=== PATIENT | female | born 1940 | race Caucasian/White ===

== ENCOUNTER 2022-06-01 10:30 | Outpatient (RCR) | payer MEDICARE, OTHER, SELFPAY ==
--- NOTE | 2022-03-09 19:37 | PT.OPEX ---
PT [place] Outpatient Eval PT [facility] Outpatient Eval Start: 03/09/22 15:54 Freq: Status: Active Protocol: Document 03/09/22 15:54 NMK (Rec: 03/09/22 17:13 NMK [id number]) E-Signed By Aramis Lindsey DPT Physical Therapy Outpatient Evaluation Insurance Information Recert Due Date 06/01/22 Insurance Name Medicare B Medical Diagnosis Other abnormalities of gait and mobility; Multifactorial gait disorder Treating Diagnosis Generalized weakness; Physical Deconditioning; Impaired balance Referring MD Reed, Unique Starkey MD Subjective Subjective 81 y.o. female pt presents with primary c/o balance and strength issues that have been progressively worsening over the past couple of years. She has extensive cardiac history including A-fib and ablation surgery in 2019. After she went home from surgery, but woke up in the middle of the night with significant swelling in her legs due to a nicked artery in her leg and could not move her leg. Since this time, she has had issues with balance and strength in her LE. She presents today walking with a cane, and states she is always using a cane when she is at home. She is leaving alone at this time and does have difficulty getting around her home because of her weak legs and poor balance. She reports she sleeps in a lift recliner at home. Her main issues and concern at this time is that she has weakness and poor balance, and feels her walking is significantly impacted by this. PMH significant for: A-fib; Pacemaker; Arthritis, Osteoporosis PSH significant for: Ablation and pacemaker in 2019 Current Work Status Retired Precautions Treatment Precautions/Contraindications Osteoporosis; Pacemaker; A-fib Therapy Limitations/Systems Review Not Limited Objective Other/Pertinent Objective 30 STS: 8 6 MWT: 616 feet Balance Romberg WBOS: 30+ seconds Romberg WBOS + EC: 4 seconds MMT: L/R Hip flexion: 4/4 Knee extension: 5/5 Knee flexion: 4/4 Assessment Assessment/Impression Findings are consistent with a diagnosis of physical deconditioning and impaired mobility following a series of cardiac surgeries over the past couple of years. Impairments related to current health condition include decreased balance, generalized /LE weakness, and decreased activity tolerance. These impairments contribute to decreased capacity for performing ADL's, and current balance classifies her as a high fall risk at this time. Examination of body systems including structures, functions, activity limitations and participation restrictions have been addressed. Skilled PT is recommended in order to improve the patient's mobility and restore their baseline level of function. Within session patient tolerating generalized exercises with reports of fatigue throughout. Primary Functional Limitations Walking, transfers Plan of Care Rehabilitation Potential Fair Physical Therapy Goals At or before 06/01/2022... 1. Pt will walk for 20 minutes and report no fatigue and require no rest breaks to show good improvements in her overall activity tolerance 2. Pt will demonstrate at least a 300 foot improvement in her 6MWT to show improvements in gait speed 3. Pt will improve her 30 STS score by at least 2 points to show good improvements in functional strength and endurance 4. Pt will be independent in HEP to show ability to self manage condition after discharge Coordination/Communication With Referral Source Treatment Plan/Direct Interventions Gait Training,Neuromuscular Re -ed,Therapeutic Activities, Therapeutic Exercises Frequency/Duration 1-2 per week for 8-12 weeks Patient Will Be Discharged From Therapy Completion of LTG(s),Skills Plateau,Independent w/HEP, Independently Progressing Evaluation Billing Untimed Code Treatment Minutes 35 Complexity Moderate Certification Information Initial Certification Date 03/09/22 Ending Certification Date 06/01/22
== END 2022-06-01 11:25 | disposition home or self-care (01) ==
PROVIDERS: PCP Internal Medicine; Visit Provider Internal Medicine
DX: R26.9 Unspecified abnormalities of gait and mobility (principal); Z51.89 Encounter for other specified aftercare
CPT/HCPCS: 97110; 97162

== ENCOUNTER 2022-07-06 10:00 | Outpatient (RCR) | payer MEDICARE, OTHER, SELFPAY | END 2022-10-18 14:13 | disposition home or self-care (01) | PROVIDERS: PCP Internal Medicine; Visit Provider Registered Nurse | DX: R26.89 Other abnormalities of gait and mobility (principal); Z51.89 Encounter for other specified aftercare | CPT/HCPCS: 97110; 97162; 97535 ==

== ENCOUNTER 2022-08-26 18:14 | Outpatient (CLI) | payer MEDICARE, OTHER, SELFPAY | END 2022-08-26 18:15 | disposition home or self-care (01) | LOC: AMB 08-27 03:06 | PROVIDERS: PCP Internal Medicine; Visit Provider Emergency Medicine Emergency Medical Services | DX: R07.89 Other chest pain (principal) | CPT/HCPCS: A0425; A0427 ==

== ENCOUNTER 2022-08-26 19:01 | Emergency (ER) | payer MEDICARE, OTHER, SELFPAY ==
[2022-08-26] VITALS (18 sets, daily range): BP systolic 129–151; BP diastolic 62–74; PULSE 69–71; RESP 18; TEMP 37.6; O2SAT 86–95; BMI 27.4
--- NOTE | 2022-08-26 19:44 | CRLHL7_ITS ---
For Patients: As a result of the Cures Act, medical imaging exams and procedure reports are released immediately into your electronic medical record. You may view this report before your referring provider. If you have questions, please contact your health care provider. INDICATION: Neck pain. TECHNIQUE: CT cervical spine without contrast. COMPARISON: None. FINDINGS: Vertebrae: Alignment is normal. There are no fractures or suspicious bony lesions. Discs and facet joints: Disc spaces are unremarkable. There is moderate diffuse facet joint spondylosis. Extraspinal findings: Prevertebral soft tissues, visualized airway, and visualized lungs are unremarkable. IMPRESSION: Diffuse facet joint spondylosis. No other specific finding to explain neck pain. Please note that all CT scans at this facility use dose modulation, iterative reconstruction, and/or weight-based dosing when appropriate to reduce radiation dose to as low as reasonably achievable. Dictated by Pj Hernandez MD @ 08/26/2022 8:45:03 PM (Electronically Signed)
--- NOTE | 2022-08-26 19:45 | ED_ITS ---
HPI - Neck Pain/Injury General Chief Complaint: Neck Injury/Pain Stated Complaint: Shoulder/Neck pain Time Seen by Provider: 08/26/22 19:32 History of Present Illness HPI Narrative: This 82-year-old female comes in reporting pain on the left side of her neck into her shoulder. This pain began about 2 days ago and has persisted and worsened since then. She does not report any specific injury event or strenuous activity. She does not have pain radiating down her left arm and does not have any midline tenderness along her spine. She states that she does have osteoporosis. Related Data Home Medications Medication Instructions Recorded Confirmed calcium carbonate 600 mg calcium 600 mg PO QDAY 07/17/22 (1,500 mg) tablet (Calcium) cholecalciferol (vitamin D3) 25 2,000 unit PO QDAY 07/17/22 07/17/22 mcg (1,000 unit) capsule multivitamin (Multiple Vitamins 1 tab PO QAM 07/17/22 07/17/22 tablet) ursodiol 250 mg tablet (GAL 250) 250 mg PO QHS 07/17/22 Previous Rx's Medication Instructions Recorded rivaroxaban 10 mg tablet (Xarelto) 10 mg PO QDAY #90 tabs 03/06/22 Allergies Allergy/AdvReac Type Severity Reaction Status Date / Time erythromycin base Allergy Unknown Unknown Verified 08/26/22 19:13 penicillin V Allergy Unknown Unknown Verified 08/26/22 19:13 Sulfa (Sulfonamide Allergy Unknown Unknown Verified 08/26/22 19:13 Antibiotics) Review of Systems Status of ROS: Reports: 10 or more systems reviewed and unremarkable except as noted in History and below Narrative: Constitutional: No fevers, no weight gain or loss. Eyes: No discharge. No vision changes. HENT: No congestion, no sore throat, no ear pain. Cardiovascular: No chest pain, no palpitations. Respiratory: No shortness of breath, no wheezes, no cough. Gastrointestinal: No abdominal pain, no vomiting, no diarrhea. Genitourinary: No dysuria, no hematuria. Musculoskeletal: Decreased range of motion of her neck due to pain. Skin: No rashes, no pruritis. Neurological: No dizziness, weakness, sensory change, speech change. Endo/Heme/Allergies: No bruising or bleeding. No polydipsia. Pysch: no suicidality, no anxiety, no insomnia. All other systems reviewed and are negative. PFSH PFSH Surgical History (Updated 05/29/22 @ 12:57 by Yulissa Judge) Cyst of ovary (1996) Hematoma following procedure (02/23/20) History of atrioventricular latoya ablation (02/20/20) History of cardiac pacemaker (02/20/20) History of cholecystectomy History of hysterectomy History of vein stripping Family History (Updated 05/29/22 @ 12:55 by Yulissa Judge) Father Colon cancer Social History Smoking Status: Never smoker Do you use any of these nicotine containing products: None Second hand tobacco smoke exposure: No How often do you have a drink containing alcohol: never How often do you have six or more drinks on one occasion: Never AUDIT-C Alcohol total score: 0 Non-prescribed substance use: denies use service: No Exam Narrative: Exam Narrative: Constitutional: Well-developed, well-nourished, no acute distress. HEENT: Normocephalic, atraumatic. Neck: Some decreased range of motion of the neck due to pain. Nontender along the midline. Heart: Regular. Paced rhythm. No murmurs. Normal rate. Intact distal pulses. Lungs: Clear to auscultation. No chest discomfort. No wheezes, rhonchi, or rales. Abdomen: Normal bowel sounds. Nontender. No rebound tenderness. Genitalia: Deferred. Back: No midline tenderness. Normal range of motion. Extremities: Normal range of motion. No injury. Skin: Intact. No rash. Warm. No erythema or pallor. Neurologic: No altered sensation. No weakness. Alert and oriented. Psychiatric: No suicidality. No anxiety or depression. No insomnia. Nursing notes and vitals signs are reviewed. Const: Vital Signs, click to edit/add: Vital Signs - 24 hr 08/26/22 19:13 08/26/22 19:17 08/26/22 19:30 Temperature 99.6 F Pulse Rate 70 69 Pulse Rate [Apical ] 69 Respiratory Rate 18 Blood Pressure Blood Pressure [Ri ght Upper Arm] 134/72 Pulse Oximetry 94 91 95 Oxygen Delivery Me thod Room Air 08/26/22 19:31 08/26/22 19:32 08/26/22 20:00 Temperature Pulse Rate 70 70 71 Pulse Rate [Apical ] Respiratory Rate Blood Pressure 145/72 H Blood Pressure [Ri ght Upper Arm] Pulse Oximetry 94 95 95 Oxygen Delivery Me thod 08/26/22 20:02 08/26/22 20:31 08/26/22 21:00 Temperature Pulse Rate 71 70 70 Pulse Rate [Apical ] Respiratory Rate Blood Pressure 148/74 H Blood Pressure [Ri ght Upper Arm] Pulse Oximetry 94 95 91 Oxygen Delivery Me thod 08/26/22 21:01 Temperature Pulse Rate 70 Pulse Rate [Apical ] Respiratory Rate Blood Pressure 151/69 H Blood Pressure [Ri ght Upper Arm] Pulse Oximetry 90 Oxygen Delivery Me thod Course Vital Signs Vital signs: Initial Vital Signs Temperature 99.6 F 08/26/22 19:13 Temperature Source Temporal Artery Scan 08/26/22 19:13 Pulse Rate 69 08/26/22 19:13 Pulse Rhythm 08/26/22 19:13 Respiratory Rate 18 08/26/22 19:13 Blood Pressure 134/72 08/26/22 19:13 Blood Pressure Mean 92 08/26/22 19:13 Blood Pressure Position Supine 08/26/22 19:13 Pulse Oximetry 94 08/26/22 19:13 Oxygen Delivery Method 08/26/22 19:13 Vital Signs Temperature 99.6 F 08/26/22 19:13 Pulse Rate 69 08/26/22 19:13 Respiratory Rate 18 08/26/22 19:13 Blood Pressure 134/72 08/26/22 19:13 Pulse Oximetry 94 08/26/22 19:13 Oxygen Delivery Method 08/26/22 19:13 Temperature 99.6 F 08/26/22 19:13 Pulse Rate 70 08/26/22 21:01 Respiratory Rate 18 08/26/22 19:13 Blood Pressure 151/69 H 08/26/22 21:01 Pulse Oximetry 90 08/26/22 21:01 Oxygen Delivery Method 08/26/22 19:13 MDM - Neck Pain/Injury MDM Narrative Medical decision making narrative: This patient comes in reporting severe pain in the left side of her neck. This began a couple days ago. She has taking acetaminophen 250 mg twice since this pain began. She has not taken any other medicines and comes in by ambulance because of this pain. I did do a CT scan of her cervical spine and this returns with no acute findings. She does have some degenerative changes as would be expected. This patient's pain is not radiating down her arm. She does have some decreased range of motion of her head and neck due to muscle spasm. She is okay to return home. She did receive an IV dose of Toradol 15 mg and prescription for Toradol and Flexeril. I advised her to return if pain is worsening or if she is not able to function well enough at home. Imaging Data CT C Spine: Radiologist's impression: Diffuse facet joint spondylosis. No other specific finding to explain neck pain. ECG Data Attestation: I personally reviewed and interpreted this ECG as follows: Interpretation: Ventricular paced rhythm. Rate is 71 beats per minute. There are no specific ST or T-wave abnormalities. Discharge Plan Discharge Clinical Impression: Acute neck pain Patient Disposition: Home, Self-Care Condition: Stable Additional Instructions: Take medication as needed and indicated. Increase activity as tolerated. Follow up with MD or return if worsening. Prescriptions: No Action multivitamin [Multiple Vitamins] Tablet 1 tab PO QAM Xarelto 10 mg tablet 10 mg PO QDAY Qty: 90 3RF ursodiol [GAL 250] 250 mg tablet 250 mg PO QHS calcium carbonate [Calcium 600] 600 mg calcium (1,500 mg) tablet 600 mg PO QDAY cholecalciferol (vitamin D3) 25 mcg (1,000 unit) capsule 2,000 unit PO QDAY Follow Up/Referrals: Unique Reed MD [Primary Care Provider] - Stand Alone Forms: [employer] Info Instructions
[2022-08-26] MEDS: METHYLPREDNISOLONE SOD SUCC 62.5 MG/ML (125) 125 MG IVP (19:54)
[2022-08-26] MEDS: KETOROLAC 30 MG/ML inj 15 MG IVP (22:18)
== END 2022-08-26 23:06 | disposition home or self-care (01) ==
PROVIDERS: Emergency Provider Emergency Medicine Emergency Medical Services; PCP Internal Medicine
DX: M54.2 Cervicalgia (principal)
CPT/HCPCS: 72125; 93005; 96374; 96375; 99284; J1885; J2930

== ENCOUNTER 2023-02-22 09:30 | Outpatient (RCR) | payer MEDICARE, BC, SELFPAY ==
--- NOTE | 2022-09-07 12:27 | PT.OPEX ---
PT [place] Outpatient Eval PT [facility] Outpatient Eval Start: 09/07/22 07:36 Freq: Status: Active Protocol: Document 09/07/22 07:37 ARR (Rec: 09/07/22 08:26 ARR [id number]) E-signed By GINA ZuritaT Physical Therapy Outpatient Evaluation Insurance Information Recert Due Date 12/06/22 Insurance Name Medicare B Medical Diagnosis M52.2 Cervicalgia Treating Diagnosis M52.2 Cervicalgia M48.02 cervical stenosis M54.6 thoracic spine pain Referring MD Unique Reed MD ([facility]) Subjective Subjective ER visit on 08/26/22 due to neck pain, prescribed Toradol. CT scan of CS unremarkable with degeneration per MD note. Pt reports her neck pain was severe, called 911. Couldn't move. Notes she sleeps in a recliner for the last 30 years . -Increases in pain: any movement, goes slowly. Neck movements. Rotations with driving. -Decreases in pain: a lot of heat -Location of pain: L sided neck and shoulder blade. PMHx: osteoporosis, a-fib, pacemaker on 01/2020, esopohagus stenosis, bilary cholangitis, mild cognitive impairment, Precautions Treatment Precautions/Contraindications pacemaker Objective Other/Pertinent Objective NDI 24/50 Functional Test Performed & Score Posture: inc'd TS kyhposis, and rounded shoulders, protracted scapulae. Palpation: hypersensitivity to palpation into L UT, TS and CS pararaspinals. RANGE OF MOTION UE AROM (R/L): -FF 90* bilat with compensatory UT activation Cervical AROM: Tends to rest in 15* of cervical flexion with inc'd lower CS flexion and upper CS extension due to fwd head posturing -Flx: 50* no changes in scap pain -Ext: 9* no changes in scap pain -R Rot: 40* no changes in pain -L Rot: 35* inc'd UT pain -R Sidebend: <5 -L Sidebend: <5 Other Tests: -Spurlings: increased local neck pain -Distraction: no significant changes in pain -PA segmental assessment: assessed seated hypomobility throughout CS and TS -Deep neck flexor: poor Assessment Assessment/Impression Pt is a 82 y/o female who presents with concerns of neck and scapula pain. Signs and symptoms likely indicating / consistent with discogenic referral with underlying cervical spinal stenosis secondary to severe loss of CS AROM Following capsular pattern with extension only 9* . Patient also has notable objective findings including DNF weakness, increased TS kyhposis and forward head posturing also contributing to resting head posture also likely contributing to the problem. Patient is a good candidate for skilled therapy to target deficits described above. Skilled PT intervention is necessary for use of therapeutic exercise manual therapy, neuromuscular re- education, gait training, and therapeutic activity. Functional impairments include difficulty with: driving, ADLs. See appropriate sections of PT eval for complete list of goals and POC. D/C plan and criteria is for pt to achieve the goals as listed below or until max rehab potential is met. Pt was agreeable with plan of care and goals established. 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 3) Pt will demonstrate cervical rotation AROM > 40 degrees bilat with pain not exceeding 2/10 end range for improved head turns when driving 4) Pt will report at least 60% improvement in pain/symptoms since start of PT for return to PLOF 5) Pt will demonstrate NDI score <18/50 Treatment Plan/Direct Interventions Heat,Joint Mobilization,Manual Therapy,Neuromuscular Re-ed, Therapeutic Activities, Therapeutic Exercises,Traction (Mechanical),Ultrasound Frequency/Duration 1x/wk x 10 visits in 90 days Patient Will Be Discharged From Therapy Skills [facility],Independent w/ HEP Evaluation Billing Untimed Code Treatment Minutes 20 Complexity Moderate Certification Information Initial Certification Date 09/07/22 Ending Certification Date 12/06/22 Provider Signature Shows Agreement With POC & Medical Necessity Physician Signature & Date Requested Please Sign/Date Here Physician Comment/Change : Physician NPI Number #
--- NOTE | 2022-12-14 15:30 | PT.OPDNX ---
PT [place] Outpatient Daily Note PT [facility] Outpatient Daily Note Start: 09/07/22 09:33 Freq: Status: Active Protocol: Document 12/14/22 11:50 [facility] (Rec: 12/14/22 12:39 [facility] [email or web address]) E-signed By Roney Lewis, PT PT [facility] Daily Progress Note Visit Information Note Type Daily Note,Recert/Progress Note Visit Number 9 Insurance Authorized Visits up to 15 on new POC Insurance Information Recert Due Date 12/06/22 Insurance Name Medicare B Insurance Information/Comments Eval: 09/07/22 POC 1 x 10 visits (card notes 8 visits) Medical Diagnosis M52.2 Cervicalgia Treating Diagnosis M52.2 Cervicalgia M48.02 cervical stenosis M54.6 thoracic spine pain Referring MD Unique Reed MD ([facility]) Subjective Subjective Pt was really sore for a couple of days after the last PT session, but now she thinks she is better overall. She feels like her pain is less. She still has difficulty turning head to left to view traffic. Pain Comments mild to moderate mostly on left side of neck Precautions Treatment Precautions/Contraindications pacemaker Home Exercise Home Exercise Comments Access Code: [email or web address] URL: [email or web address] Date: 10/11/2022 Prepared by: Luz Marina Fry Exercises Seated Thoracic Lumbar Extension - 2 x daily - 7 x weekly - 10 reps Seated Scapular Retraction - 2 x daily - 7 x weekly - 8-10 reps Seated Cervical Retraction - 2 x daily - 7 x weekly - 8-10 reps Seated Shoulder Row with Anchored Resistance - 1 x daily - 4-5 x weekly - 2 sets - 12-15 reps Gentle Levator Scapulae Stretch - 2-3 x daily - 7 x weekly - 2 sets - 20 seconds hold Seated Upper Trapezius Stretch - 2-3 x daily - 7 x weekly - 2 sets - 20 seconds hold Objective Other/Pertinent Objective Cervical AROM: Flexion; WFL Extension: Limited 25-50%, end range pain Rotation: painful and stiff, L to ~30 deg, R to ~35 deg Cervical strength: patient with difficulty w/ sustained upright posture due to impaired cervical extensor strength endurance. Palpation: + pain left UT, cervical paraspinals and medial scap border, and R SCM Patient Instructed in Risks/Benefits Yes Therapeutic Exercise Therapeutic Exercise Minutes (minutes) 12 Therapeutic Exercise: To Restore Reviewed neck stretches and Functional Status added new ex to facilitate improved posture Access Code: [email or web address] URL: [email or web address] Date: 12/14/2022 Prepared by: Roney Lewis Exercises - Seated Cervical/Thoracic Extension with Hands Behind Neck - 2 x daily - 7 x weekly - 5 reps - 3 seconds hold - Corner Pec Major Stretch - 2 x daily - 7 x weekly - 1 sets - 2 reps - 30 seconds hold Also advised to work on static hold of upright posture, head over shoulders centered posture, for functional strengthening of cervical stabilizers. Manual Therapy Techniques Manual Therapy Minutes (minutes) 33 Manual Therapy Techniques MT: indicated for improving joint mobility, reducing tissue irritability, and improving range of motion. -Manual stretching into B neck ROT with distraction applied -Supine semi-reclined with 2 pillows for STM/TPR to L>R UT, Levators, paraspinals C and T spine - very sore L side today -gentle manual UT stretch B - very sore L side - gentle PA mobs B C-spine and CT junction, grade 1-3 - super sore at CT junction - Performed G1-2 cervical rotation mobs. Rot to left caused pain left shoulder/scap so discontinued - manual cervical traction and SOR for 20-30 sec holds Treatment Minutes Timed Code Treatment Minutes 45 Total Treatment Time 45 Billing Units Manual Therapy Units 2 Therapeutic Exercise Units 1 Assessment/Impression Assessment/Impression Haley attended her 9th session of PT for rehab of neck pain/dysfunction related to degenerative changes in her cervical spine with nerve impingement, left. While she has definitely made progress in PT, she has not met all functional goals and continues to be restricted in cervical rotation ROM which decreases her safety with driving. Pt. needs to be able to drive safely for her independence. Recommend 4-5 more PT sessions to continue to progress toward functional goals. 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 - not met yet 3) Pt will demonstrate cervical rotation AROM > 40 degrees bilat with pain not exceeding 2/10 end range for improved head turns when driving - progressing, ROT stiff not as painful 4) Pt will report at least 60% improvement in pain/symptoms since start of PT for return to PLOF - progressing 5) Pt will demonstrate NDI score <18/50 -MET Daily Plan of Care Change POC; See Comments Daily Plan of Care Comments -MT as indicated to reduce neck pain/soft tissue restrictions -neck flexor training/cervical stabilization ex posture retraining Recertification Information Initial Certification Date 12/06/22 Recertification Start Date 12/14/22 Recertification Due Date 02/13/23 Reasons to Continue Skilled Therapy Continued impairments with cervical rotation & extension, pain & stiffness in neck. L cervical muscle (upper trap, paraspinals) guarding and palpation tenderness. Rehabilitation Potential Good, pt is motivated Continued Plan of Care and Interventions skilled MT to cervical spine for improvement joint mobility and reduced soft tissue restrictions. Cervical strength/ stabilization ex Postural ex. Provider Signature Shows Agreement With POC & Medical Necessity Physician Comment/Change Comment or Changes Physician NPI Number #
--- NOTE | 2023-02-08 13:53 | PT.OPDNX ---
PT [place] [facility] Daily Note PT [facility] Daily Note Start: 09/07/22 09:33 Freq: Status: Active Protocol: Document 02/08/23 10:33 [facility] (Rec: 02/08/23 10:50 [facility] [id number]) E-signed By Roney Lewis, PT PT OP Daily Progress Note Visit Information Note Type Recert/Progress Note Visit Number 13 Insurance Authorized Visits up to 15 on new POC Insurance Information Recert Due Date 02/05/23 Insurance Name Medicare B Insurance Information/Comments Eval: 09/07/22 POC 1 x 10 visits (card notes 8 visits) Medical Diagnosis M52.2 Cervicalgia Treating Diagnosis M52.2 Cervicalgia M48.02 cervical stenosis M54.6 thoracic spine pain Referring MD Unique Reed MD ([facility]) Subjective Subjective Pt reports that she feels like she has felt some improvement in her neck/left posterior shoulder pain. Pain Comments Average 4/10 Pain is intermittent. She does have some painfree periods. Objective Other/Pertinent Objective Cervical rotation: AROM R: 55 deg L: 50 deg Patient Instructed in Risks/Benefits Yes Therapeutic Exercise Therapeutic Exercise Minutes (minutes) 15 Therapeutic Exercise: To Restore sitting at edge of chair: Functional Status overhead reach to jessie w/ deep inhalation shoulder post rolls w/ scap squeeze manually resisted rows and cervical isometrics instructed in self cervical retraction isometrics cervical rotation AROM w/ end range stretch Manual Therapy Techniques Manual Therapy Minutes (minutes) 20 Manual Therapy Techniques MT: indicated for improving joint mobility, reducing tissue irritability, and improving range of motion. -In sitting upright with arms supported on pillows comfortably perform STM/MFR/ trigger pt release to nurys (L>R ) u traps, CT psps, left posterior RTC/shoulder - G1-2, T spine C/UPAs - L shoulder oscillations and gentle stretching. Gentle pec stretching - L scapular mobs and trigger pt release of mm along medial scap border - manual cervical traction 3x10 sec holds - assisted lower cervical joint rotation application of Biofreeze at end of session, per pt request Self Care Management Training Self-Care Activity Minutes (minutes) 10 Self Care Management Training Discussed sleep positioning and pillow options for neck support. Goal for neutral spine positioning. Encouraged regular postural stretch breaks Reinforced the importance of performing HEP for postural strengthening/cervical stabilization for her ongoing pain management Treatment Minutes Timed Code Treatment Minutes 45 Total Treatment Time 45 Billing Units Manual Therapy Units 1 Self-Care Activity Units 1 Therapeutic Exercise Units 1 Assessment/Impression Assessment/Impression Haley has attended 13 of the 15 approved PT visits, however , she has not been able to complete them within the desired time frame due to scheduling conflicts. As she is making progress toward functional goals and demonstrates improved active neck ROM, I recommend an extension of the approved time frame to complete the 15 recommended PT visits. Plan of Care Physical Therapy Goals STG (within 5 visits) 1) Pt will initiate HEP without increased pain/ symptoms - met 2) Pt will tolerate progression to cervical strengthening and trinh-scap strengthening without increased pain/symptoms in order to show reduced tissue sensitivity - met LTG (within 10 visits) 1) Pt will be indep with HEP for [facility] management of pain/symptoms - not met yet 3) Pt will demonstrate cervical rotation AROM > 40 degrees bilat with pain not exceeding 2/10 end range for improved head turns when driving - progressing, ROT stiff not as painful - goal met 02/08/23 4) Pt will report at least 60% improvement in pain/symptoms since start of PT for return to PLOF - progressing toward 5) Pt will demonstrate NDI score <18/50 -MET Daily Plan of Care Change POC; See Comments Daily Plan of Care Comments -MT as indicated to reduce neck pain/soft tissue restrictions -neck flexor training/cervical stabilization ex posture retraining Recertification Information Recertification Start Date 02/05/23 Recertification Due Date 03/09/23 Reasons to Continue Skilled Therapy Continued left neck/posterior shoulder pain with functional activities, up to moderate Need for reinforcement/ progression of postural strength/cervical stabilization HEP Postural dysfunction Rehabilitation Potential Good - Pt motivated to improve , generally active 82 year old female Continued Plan of Care and Interventions Progression and reinforcement of HEP Skilled MT to reduce soft tissue irritability and improve joint mobility in cervical spine/ left shoulder Provider Signature Shows Agreement With POC & Medical Necessity Physician Comment/Change Comment or Changes Physician NPI Number #
== END 2023-06-22 23:59 | disposition home or self-care (01) ==
PROVIDERS: PCP Internal Medicine; Visit Provider Internal Medicine
DX: M54.2 Cervicalgia (principal); Z51.89 Encounter for other specified aftercare
CPT/HCPCS: 97110; 97140; 97162; 97535

== ENCOUNTER 2023-03-09 09:41 | Emergency (ER) | payer MEDICARE, BC, SELFPAY ==
[2023-03-09 09:59] VITALS: BP 146/81; PULSE 71; RESP 18; TEMP 36.1; O2SAT 97; BMI 27.8
--- NOTE | 2023-03-09 10:25 | ED.NURSE ---
Says her CPAP was not working for her Sunday night, symptoms started on Sunday.
--- NOTE | 2023-03-09 10:32 | ED_ITS ---
HPI - General Adult General Chief complaint: Shortness of Breath/Dyspnea Stated complaint: Shortness of breath Time Seen by Provider: 03/09/23 10:32 History of Present Illness HPI narrative: pt here with chest pain since yesterday AM or the night before she is not sure , pain is constant in medial chest, some SOB, pain worse with breathing 82-year-old woman presenting to the emergency department with concern of shortness of breath over the last 3 days or so. Had gone to see her primary who was going to initiate evaluation but in consultation with family decided to present to the emergency department. She is not feeling lightheaded. Does not weigh herself. Does have cardiac history of atrial fibrillation now status post implantable defibrillator and ablation. Postop complication of vascular disruption apparently in the left leg resulting in large hematoma now needing assistance with a cane. She does feel like often she can not lift her feet very well. Apparently not coughing but does note that she can produce some sputum; a little more yellow recently. Feels some chest discomfort/pain at the end of inhalation. Related Data Home Medications Medication Instructions Recorded Confirmed calcium carbonate 600 mg calcium 600 mg PO QDAY 07/17/22 03/09/23 (1,500 mg) tablet (Calcium) cholecalciferol (vitamin D3) 25 2,000 unit PO QDAY 07/17/22 03/09/23 mcg (1,000 unit) capsule multivitamin (Multiple Vitamins 1 tab PO QAM 07/17/22 03/09/23 tablet) ursodiol 250 mg tablet (GAL 250) 250 mg PO QHS 07/17/22 03/09/23 Previous Rx's Medication Instructions Recorded rivaroxaban 10 mg tablet (Xarelto) 10 mg PO QDAY #90 tabs 12/19/22 Allergies Allergy/AdvReac Type Severity Reaction Status Date / Time erythromycin base Allergy Unknown Unknown Verified 03/09/23 08:47 penicillin V Allergy Unknown Unknown Verified 03/09/23 08:47 Sulfa (Sulfonamide Allergy Unknown Unknown Verified 03/09/23 08:47 Antibiotics) Review of Systems Status of ROS: Reports: 6 or more systems reviewed and unremarkable except as noted in History and below [facility] Medical History (Updated 03/10/23 @ 18:22 by Rohith Chowdhury MD) Obstructive sleep apnea ?G47.33 - Obstructive sleep apnea (adult) (pediatric) (ICD-10) Tubular adenoma (2010) ?D36.9 - Benign neoplasm, unspecified site (ICD-10) Stenosis of esophagus ?K22.2 - Esophageal obstruction (ICD-10) 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 (ICD-10) Osteoporosis (07/19/11) ?M81.0 - Age-related osteoporosis without current pathological fracture (ICD- 10) Mild cognitive impairment (2019) ?G31.84 - Mild cognitive impairment of uncertain or unknown etiology (ICD-10) Iron deficiency anemia due to chronic blood loss ?D50.0 - Iron deficiency anemia secondary to blood loss (chronic) (ICD-10) Diverticulosis of sigmoid colon ?K57.30 - Diverticulosis of large intestine without perforation or abscess without bleeding (ICD-10) 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, not elsewhere classified (ICD-10) Atrial fibrillation ?I48.91 - Unspecified atrial fibrillation (ICD-10) Surgical History Hematoma following procedure (02/23/20) History of vein stripping ?Z98.890 - Other specified postprocedural states (ICD-10) History of hysterectomy ?Z90.710 - Acquired absence of both cervix and uterus (ICD-10) History of cholecystectomy ?Z90.49 - Acquired absence of other specified parts of digestive tract (ICD- 10) History of cardiac pacemaker (02/20/20) ?Z95.0 - Presence of cardiac pacemaker (ICD-10) History of atrioventricular latoya ablation (02/20/20) ?Z98.890 - Other specified postprocedural states (ICD-10) Cyst of ovary (1996) ?N83.209 - Unspecified ovarian cyst, unspecified side (ICD-10) Family History (Updated 05/29/22 @ 12:55 by Yulissa Judge) Father Colon cancer Social History Smoking Status: Never smoker Do you use any of these nicotine containing products: None Second hand tobacco smoke exposure: No How often do you have a drink containing alcohol: never How often do you have six or more drinks on one occasion: Never AUDIT-C Alcohol total score: 0 Non-prescribed substance use: denies use service: No Exam Narrative: Exam Narrative: Pleasant talkative with good energy. Breathing easily. Demonstrates slight discomfort with large inhalation. Diffuse trace crepitus without wheeze in her lungs. CN 2 - 12 intact. Moving all extremities without difficulty. No peripheral edema. No JVD. Well-perfused. Heart is in a regular rate and rhythm. Const: Vital Signs, click to edit/add: Vital Signs - 24 hr 03/09/23 09:59 03/09/23 11:54 03/09/23 11:59 Temperature 96.9 F L 96.8 F L Pulse Rate 81 Pulse Rate [Right Pulse Oximeter] 71 Respiratory Rate 18 20 Blood Pressure [Le ft Upper Arm] 146/81 H Pulse Oximetry 97 96 Oxygen Delivery Me thod Room Air 03/09/23 12:00 03/09/23 12:04 Temperature Pulse Rate 71 72 Pulse Rate [Right Pulse Oximeter] Respiratory Rate Blood Pressure [Le ft Upper Arm] Pulse Oximetry 96 95 Oxygen Delivery Me thod Documenting provider has reviewed patient's vital signs: yes Course Vital Signs Vital signs: Initial Vital Signs Temperature 96.9 F L 03/09/23 09:59 Temperature Source Temporal Artery Scan 03/09/23 09:59 Pulse Rate 71 03/09/23 09:59 Respiratory Rate 18 03/09/23 09:59 Blood Pressure 146/81 H 03/09/23 09:59 Blood Pressure Mean 102 03/09/23 09:59 Blood Pressure Position Sitting 03/09/23 09:59 Pulse Oximetry 97 03/09/23 09:59 Oxygen Delivery Method Room Air 03/09/23 09:59 Vital Signs Temperature 96.9 F L 03/09/23 09:59 Pulse Rate 71 03/09/23 09:59 Respiratory Rate 18 03/09/23 09:59 Blood Pressure 146/81 H 03/09/23 09:59 Pulse Oximetry 97 03/09/23 09:59 Oxygen Delivery Method Room Air 03/09/23 09:59 Temperature 96.8 F L 03/09/23 11:59 Pulse Rate 72 03/09/23 12:04 Respiratory Rate 20 03/09/23 11:59 Blood Pressure 146/81 H 03/09/23 09:59 Pulse Oximetry 95 03/09/23 12:04 Oxygen Delivery Method Room Air 07/14/23 09:59 Medical Decision Making MDM Narrative Medical decision making narrative: Differential includes exacerbation of heart failure, pneumonia, other viral process, pleuritis or pneumonitis, pneumothorax, anemia, pulmonary embolus. Did request chest x-ray which does not appear to show infiltrative process. Postoperative changes with defibrillator noted. No pneumothorax. EKG reviewed as below. labs overall reassuring. Vitals, heart rhythm and symptoms also reassuring during time of monitoring in the emergency department. The pro BNP was 860. Perhaps not unexpected. I'm not seeing significant exacerbation of heart failure here. Perhaps pneumonit is? Otherwise does have pleuritic chest symptoms of unclear etiology. At this point I think would benefit from a test round of prednisone; avoiding NSAIDs as already anticoagulated with a NOAC. Kidneys look to be functioning quite well and would handle diuresis but I'm not convinced this is necessary. See patient discharge plan. Lab Data Lab results reviewed: Yes I reviewed the patient's lab results Labs: Lab Results 03/09/23 03/09/23 03/09/23 Range/Units 10:10 11:00 12:01 WBC 7.75 (4.50-11.00) K/uL RBC 4.65 (4.00-5.20) m/uL Hgb 13.7 (12.0-16.0) gm/dL Hct 41.7 (33.0-51.0) % MCV 90 (80-100) fL MCH 30 (26-34) pg MCHC 33 (32-36) gm/dL RDW Coeff of Rach 13.2 (11.5-15.5) % Plt Count 155 (140-440) K/uL Neut % (Auto) 71.1 (42.0-72.0) % Lymph % (Auto) 14.7 L (20-44) % Yates % (Auto) 11.2 H (0.0-11.0) % Eos % (Auto) 1.7 (0.0-7.0) % Baso % (Auto) 0.4 (0.0-3.0) % Neut # (Auto) 5.51 (1.7-7.0) K/uL Lymph # (Auto) 1.10 (0.90-2.90) K/uL Yates # (Auto) 0.90 (0.00-0.90) K/UL Eos # (Auto) 0.13 (0.00-0.50) K/uL Baso # (Auto) 0.03 (0.00-0.30) K/uL Abs Immat Gran (auto) 0.07 (0.00-0.30) K/uL Imm/Tot Granulo (auto) 0.9 % D-Dimer Quant (PE/DVT) 0.55 H (0.00-0.50) ug/ml Sodium 138 (135-149) mmol/L Potassium 3.7 (3.6-5.1) mmol/L Chloride 103 (96-114) mmol/L Carbon Dioxide 29 (20-32) mmol/L BUN 19 (7-30) mg/dL Creatinine 0.5 (0.5-1.5) mg/dL Estimated Creat Clear 33.29 Estimated GFR 94 ml/min Glucose 97 (60-115) mg/dL Calcium 8.9 (8.4-10.6) mg/dL Magnesium 2.0 (1.5-2.6) mg/dL Total Bilirubin 1.5 (0.1-1.5) mg/dL Direct Bilirubin 0.3 (0.0-0.5) mg/dL AST 29 (12-35) U/L ALT 19 (4-35) U/L Alkaline Phosphatase 111 (40-150) U/L Troponin I < 0.01 L (0.01-0.04) ng/mL C-Reactive Protein 3.9 H (0.5-1.0) mg/dL NT-Pro-B Natriuret Pep 860 pg/mL Total Protein 7.1 (6.0-8.3) g/dL Albumin 4.1 (3.3-5.0) g/dL TSH 2.890 (0.270-4.20) uIU/mL SARS-CoV-2 (PCR) Negative SARS-CoV-2 (Negative) Influenza Type A (PCR) Negative PCR FLU A (Negative) Influenza Type B (PCR) Negative PCR FLU B (Negative) RSV (PCR) Negative PCR RSV (Negative) POC Troponin I 0.01 (0.01-0.04) ng/ml ECG Data Attestation: I personally reviewed and interpreted this ECG as follows: (Ventricular paced rhythm at a rate 72) Discharge Plan Discharge Clinical Impression: Dyspnea, Pleuritis Patient Disposition: Home, Self-Care Condition: Stable Additional Instructions: You seem to have some elements of pleuritic chest discomfort. Exam might suggest a little fluid in your lungs as well though not the degree that is evidenced on chest x-ray. Pneumonitis remains in the differential. You might consider checking your weight regularly a few times a week so we have a better idea of what your baseline is in case we need to assess your fluid status. Will be prescribing prednisone from [facility] for 5 days. If not improved at that point follow-up for re-evaluation. Perhaps diuresis (meaning taking a water pill) will be helpful but I am not convinced of that today. Prescriptions: No Action multivitamin [Multiple Vitamins] Tablet 1 tab PO QAM ursodiol [GAL 250] 250 mg tablet 250 mg PO QHS calcium carbonate [Calcium 600] 600 mg calcium (1,500 mg) tablet 600 mg PO QDAY cholecalciferol (vitamin D3) 25 mcg (1,000 unit) capsule 2,000 unit PO QDAY Xarelto 10 mg tablet 10 mg PO QDAY Qty: 90 2RF Follow Up/Referrals: Unique Reed MD [Primary Care Provider] - Stand Alone Forms: [employer] Info Instructions
--- NOTE | 2023-03-09 10:38 | PC.NURSE ---
pt walked to bathroom with assist of cane and nurse stand by, Dr Lynn seeing her now
--- NOTE | 2023-03-09 10:52 | CRLHL7_ITS ---
For Patients: As a result of the Century Cures Act, medical imaging exams and procedure reports are released immediately into your electronic medical record. You may view this report before your referring provider. If you have questions, please contact your health care provider. INDICATION: Dyspnea TECHNIQUE: Chest 1 view COMPARISON: 12/16/2019 FINDINGS: Cardiac silhouette is enlarged. Pacer wires are present. There is no pneumothorax or pleural effusion. No acute CHF. No dense infiltrate. IMPRESSION: No acute findings. Dictated by Rohith Holly MD @ 03/09/2023 11:15:44 AM (Electronically Signed)
[2023-03-09 10:59] LABS: Troponin, Point-of-Care* 0.01 ng/ml (0.01-0.04)
[2023-03-09 11:16] LABS: Basophils Absolute Auto 0.03 K/uL (0.00-0.30); Basophils Percent Auto 0.4 % (0.0-3.0); Eosinophils Absolute Auto 0.13 K/uL (0.00-0.50); Eosinophils Percent Auto 1.7 % (0.0-7.0); Hematocrit 41.7 % (33.0-51.0); Hemoglobin* 13.7 gm/dL (12.0-16.0); Immature Granulocytes Abs Auto 0.07 K/uL (0.00-0.30); Immature Granulocytes Pct Auto 0.9 %; Lymphocytes Percent Auto 14.7 % (20-44); Mean Corpuscular HGB Conc 33 gm/dL (32-36); Mean Corpuscular Hemoglobin 30 pg (26-34); Mean Corpuscular Volume 90 fL (80-100); Monocytes Percent Auto 11.2 % (0.0-11.0); Neutrophils Absolute Auto 5.51 K/uL (1.7-7.0); Neutrophils Percent Auto 71.1 % (42.0-72.0); Platelet Count* 155 K/uL (140-440); RDW Coefficient of Variation % 13.2 % (11.5-15.5); Red Blood Count 4.65 m/uL (4.00-5.20); White Blood Count* 7.75 K/uL (4.50-11.00)
[2023-03-09 11:19] LABS: Slide Review Reflex No
[2023-03-09 11:28] LABS: Albumin* 4.1 g/dL (3.3-5.0)
[2023-03-09 11:29] LABS: Chloride* 103 mmol/L (96-114); Sodium* 138 mmol/L (135-149)
[2023-03-09 11:30] LABS: Potassium* 3.7 mmol/L (3.6-5.1)
[2023-03-09 11:31] LABS: Bilirubin Direct* 0.3 mg/dL (0.0-0.5); Bilirubin Total* 1.5 mg/dL (0.1-1.5); Total Protein* 7.1 g/dL (6.0-8.3)
[2023-03-09 11:32] LABS: Alanine Aminotransferase* 19 U/L (4-35); Alkaline Phosphatase* 111 U/L (40-150); Aspartate Amino Transferase* 29 U/L (12-35); Creatinine* 0.5 mg/dL (0.5-1.5); Est. Creatinine Clearance* 33.29; Estimated Glomerular Filt Rate 94 ml/min
[2023-03-09 11:33] LABS: Blood Urea Nitrogen* 19 mg/dL (7-30); Calcium* 8.9 mg/dL (8.4-10.6); Carbon Dioxide* 29 mmol/L (20-32); Glucose* 97 mg/dL (60-115)
[2023-03-09 11:34] LABS: D Dimer Quantitative* 0.55 ug/ml (0.00-0.50)
[2023-03-09 11:35] LABS: C Reactive Protein* 3.9 mg/dL (0.5-1.0)
[2023-03-09 11:41] LABS: NT Pro B Type NatriureticPept* 860 pg/mL
[2023-03-09 11:54] VITALS: PULSE 81; O2SAT 96
[2023-03-09 11:59] VITALS: RESP 20; TEMP 36
[2023-03-09 12:00] VITALS: PULSE 71; O2SAT 96
--- NOTE | 2023-03-09 12:02 | ED.NURSE ---
pt ambulated and went to the bathroom independently
[2023-03-09 12:04] VITALS: PULSE 72; O2SAT 95
[2023-03-09 12:13] LABS: PCR FLU A Negative PCR FLU A (Negative); PCR FLU B Negative PCR FLU B (Negative); PCR RSV Negative PCR RSV (Negative)
[2023-03-09 12:22] LABS: SARS PCR* Negative SARS-CoV-2 (Negative)
[2023-03-09 12:52] LABS: Troponin I* < 0.01 ng/mL (0.01-0.04)
--- NOTE | 2023-03-09 13:59 | ED.NURSE ---
pt had an [facility] prescription for prednisone, for 5 days.
== END 2023-03-09 13:45 | disposition home or self-care (01) ==
PROVIDERS: Emergency Provider Family Medicine; PCP Internal Medicine
DX: R06.00 Dyspnea, unspecified (principal); R09.1 Pleurisy
CPT/HCPCS: 36415; 71045; 80048; 80076; 83735; 83880; 84443; 84484; 85025; 85379; 86140; 87631; 93005; 99284; 99285

== ENCOUNTER 2023-06-20 02:35 | Outpatient (CLI) | payer MEDICARE, BC, SELFPAY | END 2023-06-20 02:36 | disposition home or self-care (01) | LOC: AMB 07-11 11:52 | PROVIDERS: PCP Internal Medicine; Visit Provider Family Medicine | DX: S09.90XA Unspecified injury of head, initial encounter (principal); W01.0XXA Fall on same level from slipping, tripping and stumbling without subsequent striking against object, initial encounter; Y92.008 Other place in unspecified non-institutional (private) residence as the place of occurrence of the external cause | CPT/HCPCS: A0425; A0427 ==

== ENCOUNTER 2023-06-20 02:58 | Observation (INO) | payer MEDICARE, BC, SELFPAY ==
[2023-06-20] VITALS (11 sets, daily range): BP systolic 130–145; BP diastolic 61–72; PULSE 69–74; RESP 16–21; TEMP 35.6–36.3; O2SAT 94–96; BMI 28.4
--- NOTE | 2023-06-20 03:03 | CRLHL7_ITS ---
For Patients: As a result of the Century Cures Act, medical imaging exams and procedure reports are released immediately into your electronic medical record. You may view this report before your referring provider. If you have questions, please contact your health care provider. INDICATION: Injury COMPARISON: None TECHNIQUE: CT examination of the head was performed as axial sections without intravenous contrast. Images were obtained from the vertex of the skull through the skull base. Please note that all CT scans at this facility use dose modulation, iterative reconstruction, and/or weight-based dosing when appropriate to reduce radiation dose to as low as reasonably achievable. FINDINGS: The brain shows no sign of mass lesion, mass effect, hemorrhage, or edema. There are involutional changes. There is moderate cortical atrophy and there is moderate white matter disease. There is no hydrocephalus. The visualized portions of the orbits are normal in appearance. The osseous structures are normal in appearance with no sign of abnormality in the skull base or calvarium. Subcutaneous hematoma in the right frontal region. Gas within soft tissues probably due to laceration. IMPRESSION: Involutional changes. No acute intracranial posttraumatic finding. Right frontal subcutaneous hematoma/laceration. No foreign body. No calvarial fracture. Please note that all CT scans at this facility use dose modulation, iterative reconstruction, and/or weight-based dosing when appropriate to reduce radiation dose to as low as reasonably achievable. Dictated by Magdaleno Sr MD @ 06/20/2023 5:21:17 AM (Electronically Signed)
--- NOTE | 2023-06-20 03:04 | CRLHL7_ITS ---
For Patients: As a result of the Century Cures Act, medical imaging exams and procedure reports are released immediately into your electronic medical record. You may view this report before your referring provider. If you have questions, please contact your health care provider. Indication: Injury Technique: A total of three views of the right knee were acquired. Comparison: None Findings: Bones: Demineralized osseous structures. Longitudinally oriented fracture through the lateral patellar facet. Maximum displacement is about 2.2 millimeters Joint spaces: No dislocation. Fat fluid level within the joint space due to the fracture. Mild arthritic changes Soft tissues: No gas within soft tissues. No radiopaque foreign body. Impression: Longitudinally oriented fracture through the lateral patellar facet Dictated by Magdaleno Sr MD @ 06/20/2023 5:22:56 AM (Electronically Signed)
--- NOTE | 2023-06-20 03:05 | ED.GENADULT ---
HPI - General Adult General Chief complaint: Fall/Minor Trauma Stated complaint: Trauma-Fall Time Seen by Provider: 06/20/23 03:03 History of Present Illness HPI narrative: 83-year-old woman brought by EMS to this department after a fall in her garage. Trauma team activation upon arrival. [place] It sounds as though this was more of a trip and fall event; possibly over a cane. Does however have a cardiac history particularly with atrial fibrillation and is anticoagulated with rivaroxaban. She is noted to have moderate bleeding from a head wound. Denies any neck or back pain. Only other injury apparently sustained was the right knee. She is not feeling lightheaded or nauseated or dizzy and does not feel she needs anything for pain. No difficulty breathing. Medications and past medical are reviewed Related Data Home Medications Medication Instructions Recorded Confirmed calcium carbonate 600 mg calcium 600 mg PO DAILY 07/17/22 06/20/23 (1,500 mg) tablet (Calcium) cholecalciferol (vitamin D3) 25 2,000 unit PO DAILY 07/17/22 06/20/23 mcg (1,000 unit) capsule multivitamin (Multiple Vitamins 1 tab PO QAM 07/17/22 06/20/23 tablet) ursodiol 250 mg tablet (GAL 250) 250 mg PO QHS 07/17/22 06/20/23 rivaroxaban 10 mg tablet (Xarelto) 10 mg PO DAILY 06/20/23 06/20/23 Allergies Allergy/AdvReac Type Severity Reaction Status Date / Time erythromycin base Allergy Unknown Unknown Verified 04/05/23 15:09 penicillin V Allergy Unknown Unknown Verified 04/05/23 15:09 Sulfa (Sulfonamide Allergy Unknown Unknown Verified 04/05/23 15:09 Antibiotics) Review of Systems Status of ROS: Reports: 6 or more systems reviewed and unremarkable except as noted in History and below [facility] Medical History History of iron deficiency anemia ?Z86.2 - Personal history of diseases of the blood and blood-forming organs and certain disorders involving the immune mechanism (ICD-10) Stenosis of esophagus ?K22.2 - Esophageal obstruction (ICD-10) Surgical History Hematoma following procedure (02/23/20) History of vein stripping ?Z98.890 - Other specified postprocedural states (ICD-10) History of hysterectomy ?Z90.710 - Acquired absence of both cervix and uterus (ICD-10) History of cholecystectomy ?Z90.49 - Acquired absence of other specified parts of digestive tract (ICD-10) History of cardiac pacemaker (02/20/20) ?Z95.0 - Presence of cardiac pacemaker (ICD-10) History of atrioventricular latoya ablation (02/20/20) ?Z98.890 - Other specified postprocedural states (ICD-10) Cyst of ovary (1996) ?N83.209 - Unspecified ovarian cyst, unspecified side (ICD-10) Family History (Updated 05/29/22 @ 12:55 by Yulissa Judge) Father Colon cancer Social History Smoking Status: Never smoker Do you use any of these nicotine containing products: None Second hand tobacco smoke exposure: No How often do you have a drink containing alcohol: never How often do you have six or more drinks on one occasion: Never AUDIT-C Alcohol total score: 0 Non-prescribed substance use: denies use Little interest or pleasure in doing things: not at all Feeling down, depressed, or hopeless: not at all service: No Exam Narrative: Exam Narrative: Vitals are noted Airway open/maintained She is breathing easily conversing easily. There is losing blood at the right forehead. Hands are stained with some dried blood staining down the right side of her nose, her clothing, purse. Only source of bleeding appears to be the right forehead. GCS 15, pupils are equal and appropriately reactive, accommodating. Looks to have had lens implantation. Moving all extremities other than the right knee without difficulty. Knee appears to be a little swollen on initial evaluation through her jeans. Head is noted above with 2 cm slightly irregular horizontal laceration in the right mid forehead under overlying mild swelling. No step-off defect appreciated. Neck is supple nontender. Clavicles are nontender to palpation. She is able to sore arms up overhead without difficulty. No pain to palpation about the abdomen or pelvis. Soft. No instability appreciated. After removal of pants, left knee unremarkable. There are some varicosities on the outer aspect of the right knee. Looks to have a small anterior effusion. She is tender to palpation anteriorly. Resists bending a little bit due to pain but is able to do so. is not examined Back is without deformity or tenderness. Const: Vital Signs, click to edit/add: Vital Signs - 24 hr 06/20/23 03:15 06/20/23 03:16 06/20/23 03:20 Temperature Pulse Rate 69 71 70 Pulse Rate [Pulse Oximeter] Respiratory Rate Blood Pressure 142/72 H Blood Pressure [Le ft Upper Arm] Pulse Oximetry 96 95 95 Oxygen Delivery Me thod 06/20/23 03:22 06/20/23 07:46 Temperature 97.3 F L Pulse Rate Pulse Rate [Pulse Oximeter] 72 Respiratory Rate 18 Blood Pressure 145/65 H Blood Pressure [Le ft Upper Arm] 137/66 Pulse Oximetry 96 Oxygen Delivery Me thod Room Air Documenting provider has reviewed patient's vital signs: yes Course Vital Signs Vital signs: Initial Vital Signs Pulse Rate 69 06/20/23 03:15 Pulse Oximetry 96 06/20/23 03:15 Vital Signs Pulse Rate 69 06/20/23 03:15 Pulse Oximetry 96 06/20/23 03:15 Temperature 97.3 F L 06/20/23 07:46 Pulse Rate 72 06/20/23 07:46 Respiratory Rate 18 06/20/23 07:46 Blood Pressure 137/66 06/20/23 07:46 Pulse Oximetry 96 06/20/23 07:46 Oxygen Delivery Method Room Air 06/20/23 07:46 Medical Decision Making MDM Narrative Medical decision making narrative: Again this sounds to have been a slip and fall event. There was no loss of consciousness, she is quite lucid and able to articulate her pain locations. No loss of memory around this fall. I think we can image her head given anticoagulation and injury as well as the right knee and then reassess. CT head reviewed by me looks to be absent of any acute intracranial abnormality. Ventricles are relatively symmetrical. No apparent bleed. X-ray of the right knee three view reviewed by me shows minimally displaced patellar fracture laterally primarily in the vertical orientation. Does seem to be some small horizontal component. Return to anesthetize the right forehead wound. Placed in total about a mL of 1% lidocaine with epinephrine. Good anesthesia is achieved at least in the skin though tender to any increased pressure. This is 2 cm irregular some v shaping at the ends. Cleansed with Shur-Clens solution and sutured with total of for 5-0 Ethilon sutures, interrupted. Control of bleeding. Place antibiotic ointment and Band-Aid. She does also have some abrasions on the right 5th finger/hypothenar eminence as well. Is able to flex and extend with good strength against resistance. I do not think there is any further injury beyond abrasion here; maybe contusion. I discussed fracture with Ms. Bose. Anticipating knee immobilizer placement and follow-up with orthopedics. Did speak with Orthopedics to arrange follow-up. No further recommendations at this time. Ms. Bose is particularly concerned as she is anticipating travel for [place] and just getting around to use the bathroom. She says she has no one. Will work to mobilize and see what her needs are. <del>See</del> <del>patient</del> <del>discharge</del> <del>plan.</del> Without a ride anticipated spending the rest of the night in the emergency department. Unfortunately when attempting mobilize again has had too much pain to manage on her own. I am anticipating likely admission for PT/OT assistance and further efforts at disposition longer-term. Discharge Plan Discharge Clinical Impression: Closed head injury, Abrasion hand, Forehead laceration, Patellar fracture Patient Disposition: Admitted As Observation Condition: Stable
[2023-06-20] MEDS: ACETAMINOPHEN 500 MG TABLET 1000 MG PO (06:32)
[2023-06-20] MEDS: OXYCODONE 5 MG TABLET PO (09:30)
--- NOTE | 2023-06-20 09:43 | ED.NURSE ---
did need to place a pressure dressing on right forehead laceration. this stopped the bleeding and small bandaid was placed. she did use the commode to urinate. iv was removed per ok of dr cheema. is unable to ambulate Pt was in to see. Has no help at home. has good appetite.
--- NOTE | 2023-06-20 11:35 | ED.NURSE ---
Report was given to oli sky. will go to 278.
--- NOTE | 2023-06-20 12:31 | PC.NURSE ---
Patient belongings reviewed with race and sports book writer and second RN. Patient states she has wallet with credit cards and erickson however refused to allow staff to count with patient. When asked if she could tell staff how much money she brought stated I don't know. Offered to lock up belongings but refused. Patient stated that friend will come to hospital and pickle pumper wallet with erickson and cards.
--- NOTE | 2023-06-20 15:11 | PM.IMHP1 ---
Hospitalist- H&P: HPI History of Present Illness Time Seen by Provider: 14:30 Date Seen: 06/20/23 Chief complaint: Fall, L patella fx, mild TBI Narrative: Haley Bose is a 83 year old woman presented to the [facility] Emergency Department via EMS around 3:00 a.m. this morning. Patient reports falling in her garage while attempting to enter her home. She had just returned [place] from [place]. She believes she may have tripped over her 4 wheel walker, but does not remember specifically. Denies prodromal symptoms. Denies any focal motor neurologic deficits subsequently. Had her cell phone on her person and dialed 911 for help immediately after the incident. Did strike her head. Did have bleeding from the right frontal contusion that she sustained. Noted right knee pain and discomfort. Denies any other areas of pain. Denies the loss of any function. Denies headache, lightheadedness, nausea, vomiting, visual changes. In our emergency department it was apparent that she did not recall entirely the details of the incident. Had no apparent focal motor neurologic deficits. They monitored her for several hours and patient continue not to have any focal motor neurologic deficits. CT scan of the head obtained demonstrated no intracranial bleed, with small subcutaneous hematoma in right frontalis. X-ray of the knee demonstrated a small vertical fracture of the right patella, nondisplaced. Scalp laceration was repaired. Patient placed in a knee immobilizer. Orthopedic surgery was called to discuss the right patellar fracture and management. Orthopedic surgery recommended knee immobilizer, weight-bearing as tolerated with assistive device, and follow up with Orthopedic surgery. In the emergency department they attempted to stand her and to walker but she was unable to do so. It was determined that patient required skilled support for a period of time. She does not have family who live in the area. Patient is thus admitted for observation as an effort is made to establish a safe discharge disposition plan on her behalf. Review of Systems Status of ROS: Reports: 10 or more systems reviewed and unremarkable except as noted in History and below Narrative: No recent illness, travel, or any other trauma. Denies chest heaviness, pressure, tightness, or pain. Denies cough, dyspnea at rest, paroxysmal nocturnal dyspnea, orthopnea. Acknowledges baseline dyspnea with exertion. Denies syncope or near-syncope. Denies orthostasis, lightheadedness, or vertigo. Denies nausea, vomiting, abdominal pain, dyspepsia, dysphagia, odynophagia. Denies diarrhea or constipation. Denies dysuria, urgency, frequency, hematuria. Denies any recent febrile illness. Baseline myalgias and arthralgias including intermittent spasm of her foot when she feels too cold. No focal motor neurologic deficits. Denies visual changes, change in speech or ability to think and articulate her thoughts. Denies sensory loss. Designates her daughter, Katelynn Womack, as her power of divorce attorney for health should that be required, cell phone number [phone]. Patient unequivocally requests DNR DNI resuscitation status in the event of cardiopulmonary demise. This is been a longstanding request of hers. This is not new. 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 (ICD-10) Osteoporosis (07/19/11) ?M81.0 - Age-related osteoporosis without current pathological fracture (ICD-10) Mild cognitive impairment (2019) ?G31.84 - Mild cognitive impairment of uncertain or unknown etiology (ICD-10) Diverticulosis of sigmoid colon ?K57.30 - Diverticulosis of large intestine without perforation or abscess without bleeding (ICD-10) 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, not elsewhere classified (ICD-10) Atrial fibrillation ?I48.91 - Unspecified atrial fibrillation (ICD-10) History of iron deficiency anemia ?Z86.2 - Personal history of diseases of the blood and blood-forming organs and certain disorders involving the immune mechanism (ICD-10) Stenosis of esophagus ?K22.2 - Esophageal obstruction (ICD-10) Surgical History Hematoma following procedure (02/23/20) History of vein stripping ?Z98.890 - Other specified postprocedural states (ICD-10) History of hysterectomy ?Z90.710 - Acquired absence of both cervix and uterus (ICD-10) History of cholecystectomy ?Z90.49 - Acquired absence of other specified parts of digestive tract (ICD-10) History of cardiac pacemaker (02/20/20) ?Z95.0 - Presence of cardiac pacemaker (ICD-10) History of atrioventricular latoya ablation (02/20/20) ?Z98.890 - Other specified postprocedural states (ICD-10) Cyst of ovary (1996) ?N83.209 - Unspecified ovarian cyst, unspecified side (ICD-10) Family History (Updated 06/20/23 @ 15:35 by Ru Ibrahim MD) Father Colon cancer Grandmother No problems noted. Daughter Stroke PFO (patent foramen ovale) Mother Stroke Social History What is your current living situation?: I presently have a place to live Problems where you live: no known problems Problems where you live details: none In the past 12 months, utilities in danger of being shut off: no In past 12 months, lack of transportation kept you from medical appts, meetings, work, or getting things needed for daily living: no In the past 12 mos, have been you worried that your food would run out before you had money to buy more?: never true In the past 12 mos, the food you bought just didn't last and you didn't have money to buy more?: never true Smoking Status: Never smoker Do you use any of these nicotine containing products: None Second hand tobacco smoke exposure: No How often do you have a drink containing alcohol: never How often do you have six or more drinks on one occasion: Never AUDIT-C Alcohol total score: 0 Non-prescribed substance use: denies use Caffeine: No How often does anyone, including family, friends and others, physically hurt you: never How often does anyone, including family, friends and others, insult or talk down to you: never How often does anyone, including family, friends and others, threaten you with harm: never How often does anyone, including family, friends and others, scream or curse at you: never Little interest or pleasure in doing things: not at all Feeling down, depressed, or hopeless: not at all service: No Meds Home Medications and Allergies Home Medications Medication Instructions Recorded Confirmed Type calcium carbonate 600 mg calcium 600 mg PO DAILY 07/17/22 06/20/23 History (1,500 mg) tablet (Calcium) cholecalciferol (vitamin D3) 25 2,000 unit PO DAILY 07/17/22 06/20/23 History mcg (1,000 unit) capsule multivitamin (Multiple Vitamins 1 tab PO QAM 07/17/22 06/20/23 History tablet) ursodiol 250 mg tablet (GAL 250) 250 mg PO QHS 07/17/22 06/20/23 History rivaroxaban 10 mg tablet (Xarelto) 10 mg PO DAILY 06/20/23 06/20/23 History Allergies Allergy/AdvReac Type Severity Reaction Status Date / Time erythromycin base Allergy Unknown Unknown Verified 04/05/23 15:09 penicillin V Allergy Unknown Unknown Verified 04/05/23 15:09 Sulfa (Sulfonamide Allergy Unknown Unknown Verified 04/05/23 15:09 Antibiotics) Exam Narrative: Exam Narrative: Examined patient in her hospital room. Appears comfortable and in no acute distress. Vision and hearing are normal and adequate. Alert and oriented to self, place, time, situation. Does seem to have a lapse of memory of events immediately preceding and following the fall that she sustained earlier this morning. Not exactly sure how she tripped, only knows that she tripped over something, she believes it was her 4 wheeled walker. Friendly, cooperative, articulate. No hesitation in her thoughts and speech. Clearly able to use her cellphone without any difficulties whatsoever. Cranial nerves 3-12 are grossly normal. Pupils equally round and reactive to light and accommodation. Extraocular muscles are intact. Conjugate vision. Normal tympanic membranes bilaterally. Midline nasal septum. Dentition in fair repair. Moist buccal mucosa. Contusion and ecchymosis over right frontalis with dressing over laceration that was sutured in the emergency department. No head and neck lymphadenopathy. Neck is supple. Midline trachea. No JVD or hepatojugular reflux. No carotid bruits. Palpable pulses in upper and lower extremities. Decrease perfusion of lower extremities compared to the upper extremities. Kyphotic posture. Lungs are clear to auscultation without wheezing, rhonchi, or rales. No CVA tenderness. Heart tones with regular rhythm, normal S1-S2. PMI not laterally displaced. Abdomen with active bowel sounds, soft, nontender. No organomegaly or masses. I do not test range of motion of the right knee. Other joints are mobile and nontender in upper and lower extremities including hands and feet. Const: Vital Signs, click to edit/add: Vital Signs - 24 hr 06/20/23 03:15 06/20/23 03:16 06/20/23 03:20 Temperature Pulse Rate 69 71 70 Pulse Rate [Pulse Oximeter] Respiratory Rate Blood Pressure 142/72 H Blood Pressure [Le ft Upper Arm] Blood Pressure [Ri ght Arm] Pulse Oximetry 96 95 95 Oxygen Delivery Me thod 06/20/23 03:22 06/20/23 07:46 06/20/23 13:04 Temperature 97.3 F L 96.1 F L Pulse Rate Pulse Rate [Pulse Oximeter] 72 74 Respiratory Rate 18 20 Blood Pressure 145/65 H Blood Pressure [Le ft Upper Arm] 137/66 Blood Pressure [Ri ght Arm] 130/66 Pulse Oximetry 96 94 Oxygen Delivery Me thod Room Air Room Air Documenting provider has reviewed patient's vital signs: yes Hospitalist - H&P: Result ECG Attestation: I personally reviewed and interpreted this ECG as follows: ECG interpretation date: 06/20/23 Interpretation: I reviewed the last electrocardiogram from February 2023 which demonstrates ventricular paced rhythm. Imaging CT scan - head: Attestation: I have reviewed the pertinent imaging results. Radiologist's impression: 06/20/2023 IMPRESSION: Involutional changes. No acute intracranial posttraumatic finding. Right frontal subcutaneous hematoma/laceration. No foreign body. No calvarial fracture. Right knee x-ray: Attestation: I have reviewed the pertinent imaging results. 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 Status: Acute (2) Unstable gait: Problem comment: - baseline unstable gait for which she utilizes an assistive device - more unstable status post right patellar fracture 06/20/2023 - unable to demonstrate safely inability to transfer and ambulate status post fracture 06/20/2023, thus admit to hospital for observation and effort to establish a safe disposition plan with support from mental health social worker - physical therapy and occupational therapy consultation Status: Acute (3) Forehead laceration: Problem comment: - wound cleansed and laceration closed 06/20/2023, may remove sutures in 1 week. Status: Acute (4) Patellar fracture: Problem comment: - right knee x-ray 06/20/2023: Longitudinally oriented fracture through the lateral patellar facet - orthopedic surgery recommends knee immobilizer, weight-bearing as tolerated with use of assistive device - analgesia as needed. Status: Acute (5) Abrasion hand: Status: Acute (6) Closed head injury: Status: Acute (7) Mild TBI (traumatic brain injury): Problem comment: Loss of memory for events immediately before and after fall on 06/20/2023 Status: Acute Plan 1. Reviewed impression and plan with patient. 2. Patient requested that I speak with her daughter, Katelynn, which I did in the patient room with the patient present. Daughter initially insistent that I obtain an MRI of the brain immediately. I explained to the daughter that aside from seeming amnesia of events surrounding her fall which could be easily explained on the basis of a mild traumatic brain injury status post fall, patient has no ongoing focal motor neurologic deficits or sensory loss to suggest the need to pursue any additional imaging of the head at this time. I assured her that we will continue to monitor her mom closely and should her condition change or evolve over time that we would consider pursuing additional imaging studies beyond that. In time patient daughter was agreeable with the plan that I specified above. Daughter would like to continue to be involved in decision making to support her mother and her desires. 3. Continue with other supportive efforts as presently instituted. 4. Telemetry while in hospital for at least 24 hours. Neuro checks every 4 hours. 5. Patient and daughter agreeable to above stated plans and recommendations.
--- NOTE | 2023-06-20 15:16 | RESP.RT ---
Patient with home cpap. Equipment checked and functional.
[2023-06-20 16:01] LABS: Hemoglobin* 13.7 gm/dL (12.0-16.0)
[2023-06-20 16:07] LABS: Albumin* 4.1 g/dL (3.3-5.0)
[2023-06-20 16:08] LABS: Chloride* 107 mmol/L (96-114); Potassium* 3.5 mmol/L (3.6-5.1); Sodium* 140 mmol/L (135-149)
[2023-06-20 16:10] LABS: Alkaline Phosphatase* 124 U/L (40-150); Anion Gap 6 mEq/L (7-15); Aspartate Amino Transferase* 38 U/L (12-35); Bilirubin Total* 1.4 mg/dL (0.1-1.5); Blood Urea Nitrogen* 16 mg/dL (7-30); Carbon Dioxide* 27 mmol/L (20-32); Creatinine* 0.6 mg/dL (0.5-1.5); Est. Creatinine Clearance* 32.73; Estimated Glomerular Filt Rate 90 ml/min; Total Protein* 7.2 g/dL (6.0-8.3)
[2023-06-20 16:11] LABS: Alanine Aminotransferase* 19 U/L (4-35); Calcium* 8.9 mg/dL (8.4-10.6); Creatine Kinase* 54 U/L (41-117); Glucose* 125 mg/dL (60-115)
[2023-06-20 16:35] LABS: Lactate* 1.3 mmol/L (0.5-1.9)
[2023-06-20] MEDS: ACETAMINOPHEN 325 MG TABLET 650 MG PO (17:05)
[2023-06-20] MEDS: POTASSIUM CHLORIDE 10 MEQ CAPSULE ER 20 MEQ PO (17:06)
[2023-06-20 18:56] LABS: Appearance Urine Clear (Clear); Bilirubin Urine Negative (Negative); Blood Urine 2+ (Negative); Color Urine Yellow (Yellow); Glucose Urine Negative (Negative); Ketones Urine Negative (Negative); Leukocyte Esterase Urine 3+ (Negative); Nitrite Urine Positive (Negative); Protein Urine 1+ (Negative); Specific Gravity Urine 1.025 (1.000-1.030)
[2023-06-20] MEDS: RIVAROXABAN 10 MG TABLET PO (19:05)
[2023-06-20 19:30] LABS: Bacteria Urine Many; RBC Urine 25-50 (0-2); Squamous Epithelial Cell Urine Few (None-Few); WBC Urine 25-50 (0-5)
--- NOTE | 2023-06-20 19:36 | PC.NURSE ---
End of Shift - pt arrived on floor from ED alert, oriented, and cooperative. Neuro assessment delivered results within normal limits. Pt R knee in immobilizer with ice pack present on arrival. Dressing on R forehead clean, dry, and intact. Bruising over R eye and over R knee noted. Mild non-pitting edema present in R knee and R lower leg. Small scrape noted on lateral edge of R hand. Pt received narcotic pain medication in ED but reported not liking the way she felt and feeling out of it after taking the medication. Pt able to stand and pivot from bed to chair and from chair to bedside commode with walker, gait belt, and a standby assist. Pt denied pain at rest during shift, but reported increased discomfort with weight bearing. Pain medication options were discussed with pt and a non-narcotic pain medication was given per interventions available in MAR. Pt functionally incontinent due to limited mobility, voids into bedside commode as able. Regular diet and liquids tolerated. Pt verbalized concerns regarding medications after phone discussion with daughter. Concerns were discussed with MD and addressed per [facility] adjustments by MD and chart explanation by RN. Pt resting comfortably in bed at end of shift.
[2023-06-20] MEDS: SODIUM CHLORIDE 0.9 % (FLUSH) 10 ML SYRINGE 5 ML IVF (21:34)
[2023-06-20] MEDS: SENNOSIDES 1 TAB TABLET PO (21:34)
[2023-06-21] MEDS: ACETAMINOPHEN 325 MG TABLET 650 MG PO (00:02)
[2023-06-21 03:30] VITALS: BP 133/66; PULSE 70; RESP 20; TEMP 36.5; O2SAT 98
[2023-06-21 06:27] LABS: HCO3 VBG 27 mmol/L (21-28); Lactate* 0.8 mmol/L (0.5-1.9); PCO2 VBG 37 mmHG (40-50); PO2 VBG 61.9 mmHG (25-47); pH VBG 7.462 (7.32-7.43)
[2023-06-21 06:29] LABS: Hematocrit 38.3 % (33.0-51.0); Hemoglobin* 12.5 gm/dL (12.0-16.0); Mean Corpuscular HGB Conc 33 gm/dL (32-36); Mean Corpuscular Hemoglobin 29 pg (26-34); Mean Corpuscular Volume 90 fL (80-100); Platelet Count* 153 K/uL (140-440); Red Blood Count 4.28 m/uL (4.00-5.20); White Blood Count* 5.78 K/uL (4.50-11.00)
[2023-06-21 06:33] LABS: Slide Review Reflex No
[2023-06-21 06:47] LABS: Albumin* 3.3 g/dL (3.3-5.0); Chloride* 109 mmol/L (96-114); Sodium* 138 mmol/L (135-149)
[2023-06-21 06:50] LABS: Anion Gap 5 mEq/L (7-15); Carbon Dioxide* 24 mmol/L (20-32); Creatinine* 0.5 mg/dL (0.5-1.5); Est. Creatinine Clearance* 32.73; Estimated Glomerular Filt Rate 94 ml/min
[2023-06-21 06:51] LABS: Alanine Aminotransferase* 16 U/L (4-35); Alkaline Phosphatase* 104 U/L (40-150); Aspartate Amino Transferase* 31 U/L (12-35); Bilirubin Total* 1.2 mg/dL (0.1-1.5); Blood Urea Nitrogen* 18 mg/dL (7-30); Calcium* 8.6 mg/dL (8.4-10.6); Creatine Kinase* 45 U/L (41-117); Glucose* 96 mg/dL (60-115)
[2023-06-21 06:53] LABS: C Reactive Protein* 1.1 mg/dL (0.5-1.0)
[2023-06-21 07:33] VITALS: PULSE 70
[2023-06-21 08:00] VITALS: BP 101/34; PULSE 82; RESP 20; TEMP 36.8; O2SAT 92
--- NOTE | 2023-06-21 12:02 | PC.SOCIAL ---
Discharge planning- Received a phone call from Luz Marina in admissions at [facility] at [phone]. Pt has been accepted for admission for today. Luz Marina informs that pt has a medicare advantage plan and requires prior auth from hospital. Discussed with UR and pt does not require prior auth as she has medicare primary. Secure e-mailed insurance documentation to Luz Marina at [facility]. Verified that pt will private pay $5,000 today. Phone call to Pt's daughter (Katelynn) to provide update. Katelynn informs that pt's son (Darian) will handle the payment and admission paperwork. Darian's phone number is [phone]. Nursing will set up non-emergency transport as pt does not have family to transport. Pt asks questions about going to a SNF in [place], [place]. Pt was provided information from her brother that lives in the [facility] stating that a facility vehicle will pick her up for free and there will be no cost to the SNF. Discussed with pt the medicare guidelines for SNF's to be covered. Explained to pt that she is in observation, so she does not have a 3 night stay inpatient. Offered to gather information from [facility] to see if there are openings and the cost to provide to pt, however, since pt has been accepted to facility for today she will have to transfer to [facility]. Informed pt that she can transfer from [facility] to another facility if she choses to do so. Pt informs that her son Darian will contact the [facility] facility and get further information. Had phone call with pt and pt's son, Darian, to provide update. Provided social work contact information if there are any other questions. Completed Preadmission Screening. Confirmation #[id number]. Provided a copy to [facility] and provided update on transport time. Social work will follow up as needed.
--- NOTE | 2023-06-21 12:21 | P.DS_ITS ---
DS: Providers Provider Time Seen by Provider: 08:00 Date Seen: 06/21/23 Date of admission: 06/20/23 12:00 Primary care physician: Unique Reed MD Admitting Clinician: Ru Ibrahim MD Consults: 06/20/23 08:01 Consult to Physical Therapy [CONS] Urgent Comment: Reason(s) for PT Consult:: Evaluate Ambulation Any Restrictions?:: No Restrictions Consult to Bat Boy/Girl [CONS] Urgent Comment: Reason for Consult:: Social Service Consult 06/20/23 14:59 Consult to Physical Therapy [CONS] Routine Comment: Reason(s) for PT Consult:: Evaluate and Treat Any Restrictions?:: Wt Bearing as Tolerated Consult to Bat Boy/Girl [CONS] Routine Comment: Reason for Consult:: Discharge Planning Needs 06/20/23 15:02 Consult to Occupational Therapy [CONS] Routine Comment: Reason(s) for OT Consult:: Evaluate and Treat Any Restrictions?:: Wt Bearing as Tolerated Attending Physician on discharge: Ru Ibrahim MD Date of Discharge: 06/21/23 DS: Diagnosis Discharge Diagnosis (1) Fall: Status: Acute Problem details: - medical records director hours of 06/20/2023 (2) Unstable gait: Status: Acute Problem details: - baseline unstable gait for which she utilizes an assistive device - more unstable status post right patellar fracture 06/20/2023 - unable to demonstrate safely inability to transfer and ambulate status post fracture 06/20/2023, thus admit to hospital for observation and effort to establish a safe disposition plan with support from social worker masters - physical therapy and occupational therapy consultation (3) Closed head injury: Status: Acute (4) Mild TBI (traumatic brain injury): Status: Acute Problem details: - Loss of memory for events immediately before and after fall on 06/20/2023 - by morning of 06/21/2023 patient recalled part of the incident, she was trying to move a worm out of her pathway of walking with the end of her cane and she believes that was when she tripped and fell. (5) Forehead laceration: Status: Acute Problem details: - wound cleansed and laceration closed 06/20/2023, may remove sutures in 1 week. (6) Patellar fracture: Status: Acute Problem details: - right knee x-ray 06/20/2023: Longitudinally oriented fracture through the lateral patellar facet - orthopedic surgery recommends knee immobilizer, weight-bearing as tolerated with use of assistive device - analgesia as needed. (7) Abrasion hand: Status: Acute (8) Mild cognitive impairment: Status: Chronic Problem details: SLUMS score 23/30 when at retirement 03/15, consistent with mild functional decline (9) Primary biliary cholangitis: Status: Chronic Problem details: Nonsclerotic-stage disease, followed at [facility] yearly, on ursodiol since 1987. 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 S/p esophageal dilatation to good effect, 01/10. 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 this morning. Patient reports falling in her garage while attempting to enter her home. She had just returned home from an excursion to the [place]. She believes she may have tripped over her 4 wheel walker, but does not remember specifically. Denies prodromal symptoms. Denies any focal motor neurologic deficits subsequently. Had her cell phone on her person and dialed 911 for help immediately after the incident. Did strike her head. Did have bleeding from the right frontal contusion that she sustained. Noted right knee pain and discomfort. Denies any other areas of pain. Denies the loss of any function. Denies headache, lightheadedness, nausea, vomiting, visual changes. In our emergency department it was apparent that she did not recall entirely the details of the incident. Had no apparent focal motor neurologic deficits. They monitored her for several hours and patient continue not to have any focal motor neurologic deficits. CT scan of the head obtained demonstrated no intracranial bleed, with small subcutaneous hematoma in right frontalis. X-ray of the knee demonstrated a small vertical fracture of the right patella, nondisplaced. Scalp laceration was repaired. Patient placed in a knee immobilizer. Orthopedic surgery was called to discuss the right patellar fracture and management. Orthopedic surgery recommended knee immobilizer, weight-bearing as tolerated with assistive device, and follow up with Orthopedic surgery. In the emergency department they attempted to stand her and to walker but she was unable to do so. It was determined that patient required skilled support for a period of time. She does not have family who live in the area. Patient is thus admitted for observation as an effort is made to establish a safe discharge disposition plan on her behalf. Patient remained stable throughout the remainder of this hospitalization. No worsening of neurologic status or function. No headaches or any other new aches and pains. Neurologic function remained stable throughout hospital stay. Head laceration remain clean and dry. She started to recalls some events immediately preceding her fall on the morning that she was discharged. No cardiovascular, pulmonary, gastrointestinal, genitourinary concerns. Laboratory studies remain stable including serial hemoglobins, LFTs, renal function panels, electrolytes. Urinalysis suggests possible urinary tract infection. Positive nitrites, positive leukocyte esterase, the red blood cells and white blood cells in her urine. Urine cultures pending. Will place her on an empiric antibiotic regimen pending the urine culture results, cephalexin 250 mg p.o. q.i.d. x7 days. If urine culture results suggested need to adjust this regimen we will do so. Physical therapy and occupational therapy services assess the patient in the hospital in both determine very clearly that she is not in a condition to return to her home alone, living independently. Both Services have recommended that patient currently needs intermediate facility level of care for ongoing rehabilitation given her multiple comorbidities and current right patellar fracture warranting use of knee immobilizer. Patient was accepted at a intermediate facility in [facility], where she will continue with physical therapy and occupational therapy efforts so she can eventually return home. Our social worker masters staff coordinated this with the patient's daughter, Katelynn. Status at Discharge Functional status at discharge: uses cane/walker Overall status at discharge: patient is progressing back to baseline Time Spent with Patient Time attestation: Total time spent providing and/or coordinating discharge services: Time spent: Greater than 30 minutes Exam Narrative: Exam Narrative: Appears comfortable and in no acute distress. Vision and hearing are normal and adequate. Alert and oriented to self, place, time, situation. Her recall of the events immediately preceding her fall are slowly returning now. Friendly, cooperative, articulate. No hesitation in her thoughts and speech. Clearly able to use her cellphone without any difficulties whatsoever. Cranial nerves 3-12 are grossly normal. Pupils equally round and reactive to light and accommodation. Extraocular muscles are intact. Conjugate vision. Normal tympanic membranes bilaterally. Midline nasal septum. Dentition in fair repair. Moist buccal mucosa. Contusion and ecchymosis over right frontalis with dressing over laceration, clean and dry. No head and neck lymphadenopathy. Neck is supple. Midline trachea. No JVD or hepatojugular reflux. No carotid bruits. Palpable pulses in upper and lower extremities. Decrease perfusion of lower extremities compared to the upper extremities. Kyphotic posture. Lungs are clear to auscultation without wheezing, rhonchi, or rales. No CVA tenderness. Heart tones with regular rhythm, normal S1-S2. PMI not laterally displaced. Abdomen with active bowel sounds, soft, nontender. No organomegaly or masses. I do not test range of motion of the right knee. Other joints are mobile and nontender in upper and lower extremities including hands and feet. Const: Vital Signs, click to edit/add: Vital Signs - 24 hr 06/20/23 13:04 06/20/23 13:04 06/20/23 15:00 Temperature 96.1 F L Pulse Rate Pulse Rate [Pulse Oximeter] 74 Respiratory Rate 20 20 20 Blood Pressure [Ri ght Arm] 130/66 Pulse Oximetry 94 94 94 Oxygen Delivery Me thod Room Air Room Air Room Air 06/20/23 15:05 06/20/23 20:08 06/20/23 23:00 Temperature 97 F L Pulse Rate 70 Pulse Rate [Pulse Oximeter] 71 Respiratory Rate 16 21 Blood Pressure [Ri ght Arm] 138/69 Pulse Oximetry 96 Oxygen Delivery Me thod Room Air 06/20/23 23:00 06/20/23 23:50 06/21/23 03:30 Temperature 97.0 F L 97.7 F Pulse Rate Pulse Rate [Pulse Oximeter] 70 70 Respiratory Rate 21 20 Blood Pressure [Ri ght Arm] 135/61 133/66 Pulse Oximetry 95 95 98 Oxygen Delivery Me thod Room Air Room Air Room Air 06/21/23 07:33 06/21/23 08:00 06/21/23 08:00 Temperature Pulse Rate 70 Pulse Rate [Pulse Oximeter] 82 Respiratory Rate 20 20 Blood Pressure [Ri ght Arm] Pulse Oximetry 92 Oxygen Delivery Me thod Room Air 06/21/23 08:00 Temperature 98.3 F Pulse Rate Pulse Rate [Pulse Oximeter] 82 Respiratory Rate 20 Blood Pressure [Ri ght Arm] 101/34 L Pulse Oximetry 92 Oxygen Delivery Me thod Room Air Documenting provider has reviewed patient's vital signs: yes DS: Data Data Completed and Pending Labs on day of discharge: Labs from last 24 hours 06/21/23 06/20/23 06/20/23 06:22 Unknown 18:45 WBC 5.78 RBC 4.28 Hgb 12.5 Hct 38.3 MCV 90 MCH 29 MCHC 33 Plt Count 153 VBG pH 7.462 H VBG pCO2 37 L VBG pO2 61.9 H VBG HCO3 27 Sodium 138 Potassium 4.0 Chloride 109 Carbon Dioxide 24 Anion Gap 5 L BUN 18 Creatinine 0.5 Estimated Creat Clear 32.73 Estimated GFR 94 Glucose 96 Lactate 0.8 Calcium 8.6 Total Bilirubin 1.2 AST 31 ALT 16 Alkaline Phosphatase 104 Total Creatine Kinase 45 C-Reactive Protein 1.1 H Total Protein 6.0 Albumin 3.3 TSH Urine Color Yellow Urine Appearance Clear Urine pH 7.0 Ur Specific Mission 1.025 Urine Protein 1+ A Urine Glucose (UA) Negative Urine Ketones Negative Urine Blood 2+ A Urine Nitrite Positive A Urine Bilirubin Negative Urine Urobilinogen 4.0 A Ur Leukocyte Esterase 3+ A Urine RBC 25-50 A Urine WBC 25-50 A Ur Squamous Epith Cells Few Urine Bacteria Many A Lab Acknowledgement Test Added 06/20/23 15:42 WBC RBC Hgb 13.7 Hct MCV MCH MCHC Plt Count VBG pH VBG pCO2 VBG pO2 VBG HCO3 Sodium 140 Potassium 3.5 L Chloride 107 Carbon Dioxide 27 Anion Gap 6 L BUN 16 Creatinine 0.6 Estimated Creat Clear 32.73 Estimated GFR 90 Glucose 125 H Lactate 1.3 Calcium 8.9 Total Bilirubin 1.4 AST 38 H ALT 19 Alkaline Phosphatase 124 Total Creatine Kinase 54 C-Reactive Protein Total Protein 7.2 Albumin 4.1 TSH 2.760 Urine Color Urine Appearance Urine pH Ur Specific Mission Urine Protein Urine Glucose (UA) Urine Ketones Urine Blood Urine Nitrite Urine Bilirubin Urine Urobilinogen Ur Leukocyte Esterase Urine RBC Urine WBC Ur Squamous Epith Cells Urine Bacteria Lab Acknowledgement Preliminary micro results at discharge 06/20/23 Unknown Urine Culture - Preliminary Urine,Clean Catch Culture in Progress Imaging CT scan - head: Attestation: I have reviewed the pertinent imaging results. Radiologist's impression: IMPRESSION: Involutional changes. No acute intracranial posttraumatic finding. Right frontal subcutaneous hematoma/laceration. No foreign body. No calvarial fracture. Right knee x-ray: Attestation: I have reviewed the pertinent imaging results. Radiologist's impression: Impression: Longitudinally oriented fracture through the lateral patellar facet. Discharge Plan Discharge Disposition: [facility] Discharge Location: [facility] Date of Admission: 06/20/23 12:00 Attending Provider on Discharge: Ru Ibrahim Consulting Providers: Chava Porter Primary Care Provider: Unique Reed Condition: Stable Anticipated Discharge Date/Time: 06/21/23 11:30 Discharge Medications: New acetaminophen 325 mg Tablet 650 mg PO QID PRN30 Days Qty: 100 0RF oxycodone 5 mg Tablet 2.5 mg PO Q4H PRNQty: 10 0RF sennosides [Senna Lax] 8.6 mg Tablet 8.6 mg PO BID 30 Days Qty: 60 0RF Continued multivitamin [Multiple Vitamins] Tablet 1 tab PO QAM Xarelto 10 mg tablet 10 mg PO DAILY ursodiol [GAL 250] 250 mg tablet 250 mg PO QHS calcium carbonate [Calcium 600] 600 mg calcium (1,500 mg) tablet 600 mg PO DAILY cholecalciferol (vitamin D3) 25 mcg (1,000 unit) capsule 2,000 unit PO DAILY Discharge Orders: Discharge Order (Routine); Ordered 06/21/23 Ordered By: Ru Ibrahim Additional Instructions: Follow-up with orthopedic surgery in 5-10 days. Wear right knee immobilizer until follow-up with orthopedic surgery. Ice your right knee 3 times daily over the next 2-5 days. Use your CPAP machine every night as prescribed. Activity Level: Activity as Tolerated, Weight Bearing as Tolerated, Use Cane, Use Walker and Other Activity Detail: 1. Use right knee immobilizer and weight bearing on right leg as tolerated until follow-up with orthopedic surgery. Please make appt for Haley to see Orthopedics in one week. Discharge Diet: Regular Follow Up Appointments: Unique Reed MD [Primary Care Provider] - Forms: [facility] Info Instructions Wound Care: Forehead laceration care instructions: Sutures out on 27 June 2023. Okay to get wet but avoid soaking while sutures are in. Antibiotic ointment topically for 4 days and then to a dry bandage. Report spreading redness after 2 days, marked increase in pain, purulent drainage, fever. For further scar reduction/wound healing if desired: After scab falls or sutures are out, can apply daily vitamin e oil, emu oil or silicone-containing ointments or bandages.? in particular, protect from the sun for the first 9 - 12 months. Admit to: SNF Discharge Potential: Good Length of Stay: <30 days Can use facility standing orders?: Yes Code Status: DNR/DNI Rehab Potential: Good Therapy: Physical Therapy and Occupational Therapy Therapy Orders: Evaluate and Treat Oxygen: No Urinary Catheter: No Orders are good >30 days: Yes Signature: Ru Ibrahim
--- NOTE | 2023-06-21 13:22 | PC.NURSE ---
TOLERATING REGULAR DIET. DECLINED PAIN MEDS. UP WITH A1, WALKER AND GAIT BELT WITH KNEE IMMOBILIZER TO RIGHT LEG. SALINE LOCK DC'D. REPORT GIVEN TO RN AT [facility] AND PATIENT TRANSPORTED TO [facility] VIA NON-EMERGENT EMS.
--- NOTE | 2023-06-21 13:28 | PC.NURSE ---
FERRULER NOTIFIED [facility] STAFF OF NEW DIAGNOSIS OF UTI AND NEW PO ANTIBIOTIC PER DR. COHEN. NEW ORDERS FAXED TO [facility].
--- NOTE | 2023-06-21 16:16 | P.ORCN_ITS ---
History of Present Illness HPI Date Seen: 06/21/23 Chief complaint: Fall, L patella fx, mild TBI Narrative: Haley Bose is a very pleasant 83 year old woman who presented to the [facility] Emergency Department via EMS yesterday. Patient reports falling in her garage while attempting to enter her home. [place] She believes she may have tripped over her 4 wheel walker, but does not remember specifically. Denies prodromal symptoms. Denies any focal motor neurologic deficits subsequently. She noted right knee pain and discomfort. Denies any other areas of pain. Denies the loss of any function. Denies headache, lightheadedness, nausea, vomiting, visual changes. Haley lives alone. She was unable to go home and therefore admitted for placement at intermediate facility. Review of Systems Narrative: Patient denies nausea, vomiting, fever, chills, chest pain, shortness of breath PFSH PFSH Medical History History of iron deficiency anemia ?Z86.2 - Personal history of diseases of the blood and blood-forming organs and certain disorders involving the immune mechanism (ICD-10) Stenosis of esophagus ?K22.2 - Esophageal obstruction (ICD-10) Surgical History Hematoma following procedure (02/23/20) History of vein stripping ?Z98.890 - Other specified postprocedural states (ICD-10) History of hysterectomy ?Z90.710 - Acquired absence of both cervix and uterus (ICD-10) History of cholecystectomy ?Z90.49 - Acquired absence of other specified parts of digestive tract (ICD- 10) History of cardiac pacemaker (02/20/20) ?Z95.0 - Presence of cardiac pacemaker (ICD-10) History of atrioventricular latoya ablation (02/20/20) ?Z98.890 - Other specified postprocedural states (ICD-10) Cyst of ovary (1996) ?N83.209 - Unspecified ovarian cyst, unspecified side (ICD-10) Family History Father Colon cancer Grandmother No problems noted. Daughter Stroke PFO (patent foramen ovale) Mother Stroke Social History What is your current living situation?: I presently have a place to live Problems where you live: no known problems Problems where you live details: none In the past 12 months, utilities in danger of being shut off: no In past 12 months, lack of transportation kept you from medical appts, meetings, work, or getting things needed for daily living: no In the past 12 mos, have been you worried that your food would run out before you had money to buy more?: never true In the past 12 mos, the food you bought just didn't last and you didn't have money to buy more?: never true Smoking Status: Never smoker Do you use any of these nicotine containing products: None Second hand tobacco smoke exposure: No How often do you have a drink containing alcohol: never How often do you have six or more drinks on one occasion: Never AUDIT-C Alcohol total score: 0 Non-prescribed substance use: denies use Caffeine: No How often does anyone, including family, friends and others, physically hurt you : never How often does anyone, including family, friends and others, insult or talk down to you: never How often does anyone, including family, friends and others, threaten you with harm: never How often does anyone, including family, friends and others, scream or curse at you: never Little interest or pleasure in doing things: not at all Feeling down, depressed, or hopeless: not at all service: No Meds Home Medications and Allergies Home Medications Medication Instructions Recorded Confirmed Type calcium carbonate 600 mg calcium 600 mg PO DAILY 07/17/22 06/20/23 History (1,500 mg) tablet (Calcium) cholecalciferol (vitamin D3) 25 2,000 unit PO DAILY 07/17/22 06/20/23 History mcg (1,000 unit) capsule multivitamin (Multiple Vitamins 1 tab PO QAM 07/17/22 06/20/23 History tablet) ursodiol 250 mg tablet (GAL 250) 250 mg PO QHS 07/17/22 06/20/23 History rivaroxaban 10 mg tablet (Xarelto) 10 mg PO DAILY 06/20/23 06/20/23 History Allergies Allergy/AdvReac Type Severity Reaction Status Date / Time erythromycin base Allergy Unknown Unknown Verified 04/05/23 15:09 penicillin V Allergy Unknown Unknown Verified 04/05/23 15:09 Sulfa (Sulfonamide Allergy Unknown Unknown Verified 04/05/23 15:09 Antibiotics) Ortho Exam Narrative Exam Narrative: Alert and oriented x3. Patient is in no acute distress. Converses without labored breathing. Hearing is grossly intact. Ambulates with a assistive device and knee immobilizer on right lower extremity. Examination the right lower extremity shows no erythema or warmth or sign of infection. Effusion is present. Mild soft tissue edema. Tenderness over the patella. Nontender elsewhere, right lower extremity. Right calf is soft and nontender. CMS is intact right lower extremity. Const Vital Signs, click to edit/add: Vital Signs - 24 hr 06/20/23 20:08 06/20/23 23:00 06/20/23 23:00 Temperature 97 F L Pulse Rate Pulse Rate [Pulse Oximeter] 71 Respiratory Rate 16 21 Blood Pressure [Right Arm] 138/69 Pulse Oximetry 96 95 Oxygen Delivery Method Room Air Room Air 06/20/23 23:50 06/21/23 03:30 06/21/23 07:33 Temperature 97.0 F L 97.7 F Pulse Rate 70 Pulse Rate [Pulse Oximeter] 70 70 Respiratory Rate 21 20 Blood Pressure [Right Arm] 135/61 133/66 Pulse Oximetry 95 98 Oxygen Delivery Method Room Air Room Air 06/21/23 08:00 06/21/23 08:00 06/21/23 08:00 Temperature 98.3 F Pulse Rate Pulse Rate [Pulse Oximeter] 82 82 Respiratory Rate 20 20 20 Blood Pressure [Right Arm] 101/34 L Pulse Oximetry 92 92 Oxygen Delivery Method Room Air Room Air Results Labs Labs: Laboratory Results - last 48 hr 06/20/23 06/20/23 06/20/23 15:42 18:45 Unknown WBC RBC Hgb 13.7 Hct MCV MCH MCHC Plt Count VBG pH VBG pCO2 VBG pO2 VBG HCO3 Sodium 140 Potassium 3.5 L Chloride 107 Carbon Dioxide 27 Anion Gap 6 L BUN 16 Creatinine 0.6 Estimated Creat Clear 32.73 Estimated GFR 90 Glucose 125 H Lactate 1.3 Calcium 8.9 Total Bilirubin 1.4 AST 38 H ALT 19 Alkaline Phosphatase 124 Total Creatine Kinase 54 C-Reactive Protein Total Protein 7.2 Albumin 4.1 TSH 2.760 Urine Color Yellow Urine Appearance Clear Urine pH 7.0 Ur Specific D[place]el 1.025 Urine Protein 1+ A Urine Glucose (UA) Negative Urine Ketones Negative Urine Blood 2+ A Urine Nitrite Positive A Urine Bilirubin Negative Urine Urobilinogen 4.0 A Ur Leukocyte Esterase 3+ A Urine RBC 25-50 A Urine WBC 25-50 A Ur Squamous Epith Cells Few Urine Bacteria Many A Lab Acknowledgement Test Added 06/21/23 06:22 WBC 5.78 RBC 4.28 Hgb 12.5 Hct 38.3 MCV 90 MCH 29 MCHC 33 Plt Count 153 VBG pH 7.462 H VBG pCO2 37 L VBG pO2 61.9 H VBG HCO3 27 Sodium 138 Potassium 4.0 Chloride 109 Carbon Dioxide 24 Anion Gap 5 L BUN 18 Creatinine 0.5 Estimated Creat Clear 32.73 Estimated GFR 94 Glucose 96 Lactate 0.8 Calcium 8.6 Total Bilirubin 1.2 AST 31 ALT 16 Alkaline Phosphatase 104 Total Creatine Kinase 45 C-Reactive Protein 1.1 H Total Protein 6.0 Albumin 3.3 TSH Urine Color Urine Appearance Urine pH Ur Specific [place] Urine Protein Urine Glucose (UA) Urine Ketones Urine Blood Urine Nitrite Urine Bilirubin Urine Urobilinogen Ur Leukocyte Esterase Urine RBC Urine WBC Ur Squamous Epith Cells Urine Bacteria Lab Acknowledgement Diagnostic results Additional Comments: X-rays of the right knee AP and lateral date 06/20/2023 shows Longitudinally oriented fracture through the lateral patellar facet Assessment and Plan Assessment and plan (1) Fall: Problem comment: - 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/20/2023 Status: Acute Total time spent: Total time spent is greater than 50% in coordination of care (as documented) at patient's floor/unit and/or counseling patient: (2) Unstable gait: Problem comment: - baseline unstable gait for which she utilizes an assistive device - more unstable status post right patellar fracture 06/20/2023 - unable to demonstrate safely inability to transfer and ambulate status post fracture 06/20/2023, thus admit to hospital for observation and effort to establish a safe disposition plan with support from social media assistant - physical therapy and occupational therapy consultation Status: Acute Total time spent: Total time spent is greater than 50% in coordination of care (as documented) at patient's floor/unit and/or counseling patient: (3) Closed head injury: Status: Deleted Total time spent: Total time spent is greater than 50% in coordination of care (as documented) at patient's floor/unit and/or counseling patient: (4) Abrasion hand: Status: Deleted Total time spent: Total time spent is greater than 50% in coordination of care (as documented) at patient's floor/unit and/or counseling patient: (5) Diverticulosis of sigmoid colon: Status: Deleted Total time spent: Total time spent is greater than 50% in coordination of care (as documented) at patient's floor/unit and/or counseling patient: (6) Fracture of right patella: Status: Acute Plan It is discussed with Haley that she has a fracture of the right patella that can be treated non operatively as long as the patellar fracture does not displace. For now she is in a knee immobilizer. This must be worn while ambu lating. She can weightbear as tolerated. She should use an assistive device. She is not allowed to flex the knee or work on range of motion currently. She may ice the knee unrestricted. She is on Xarelto, however there is not significant bleeding in her knee. We discussed that welling may worsen over the next week. She may also noticed bruising possibly. Tylenol and oxycodone for pain. Discontinue soon as possible. She will follow up with Orthopedics in 1 week with new x-rays. She requests Dr. Yu. She will be discharging to a intermediate facility for she lives alone. Dr. Porter has reviewed Haley's x-rays and chart as well. He agrees with non operative treatment. She is in agreement with all the above. All questions were answered. Note, dictation performed with voice recognition, and as a result, wrong word or sound like substitutions may have occurred. There may be areas in the script that have gone on detected. Please consider this when interpreting information found in the chart.
== END 2023-06-21 12:12 ==
LOC: ED 09:57 → MEDSURG 12:09
PROVIDERS: Admitting Provider Internal Medicine; Emergency Provider Family Medicine; PCP Internal Medicine; Visit Provider Internal Medicine
DX: S82.021A Displaced longitudinal fracture of right patella, initial encounter for closed fracture (principal); S01.81XA Laceration without foreign body of other part of head, initial encounter; S06.9XAA Unspecified intracranial injury with loss of consciousness status unknown, initial encounter; W18.39XA Other fall on same level, initial encounter; K74.3 Primary biliary cirrhosis; R26.81 Unsteadiness on feet; G47.33 Obstructive sleep apnea (adult) (pediatric); I48.91 Unspecified atrial fibrillation; Z95.0 Presence of cardiac pacemaker; Z79.02 Long term (current) use of antithrombotics/antiplatelets; K22.2 Esophageal obstruction; M81.0 Age-related osteoporosis without current pathological fracture; K57.30 Diverticulosis of large intestine without perforation or abscess without bleeding; N31.2 Flaccid neuropathic bladder, not elsewhere classified
CPT/HCPCS: 12001; 36415; 70450; 73562; 80053; 81001; 82550; 82803; 83605; 84443; 85018; 85027; 86140; 87086; 87186; 97110; 97116; 97162; 97166; 97530; 97535; 99284; 99285; 99291; G0378; A9270; G0390

== ENCOUNTER 2023-06-21 12:05 | Outpatient (CLI) | payer MEDICARE, BC, SELFPAY | END 2023-06-21 12:06 | disposition home or self-care (01) | LOC: AMB 06-25 12:41 | PROVIDERS: PCP Internal Medicine; Visit Provider Family Medicine | DX: S82.001S Unspecified fracture of right patella, sequela (principal); S06.9XAS Unspecified intracranial injury with loss of consciousness status unknown, sequela | CPT/HCPCS: A0425; A0428 ==

== ENCOUNTER 2023-08-17 04:55 | Outpatient (CLI) | payer MEDICARE, BC, SELFPAY | END 2023-08-17 04:56 | disposition home or self-care (01) | LOC: AMB 08-18 07:00 | PROVIDERS: PCP Internal Medicine; Visit Provider Family Medicine | DX: R04.0 Epistaxis (principal) | CPT/HCPCS: A0425; A0429 ==

== ENCOUNTER 2023-08-17 05:06 | Emergency (ER) | payer MEDICARE, BC, SELFPAY ==
[2023-08-17 05:11] VITALS: BP 147/83; PULSE 93; RESP 16; TEMP 36.6; O2SAT 96; BMI 28.3
[2023-08-17] MEDS: OXYMETAZOLINE (AFRIN) SOAK 1 EACH TOPICAL (05:35)
[2023-08-17 06:43] VITALS: BP 161/82; PULSE 77; RESP 16; TEMP 36.2; O2SAT 94
--- NOTE | 2023-08-17 06:53 | ED.EPISTAXIS ---
History of Present Illness General Date Seen: 08/17/23 Chief Complaint: Epistaxis/Nosebleed Stated Complaint: nose bleed Time Seen by Provider: 08/17/23 05:11 Source: patient Mode of arrival: EMS Limitations: no limitations History of Present Illness HPI Narrative: Patient is an 83-year-old female comes in with a nose bleed that just began in our prior to arrival. She has a history of severe nosebleeds that required cauterization on multiple occasions back in 2019. These were eventually managed at [facility] successfully. She has not had a nosebleed since. Previously they were always on the right side but two nights is on the left side. No history of trauma. Her Xarelto dose was decreased from 20 mg back to 10 mg back in 2019. She takes this for atrial fibrillation. No recent symptoms of illness. Related Data Home Medications Medication Instructions Recorded Confirmed calcium carbonate 600 mg calcium 600 mg PO DAILY 07/17/22 08/16/23 (1,500 mg) tablet (Calcium) cholecalciferol (vitamin D3) 25 2,000 unit PO DAILY 07/17/22 08/16/23 mcg (1,000 unit) capsule multivitamin (Multiple Vitamins 1 tab PO QAM 07/17/22 08/16/23 tablet) ursodiol 250 mg tablet (GAL 250) 1,000 mg PO QHS 07/26/23 08/16/23 Previous Rx's Medication Instructions Recorded acetaminophen 325 mg tablet 650 mg (2 x 325 mg) PO QID PRN 30 06/21/23 days #100 tabs rivaroxaban 10 mg tablet (Xarelto) 10 mg PO DAILY #90 tabs 07/17/23 cyclobenzaprine 5 mg tablet 5 mg PO Q8H PRN muscle spasm #30 08/10/23 tabs Allergies Allergy/AdvReac Type Severity Reaction Status Date / Time erythromycin base Allergy Unknown Unknown Verified 08/16/23 10:12 Sulfa (Sulfonamide Allergy Unknown Unknown Verified 08/16/23 10:12 Antibiotics) azithromycin AdvReac Verified 08/16/23 10:12 Penicillins AdvReac Verified 08/16/23 10:12 Review of Systems Narrative: Patient lives alone. Her family is in [place]. She does wear CPAP. No recent chest pains or shortness of breath. She has chronic pain in her knees. Review of systems in all other areas is noted to be negative. PFSH PFSH Medical History (Updated 08/17/23 @ 07:01 by Rohith Chowdhury MD) Neck Pain ?M54.2 - Cervicalgia (ICD-10) Tendinopathy of left rotator cuff ?M67.912 - Unspecified disorder of synovium and tendon, left shoulder (ICD-10) History of iron deficiency anemia ?Z86.2 - Personal history of diseases of the blood and blood-forming organs and certain disorders involving the immune mechanism (ICD-10) Stenosis of esophagus ?K22.2 - Esophageal obstruction (ICD-10) Surgical History (Updated 06/29/23 @ 08:30 by Lourdes Ramos) History of cataract surgery ?Z98.49 - Cataract extraction status, unspecified eye (ICD-10) Hematoma following procedure (02/23/20) History of vein stripping ?Z98.890 - Other specified postprocedural states (ICD-10) History of hysterectomy ?Z90.710 - Acquired absence of both cervix and uterus (ICD-10) History of cholecystectomy ?Z90.49 - Acquired absence of other specified parts of digestive tract (ICD-10) History of cardiac pacemaker (02/20/20) ?Z95.0 - Presence of cardiac pacemaker (ICD-10) History of atrioventricular latoya ablation (02/20/20) ?Z98.890 - Other specified postprocedural states (ICD-10) Cyst of ovary (1996) ?N83.209 - Unspecified ovarian cyst, unspecified side (ICD-10) Family History Father Colon cancer Grandmother No problems noted. Daughter Stroke PFO (patent foramen ovale) Mother Stroke Social History (Reviewed 07/03/23 @ 10:10 by Monica Angel ~ [facility]) What is your current living situation?: I presently have a place to live Problems where you live: no known problems Problems where you live details: none In the past 12 months, utilities in danger of being shut off: no In past 12 months, lack of transportation kept you from medical appts, meetings, work, or getting things needed for daily living: no In the past 12 mos, have been you worried that your food would run out before you had money to buy more?: never true In the past 12 mos, the food you bought just didn't last and you didn't have money to buy more?: never true Smoking Status: Never smoker Do you use any of these nicotine containing products: None Second hand tobacco smoke exposure: No How often do you have a drink containing alcohol: never How often do you have six or more drinks on one occasion: Never AUDIT-C Alcohol total score: 0 Non-prescribed substance use: denies use Caffeine: No How often does anyone, including family, friends and others, physically hurt you: never How often does anyone, including family, friends and others, insult or talk down to you: never How often does anyone, including family, friends and others, threaten you with harm: never How often does anyone, including family, friends and others, scream or curse at you: never Little interest or pleasure in doing things: not at all Feeling down, depressed, or hopeless: not at all service: No Exam Narrative: Exam Narrative: Vitals noted. HEENT: Conjunctiva clear. Tympanic membranes are pearly white bilaterally. Posterior pharynx is clear without erythema or exudate. She is actively bleeding out of her left nostril. A nasal clamp does stop the bleeding but is profuse any time the clamp is removed. Neck is supple without adenopathy, thyromegaly, carotid bruit. Lungs: Clear to auscultation in all villatoro. No wheezes, rales, rhonchi. Heart: Irregularly irregular rate and rhythm without murmur. Abdomen: Soft and nontender. No guarding, rigidity, rebound. Bowel sounds are normal. No palpable masses. Extremities: Trace edema. Skin: No abnormalities noted of the exposed skin. Neurologic: Awake, alert, fully oriented. Neurologic exam is nonfocal. Const: Vital Signs, click to edit/add: Vital Signs - 24 hr 08/17/23 05:11 08/17/23 06:43 Temperature 97.9 F 97.2 F L Pulse Rate [Pulse Oximeter] 93 77 Respiratory Rate 16 16 Blood Pressure [Ri ght Upper Arm] 147/83 H 161/82 H Pulse Oximetry 96 94 Oxygen Delivery Me thod Room Air Room Air Course Course ED Course: Patient was seen and examined. Ice and a nasal clamp have been applied. No bleeding out of the right side. Initially I sprayed and applied Afrin to her nasal mucosa and reapplied the clamps. This had minimal affect. 90% of her bleeding is anterior. A rhino rocket is then placed but within 5 minutes she is bleeding through and around this. She was fairly adamant that she wanted to be transferred to the ER at [facility] where she has been multiple times. Dr. Garland has kindly agreed to accept her in transfer. She is transferred by ground ambulance with stable vital signs. ENT is not immediately available and she refuses to wait until he is. Vital Signs Vital signs: Initial Vital Signs Temperature 97.9 F 08/17/23 05:11 Temperature Source Temporal Artery Scan 08/17/23 05:11 Pulse Rate 93 08/17/23 05:11 Respiratory Rate 16 08/17/23 05:11 Blood Pressure 147/83 H 08/17/23 05:11 Blood Pressure Mean 104 08/17/23 05:11 Blood Pressure Position Sitting 08/17/23 05:11 Pulse Oximetry 96 08/17/23 05:11 Oxygen Delivery Method Room Air 08/17/23 05:11 Vital Signs Temperature 97.9 F 08/17/23 05:11 Pulse Rate 93 08/17/23 05:11 Respiratory Rate 16 08/17/23 05:11 Blood Pressure 147/83 H 08/17/23 05:11 Pulse Oximetry 96 08/17/23 05:11 Oxygen Delivery Method Room Air 08/17/23 05:11 Temperature 97.2 F L 08/17/23 06:43 Pulse Rate 77 08/17/23 06:43 Respiratory Rate 16 08/17/23 06:43 Blood Pressure 161/82 H 08/17/23 06:43 Pulse Oximetry 94 08/17/23 06:43 Oxygen Delivery Method Room Air 08/17/23 06:43 Discharge Plan Discharge Clinical Impression: Epistaxis Patient Disposition: [facility] Condition: Stable Additional Instructions: Patient is transferred by ground ambulance to [facility] ER in [place]. Dr. Garland accepting. Prescriptions: No Action multivitamin [Multiple Vitamins] Tablet 1 tab PO QAM acetaminophen 325 mg Tablet 650 mg PO QID PRN30 Days Qty: 100 0RF calcium carbonate [Calcium 600] 600 mg calcium (1,500 mg) tablet 600 mg PO DAILY cholecalciferol (vitamin D3) 25 mcg (1,000 unit) capsule 2,000 unit PO DAILY Xarelto 10 mg tablet 10 mg PO DAILY Qty: 90 3RF ursodiol [GAL 250] 250 mg tablet 1,000 mg PO QHS cyclobenzaprine 5 mg tablet 5 mg PO Q8H PRN (Reason: muscle spasm) Qty: 30 0RF Follow Up/Referrals: Unique Reed MD [Primary Care Provider] - Stand Alone Forms: [employer] Info Instructions
--- NOTE | 2023-08-17 07:01 | PC.NURSE ---
patient assisted to change depends. transported to EMS cot
--- NOTE | 2023-08-17 07:04 | PC.NURSE ---
patient transport via EMS to [facility]
--- NOTE | 2023-08-17 07:28 | PC.NURSE ---
report to [facility] intake nurse, faxed md dictation.
== END 2023-08-17 07:18 | disposition short-term general hospital (02) ==
PROVIDERS: Emergency Provider Family Medicine; PCP Internal Medicine
DX: R04.0 Epistaxis (principal)
CPT/HCPCS: 30901; 99283

== ENCOUNTER 2023-08-17 07:05 | Outpatient (CLI) | payer MEDICARE, BC, SELFPAY | END 2023-08-17 07:06 | disposition home or self-care (01) | LOC: AMB 08-18 07:07 | PROVIDERS: PCP Internal Medicine; Visit Provider Family Medicine | DX: R04.0 Epistaxis (principal) | CPT/HCPCS: A0425; A0428; A0429 ==

== ENCOUNTER 2023-08-29 12:56 | Outpatient (CLI) | payer MEDICARE, BC, SELFPAY ==
--- OUTSIDE RECORDS SUMMARY | 2023-09-05 16:48 | XMS_ITS | Clinical Summary ---
Author Name Unknown Organization [facility] Address [address] [place] [address] Care Team Providers Care Logistic Manager Name Role Phone Elsewhere, Pcp Primary Care Provider Unavailabl e Source Comments Patient records contain information from all sites at [facility]. For routine questions regarding patient records, call [phone] during business hours, M-F 8:00 AM - 5:00 PM Central Time. Record requests for emergency care only can be directed to [phone] at any time.[facility] Allergies Active Allergy Reactions Criticality Noted Date Comments Azithromycin Other (see comments) 06/14/2011 Liver problems Erythromycin Base Other (see comments) 06/14/20 11 Liver problems Penicillin V Other (see comments) 01/04/2021 Sulfa (Sulfonamide Antibiotics) Other (see comments) 2008 Liver problems Medications Medication Sig Dispensed Refills Start Date End Date Status calcium carbonate 260 mg calcium (648 mg) tablet Take 1 tablet by mouth 2 (two) times a day. 0 12/13/2016 Active cholecalciferol (VITAMIN D3) 50 mcg (2,000 Unit) capsule Take 1 capsule by mouth daily. 0 12/25/2014 Active multivitamin tablet Take 1 tablet by mouth daily. 0 06/05/2009 Active rivaroxaban (XARELTO) 10 mg tablet Take 1 tablet (10 mg total) by mouth daily with dinner. 90 tablet 3 04/29/2021 Active acetaminophen (TYLENOL) 500 mg tablet Take 250 mg by mouth as needed for pain. 0 Active GAL 250 250 mg tablet TAKE 4 TABLETS BY MOUTH AT BEDTIME 360 tablet 3 08/07/2022 Active cyclobenzaprine (FLEXERIL) 5 mg tablet Take 5 mg by mouth every 8 (eight) hours as needed for muscle spasms. 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 A formal shared decision making interaction occurred with the patient using an evidenced based decision tool. Given the history, there is a relative contraindication to long-term Coumadin, thus left atrial appendage occlusion is a reasonable option at this time. We discussed at length her risks and benefits, she is concerned about risks of procedure but also does not want to be on a blood thinner due to her nose bleeds. This is a hard decision but with her risk of stroke per year, I would recommend she consider either blood thinner or Watchman. Flutter Atrial 02/06/2020 Thickened Toenail 12/27/2018 Patellofemoral Pain Syndrome Left 02/06/2017 Primary Osteoarthritis Knee Bilateral 02/06/2017 Urgency Urinary 01/09/2017 Atonic Bladder 10/11/2015 Incontinence Urinary Stress And Urge 12/30/2014 Supraventricular Tachycardia, Unspecified 2013 Osteoporosis 08/28/2013 Other Ovarian Cyst Left Side 07/19/2011 Diverticulosis 07/19/2011 Cholecystectomy Status Post 07/19/2011 Hysterectomy Status Post 07/19/2011 Tubular Adenoma Colon Personal History 1 Melanoma Family History 2009 Microhematuria Asymptomatic 2009 Polyp Anal 2008 Eating Disorder 01/09/2008 Dermatitis Seborrheic 07/12/2007 Keratosis Actinic 07/12/2007 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/05/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/2006 Keratosis Seborrheic 06/19/2006 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 Encounter For Checking And Testing Of Cardiac Pacemaker Pulse Generator Battery Discharge Disposition: Home or Self Care 08/21/2023 Clinical Communication Department of Cardiovascular Medicine in [place], [place] [address] [place] [phone] Interpretive NaturalistGamaliel M.D. Watchman Discussion 08/19/2023 10:43 AM MANAGER OF WAREHOUSE - 08/19/2023 4:35 PM MANAGER OF WAREHOUSE Emergency [facility] Emergency Department [address] [place] [phone] Lalitha Ayon M.D., M.S. Roger Sorenson M.D. Epistaxis (Primary Dx) Discharge Disposition: Home or Self Care 08/19/2023 Clinical Communication [facility] Emergency Department [address] [place] [phone] Cathleen Valero R.N. Follow-up 08/17/2023 8:17 AM MANAGER OF WAREHOUSE - 08/17/2023 12:56 PM MANAGER OF WAREHOUSE Emergency [facility] Emergency Department [address] [place] [address] Magdaleno Centeno M.D. Epistaxis (Primary Dx) Discharge Disposition: Home or Self Care 08/17/2023 Intake [facility] 07/31/2023 Orders Only [facility] Neelima Nj APRN, C.N.P., D.N.P., M.S.N. 07/27/2023 Clinical Communication Department of Sleep Medicine in [place], [place] [address] [place] [phone] Neelima Nj APRN, C.N.P., D.N.P., M.S.N. Med Refill 07/26/2023 CPAP Download Remote Patient Monitoring [facility] [address] [place] [address] [facility], Provider from Last 3 Months Immunizations Name Administration Dates Next Due HZV (ZOSTAVAX) 07/12/2007 HepA Adult 01/11/2005,07/11/2004 HepB Adult 01/11/2005,08/08/2004,07/11/2004 Influenza (IM) Preservative Free 2008,06/27 Influenza, Seasonal, Injectable 06/19/20 06,06/14/2005,07/11/2004,2002,07/08/2002,06/18/2001 PCV13 06/30/2015 PPSV23 07/12/2007,07/08/1986 RZV (SHINGRIX) 01/21/2019(Deferred: Other) Td, (Adult) Unspecified 06/14/2011,07/27/2000 Tdap 07/01/2012 influenza high dose (65 year s or older) (PF) 06/30/2015,06/08/2014,06/25/2013,2011,06/14/2011,06/13/2010 Family History Medical History Relation Name Comments Pancreatic cancer Brother Noble Connell at Age 64 Colon cancer Father Axel Connell at Age 69 Arthritis Mother Olga Connell in Knees Hypertension Mother Olga Connell Melanoma Mother Olga Connell at age 80 at 85 Transient ischemic attack Mother Olga Connell Liver disease Paternal Grandmother Chioma Garcias Never knew her Lung cancer Sister Patrica Pierce 2005 age 61 Other cancer Sister Patrica Pierce at a ge 61 Melanoma Son Carroll Bose 2013 at Age 49 Relation Name Status Comments Brother Noble Connell Mother Olga Connell Paternal Grandmother Chioma Garcias Sister Patrica Pierce Son Carroll Bose Social History Tobacco Use Types Packs/Day Years Used Date Smoking Tobacco: Never Smokeless Tobacco: Never Tobacco Cessation:Counseling Given: Not Answered Comments:Never ever used tobacco Alcohol Use Standard Drinks/Week Comments Never 0 (1 standard drink = 0.6 oz pur e alcohol) Humiliation, Afraid, Rape, and Kick questionnair e Answer Date Recorded Within the last year, have y ou been afraid of your partner or ex-partner? No 04/30/2022 Within the last year, have y ou been humiliated or emotionally abused in other ways by your partner or ex-partner? No Within the last year, have y ou been kicked, hit, slapped, or otherwise physically hurt by your partner or ex-partner? No 04/30/2022 Within the last year, have y ou been raped or forced to have any kind of sexual activity by your partner or ex-partner? No 04/30/2022 Social Connection and Isolat ion Panel [NHANES] Answer Date Recorded In a typical week, how many times do you talk on the phone with family, friends, or neighbors? More than three times a week 04/30/2022 How often do you get togethe r with friends or relatives? Twice a week 04/30/2022 How often do you attend chur ch or jainism services? Never 04/30/2022 Do you belong to any clubs o r organizations such as buddhism groups, unions, fraternal or athletic groups, or school groups? No 04/30/2022 How often do you attend meet ings of the clubs or organizations you belong to? 1 to 4 times per year 04/30/2022 Are you , , di vorced, , never , or living with a partner? 04/30/2022 AUDIT-C Answer Date Recorded Q1: How often do you have a drink containing alc ohol? Never 04/30/2022 Average Number of Drinks Not on file 022 Frequency of Binge Drinking Not on file 11/2021 Overall Financial Resource Strain (CARDIA) Answe r Date Recorded How hard is it for you to pa y for the very basics like food, housing, medical care, and heating? Not hard at all 04/30/2022 [facility] of Occupat ional Health - Occupational Stress Questionnaire Answer Date Recorded Do you feel stress - tense, restless, nervous, or anxious, or unable to sleep at night because your mind is troubled all the time - these days? Not at all 04/30/2022 Exercise Vital Sign Answer Date Recorde d On average, how many days pe r week do you engage in moderate to strenuous exercise (like a brisk walk)? 3 days 04/30/2022 On average, how many minutes do you engage in exercise at this level? 10 min 04/30/2022 Hunger Vital Sign Answer Date Recorded Within the past 12 months, y ou worried that your food would run out before you got the money to buy more. Never true 04/30/20 22 Within the past 12 months, t he food you bought just didn't last and you didn't have money to get more. Never true 04/30/2022 PRAPARE - Transportation Answer Date Re corded In the past 12 months, has l ack of transportation kept you from medical appointments or from getting medications? No 11/2021 In the past 12 months, has l ack of transportation kept you from meetings, work, or from getting things needed for daily living? No 04/30/2022 Housing Stability Vital Sign Answer Koby e Recorded In the last 12 months, was t here a time when you were not able to pay the mortgage or rent on time? No 04/30/2022 In the last 12 months, how many places have you lived? 1 04/30/2022 In the last 12 months, was t here a time when you did not have a steady place to sleep or slept in a mcc (including now)? No 04/30/2022 Nutrition Answer Date Recorded Nutrition: EVOO Fat Source No 04/30 On average, how many serving s of fruits and vegetables do you eat per day (serving size is equal to 1 cup or approximately the size of a tennis ball)? 2-3 04/30/2022 Dental Answer Date Recorded Dental: Regular Dentist No 04/30/20 Employment Answer Date Recorded Employment status Retired 04/30/2022 Education Answer Date Recorded What is the highest level of school you have completed or the highest degree you have received? 12th grade 12/18/2019 Sex and Gender Information Value Date Recorded Sex Assigned at Female 04/30/2022 10:29 AM CDT Gender Identity Female 01/06/2018 4:13 PM CDT Sexual Orientation Straight 01/06/2018 4: 13 PM CDT Last Filed Vital Signs Vital Sign Reading Time Taken Comments Blood Pressure 131/87 08/19/2023 4:30 PM MANAGER OF WAREHOUSE Pulse 73 08/19/2023 4:30 PM MANAGER OF WAREHOUSE Temperature 36.6 ??C (97.9 ??F) 08/19/2023 1 0:51 AM MANAGER OF WAREHOUSE Respiratory Rate 16 08/19/2023 10:5 1 AM MANAGER OF WAREHOUSE Oxygen Saturation 98% 08/19/2023 4:30 PM MANAGER OF WAREHOUSE Inhaled Oxygen Concentration - - Weight 70.3 kg (154 lb 15.7 oz) 023 10:45 AM MANAGER OF WAREHOUSE Height 158 cm (5' 2.21) 05/15/2022 11: 39 AM CDT Body Mass Index 28.16 05/15/2022 11:39 AM CDT Plan of Treatment Upcoming Encounters Date Type Department Care Team (Latest Contact Info) Description 09/07/2023 12:00 PM MANAGER OF WAREHOUSE Clinical Communication Virtual Review in [address] [address] 09/10/2023 2:00 PM MANAGER OF WAREHOUSE Telemedicine Department of Cardiovascular Medicine in [address] [phone] Jesus Neal M.D. [address] [place] [phone] Health Maintenance Due Date Last Done Comments Depression Monitoring (PHQ-9) 1941 DTaP,Tdap,and Td Vaccines (2 - Td or Tdap) 07/01/2022 07/01/2012, 06/14/2011, 06/14/2011, Additional history exists Abdominal Ultrasound 10/30/2022 05/02/2022, 05/20/2020, 01/21/2019, Additional history exists Fall Risk Screen (Annual) 08/27/2023 Hepatitis A Vaccines Completed 01/11/2005, 07/11/20 Hepatitis B Vaccines Completed 01/11/2005, 08/08/2004, 07/11/2004 Pneumococcal vaccine (65+ years) Completed 06/30/2015, 07/12/2007, 07/08/1986 Zoster Vaccines Completed 05/08/2019, 02/24, 01/21/2019, Additional history exists Colonoscopy Discontinued 01/06/2021, 12/25, 01/10/2017, Additional history exists Colorectal Cancer Surveillance Discontinued Influenza Vaccine Completed 06/11/2023, , 07/03/2021, Additional history exists COVID-19 Vaccine Completed 07/26/2023, 07/2022, 06/02/2021, Additional history exists CT Colonography Discontinued Cologuard Discontinued Medical Devices Implanted Type Area Military Exchange Wireless Manager Device Identifier Shelf Expiration Date Model / Serial / Lot Lead Ppm Capsure Fix Novus 45 - [id number] - [id number] Implanted:Qty : 1 on 02/19/2020 by Jose Slade M.D. at [facility] Cardiac Lead Medtronic 10/29/2021 [id number] / [id number] / Coil Micro Hilal [id number] - [id number] Implanted:Qty : 1 on 02/23/2020 by Jeb Whitten M.D. at [facility] Embolization Coil [employer] 01/30/2021 [id number] / / [id number] Ppm Hortencia - [id number] - [id number] Implanted:Qty : 1 on 02/19/2020 by Jose Slade M.D. at [facility] Pacemaker Medtronic 05/24/2021 [id number] / [id number] / Procedures Procedure Name Priority Date/Time Associated Diagnosis Comments PACER REMOTE FOLLOW UP Routine 08/24/2023 2:01 PM MANAGER OF WAREHOUSE Encounter For Checking And Testing Of Cardiac Pacemaker Pulse Generator Battery TROPONIN T, 2H/6H, 5TH GEN, P Timed 08/19/2023 1:33 PM MANAGER OF WAREHOUSE ECG STAT 08/19/2023 12:14 PM MANAGER OF WAREHOUSE TROPONIN T, BASELINE, 5TH GEN, P STAT 08/19/2023 11:20 AM MANAGER OF WAREHOUSE PROTHROMBIN TIME (PT), P STAT 08/19/2023 11:20 AM MANAGER OF WAREHOUSE NT-PRO B-TYPE NATRIURETIC PEPTIDE (BNP), S STAT 08/19/2023 11:20 AM MANAGER OF WAREHOUSE LACTATE, B STAT 08/19/2023 11:20 AM MANAGER OF WAREHOUSE HEPATIC FUNCTION PANEL, S STAT 08/19/2023 11:20 AM MANAGER OF WAREHOUSE CBC WITH DIFFERENTIAL, B STAT 08/19/2023 11:20 AM MANAGER OF WAREHOUSE BASIC METABOLIC PANEL, S/P STAT 08/19/2023 11:20 AM MANAGER OF WAREHOUSE PROTHROMBIN TIME (PT), P STAT 08/17/2023 10:55 AM MANAGER OF WAREHOUSE TYPE AND SCREEN STAT 08/17/2023 10:55 AM MANAGER OF WAREHOUSE BASIC METABOLIC PANEL, S/P STAT 08/17/2023 10:55 AM MANAGER OF WAREHOUSE CBC WITH DIFFERENTIAL, B STAT 08/17/2023 10:55 AM MANAGER OF WAREHOUSE from Last 3 Months Results * PACER REMOTE FOLLOW UP (08/24/2023 2:01 PM MANAGER OF WAREHOUSE) Date Time Interrogation Session [id number] [facility] Implantable Pulse Generator Military Exchange Wireless Manager [employer] [facility] Implantable Pulse Generator Model [id number] Hortencia XT DR YING [facility] Implantable Pulse Generator Serial Number [id number] [facility] Type Interrogation Session Remote [facility] Clinic Name [facility] [place] [facility] Implantable Pulse Generator Type Pacemaker [facility] Implantable Pulse Generator Implant Date 20200219 [facility] Implantable Lead Military Exchange Wireless Manager Medtronic [facility] Implantable Lead Model 4076 CapsureFix Novus MRI SureScan [facility] Implantable Lead Serial Number [id number] [facility] Implantable Lead Implant Date 20200219 [facility] Implantable Lead Polarity Type Bipolar Lead [facility] Implantable Lead Location Detail 1 UNKNOWN [facility] Implantable Lead Special Function Lead length: 45 cm [facility] Implantable Lead Location Right Atrium [facility] Implantable Lead Military Exchange Wireless Manager Medtronic [facility] Implantable Lead Model 4076 CapsureFix Novus MRI SureGroupPricean [facility] Implantable Lead Serial Number [id number] [facility] Implantable Lead Implant Date 20200219 [facility] Implantable Lead Polarity Type Bipolar Lead [facility] Implantable Lead Location Detail 1 UNKNOWN [facility] Implantable Lead Special Function Lead length: 52 cm [facility] Implantable Lead Location Right Ventricle [facility] Garry Setting Mode (NBG Code) DDDR [facility] Garry Setting Lower Rate Limit 70 {beats}/ min [facility] Garry Setting Maximum Tracking Rate 130 {beats}/ min [facility] Garry Setting Maximum Sensor Rate 130 {beats}/ min [facility] Garry Setting CASE Delay Low 150 ms [facility] Garry Setting PAV Delay Low 180 ms [facility] Garry Setting AT Mode Switch Rate 140 {beats}/ min [facility] Garry Setting AT Mode Switch Mode DDIR [facility] Lead Channel Setting Sensing Polarity Bipolar [facility] Lead Channel Setting Sensing Anode Location Right Atrium [facility] Lead Channel Setting Sensing Anode Terminal Ring [facility] Lead Channel Setting Sensing Cathode Location Right Atrium [facility] Lead Channel Setting Sensing Cathode Terminal Tip [facility] Lead Channel Setting Sensing Sensitivity 0.3 mV [facility] Lead Channel Setting Sensing Polarity Bipolar [facility] Lead Channel Setting Sensing Anode Location Right Ventricle [facility] Lead Channel Setting Sensing Anode Terminal Ring [facility] Lead Channel Setting Sensing Cathode Location Right Ventricle [facility] Lead Channel Setting Sensing Cathode Terminal Tip [facility] Lead Channel Setting Sensing Sensitivity 0.9 mV [facility] Lead Channel Setting Pacing Polarity Bipolar [facility] Lead Channel Setting Pacing Anode Location Right Atrium [facility] Lead Channel Setting Pacing Anode Terminal Ring [facility] Lead Channel Setting Sensing Cathode Location Right Atrium [facility] Lead Channel Setting Sensing Cathode Terminal Tip [facility] Lead Channel Setting Pacing Pulse Width 0.4 ms [facility] Lead Channel Setting Pacing Amplitude 1.5 V [facility] Lead Channel Setting Pacing Capture Mode Adaptive [facility] Lead Channel Setting Pacing Polarity Bipolar [facility] Lead Channel Setting Pacing Anode Location Right Ventricle [facility] Lead Channel Setting Pacing Anode Terminal Ring [facility] Lead Channel Setting Sensing Cathode Location Right Ventricle [facility] Lead Channel Setting Sensing Cathode Terminal Tip [facility] Lead Channel Setting Pacing Pulse Width 0.4 ms [facility] Lead Channel Setting Pacing Amplitude 2 V [facility] Lead Channel Setting Pacing Capture Mode Adaptive [facility] Zone Setting Type Category VF [facility] Zone Setting Type Category [place] [facility] Zone Setting Type Category [facility] Zone Setting Type Category [place] [facility] Zone Setting Detection Interval 350 ms [facility] Zone Setting Type Category ATRIAL_FIBRILLATI ON [facility] Zone Setting Type Category AT/AF [facility] Zone Setting Detection Interval 430 ms [facility] Lead Channel Impedance Value 418 ohm [facility] Lead Channel Sensing Intrinsic Amplitude 3.875 mV [facility] Lead Channel Pacing Threshold Amplitude 0.375 V [facility] Lead Channel Pacing Threshold Pulse Width 0.4 ms [facility] Lead Channel Impedance Value 532 ohm [facility] Lead Channel Sensing Intrinsic Amplitude 7.5 mV [facility] Lead Channel Pacing Threshold Amplitude 0.5 V [facility] Lead Channel Pacing Threshold Pulse Width 0.4 ms [facility] Battery Date Time of Measurements [facility] Battery RELIEF OPERATOR Trigger 2.625 [facility] Battery Remaining Longevity 111 mo [facility] Battery Voltage 3.00 [facility] Garry Statistic Date Time Start [facility] Garry Statistic Date Time End [facility] Garry Statistic RA Percent Paced 0.01 % [facility] Garry Statistic RV Percent Paced 99.96 % [facility] Atrial Tachy Statistic Date Time Start [facility] Atrial Tachy Statistic Date Time End [facility] Atrial Tachy Statistic AT/AF [place] Percent 100 % [facility] Episode Statistic Recent Count 0 [facility] Episode Statistic Type Category AT/AF [facility] Episode Statistic Recent Count 0 [facility] Episode Statistic Type Category Patient Activated [facility] Episode Statistic Recent Count 0 [facility] Episode Statistic Type Category SVT [facility] Episode Statistic Recent Count 0 [facility] Episode Statistic Type Category VT [facility] Episode Statistic Recent Count 0 [facility] Episode Statistic Type Category [facility] Episode Statistic Recent Date Time Start [facility] [facility] Episode Statistic Recent Date Time End [facility] Episode Statistic Recent Date Time Start [facility] Episode Statistic Recent Date Time End [facility] Episode Statistic Recent Date Time Start [facility] Episode Statistic Recent Date Time End [facility] Episode Statistic Recent Date Time Start [facility] Episode Statistic Recent Date Time End [facility] Episode Statistic Recent Date Time Start [facility] Episode Statistic Recent Date Time End [facility] Episode Statistic Total Count 1,087 [facility] Episode Statistic Type Category AT/AF [facility] Episode Statistic Total Count 0 [facility] Episode Statistic Type Category Patient Activated [facility] Episode Statistic Total Count 0 [facility] Episode Statistic Type Category SVT [facility] Episode Statistic Total Count 1 [facility] Episode Statistic Type Category VT [facility] Episode Statistic Total Count 0 [facility] Episode Statistic Type Category VT [facility] Episode Statistic Total Date Time Start [facility] Episode Statistic Total Date Time End [facility] Episode Statistic Total Date Time Start [facility] Episode Statistic Total Date Time End [facility] Episode Statistic Total Date Time Start [facility] Episode Statistic Total Date Time End [facility] Episode Statistic Total Date Time Start [facility] Episode Statistic Total Date Time End [facility] Episode Statistic Total Date Time Start [facility] Episode Statistic Total Date Time End [facility] Anatomical Region Laterality Modality Other 08/23/2023 8:41 PM MANAGER OF WAREHOUSE Narrative 08/29/2023 4:52 PM MANAGER OF WAREHOUSE PURPOSE OF VISIT: ??Routine quarterly remote transmission PRESENTING EGM: ??AF, ART GALLERY DIRECTOR @ 75 bpm ATRIAL ARRHYTHMIAS: 1 AT/AF episode since 05/24/2023, in progress, 100% AF burden VENTRICULAR ARRHYTHMIAS: ??None since 05/24/2023 ?PVC [place]: None since 05/24/2023 BATTERY LONGEVITY: Expected battery longevity trends reviewed and are stable and consistent with device settings and use. SUMMARY: All device function appears normal, short V-V counter is 0. FOLLOW UP: Next routine follow-up will be in 3 months via remote transmission DEVICE RN: JOAQUINA Newby Provider statement: This patient underwent device interrogation. I agree that the device interrogation was medically indicated to provide appropriate care and continue routine device interrogations as indicated. Tony Covington CV IMPLANTABLE CA RDIAC DEVICE * (ABNORMAL) Troponin T, 2h/6h, 5th Gen (08/19/2023 1:33 PM MANAGER OF WAREHOUSE) Troponin T, 2 hr, 5th gen 19(H) <=10 ng/L 08/19/2023 1:55 PM MANAGER OF WAREHOUSE ST[facility] 2H Delta -4 ng/L 08/19/2023 1:55 PM MANAGER OF WAREHOUSE STMA 2H Delta Interp Indeterminate 08/19/2023 1:55 PM MANAGER OF WAREHOUSE STMA Comment:Indeterminate delta, additional sample suggested Troponin T, 6 hr, 5th gen CANCELED ng/L 08/20/2023 11:17 AM MANAGER OF WAREHOUSE STMA Comment: Patient already discharged. Result canceled by the ancillary. 6H Delta CANCELED ng/L 08/20/2023 11:17 AM MANAGER OF WAREHOUSE STMA Comment:Result canceled by t he ancillary. 6H Delta Interp CANCELED 08/20/2023 11:17 AM MANAGER OF WAREHOUSE STMA Comment:Result canceled by t he ancillary. Blood (Blood, Venous) 08/19/2023 1:33 PM MANAGER OF WAREHOUSE 08/19/2023 1:37 PM MANAGER OF WAREHOUSE Narrative [facility] - 08/20/2023 11:17 AM MANAGER OF WAREHOUSE Specimen Information: Specimen ID: [id number] Specimen Type: Blood Specimen Collection Start Date: 08/19/2023 ??1:33 PM Specimen Received Date: 08/19/2023 ??1:37 PM Specimen ID: [id number] Specimen Type: Blood Donavan Blankenship M.D. LAB BLOOD TROPONIN [facility] [address] [place] [address], [facility] [address] [place] [address] * ECG 12 Lead (08/19/2023 12:14 PM MANAGER OF WAREHOUSE) Pathologist [facility] [place] Ventricular Rate ECG/Min 76 BPM MUSE QRSD Interval 166 ms MUSE QT Interval 486 ms MUSE QTC Interval 547 ms MUSE R [place] -85 degrees MUSE T Wave [place] 142 degrees MUSE 08/19/2023 12:1 4 PM MANAGER OF WAREHOUSE 08/20/2023 10:19 AM MANAGER OF WAREHOUSE Impressions MUSE - 08/19/2023 12:27 PM MANAGER OF WAREHOUSE Dual chamber electronic pacemaker Atrial flutter Prolonged QT When compared with ECG of 02-MAY-2022 11:28, QT has lengthened Reviewed by XIANG Murray Narrative Procedure Note Raymundo Raygoza M.D., M.P.H. - 08/20/2023 IMPRESSION: Dual chamber electronic pacemaker Atrial flutter Prolonged QT When compared with ECG of 02-MAY-2022 11:28, QT has lengthened Reviewed by XIANG Murray Donavan Blankenship M.D. ECG ORDERABLES MUSE NA * Lactate, B (08/19/2023 11:20 AM MANAGER OF WAREHOUSE) Pathologist [facility] [place] Lactate, B 1.2 0.5 - 2.2 mmol/L 08/19/2023 11:30 AM [facility]NAGER OF WAREHOUSE [facility] Blood (Blood, Venous) 08/19/2023 11:20 AM MANAGER OF WAREHOUSE 08/19/2023 11:27 AM MANAGER OF WAREHOUSE Donavan Blankenship M.D. LAB BLOOD NON ADD- ON [facility] [address] [place] [address], [facility] [address] [place] [address] * (ABNORMAL) Troponin T, Baseline, 5th gen (08/19/2023 11:20 AM MANAGER OF WAREHOUSE) Troponin T, Baseline, 5th gen 23(H) <=10 ng/L 08/19/2023 11:47 AM MANAGER OF WAREHOUSE [facility] Blood (Blood, Venous) 08/19/2023 11:20 AM MANAGER OF WAREHOUSE 08/19/2023 11:27 AM MANAGER OF WAREHOUSE Donavan Blankenship M.D. LAB BLOOD TROPONIN Performing Organization Address City/[facility]/ZIP Co de Phone Number [facility] [address] [place] [address], [facility] STMA [facility] [address] [place] [address] * (ABNORMAL) Hepatic Function Panel (08/19/2023 11:20 AM MANAGER OF WAREHOUSE) Pathologist [facility] [place] Bilirubin, Total, S 0.8 0.0 - 1.2 mg/dL 08/19/2023 12:15 PM MANAGER OF WAREHOUSE DTL Bilirubin, Direct, S 0.3 0.0 - 0.3 mg/dL 08/19/2023 12:15 PM MANAGER OF WAREHOUSE DTL Aspartate Aminotransferase (AST), S 31 8 - 43 U/L 08/19/2023 12:15 PM MANAGER OF WAREHOUSE DTL Alanine Aminotransferase (ALT), S 23 7 - 45 U/L 08/19/2023 12:15 PM MANAGER OF WAREHOUSE DTL Alkaline Phosphatase, S 127(H) 35 - 104 U/L 08/19/2023 12:15 PM MANAGER OF WAREHOUSE DTL Albumin, S 4.1 3.5 - 5.0 g/dL 08/19/2023 12:15 PM MANAGER OF WAREHOUSE DTL Protein, Total, S 6.4 6.3 - 7.9 g/dL 08/19/2023 12:15 PM MANAGER OF WAREHOUSE DTL Blood (Blood, Venous) 08/19/2023 11:20 AM MANAGER OF WAREHOUSE 08/19/2023 11:52 AM MANAGER OF WAREHOUSE Donavan Blankenship M.D. LAB BLOOD ADD-ON [facility] [address] [place] [address], [facility] DTL [facility] [address] [place] [address] * (ABNORMAL) NT-Pro B-Type Natriuretic Peptide (BNP) (08/19/2023 11:20 AM MANAGER OF WAREHOUSE) NT-Pro BNP 1244(H) <=540 pg/mL 08/19/2023 11:56 AM MANAGER OF WAREHOUSE [facility] Comment: NT-proBNP values less than 300 pg/mL have a 99% negative predictive value for excluding acute congestive heart failure. A cutoff of 1200 pg/mL for patients with an eGFR<60 yields a diagnostic sensitivity and specificity of 89% and 72% for acute congestive heart failure. A diagnostic NT-proBNP cutoff of 1800 pg/mL has been suggested in adults over 75 years of age in the absence of renal failure. Blood (Blood, Venous) 08/19/2023 11:20 AM MANAGER OF WAREHOUSE 08/19/2023 11:27 AM MANAGER OF WAREHOUSE Donavan Blankenship M.D. LAB BLOOD ADD-ON [facility] [address] [place] [address] * (ABNORMAL) Prothrombin Time (PT) (08/19/2023 11:20 AM MANAGER OF WAREHOUSE) Only the most recent of2 resultswithin the time period is included. Prothrombin Time, P 23.3(H) 9.4 - 12.5 sec 08/19/2023 11:35 AM MANAGER OF WAREHOUSE [facility] INR 2.1 0.9 - 1.1 08/19/2023 11:35 AM MANAGER OF WAREHOUSE [facility] Comment: ----ADDITIONAL INFORMATION---- Standard intensity warfarin therapeutic range: 2.0 to 3.0 ?? High intensity warfarin therapeutic range: 2.5 to 3.5 Blood (Blood, Venous) 08/19/2023 11:20 AM MANAGER OF WAREHOUSE 08/19/2023 11:27 AM MANAGER OF WAREHOUSE Donavan Blankenship M.D. LAB BLOOD ADD-ON [facility] [address] [place] [address], [facility] STMA [facility] [address] [place] [address] * (ABNORMAL) CBC with Differential, Blood (08/19/2023 11:20 AM MANAGER OF WAREHOUSE) Only the most recent of2 resultswithin the time period is included. Hemoglobin 12.2 11.6 - 15.0 g/dL 08/19/2023 11:30 AM MANAGER OF WAREHOUSE STMA Hematocrit 36.6 35.5 - 44.9 % 08/19/2023 11:30 AM MANAGER OF WAREHOUSE STMA Erythrocytes 4.14 3.92 - 5.13 x10(12)/L 08/19/2023 11:30 AM MANAGER OF WAREHOUSE ST[facility] MCV 88.4 78.2 - 97.9 fL 08/19/2023 11:30 AM MANAGER OF WAREHOUSE ST[facility] RBC Distrib Width 13.2 12.2 - 16.1 % 08/19/2023 11:30 AM MANAGER OF WAREHOUSE [facility] Platelet Count 183 157 - 371 x10(9)/L 08/19/2023 11:30 AM MANAGER OF WAREHOUSE STMA Leukocytes 8.4 3.4 - 9.6 x10(9)/L 08/19/2023 11:30 AM MANAGER OF WAREHOUSE STMA Neutrophils 6.50(H) 1.56 - 6.45 x10(9)/L 08/19/2023 11:30 AM MANAGER OF WAREHOUSE DH[facility] Lymphocytes 1.11 0.95 - 3.07 x10(9)/L 08/19/2023 11:30 AM MANAGER OF WAREHOUSE STMA Monocytes 0.67 0.26 - 0.81 x10(9)/L 08/19/2023 11:30 AM MANAGER OF WAREHOUSE STMA Eosinophils 0.07 0.03 - 0.48 x10(9)/L 08/19/2023 11:30 AM MANAGER OF WAREHOUSE STMA Basophils 0.03 0.01 - 0.08 x10(9)/L 08/19/2023 11:30 AM MANAGER OF WAREHOUSE STMA Blood (Blood, Venous) 08/19/2023 11:20 AM MANAGER OF WAREHOUSE 08/19/2023 11:27 AM MANAGER OF WAREHOUSE Donavan Blankenship M.D. LAB BLOOD ADD-ON [facility] [address] [place] [address], [facility] [address] [place] [address] [facility] [address] [place] [address] * (ABNORMAL) Basic Metabolic Panel (08/19/2023 11:20 AM MANAGER OF WAREHOUSE) Only the most recent of2 resultswithin the time period is included. Pathologist [facility] [place] Potassium, P 5.0 3.6 - 5.2 mmol/L 08/19/2023 11:43 AM MANAGER OF WAREHOUSE STMA Sodium, P 141 135 - 145 mmol/L 08/19/2023 11:43 AM MANAGER OF WAREHOUSE STMA Chloride, P 106 98 - 107 mmol/L 08/19/2023 11:43 AM MANAGER OF WAREHOUSE STMA Bicarbonate, P 27 22 - 29 mmol/L 08/19/2023 11:43 AM MANAGER OF WAREHOUSE STMA Anion Gap, P 8 7 - 15 08/19/2023 11:43 AM MANAGER OF WAREHOUSE STMA BUN (Blood Urea Nitrogen), P 28(H) 6 - 21 mg/dL 08/19/2023 11:43 AM MANAGER OF WAREHOUSE STMA Creatinine 0.67 0.59 - 1.04 mg/dL 08/19/2023 11:43 AM MANAGER OF WAREHOUSE STMA Estimated GFR (eGFR) 87 >=60 mL/min/BSA 08/19/2023 11:43 AM MANAGER OF WAREHOUSE STMA Comment: Estimated GFR calculated using the 2020 CKD_EPI creatinine equation. Calcium, Total, P 9.4 8.8 - 10.2 mg/dL 08/19/2023 11:43 AM MANAGER OF WAREHOUSE STMA Glucose, P 112 70 - 140 mg/dL 08/19/2023 11:43 AM MANAGER OF WAREHOUSE STMA Blood (Blood, Venous) 08/19/2023 11:20 AM MANAGER OF WAREHOUSE 08/19/2023 11:27 AM MANAGER OF WAREHOUSE Donavan Blankenship M.D. LAB BLOOD ADD-ON [facility] [address] [place] [address], [facility] STMA [facility] [address] [place] [address] * Type and Screen (with Reflex Antibody ID) (08/17/2023 10:55 AM MANAGER OF WAREHOUSE) ABORh O Pos Not applicable 08/17/2023 11:20 AM MANAGER OF WAREHOUSE STRM Antibody Screen Negative Negative 08/17/2023 11:36 AM MANAGER OF WAREHOUSE STRM Type & Screen Expiration 08/20/2023 23:59 08/17/2023 11:20 AM MANAGER OF WAREHOUSE STRM Testing Location [place] DEFAULT 08/17/2023 11:01 AM MANAGER OF WAREHOUSE STRM Blood (Blood, Venous) 08/17/2023 10:55 AM MANAGER OF WAREHOUSE 08/17/2023 11:01 AM MANAGER OF WAREHOUSE Kristen Ashley M.D. 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 See document viewer. Advance Directives 08/15/2011 12:00 AM Any maurice document. See document viewer. Latest Code Status on File Code Status Date Activated Date Inactivated Comments DNR/DNI 02/11/2021 1:56 PM 02/14/2021 7:12 PM Code Status History Code Status Date Activated Date Inactivated Comments Full Code 02/25/2020 12:32 PM 02/11/2021 9:08 AM Question Answer Comments Full Code: Discussed Full Code 02/23/2020 3:51 PM 02/25/2020 12:32 PM Question Answer Comments Full Code: Discussed DNR/DNI 02/20/2020 10:29 AM 02/20/2020 8:46 PM Full Code 02/20/2020 6:49 AM 02/20/2020 10:29 AM Question Answer Comments Full Code: Discussed Healthcare Agents on File Name Relationship Healthcare Agent Relationship Communication Carroll Bose Son Health Care Agent [email or web address] Katelynncourt Womack Daughter First Alternate Health Care Agent [email or web address] Care Teams Logistic Manager Relationship Specialty Start Date End Date Elsewhere, Pcp PCP - General Internal Medicine 08/19/23
--- OUTSIDE RECORDS SUMMARY | 2023-09-05 16:48 | XMS_ITS ---
Author Name Unknown Organization [facility] Address [address] [place] [address] Care Team Providers Care Firewood Cutter Name Role Phone Unavailable Unavailable Unavailable Surgery Details Not on file Complications Check Surgery Details section. Procedure Estimated Blood Loss Check Surgery Details section. Procedure Findings Check Surgery Details section. Procedure Specimens Taken Check Surgery Details section.
--- OUTSIDE RECORDS SUMMARY | 2023-09-05 16:48 | XMS_ITS | Referral Summary ---
Author Name Unknown Organization [facility] Address [address] [place] [address] Care Team Providers Care Flatware Maker Name Role Phone Elsewhere, Pcp Primary Care Provider Unavailabl e Source Comments Patient records contain information from all sites at [facility]. For routine questions regarding patient records, call [phone] during business hours, M-F 8:00 AM - 5:00 PM Central Time. Record requests for emergency care only can be directed to [phone] at any time.[facility] Encounters Date Type Department Care Team Description 08/24/2023 4:00 AM PATIENT ACCESS REGISTRAR - 08/24/2023 11:59 PM PATIENT ACCESS REGISTRAR Hospital Encounter Department of Cardiovascular Diseases in [place], [place] [address] [place] [address] Tony Nelson M.B.B.S. Encounter For Checking And Testing Of Cardiac Pacemaker Pulse Generator Battery Discharge Disposition: Home or Self Care 08/21/2023 Clinical Communication Department of Cardiovascular Medicine in [place], [place] [address] [place] [address] [employer], Liz Alston Watchman Discussion 08/19/2023 10:43 AM PATIENT ACCESS REGISTRAR - 08/19/2023 4:35 PM PATIENT ACCESS REGISTRAR Emergency [facility] Emergency Department [address] [place] [phone] Lalitha Ayon M.D., M.S. Roger Sorenson M.D. Epistaxis (Primary Dx) Discharge Disposition: Home or Self Care 08/19/2023 Clinical Communication [facility] Emergency Department [address] [place] [phone] Cathleen Valero R.N. Follow-up 08/17/2023 8:17 AM PATIENT ACCESS REGISTRAR - 08/17/2023 12:56 PM PATIENT ACCESS REGISTRAR Emergency [facility] Emergency Department [address] [place] [phone] Magdaleno Centeno M.D. Epistaxis (Primary Dx) Discharge Disposition: Home or Self Care 08/17/2023 Intake [facility] 07/31/2023 Orders Only [facility] Neelima Nj APRN, C.N.P., D.N.P., M.S.N. 07/27/2023 Clinical Communication Department of Sleep Medicine in [place], [place] [address] [place] [address] Neelima Nj APRN, C.N.P., D.N.P., M.S.N. Med Refill 07/26/2023 CPAP Download Remote Patient Monitoring [facility] [address] [place] [address] [facility], Provider from Last 3 Months Allergies Active Allergy Reactions Criticality Noted Date [...] Other Procedure 02/23/2020 02/25/2020 Anticoagulant Therapy 02/17/20202020 Immunizations Name Administration Dates Next Due HZV (ZOSTAVAX) 07/12/2007 HepA Adult 01/11/2005,07/11/2004 HepB Adult 01/11/2005,08/08/2004,07/11/2004 Influenza (IM) Preservative Free 2008,06/27 Influenza, Seasonal, Injectable 06/19/20 06,06/14/2005,07/11/2004,2002,07/08/2002,06/18/2001 PCV13 06/30/2015 PPSV23 07/12/2007,07/08/1986 RZV (SHINGRIX) 01/21/2019(Deferred: Other) Td, (Adult) Unspecified 06/14/2011,07/27/2000 Tdap 07/01/2012 influenza high dose (65 year s or older) (PF) 06/30/2015,06/08/2014,06/25/2013,2011,06/14/2011,06/13/2010 Social History Tobacco Use Types Packs/Day Years [...] 04/30/2022 How often do you attend chur or mandaen services? Never 04/30/2022 Do you belong to any clubs o r organizations such as restorationist groups, unions, fraternal or athletic groups, or [...] and heating? Not hard at all 04/30/2022 [facility] - Occupational Stress [...] money to buy more. Never true 04/30/20 Within the past 12 months, t he [...] place to sleep or slept in a care home (including now)? No 04/30/2022 Nutrition Answer Date [...] Comments Blood Pressure 131/87 08/19/2023 4:30 PM PATIENT ACCESS REGISTRAR Pulse 73 08/19/2023 4:30 PM PATIENT ACCESS REGISTRAR Temperature 36.6 ??C (97.9 ??F) 08/19/2023 1 0:51 AM PATIENT ACCESS REGISTRAR Respiratory Rate 16 08/19/2023 10:5 1 AM PATIENT ACCESS REGISTRAR Oxygen Saturation 98% 08/19/2023 4:30 PM PATIENT ACCESS REGISTRAR Inhaled Oxygen Concentration - - Weight 70.3 kg (154 lb 15.7 oz) 023 10:45 AM PATIENT ACCESS REGISTRAR Height 158 cm (5' 2.21) 05/15/2022 11: 39 AM CDT Body Mass Index 28.16 05/15/2022 11:39 AM CDT Plan of Treatment Upcoming Encounters Date Type Department Care Team (Latest Contact Info) Description 09/07/2023 12:00 PM PATIENT ACCESS REGISTRAR Clinical Communication Virtual Review in [address] [address] 09/10/2023 2:00 PM PATIENT ACCESS REGISTRAR Telemedicine Department of Cardiovascular Medicine in [address] [phone] Jesus Neal M.D. [address] [place] [phone] Medical Devices Implanted Type Area Oleo Hasher And Renderer Device Identifier Shelf Expiration Date Model / Serial / Lot Lead Ppm Capsure Fix Novus 45 - [id number] - [id number] Implanted:Qty : 1 on 02/19/2020 by Jose Slade M.D. at [facility] Cardiac Lead Medtronic 10/29/2021 [id number] / [id number] / Coil Micro Hilal [id number] - [id number] Implanted:Qty : 1 on 02/23/2020 by Jeb Whitten M.D. at [facility] Embolization Coil [employer] 01/30/2021 [id number] / / [id number] Ppm Hortencia Edgar - [id number] - [id number] Implanted:Qty : 1 on 02/19/2020 by Jose Slade M.D. at [facility] Pacemaker Medtronic 05/24/2021 [id number] / [id number] / Procedures Procedure Name Priority Date/Time Associated Diagnosis Comments PACER REMOTE FOLLOW UP Routine 08/24/2023 2:01 PM PATIENT ACCESS REGISTRAR Encounter For Checking And Testing Of Cardiac Pacemaker Pulse Generator Battery TROPONIN T, 2H/6H, 5TH GEN, P Timed 08/19/2023 1:33 PM PATIENT ACCESS REGISTRAR ECG STAT 08/19/2023 12:14 PM PATIENT ACCESS REGISTRAR TROPONIN T, BASELINE, 5TH GEN, P STAT 08/19/2023 11:20 AM PATIENT ACCESS REGISTRAR PROTHROMBIN TIME (PT), P STAT 08/19/2023 11:20 AM PATIENT ACCESS REGISTRAR NT-PRO B-TYPE NATRIURETIC PEPTIDE (BNP), S STAT 08/19/2023 11:20 AM PATIENT ACCESS REGISTRAR LACTATE, B STAT 08/19/2023 11:20 AM PATIENT ACCESS REGISTRAR HEPATIC FUNCTION PANEL, S STAT 08/19/2023 11:20 AM PATIENT ACCESS REGISTRAR CBC WITH DIFFERENTIAL, B STAT 08/19/2023 11:20 AM PATIENT ACCESS REGISTRAR BASIC METABOLIC PANEL, S/P STAT 08/19/2023 11:20 AM PATIENT ACCESS REGISTRAR PROTHROMBIN TIME (PT), P STAT 08/17/2023 10:55 AM PATIENT ACCESS REGISTRAR TYPE AND SCREEN STAT 08/17/2023 10:55 AM PATIENT ACCESS REGISTRAR BASIC METABOLIC PANEL, S/P STAT 08/17/2023 10:55 AM PATIENT ACCESS REGISTRAR CBC WITH DIFFERENTIAL, B STAT 08/17/2023 10:55 AM PATIENT ACCESS REGISTRAR from Last 3 Months Results * PACER REMOTE FOLLOW UP (08/24/2023 2:01 PM PATIENT ACCESS REGISTRAR) [facility] Date Time Interrogation Session [id number] [facility] Implantable Pulse Generator Oleo Hasher And Renderer Medtronic [facility] Implantable Pulse Generator Model [id number] Waikele XT DR MRI [facility] Implantable Pulse Generator Serial Number [id number] [facility] Type Interrogation Session Remote [facility] Clinic Name [facility] Implantable Pulse Generator Type Pacemaker [facility] Implantable Pulse Generator Implant Date 20200219 [facility] Implantable Lead Oleo Hasher And Renderer Medtronic [facility] Implantable Lead Model 4076 CapsureFix Novus MRI SureScan [facility] Implantable Lead Serial Number [id number] [facility] Implantable Lead Implant Date 20200219 [facility] Implantable Lead Polarity Type Bipolar Lead [facility] Implantable Lead Location Detail 1 UNKNOWN [facility] Implantable Lead Special Function Lead length: 45 cm [facility] Implantable Lead Location Right Atrium [facility] Implantable Lead Oleo Hasher And Renderer Medtronic [facility] Implantable Lead Model 4076 CapsureFix Novus MRI SureFlan [facility] Implantable Lead Serial Number [id number] [facility] Implantable Lead Implant Date 20200219 [facility] Implantable Lead Polarity Type Bipolar Lead [facility] Implantable Lead Location Detail 1 UNKNOWN [facility] Implantable Lead Special Function Lead length: 52 cm [facility] Implantable Lead Location Right Ventricle [facility] Garry Setting Mode (NBG Code) DDDR [facility] Garry Setting Lower Rate Limit 70 {beats}/ min [facility] Garry Setting Maximum Tracking Rate 130 {beats}/ min [facility] Garry Setting Maximum Sensor Rate 130 {beats}/ min [facility] Garry Setting CASE Delay Low 150 ms [facility] Garry Setting PAV Delay Low 180 ms [facility] Garry Setting AT Mode Switch Rate 140 {beats}/ min [facility] Garry Setting AT Mode Switch Mode DDIR [facility] Lead Channel Setting Sensing Polarity Bipolar [facility] Lead Channel Setting Sensing Anode Location Right Atrium [facility] Lead Channel Setting Sensing Anode Terminal Ring [facility] Lead Channel Setting Sensing Cathode Location Right Atrium [facility] Lead Channel Setting Sensing Cathode Terminal Tip [facility] Lead Channel Setting Sensing Sensitivity 0.3 mV [facility] Lead Channel Setting Sensing Polarity Bipolar [facility] Lead Channel Setting Sensing Anode Location Right Ventricle [facility] Lead Channel Setting Sensing Anode Terminal Ring [facility] Lead Channel Setting Sensing Cathode Location Right Ventricle [facility] Lead Channel Setting Sensing Cathode Terminal Tip [facility] Lead Channel Setting Sensing Sensitivity 0.9 mV [facility] Lead Channel Setting Pacing Polarity Bipolar [facility] Lead Channel Setting Pacing Anode Location Right Atrium [facility] Lead Channel Setting Pacing Anode Terminal Ring [facility] Lead Channel Setting Sensing Cathode Location Right Atrium [facility] Lead Channel Setting Sensing Cathode Terminal Tip [facility] Lead Channel Setting Pacing Pulse Width 0.4 ms [facility] Lead Channel Setting Pacing Amplitude 1.5 V [facility] Lead Channel Setting Pacing Capture Mode Adaptive [facility] Lead Channel Setting Pacing Polarity Bipolar [facility] Lead Channel Setting Pacing Anode Location Right Ventricle [facility] Lead Channel Setting Pacing Anode Terminal Ring [facility] Lead Channel Setting Sensing Cathode Location Right Ventricle [facility] Lead Channel Setting Sensing Cathode Terminal Tip [facility] Lead Channel Setting Pacing Pulse Width 0.4 ms [facility] Lead Channel Setting Pacing Amplitude 2 V [facility] Lead Channel Setting Pacing Capture Mode Adaptive [facility] Zone Setting Type Category VF [facility] Zone Setting Type Category VT [facility] Zone Setting Type Category VT [facility] Zone Setting Type Category VT [facility] Zone Setting Detection Interval 350 ms [facility] Zone Setting Type Category ATRIAL_FIBRILLATI ON [facility] Zone Setting Type Category AT/AF [facility] Zone Setting Detection Interval 430 ms [facility] Lead Channel Impedance Value 418 ohm [facility] Lead Channel Sensing Intrinsic Amplitude 3.875 mV [facility] Lead Channel Pacing Threshold Amplitude 0.375 V [facility] Lead Channel Pacing Threshold Pulse Width 0.4 ms [facility] Lead Channel Impedance Value 532 ohm [facility] Lead Channel Sensing Intrinsic Amplitude 7.5 mV [facility] Lead Channel Pacing Threshold Amplitude 0.5 V [facility] Lead Channel Pacing Threshold Pulse Width 0.4 ms [facility] Battery Date Time of Measurements [facility] Battery FURNITURE REPRODUCER Trigger 2.625 [facility] Battery Remaining Longevity 111 mo [facility] Battery Voltage 3.00 V [facility] Garry Statistic Date Time Start [facility] Garry Statistic Date Time End [facility] Garry Statistic RA Percent Paced 0.01 % [facility] Garry Statistic RV Percent Paced 99.96 % [facility] Atrial Tachy Statistic Date Time Start [facility] Atrial Tachy Statistic Date Time End [facility] Atrial Tachy Statistic AT/AF [place] Percent 100 % [facility] Episode Statistic Recent Count 0 [facility] Episode Statistic Type Category AT/AF [facility] Episode Statistic Recent Count 0 [facility] Episode Statistic Type Category Patient Activated [facility] Episode Statistic Recent Count 0 [facility] Episode Statistic Type Category SVT [facility] Episode Statistic Recent Count [...] Region Laterality Modality Other 08/23/2023 8:41 PM PATIENT ACCESS REGISTRAR Narrative 08/29/2023 4:52 PM PATIENT ACCESS REGISTRAR PURPOSE OF VISIT: ??Routine quarterly remote transmission PRESENTING EGM: ??AF, 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 ATRIAL ARRHYTHMIAS: 1 AT/AF episode since 05/24/2023, in progress, 100% AF burden VENTRICULAR ARRHYTHMIAS: ??None since 05/24/2023 ?PVC [place]: None since 05/24/2023 BATTERY LONGEVITY: Expected battery [...] T, 2h/6h, 5th Gen (08/19/2023 1:33 PM PATIENT ACCESS REGISTRAR) Troponin T, 2 hr, 5th gen 19(H) <=10 ng/L 08/19/2023 1:55 PM PATIENT ACCESS REGISTRAR [facility] 2H Delta -4 ng/L 08/19/2023 1:55 PM PATIENT ACCESS REGISTRAR [facility] 2H Delta Interp Indeterminate 08/19/2023 1:55 PM PATIENT ACCESS REGISTRAR [facility] Comment:Indeterminate delta, additional sample suggested Troponin T, 6 hr, 5th gen CANCELED ng/L 08/20/2023 11:17 AM PATIENT ACCESS REGISTRAR [facility] Comment: Patient already discharged. Result canceled by the ancillary. 6H Delta CANCELED ng/L 08/20/2023 11:17 AM PATIENT ACCESS REGISTRAR [facility] Comment:Result canceled by t he ancillary. 6H Delta Interp CANCELED 08/20/2023 11:17 AM PATIENT ACCESS REGISTRAR [facility] Comment:Result canceled by t he ancillary. Blood (Blood, Venous) 08/19/2023 1:33 PM PATIENT ACCESS REGISTRAR 08/19/2023 1:37 PM PATIENT ACCESS REGISTRAR Narrative [facility] - 08/20/2023 11:17 AM PATIENT ACCESS REGISTRAR Specimen Information: Specimen ID: [id number] Specimen Type: Blood Specimen Collection Start Date: 08/19/2023 ??1:33 PM Specimen Received Date: 08/19/2023 ??1:37 PM Specimen ID: [id number] Specimen Type: Blood Donavan Blankenship M.D. LAB BLOOD TROPONIN Performing Organization Address [facility] Co de Phone Number [facility] [address] [place] [address], [facility] STMA [facility] [address] [place] [address] * ECG 12 Lead (08/19/2023 12:14 PM PATIENT ACCESS REGISTRAR) Ventricular Rate ECG/Min 76 BPM MUSE QRSD Interval 166 ms MUSE QT Interval 486 ms MUSE QTC Interval 547 ms MUSE R [place] -85 degrees MUSE T Wave [place] 142 degrees MUSE 08/19/2023 12:1 4 PM PATIENT ACCESS REGISTRAR 08/20/2023 10:19 AM PATIENT ACCESS REGISTRAR Impressions MUSE - 08/19/2023 12:27 PM PATIENT ACCESS REGISTRAR Dual chamber electronic pacemaker Atrial flutter Prolonged QT When compared with ECG of 02-MAY-2022 11:28, QT has lengthened Reviewed by XIANG Murray Narrative Procedure Note Raymundo Raygoza M.D., M.P.H. - 08/20/2023 IMPRESSION: Dual chamber electronic pacemaker Atrial flutter Prolonged QT When compared with ECG of 02-MAY-2022 11:28, QT has lengthened Reviewed by XIANG Murray Donavan Blankenship M.D. ECG ORDERABLES Performing Organization Address [facility] Co de Phone Number MUSE NA * Lactate, B (08/19/2023 11:20 AM PATIENT ACCESS REGISTRAR) Lactate, B 1.2 0.5 - 2.2 mmol/L 08/19/2023 11:30 AM PATIENT ACCESS REGISTRAR [facility] Blood (Blood, Venous) 08/19/2023 11:20 AM PATIENT ACCESS REGISTRAR 08/19/2023 11:27 AM PATIENT ACCESS REGISTRAR Donavan Blankenship M.D. LAB BLOOD NON ADD- ON Performing Organization Address [facility] Co de Phone Number [facility] [address] [place] [address], [facility] [address] [place] [address] * (ABNORMAL) Troponin T, Baseline, 5th gen (08/19/2023 11:20 AM PATIENT ACCESS REGISTRAR) Troponin T, Baseline, 5th gen 23(H) <=10 ng/L 08/19/2023 11:47 AM PATIENT ACCESS REGISTRAR [facility] Blood (Blood, Venous) 08/19/2023 11:20 AM PATIENT ACCESS REGISTRAR 08/19/2023 11:27 AM PATIENT ACCESS REGISTRAR Donavan Blankenship M.D. LAB BLOOD TROPONIN [facility] [address] [place] [address], [facility] [address] [place] [address] * (ABNORMAL) Hepatic Function Panel (08/19/2023 11:20 AM PATIENT ACCESS REGISTRAR) Bilirubin, Total, S 0.8 0.0 - 1.2 mg/dL 08/19/2023 12:15 PM PATIENT ACCESS REGISTRAR DTL Bilirubin, Direct, S 0.3 0.0 - 0.3 mg/dL 08/19/2023 12:15 PM PATIENT ACCESS REGISTRAR DTL Aspartate Aminotransferase (AST), S 31 8 - 43 U/L 08/19/2023 12:15 PM PATIENT ACCESS REGISTRAR DTL Alanine Aminotransferase (ALT), S 23 7 - 45 U/L 08/19/2023 12:15 PM PATIENT ACCESS REGISTRAR DTL Alkaline Phosphatase, S 127(H) 35 - 104 U/L 08/19/2023 12:15 PM PATIENT ACCESS REGISTRAR DTL Albumin, S 4.1 3.5 - 5.0 g/dL 08/19/2023 12:15 PM PATIENT ACCESS REGISTRAR DTL Protein, Total, S 6.4 6.3 - 7.9 g/dL 08/19/2023 12:15 PM PATIENT ACCESS REGISTRAR DTL Blood (Blood, Venous) 08/19/2023 11:20 AM PATIENT ACCESS REGISTRAR 08/19/2023 11:52 AM PATIENT ACCESS REGISTRAR Donavan Blankenship M.D. LAB BLOOD ADD-ON [facility] [address] [place] [address], [facility] DTL [facility] [address] [place] [address] * (ABNORMAL) NT-Pro B-Type Natriuretic Peptide (BNP) (08/19/2023 11:20 AM PATIENT ACCESS REGISTRAR) NT-Pro BNP 1244(H) <=540 pg/mL 08/19/2023 11:56 AM PATIENT ACCESS REGISTRAR [facility] Comment: NT-proBNP values less than 300 pg/mL [...] failure. Blood (Blood, Venous) 08/19/2023 11:20 AM PATIENT ACCESS REGISTRAR 08/19/2023 11:27 AM PATIENT ACCESS REGISTRAR Donavan Blankenship M.D. LAB BLOOD ADD-ON Performing Organization Address City/State/[facility] Co de Phone Number [facility] [address] [place] [address], [facility] [address] [place] [address] * (ABNORMAL) Prothrombin Time (PT) (08/19/2023 11:20 AM PATIENT ACCESS REGISTRAR) Only the most recent of2 resultswithin the time period is included. Prothrombin Time, P 23.3(H) 9.4 - 12.5 sec 08/19/2023 11:35 AM PATIENT ACCESS REGISTRAR [facility] INR 2.1 0.9 - 1.1 08/19/2023 11:35 AM PAT[facility]ISTRAR [facility] Comment: ----ADDITIONAL INFORMATION---- Standard intensity warfarin therapeutic range: 2.0 to 3.0 ?? High intensity warfarin therapeutic range: 2.5 to 3.5 Blood (Blood, Venous) 08/19/2023 11:20 AM PATIENT ACCESS REGISTRAR 08/19/2023 11:27 AM PATIENT ACCESS REGISTRAR Donavan Blankenship M.D. LAB BLOOD ADD-ON [facility] [address] [place] [address], [facility] STMA [facility] [address] [place] [address] * (ABNORMAL) CBC with Differential, Blood (08/19/2023 11:20 AM PATIENT ACCESS REGISTRAR) Only the most recent of2 resultswithin the time period is included. Hemoglobin 12.2 11.6 - 15.0 g/dL 08/19/2023 11:30 AM PATIENT ACCESS REGISTRAR [facility] Hematocrit 36.6 35.5 - 44.9 % 08/19/2023 11:30 AM PATIENT ACCESS REGISTRAR [facility] Erythrocytes 4.14 3.92 - 5.13 x10(12)/L 08/19/2023 11:30 AM PATIENT ACCESS REGISTRAR [facility] MCV 88.4 78.2 - 97.9 fL 08/19/2023 11:30 AM PATIENT ACCESS REGISTRAR ST[facility] RBC Distrib Width 13.2 12.2 - 16.1 % 08/19/2023 11:30 AM PATIENT ACCESS REGISTRAR [facility] Platelet Count 183 157 - 371 x10(9)/L 08/19/2023 11:30 AM PATIENT ACCESS REGISTRAR [facility] Leukocytes 8.4 3.4 - 9.6 x10(9)/L 08/19/2023 11:30 AM PATIENT ACCESS REGISTRAR [facility] Neutrophils 6.50(H) 1.56 - 6.45 x10(9)/L 08/19/2023 11:30 AM PATIENT ACCESS REGISTRAR [facility] Lymphocytes 1.11 0.95 - 3.07 x10(9)/L 08/19/2023 11:30 AM PATIENT ACCESS REGISTRAR [facility] Monocytes 0.67 0.26 - 0.81 x10(9)/L 08/19/2023 11:30 AM PATIENT ACCESS REGISTRAR [facility] Eosinophils 0.07 0.03 - 0.48 x10(9)/L 08/19/2023 11:30 AM PATIENT ACCESS REGISTRAR [facility] Basophils 0.03 0.01 - 0.08 x10(9)/L 08/19/2023 11:30 AM PATIENT ACCESS REGISTRAR STMA Blood (Blood, Venous) 08/19/2023 11:20 AM PATIENT ACCESS REGISTRAR 08/19/2023 11:27 AM PATIENT ACCESS REGISTRAR Donavan Blankenship M.D. LAB BLOOD ADD-ON [facility] [address] [place] [address], [facility] STMA [facility] [address] [place] [address] [facility] [address] [place] [address] * (ABNORMAL) Basic Metabolic Panel (08/19/2023 11:20 AM PATIENT ACCESS REGISTRAR) Only the most recent of2 resultswithin the time period is included. Potassium, P 5.0 3.6 - 5.2 mmol/L 08/19/2023 11:43 AM PATIENT ACCESS REGISTRAR [facility] Sodium, P 141 135 - 145 mmol/L 08/19/2023 11:43 AM PATIENT ACCESS REGISTRAR [facility] Chloride, P 106 98 - 107 mmol/L 08/19/2023 11:43 AM PATIENT ACCESS REGISTRAR [facility] Bicarbonate, P 27 22 - 29 mmol/L 08/19/2023 11:43 AM PATIENT ACCESS REGISTRAR [facility] Anion Gap, P 8 7 - 15 08/19/2023 11:43 AM PATIENT ACCESS REGISTRAR [facility] BUN (Blood Urea Nitrogen), P 28(H) 6 - 21 mg/dL 08/19/2023 11:43 AM PATIENT ACCESS REGISTRAR [facility] Creatinine 0.67 0.59 - 1.04 mg/dL 08/19/2023 11:43 AM PATIENT ACCESS REGISTRAR [facility] Estimated GFR (eGFR) 87 >=60 mL/min/BSA 08/19/2023 11:43 AM PATIENT ACCESS REGISTRAR [facility] Comment: Estimated GFR calculated using the 2020 CKD_EPI creatinine equation. Calcium, Total, P 9.4 8.8 - 10.2 mg/dL 08/19/2023 11:43 AM PATIENT ACCESS REGISTRAR [facility]MA Glucose, P 112 70 - 140 mg/dL 08/19/2023 11:43 AM PATIENT ACCESS REGISTRAR [facility] Blood (Blood, Venous) 08/19/2023 11:20 AM PATIENT ACCESS REGISTRAR 08/19/2023 11:27 AM PATIENT ACCESS REGISTRAR Donavan Blankenship M.D. LAB BLOOD ADD-ON Performing Organization Address [facility] Co de Phone Number [facility] [address] [place] [address], [facility] STMA [facility] [address] [place] [address] * Type and Screen (with Reflex Antibody ID) (08/17/2023 10:55 AM PATIENT ACCESS REGISTRAR) ABORh O Pos Not applicable 08/17/2023 11:20 AM PATIENT ACCESS REGISTRAR STRM Antibody Screen Negative Negative 08/17/2023 11:36 AM PATIENT ACCESS REGISTRAR STRM Type & Screen Expiration 08/20/2023 23:59 08/17/2023 11:20 AM PATIENT ACCESS REGISTRAR STRM Testing Location [place] DEFAULT 08/17/2023 11:01 AM PATIENT ACCESS REGISTRAR STRM Blood (Blood, Venous) 08/17/2023 10:55 AM PATIENT ACCESS REGISTRAR 08/17/2023 11:01 AM PATIENT ACCESS REGISTRAR Kristen Ashley M.D. LAB BLOOD BANK TEST ORDERABLES Performing Organization Address [facility] [facility] Co de Phone Number [facility] [address] [place] [address], [facility] STR[facility] [address] [place] [address] from Last 3 Months Advance Directives For more information, please contact: [phone] Documents on File Type Date Recorded Patient Microfiche Duplicator Expl anation Advance Directives 02/06/2020 10:03 AM [facility] Care Directive Advance Directives 06/10/2014 12:00 AM [place] document. See document viewer. Advance Directives 08/15/2011 12:00 AM [place] document. See document viewer. Latest Code Status [...] Communication Carroll Bose Son Health Care Agent [email or web address] Katelynn Carolemarion Daughter First Alternate Health Care Agent [email or web address] Care Teams Flatware Maker Relationship Specialty Start Date End Date Elsewhere, Pcp PCP - General Internal Medicine 08/19/23
--- OUTSIDE RECORDS SUMMARY | 2023-09-05 16:49 | XMS_ITS | Encounter Summary ---
Author Name Unknown Organization [facility] Address [address] [place] [address] Care Team Providers Care Sifting Operator Name Role Phone Neelima Nj APRN C.N.P., D.N.P., M.S.N. [facility] Care Provider Reason for Referral * Outpatient (Routine) - Authorized Specialty Diagnoses / Procedures Referred By Contac t Referred To Contact Cardiovascular Disease Diagnoses Epistaxis Kristen Ashley M.D. [address] [place] [address] [facility] Referral ID Status Reason Start Date Expiration Date V isits Requested Visits Authorized [id number] Authorized 08/17/2023 08/16/2026 1 1 Scheduling Instructions To discuss anticoagulation for afib as requested by patient [employer] Reason for Visit * Reason Comments Epistaxis (Nose Bleed) Encounter Details Date Type Department Care Team (Late st Contact Info) Description 08/17/2023 8:17 AM [employer] - 08/17/2023 12:56 PM [employer] Emergency [facility] Emergency Department [address] [place] [address] Magdaleno Centeno M.D. [address] [place] [address] Epistaxis (Primary Dx) Discharge Disposition: Home or Self Care Social History Tobacco Use Types Packs/Day Years Used Date Smoking Tobacco: Never Smokeless Tobacco: Never Comments:Never ever used tob acco Alcohol Use Standard Drinks/Week Comments Never 0 [...] often do you attend chur ch or congregation services? Never 04/30/2022 Do you belong to any clubs o r organizations such as druze groups, unions, fraternal or athletic groups, or [...] and heating? Not hard at all 04/30/2022 [facility] [place] [facility] Occupat ional Health - Occupational Stress [...] place to sleep or slept in a alf (including now)? No 04/30/2022 Nutrition Answer Date [...] Orientation Straight 01/06/2018 4: 13 PM CDT documented as of this encounter Last Filed Vital Signs Vital Sign Reading Time Taken Comments Blood Pressure 118/79 08/17/2023 11:57 AM [employer] Pulse 71 08/17/2023 10:45 AM [employer] Temperature 36 ??C (96.8 ??F) 08/17/2023 8:25 AM [employer] Respiratory Rate 16 08/17/2023 10:45 AM [employer] Oxygen Saturation 95% 08/17/2023 10:45 AM [employer] Inhaled Oxygen Concentration - - Weight 70.3 kg (155 lb) 08/17/2023 8:25 AM [employer] Height - - Body Mass Index 28.16 05/15/2022 11:39 AM CDT documented in this encounter Discharge Instructions * Discharge Instructions* Kristen Ashley M.D. - 08/17/2023 12:25 PM [employer] Contact a doctor if: You have a fever. You get nosebleeds often. You get nosebleeds more often than usual. You bruise very easily. You have something stuck in your nose. You are bleeding in your mouth. You vomit or cough up brown material. You get a nosebleed after you start a new medicine. Get help right away if: You have a nosebleed after you fall or hurt your head. Your nosebleed does not go away after 20 minutes. You feel dizzy or weak. You have unusual bleeding from other parts of your body. You have unusual bruising on other parts of your body. You get sweaty. You vomit blood. [employer] * Attachments The following attachments cannot be sent through Care Everywhere. * Nosebleed Adult Zyud-ec-Vybl (Somali) documented in this encounter Medications at Time of Discharge Medication Sig Dispensed Refills Start Date End Date cyclobenzaprine (FLEXERIL) 5 mg tablet Take 5 mg by mouth every 8 (eight) hours as needed for muscle spasms. 0 08/10/2023 acetaminophen (TYLENOL) 500 mg tablet Take 250 mg by mouth as needed for pain. 0 calcium carbonate 260 mg calcium (648 mg) tablet Take 1 tablet by mouth 2 (two) times a day. 0 12/13/2016 cholecalciferol (VITAMIN D3) 50 mcg (2,000 Unit) capsule Take 1 capsule by mouth daily. 0 12/25/2014 multivitamin tablet Take 1 tablet by mouth daily. 0 06/05/2009 rivaroxaban (XARELTO) 10 mg tablet Take 1 tablet (10 mg total) by mouth daily with dinner. 90 tablet 3 04/29/2021 GAL 250 250 mg tablet TAKE 4 TABLETS BY MOUTH AT BEDTIME 360 tablet 3 08/07/2022 documented as of this encounter Consult Notes * Sarah, Zach Vinson - 08/17/2023 12:56 PM CST OTOLARYNGOLOGY ED CONSULT HISTORY OF PRESENT ILLNESS: Haley Bose is a very pleasant 83 y.o. female who presents for evaluation of epistaxis. Haley Bose woke up with a left anterior nosebleed this morning at 5AM. She was wearing herCPAP, full face mask, with humidification. Prior to this incident, her most recent nosebleed was [id number]. She follows with Cardiology and is on Xarelto 10 mg daily for persistent atrial fibrillation.Her nosebleed has continued since arriving to the ED. She is not feeling lightheaded. No bleeds from the right side. No other bleeding. No trauma. No previous nasal injuries or surgeries. I was able to talk to her daughter, Katelynn, over the phone. Medications, allergies, past medical history, past surgical history, family history and social history: reviewed PAST MEDICAL HISTORY: Social History: reports that she has never smoked. She has never used smokeless tobacco. She reports that she does not drink alcohol and does not use drugs. PHYSICAL EXAM: General: Awake, alert. In no acute distress. Face: Symmetric. House-Brackmann 1/6 bilaterally. Nose: Packing in place, left nare. Right nasal cavity clear, no bleeding or masses. Upon removal ofthe packing, patient began to bleed briskly from the left anteroinferior septum. Pledgelets soaked in phenylephrine and lidocaine were placed into the left nasal cavity and firm pressure was held ewi36-42 minutes. Upon reassessment, no active bleeding. Pledgelets were removed. Minimal oozing from left anteroinferior septum and a small area of mucosal irritation. A small amount of fibrillar was laid over this area for reinforcement. Patient remained stable with no bleeding through discharge. ASSESSMENT: #1 Epistaxis, left anterior #2 custodial anticoagulant therapy, Xarelto 10 mg daily, for persistent atrial fibrillation PLAN: It was a pleasure to meet with Mrs. Bose today. Bleeding was ultimately managed with topical phenylephrine, firm pressure, and Fibrillar. The Fibrillar will dissolve on its on over the next 5-7 days. Patient is instructed to avoid blowing her nose, sneeze through the mouth when possible. She may experience some recurrent bleeds over the next few weeks. We reviewed management of acute epistaxis with focus on FIRM pressure on the nose for at least 20 minutes. She is encouraged to utilize a vasocontrictive medication such as phenylephrine or oxymetazoline (Afrin) in the case of an active bleed as well. Can utilize the medication soaked onto a piece of cotton intranasally. Considering this is her first incident of epistaxis in the last 2 years, I do not recommend additional interventions unless she has further issues. She would like to connect with her Cardiology team to discuss continued use of Xarelto vs alternative options and will do so on an outpatient basis. [employer] documented in this encounter ED Notes * Magdaleno Centeno M.D. - 08/17/2023 8:37 AM CST SUBJECTIVE CHIEF COMPLAINT/REASON FOR VISIT Epistaxis (Nose Bleed) HISTORY OF PRESENT ILLNESS 83 year old female with a history of atrial fibrillation on Xarelto and recurrent epistaxis presents to the ED to be evaluated for left sided epistaxis. The patient was wearing her CPAP overnight andwoke up at 5:00am this morning with spontaneous epistaxis from her left nare. Her bleeding continued so she presented to her local ED. There, her left nare was packed but continued to have persistentbleeding. Because of this, she was transferred here for further management of care. The patient waspreviously admitted for epistaxis in 2020; she states her epistaxis is usually on the right side. She denies any lightheadedness or episodes of syncope. She has no other complaints at this time. History provided by: Patient and medical records graphite pan drier tender needed/used: no REVIEW OF SYSTEMS Constitutional: Negative for chills and fever. HENT: Positive for nosebleeds. Negative for sore throat. Eyes: Negative for visual disturbance. Respiratory: Negative for cough and shortness of breath. Cardiovascular: Negative for chest pain and leg swelling. Gastrointestinal: Negative for abdominal pain, diarrhea, nausea and vomiting. Genitourinary: Negative for dysuria and frequency. Musculoskeletal: Negative for myalgias. Skin: Negative for rash. Neurological: Negative for dizziness, syncope, weakness, light-headedness, numbness and headaches. OBJECTIVE Initial Vitals [08/17/23 0825] Temp Pulse Rate 77 Heart Rate Resp Rate 20 Blood Pressure 147/76 SpO2 96 % Pain Score PHYSICAL EXAMINATION Constitutional: Nursing note and vitals reviewed. Awake and alert. HENT: Head: Atraumatic. Nose: Epistaxis is observed. There is packing in the left nare with continuous oozing of bright red blood. She is spitting up bright red blood. Eyes: EOM are normal. Pupils are equal, round, and reactive to light. Cardiovascular: Normal rate, regular rhythm, S1 normal, S2 normal and normal heart sounds. No murmur heard. Pulmonary/Chest: Effort normal and breath sounds normal. No stridor. No tachypnea. No respiratory distress. She has no wheezes. She has no rhonchi. She has no rales. Speaking in full sentences. Abdominal: Soft. Bowel sounds are normal. exhibits no distension. There is no abdominal tenderness.There is no rebound and no guarding. Musculoskeletal: General: Normal range of motion. Cervical back: Normal range of motion. Neurological: Alert and oriented to person, place, and time. Normal speech. Skin: Skin is warm, dry and intact. Her extremities are warm and well perfused. Psychiatric: She has a normal mood and affect. Behavior is normal. ASSESSMENT/PLAN Assessment and Plan #1 Left-sided epistaxis, on Xarelto anticoagulation Patient's presents to the ED from outside facility due to left-sided epistaxis that developed earlier this morning the setting of CPAP use. The patient is anticoagulated on Xarelto, making her high risk of ongoing bleeding. No evidence of significant hemodynamic instability, therefore my suspicion for severe bleeding is low. On assessment, the patient is hemodynamically stable, protecting airway, however continues to have active bleeding from the left naris despite packing from outside hospital. The packing was removed. Brisk bleeding was noted from the anterior septum. Unfortunately, despite attempts with packing withTXA and direct cauterization with silver nitrate, hemostasis was unsuccessful. We will therefore consult ENT for recommendations.. I reviewed the following external records: office records and primary care records. ED Course as of 08/22/231347Aug 17, 2023 115[address] was able to place packing and maintain hemostasis. Labs show stable hgb of 13.2. She was observed in the ED and no recurrent epistaxis was noted. Final Diagnoses: as of 08/22/231347 Epistaxis Escalation of care, including admission/observation, considered: Yes. I discussed the management of the patient with: Telephone Sales Representative. I have personally seen and examined this patient. I have fully participated in the care of this patient. I have reviewed all clinical information including history, physical exam, orders, and plan. Iagree with the note of the resident. I was not present for the procedure(s) performed by the resident, but was available in a supervisory role. I personally performed the services described in this documentation, as scribed in my presence, andit is both accurate and complete. Magdaleno Centeno M.D. 08/17/23 1155 Magdaleno Centeno M.D. 08/22/23 1348 [employer] * Kristen Ashley M.D. - 08/17/2023 8:23 AM CST SUBJECTIVE CHIEF COMPLAINT/REASON FOR VISIT Epistaxis (Nose Bleed) HISTORY OF PRESENT ILLNESS Haley Bose is an 83 y.o. 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 No history of trauma. No fevers or chills. No associated melena or hematochezia or hemoptysis. She presents as a transfer from an outside ED with merocel in place with continued active bleeding into the posterior oropharynx. REVIEW OF SYSTEMS Review of systems negative except as detailed in HPI. OBJECTIVE Initial Vitals [08/17/23 0825] Temperature 36 ??C Pulse Rate 77 Heart Rate Resp Rate 20 Blood Pressure 147/76 SpO2 96 % Pain Score 0 - No pain PHYSICAL EXAMINATION Constitutional: Nursing note and vitals reviewed. No distress. Hemodynamically stable. Well appearing. Airway intact. HENT: Head: Normocephalic and atraumatic. Mouth/Throat: Mucous membranes are moist. Brisk pulsatile bleeding from the left anteroinferior septum. No bleeding from the right nare. Arrives with merocel in place which was removed. Eyes: EOM are normal. Cardiovascular: Normal rate and regular rhythm. Murmur heard. Pulmonary/Chest: Effort normal and breath sounds normal. There is normal air entry. No stridor. No tachypnea. No respiratory distress. Expiration is no prolonged expiration. Air movement is not decreased. She has no wheezes. She has no rhonchi. She has no rales. She exhibits no retraction. Abdominal: Soft. Bowel sounds are normal. Musculoskeletal: General: Normal range of motion. Cervical back: Normal range of motion. Neurological: Alert and oriented to person, place, and time. She has normal reflexes. Skin: Skin is warm and intact. No rash noted. She is not diaphoretic. Psychiatric: She has a normal mood and affect. ASSESSMENT/PLAN Haley Bose is an 83 y.o. 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 No history of trauma. No fevers or chills. No associated melena or hematochezia or hemoptysis. She presents as a transfer from an outside ED with merocel in place with continued active bleeding into the posterior oropharynx. On arrival to the ED, she was hemodynamically stable, saturating well on room air, and had no othercomplaints. Brisk pulsatile bleeding from the left anteroinferior septum. No bleeding from the right nare. Arrives with merocel in place which was removed to reveal active pulsatile bleeding from theleft anteroinferior septum. This is likely from her CPAP in combination with her anticoagulation. No nasal septal hematoma. Low concern for posterior bleed given the unilateral nature and visible pulsatile bleed in the left anteroinferior septum. I placed surgicel and fibrillar with lidocaine with phenylephrine nasal spray and topical TXA whichtemporized the bleed but did not stop it. I attempted cauterization which slowed but did not stop the bleeding I then repacked with surgicel and fibrillar with lidocaine with phenylephrine nasal spray and topical TXA and consulted ENT. Hb was stable at 13.2. Bleeding was ultimately managed with topical phenylephrine, firm pressure, and Fibrillar by ENT. Pledgelets soaked in phenylephrine and lidocaine were placed into the left nasal cavity and placed over area of active bleeding and a small amount of fibrillar was laid over this area for reinforcement.No active bleeding after these interventions. I ambulated the patient and there was no evidence of active bleeding. Recommended PCP followup withher doctor where she lives this week and she expressed strongly that she wanted to see cardiology here to discuss xarelto which was requested. ENT agrees with discharge to home. The patient???s workup and evaluation during their Emergency Department stay was reviewed with the patient. She is comfortable going home based on our discussion with her. The signs/symptoms to prompt return to the Emergency Department were discussed with the patient and she expressed understanding. All questions were answered. Discussed use of Afrin for epistaxis and nasal pressure with nasal clamp for at least 20 minutes. ED Course as of 08/17/23 1737 SunAug 17, 2023 1736 ABORh: O Pos 1737 INR: 1.8 1737 Hemoglobin: 13.2 1737 Potassium, P: 5.1 1737 Sodium, P: 139 1737 Creatinine: 0.64 1737 Glucose, P: 125 Final Diagnoses: as of 08/17/23 1737 Epistaxis Kristen Ashley M.D. Resident 08/17/23 1742 [employer] documented in this encounter Plan of Treatment Upcoming Encounters Date Type Department Care Team (Latest Contact Info) Description 09/07/2023 12:00 PM [employer] Clinical Communication Virtual Review in [place], [place] [address] [place] [address] 09/10/2023 2:00 PM [employer] Telemedicine Department of Cardiovascular Medicine in [address] [address] Jesus Neal M.D. [address] [place] [phone] Scheduled Referrals Name Type Priority Associated Diagnoses Order Schedule POST ED VISIT Cardiovascular Disease Outpatient Referral Routine Epistaxis Expected: 08/17/2023 (Approximate), Expires: 11/15/2024 documented as of this encounter Procedures Procedure Name Priority Date/Time Associated Diagnosis Comments PROTHROMBIN TIME (PT), P STAT 08/17/2023 10:55 AM [employer] CBC WITH DIFFERENTIAL, B STAT 08/17/2023 10:55 AM [employer] TYPE AND SCREEN STAT 08/17/2023 10:55 AM [employer] BASIC METABOLIC PANEL, S/P STAT 08/17/2023 10:55 AM [employer] documented in this encounter Results * (ABNORMAL) Prothrombin Time (PT) (08/17/2023 10:55 AM [employer]) Prothrombin Time, P 19.9(H) 9.4 - 12.5 sec 08/17/2023 11:08 AM [employer] STMA INR 1.8 0.9 - 1.1 08/17/2023 11:08 AM [employer] ST[facility] Comment: ----ADDITIONAL INFORMATION---- Standard intensity warfarin therapeutic range: 2.0 to 3.0 ?? High intensity warfarin therapeutic range: 2.5 to 3.5 Blood (Blood, Venous) 08/17/2023 10:55 AM [employer] 08/17/2023 11:00 AM [employer] Kristen Ashley M.D. LAB BLOOD ADD-ON Performing Organization Address City/[facility] Co de Phone Number [facility] [address] [place] [address], [facility] STMA [facility] [address] [place] [address] * Type and Screen (with Reflex Antibody ID) (08/17/2023 10:55 AM [employer]) Pathologist [facility] ABORh O Pos Not applicable 08/17/2023 11:20 AM [employer] STRM Antibody Screen Negative Negative 08/17/2023 11:36 AM [employer] STRM Type & Screen Expiration 08/20/2023 23:59 08/17/2023 11:20 AM [employer] STRM Testing Location [place] DEFAULT 08/17/2023 11:01 AM [employer] STRM Blood (Blood, Venous) 08/17/2023 10:55 AM [employer] 08/17/2023 11:01 AM [employer] Kristen Ashley M.D. LAB BLOOD BANK TEST ORDERABLES Performing Organization Address [facility]/ZIP Co de Phone Number [facility] [address] [place] [address], [facility] STRM [facility] [address] [place] [address] * (ABNORMAL) Basic Metabolic Panel (08/17/2023 10:55 AM [employer]) Pathologist [facility] Potassium, P 5.1 3.6 - 5.2 mmol/L 08/17/2023 11:19 AM [employer] STMA Sodium, P 139 135 - 145 mmol/L 08/17/2023 11:19 AM [employer] [facility] Chloride, P 105 98 - 107 mmol/L 08/17/2023 11:19 AM [employer] ST[facility] Bicarbonate, P 27 22 - 29 mmol/L 08/17/2023 11:19 AM [employer] ST[facility] Anion Gap, P 7 7 - 15 08/17/2023 11:19 AM [employer] [facility] BUN (Blood Urea Nitrogen), P 35(H) 6 - 21 mg/dL 08/17/2023 11:19 AM [employer] [facility] Creatinine 0.64 0.59 - 1.04 mg/dL 08/17/2023 11:19 AM [employer] STMA Estimated GFR (eGFR) 88 >=60 mL/min/BSA 08/17/2023 11:19 AM [employer] STMA Comment: Estimated GFR calculated using the 2020 CKD_EPI creatinine equation. Calcium, Total, P 9.3 8.8 - 10.2 mg/dL 08/17/2023 11:19 AM [employer] STMA Glucose, P 125 70 - 140 mg/dL 08/17/2023 11:19 AM [employer] STMA Blood (Blood, Venous) 08/17/2023 10:55 AM [employer] 08/17/2023 11:00 AM [employer] Kristen Ashley M.D. LAB BLOOD ADD-ON [facility] [address] [place] [address], [facility] [address] [place] [address] * (ABNORMAL) CBC with Differential, Blood (08/17/2023 10:55 AM [employer]) Hemoglobin 13.2 11.6 - 15.0 g/dL 08/17/2023 11:04 AM [employer] STMA Hematocrit 40.9 35.5 - 44.9 % 08/17/2023 11:04 AM [employer] STMA Erythrocytes 4.62 3.92 - 5.13 x10(12)/L 08/17/2023 11:04 AM [employer] STMA MCV 88.5 78.2 - 97.9 fL 08/17/2023 11:04 AM [employer] STMA RBC Distrib Width 12.9 12.2 - 16.1 % 08/17/2023 11:04 AM [employer] STMA Platelet Count 222 157 - 371 x10(9)/L 08/17/2023 11:04 AM [employer] ST[facility] Leukocytes 11.8(H) 3.4 - 9.6 x10(9)/L 08/17/2023 11:04 AM [employer] STMA Neutrophils 10.22(H) 1.56 - 6.45 x10(9)/L 08/17/2023 11:04 AM [employer] [facility] Lymphocytes 0.96 0.95 - 3.07 x10(9)/L 08/17/2023 11:04 AM [employer] STMA Monocytes 0.60 0.26 - 0.81 x10(9)/L 08/17/2023 11:04 AM [employer] STMA Eosinophils <0.03 0.03 - 0.48 x10(9)/L 08/17/2023 11:04 AM [employer] STMA Basophils 0.03 0.01 - 0.08 x10(9)/L 08/17/2023 11:04 AM [employer] STMA Blood (Blood, Venous) 08/17/2023 10:55 AM [employer] 08/17/2023 11:00 AM [employer] Kristen Ashley M.D. LAB BLOOD ADD-ON [facility] [address] [place] [address], [facility] STMA [facility] [address] [place] [address] DHPM [facility] [address] [place] [address] documented in this encounter Visit Diagnoses Diagnosis Epistaxis- Primary documented in this encounter Administered Medications Inactive Administered Medications - up to 3 most recent administrations Medication Order MAR Action Action Date Dose Rate Site lidocaine 5 % 1 patch (LIDODERM) 1 patch, transdermal, Administer over 12 Hours, Once, On Sun08/17/23 at 1124, For 1 dose, Remove after 12 hours. Medication Applied 08/17/2023 11:46 AM [employer] 1 patch Upper Back lidocaine-phenylephrine 2-0.25% nasal spray 3 spray 3 spray, each nostril, Once, On Sun08/17/23 at 0826, For 1 dose Given 08/17/2023 8:41 AM [employer] 3 sprays tranexamic acid (CYKLOKAPRON) 1,000 mg/10 mL (100 mg/mL) injection - ADS Override Pull Starting on Sun08/17/23 at 0827, For 1 dose, Created by cabinet override tranexamic acid injection 500 mg (CYKLOKAPRON) 500 mg, topical, Once, On Sun08/17/23 at 0826, For 1 dose, Soak 3-4 pledgets in 5 mL (500 mg) and apply to affected nare. Given 08/17/2023 8:35 AM [employer] 500 mg documented in this encounter Active and Recently Administered Medications Times are shown in [facility]. Scheduled Medication Order 08/15/2023 08/16/2023 08/17/2023 lidocaine 5 % 1 patch (LIDODERM) 1 patch, transdermal, Administer over 12 Hours, Once, On Sun08/17/23 at 1124, For 1 dose, Remove after 12 hours. 1146 (Medication Violeta lied - Provider: Juan Mcleod R.N.)1256 (Due: Medication Removed - Provider: Discharge Provider, Automatic - Comment: Time automatically adjusted from order being discontinued) lidocaine-phenylephrine 2-0.25% nasal spray 3 spray (COMPLETED) 3 spray, each nostril, Once, On Sun08/17/23 at 0826, For 1 dose 0841 (Given - Provid er: Katt Elizalde R.N.) tranexamic acid injection 500 mg (CYKLOKAPRON) (COMPLETED) 500 mg, topical, Once, On Sun08/17/23 at 0826, For 1 dose, Soak 3-4 pledgets in 5 mL (500 mg) and apply to affected nare. 0835 (Given - Provid er: Katt Elizalde R.N.) documented in this encounter Additional Health Concerns Assessment Noted Time PHQ-9 Depression Total Score: 13 01/08/ 008 12:22 PM CDT documented as of this encounter Care Teams Sifting Operator Relationship Specialty Start Date End Date Neelima Nj APRN, C.N.P., D.N.P., M.S.N. [address] [place] [phone] PCP - General Internal Medicine 06/05/22 08/18/23 documented as of this encounter
--- OUTSIDE RECORDS SUMMARY | 2023-09-05 16:49 | XMS_ITS | Encounter Summary ---
Author Name Unknown Organization [facility] Address [address] [place] [id number] Care Team Providers Care Licensed Appraiser Name Role Phone Elsewhere, Pcp Primary Care Provider Unavailabl e Reason for Visit * Reason Onset Date Comments Follow-up 08/19/2023 Encounter Details Date Type Department Care Team (Late st Contact Info) Description 08/19/2023 Clinical Communication [facility] Emergency Department [address] [place] [phone] Cathleen Valero, R.N. Follow-up Social History Tobacco Use Types Packs/Day Years [...] often do you attend chur ch or christianity services? Never 04/30/2022 Do you belong to any clubs o r organizations such as spiritism groups, unions, fraternal or athletic groups, or [...] and heating? Not hard at all 04/30/2022 [facility] of Occupat ional Health - Occupational Stress [...] place to sleep or slept in a longterm (including now)? No 04/30/2022 Nutrition Answer Date [...] PM CDT documented as of this encounter Miscellaneous Notes * Telephone Encounter - Cathleen Valero R.N. - 08/19/2023 8:21 AM FURNACE FITTER BACKGROUND Chief Complaint at time of ED encounter: Pt presented to the ED on 08/17 for Epistaxis. Packing wasplaced during ED visit that should dissolve in 5-7 days. REASON FOR CALL TODAY New or worsening symptom ED follow-up nurse received a call from the patient reporting two episodesof coughing up blood. ACTIONS TAKEN DURING CALL Assessment of chief complaint at time of presentation to ED. Pt denies additional nose bleeding except for an occasional need to dap with a kleenex. Denies feeling lightheaded or dizziness. PLAN OF CARE DISCUSSED Per provider notes ENT provider states the following: Patient is instructed to avoid blowing her nose, sneeze through the mouth when possible. She may experience some recurrent bleeds over the next few weeks. Encouraged the patient to report back to the ED if she coughs up any more blood, nose bleed, dizziness, or feeling lightheaded. If you feel your symptoms are worsening or you are developing new symptoms that are concerning, please seek evaluation with your local care provider or Emergency Department. ANY ADDITIONAL QUESTIONS OR CONCERNS? Caller has no additional questions or concerns at this time PATIENT'S RESPONSE Verbalizes agreement with plan of care Cathleen Valero R.N. 08/19/23 0827 ACE FITTER documented in this encounter Plan of Treatment Upcoming Encounters Date Type Department Care Team (Latest Contact Info) Description 09/07/2023 12:00 PM FURNACE FITTER Clinical Communication Virtual Review in [address] [address] 09/10/2023 2:00 PM FURNACE FITTER Telemedicine Department of Cardiovascular Medicine in [place], [place] [address] [place] [phone] Jesus Neal M.D. [address] [place] [phone] documented as of this encounter Visit Diagnoses Not on filedocumented in this encounter Additional Health Concerns Assessment Noted Time PHQ-9 Depression Total Score: 13 008 12:22 PM CDT documented as of this encounter Care Teams Licensed Appraiser Relationship Specialty Start Date End Date Elsewhere, Pcp PCP - General Internal Medicine 08/19/23 documented as of this encounter
--- OUTSIDE RECORDS SUMMARY | 2023-09-05 16:49 | XMS_ITS | Encounter Summary ---
Author Name Unknown Organization [facility] Address [address] [place] [address] Care Team Providers Care Brick Layer Name Role Phone Elsewhere, Pcp Primary Care Provider Unavailabl e Reason for Visit * Reason Onset Date Comments Med Refill 07/27/2023 Encounter Details Date Type Department Care Team (Late st Contact Info) Description 07/27/2023 Clinical Communication Department of Sleep Medicine in [place], [place] [address] [place] [phone] Neelima Nj APRN, C.N.P., D.N.P., M.S.N. [address] [place] [phone] Med Refill Social History Tobacco Use Types Packs/Day Years [...] often do you attend chur ch or lutheran services? Never 04/30/2022 Do you belong to any clubs o r organizations such as anabaptist groups, unions, fraternal or athletic groups, or [...] and heating? Not hard at all 04/30/2022 [facility] [place] of Occupat ional Health - Occupational Stress [...] place to sleep or slept in a jail (including now)? No 04/30/2022 Nutrition Answer Date [...] PM CDT documented as of this encounter Plan of Treatment Upcoming Encounters Date Type Department Care Team (Latest Contact Info) Description 09/07/2023 12:00 PM COMPOSING MACHINE OPERATOR Clinical Communication Virtual Review in [place], [place] [address] [place] [address] 09/10/2023 2:00 PM COMPOSING MACHINE OPERATOR Telemedicine Department of Cardiovascular Medicine in [place], [place] [address] [place] [phone] Jesus Neal M.D. [address] [place] [phone] documented as of this encounter Visit Diagnoses Diagnosis Apnea Sleep Obstructive- Primary documented in this encounter Additional Health Concerns Assessment Noted Time PHQ-9 Depression Total Score: 13 008 12:22 PM CDT documented as of this encounter Care Teams Brick Layer Relationship Specialty Start Date End Date Elsewhere, Pcp PCP - General Internal Medicine 08/19/23 documented as of this encounter
--- OUTSIDE RECORDS SUMMARY | 2023-09-05 16:49 | XMS_ITS | Encounter Summary ---
Author Name Unknown Organization [facility] Address [address] [place] [address] Care Team Providers Care Flower Planter Name Role Phone Elsewhere, Pcp Primary Care Provider Unavailabl e Reason for Visit * Reason Comments Coughing Up Blood Encounter Details Date Type Department Care Team (Late st Contact Info) Description 08/19/2023 10:43 AM PARKING GARAGE MANAGER - 08/19/2023 4:35 PM PARKING GARAGE MANAGER Emergency [facility] Emergency Department [address] [place] [phone] Lalitha Ayon M.D., M.S. [address] [place] [address] Roger Sorenson M.D. [address] [place] [address] [phone] Epistaxis (Primary Dx) Discharge Disposition: Home or [...] often do you attend chur ch or rastafarian services? Never 04/30/2022 Do you belong to any clubs o r organizations such as latter-day groups, unions, fraternal or athletic groups, or [...] and heating? Not hard at all 04/30/2022 [facility] [place] of Occupat ional Health - Occupational Stress [...] place to sleep or slept in a senior living (including now)? No 04/30/2022 Nutrition Answer Date [...] Comments Blood Pressure 131/87 08/19/2023 4:30 PM PARKING GARAGE MANAGER Pulse 73 08/19/2023 4:30 PM PARKING GARAGE MANAGER Temperature 36.6 ??C (97.9 ??F) 08/19/2023 1 0:51 AM PARKING GARAGE MANAGER Respiratory Rate 16 08/19/2023 10:5 1 AM PARKING GARAGE MANAGER Oxygen Saturation 98% 08/19/2023 4:30 PM PARKING GARAGE MANAGER Inhaled Oxygen Concentration - - Weight 70.3 kg (154 lb 15.7 oz) 023 10:45 AM PARKING GARAGE MANAGER Height - - Body Mass Index 28.16 05/15/2022 11:39 AM CDT documented in this encounter Discharge Instructions * Discharge Instructions* King Chau M.D. - 08/19/2023 3:25 PM PARKING GARAGE MANAGER Hold your Xarelto until Sunday when you have a family medicine appointment. For absorbable nasal packin. The patient has absorbable packing in place. This will be absorbed by the body in 1-2 weeks time. Do not attempt to remove the packing. 2. Please try not to sneeze. Instruct the patient to sneeze with the mouth open. Do NOT blow the nose. Any action that increases pressure inside the nose may cause the packing to dislodge 3. Please use the nasal saline sprays as directed below (four times a day) to help keep the packingmoist 4. No antibiotics are necessary for the type of packing that is in place 5. If the packing falls out naturally but there is no additional nosebleed, no additional intervention is necessary. The following strategies will help decrease the risk for continued or recurrent epistaxis: 1. Avoid trauma to the nose. This includes irritation from exploring digits (nose picking) and excessive nose blowing. Educate patient to sneeze and cough with an open mouth, if possible. 2. Use a room humidifier and/or humidified air in your CPAP. 3. Apply Vaseline to inside of nares bilaterally daily- Apply Vaseline at the opening of each nare and pinch ointment upward. Do not apply with qtip or finger inside the nose. 4. Apply saline nasal spray three times daily. For acute epistaxis: 1. Apply several sprays of oxymetazoline (Afrin) nasal spray to bilateral nasal cavities (regardless of side of epistaxis) 2. Tilt patient head forward to allow blood to run out rather than backward, which places the patient at risk for aspiration. 3. Apply continuous pressure to the soft part of the nose, not the bony dorsum, for 20 minutes without release of pressure 4. Repeat the above x 2, stop when nosebleed abates ING GARAGE MANAGER * Attachments The following attachments cannot be sent through Care Everywhere. * Nosebleed Adult [id number] (Tanzanian) documented in this encounter Medications at Time of Discharge Medication Sig Dispensed Refills Start Date End Date calcium carbonate 260 mg calcium (648 mg) tablet Take 1 tablet by mouth 2 (two) times a day. 0 12/13/2016 cholecalciferol (VITAMIN D3) 50 mcg (2,000 Unit) capsule Take 1 capsule by mouth daily. 0 12/25/2014 rivaroxaban (XARELTO) 10 mg tablet Take 1 tablet (10 mg total) by mouth daily with dinner. 90 tablet 3 04/29/2021 GAL 250 250 mg tablet TAKE 4 TABLETS BY MOUTH AT BEDTIME 360 tablet 3 08/07/2022 acetaminophen (TYLENOL) 500 mg tablet Take 250 mg by mouth as needed for pain. 0 cyclobenzaprine (FLEXERIL) 5 mg tablet Take 5 mg by mouth every 8 (eight) hours as needed for muscle spasms. 0 08/10/2023 multivitamin tablet Take 1 tablet by mouth daily. 0 06/05/2009 documented as of this encounter Progress Notes * Magdaleno Bella M.D. - 08/19/2023 2:36 PM CST Otorhinolaryngology Communication Note Ms. Bose is an 83 y/o female with history of VIRI on CPAP and atrial fibrillation on Xarelto whodimitrioss presented to the [facility] ED twice this week with acute epistaxis. The patient was evaluated and treated by our team on 08/17/23. At that time, a site along the anterior nasal septum was identified asthe likely source of her bleed and a small amount of Fibrillar nasal packing was placed. On today'spresentation, her nosebleed stopped following treatment with oxymetazoline nasal spray. She does not experience epistaxis regularly; her most recent nosebleed prior to this bout was in 2020. Ms. Bose has several risk factors for the development of acute epistaxis, including chronic anticoagulation, seasonal air changes, home CPAP use, and age. I would recommend discussions with the patient surrounding preventive measures to limit the likelihood of a recurrent nosebleed. I would recommend humidification of her CPAP oxygen and daily nasal saline use to promote humidification of thenasal passageways. Moreover, the patient should avoid any digital manipulation (nose-picking). Please see further recommendations below. At this time, I do not recommend scheduled ENT follow-up given that her acute epistaxis is arising in the setting of known risk-factors and, while she has experienced two nosebleeds this week, she has went several years without them. She is encouraged to reach out to our office if this continues kenna an issue, at which point, we would be happy to see her. For absorbable nasal packin. The patient has absorbable packing in place. This will be absorbed by the body in 1-2 weeks time. Do not attempt to remove the packing. 2. Please try not to sneeze. Instruct the patient to sneeze with the mouth open. Do NOT blow the nose. Any action that increases pressure inside the nose may cause the packing to dislodge 3. Please use the nasal saline sprays as directed below (four times a day) to help keep the packingmoist 4. No antibiotics are necessary for the type of packing that is in place 5. If the packing falls out naturally but there is no additional nosebleed, no additional intervention is necessary. The following strategies will help decrease the risk for continued or recurrent epistaxis: 1. Avoid trauma to the nose. This includes irritation from exploring digits (nose picking) and excessive nose blowing. Educate patient to sneeze and cough with an open mouth, if possible. 2. Use a room humidifier and/or humidified air in your CPAP. 3. Apply Vaseline to inside of nares bilaterally daily- Apply Vaseline at the opening of each nare and pinch ointment upward. Do not apply with qtip or finger inside the nose. 4. Apply saline nasal spray three times daily. For acute epistaxis: 1. Apply several sprays of oxymetazoline (Afrin) nasal spray to bilateral nasal cavities (regardless of side of epistaxis) 2. Tilt patient head forward to allow blood to run out rather than backward, which places the patient at risk for aspiration. 3. Apply continuous pressure to the soft part of the nose, not the bony dorsum, for 20 minutes without release of pressure 4. Repeat the above x 2, stop when nosebleed abates Hector Bella MD Resident Physician Department of Otorhinolaryngology Head and Neck Surgery ING GARAGE MANAGER documented in this encounter ED Notes * King Chau M.D. - 08/19/2023 3:28 PM CST VITAL SIGNS BP 129/60 Pulse 70 Temp 36.6 ??C (Oral) Resp 16 Wt 70.3 kg SpO2 97% BMI 28.16 kg/m?? ED Course as of 08/19/23 152 Sun Aug 19, 2023 1522 No CP and SOB confirmed with patient. Patient is here for epistaxis. No orthopnea or difficulty breathing. Patient denies leg swelling. At this time, I do not feel that we need to further pursueher cardiac workup with indeterminate, downtrending troponins. [address] ST-elevation DC or equivalent. 1523 Patient's epistaxis has stopped with Afrin spray. 1523 At this time, patient will be discharged with nasal clamp and instructions to hold her Xareltofor until Sunday when she has a family medicine follow-up appointment. I have provided detailed instructions for care for epistaxis provided by ENT colleagues. Final Diagnoses: as of 08/19/23 1529 Epistaxis King Chau M.D. Resident 08/19/23 1529 ING GARAGE MANAGER * Roger Sorenson M.D. - 08/19/2023 2:24 PM CST Care of patient transferred to sd by Dr. Ayon. Disposition pending Reassessment. Briefly, this is an 83 year old female who presented with epistaxis (chief complaint was reported as hemoptysis, but this was not accurate). The patient had been previously seen for epistaxis and seen by ENT with packing. The patient's symptoms resolved with afrin. Hemoglobin has decreased by 1 g but the patient has no active bleeding. She is on anticoagulation. Labs otherwise notable for elevated troponin with indeterminate delta as well as elevated BNP with no comparison. The patient has no signs of heart failure and no cardiorespiratory symptoms at all. These labs were ordered from triage and Dr. Ayon did not think this represents ischemia. I agree. EKG shows ventricularly paced rhythm with secondary ST changes and underlying atrial flutter. There is no STEMI equivalent. We discussed with ENT by phone and they recommend no intervention at this time given that bleeding is stopped and typical measures for both prevention and treatment of acute bleeding. We have advised holding DOAC for two days when she has a follow up appointment. She is on it for stroke and we talked about balancing the risk of stroke vs ongoing bleeding. Return precautions have been discussed. All questions were answered. VITAL SIGNS BP (!) 155/98 Pulse 70 Temp 36.6 ??C (Oral) Resp 16 Wt 70.3 kg SpO2 97% BMI 28.16 kg/m?? Final Diagnoses: as of 08/20/23 1354 Epistaxis Roger Sorenson M.D. 08/20/23 1402 ING GARAGE MANAGER * Lalitha Ayon M.D., M.S. - 08/19/2023 1:45 PM CST SUBJECTIVE CHIEF COMPLAINT/REASON FOR VISIT Coughing Up Blood HISTORY OF PRESENT ILLNESS Cc: Epistaxis Patient is an 83 y.o. 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 Patient was seen in the emergency department on 08/17/2023 and at that time was evaluated per ENT for epistaxis. ENT placed fibrillar on her left nare and the bleeding improved. She was dismissed in stable condition. Last night she took her night dose of Xarelto, and this morning she woke up with clots on her oropharynx. She was able to clear her throat. She has mild oozing on her left nare, and has presented to the ED for further evaluation. REVIEW OF SYSTEMS Constitutional: Negative for fatigue and fever. HENT: Positive for nosebleeds. Negative for mouth sores and sore throat. Respiratory: Negative for hemoptysis and shortness of breath. Cardiovascular: Negative for chest pain. Gastrointestinal: Negative for abdominal pain, blood in stool and vomiting. Genitourinary: Negative for dysuria. Skin: Negative for rash. Neurological: Negative for light-headedness. OBJECTIVE Initial Vitals Temperature 08/19/23 1051 36.6 ??C Pulse Rate 08/19/23 1051 92 Heart Rate -- Resp Rate 08/19/23 1051 16 Blood Pressure 08/19/23 1051 126/61 SpO2 08/19/23 1051 98 % Pain Score 08/19/23 1258 0 - No pain PHYSICAL EXAMINATION Constitutional: Nursing note and vitals reviewed. No distress. HENT: Head: Normocephalic and atraumatic. Nose: Epistaxis is observed. Mouth/Throat: Uvula is midline. Mucous membranes are moist. Dental: Good dentition. She has small clots on the posterior aspect of her oropharynx. She has mild oozing of blood from her left nare. Eyes: Pupils are equal, round, and reactive to light. Pulmonary/Chest: Effort normal. No tachypnea. No respiratory distress. Musculoskeletal: General: Normal range of motion. Cervical back: Normal range of motion. Neurological: Alert and oriented to person, place, and time. Skin: Skin is warm and dry. She is not diaphoretic. Psychiatric: She has a normal mood and affect. ASSESSMENT/PLAN Patient is an 83-year-old female currently on anticoagulation for atrial fibrillation coming to theemergency department with epistaxis. Epistaxis started 2 days ago, she was seen in the emergency department with initially placement of Merocel, subsequently placed of fibular by ENT. She was dismissed home in stable condition. She restarted her anticoagulation last night and this morning woke up with clots on her oropharynx. She was able to clear her throat. In the ED she appears to be in no distress, normal work of breathing, she has clots of a quarter size on her tissues from this morning. She had smaller clots in the ED. At 1:22 p.m. Afrin was placed in the nose. This was effective reducing the frequency of bleeding. Because of prior ENT evaluation the plan will be to ask ENT to re-evaluate her today for her epistaxis. Patient has been signed to the upcoming residential solar consultant. Blood work was ordered from the triage area and shows normal hemoglobin 12.2, normal white blood count, INR 2.1, normal lactate, initial troponin 23, 2 hour troponin 19. This does not represent ischemia, she has had no chest pain, no shortness of breath, no lightheadedness. She would normal creatinine, normal electrolytes. Final Diagnoses: as of 08/19/23 152 Epistaxis I have personally seen and examined this patient. I have fully participated in the care of this patient. I have reviewed all clinical information including history, physical exam, orders, and plan. Eliud with the note of the resident. Lalitha Ayon M.D., M.S. 08/19/23 1523 Lalitha Ayon M.D., M.S. 08/21/23 0854 ING GARAGE MANAGER * Patrica Castillo R.N. - 08/19/2023 10:47 AM CST Pt here for coughing up some blood several times this am. Pt states she was seen here in the ED on Sunday for a left nare bloody nose that she states she has a packing that they said would dissolve. Pt also complains of her left nare dripping due to packing- slight brown drainage. Pt states she was able to eat and drink normally yesterday and that she restarted her blood thinner last n ight pt denies any new pain today. Patrica Castillo R.N. 08/19/23 1051 ING GARAGE MANAGER documented in this encounter Plan of Treatment Upcoming Encounters Date Type Department Care Team (Latest Contact Info) Description 09/07/2023 12:00 PM PARKING GARAGE MANAGER Clinical Communication Virtual Review in [place], [place] [address] [place] [address] 09/10/2023 2:00 PM PARKING GARAGE MANAGER Telemedicine Department of Cardiovascular Medicine in [place], [place] [address] [place] [address] [phone] Jesus Neal M.D. [address] [place] [phone] documented as of this encounter Procedures Procedure Name Priority Date/Time Associated Diagnosis Comments TROPONIN T, 2H/6H, 5TH GEN, P Timed 08/19/2023 1:33 PM PARKING GARAGE MANAGER ECG STAT 08/19/2023 12:14 PM PARKING GARAGE MANAGER LACTATE, B STAT 08/19/2023 11:20 AM PARKING GARAGE MANAGER TROPONIN T, BASELINE, 5TH GEN, P STAT 08/19/2023 11:20 AM PARKING GARAGE MANAGER HEPATIC FUNCTION PANEL, S STAT 08/19/2023 11:20 AM PARKING GARAGE MANAGER NT-PRO B-TYPE NATRIURETIC PEPTIDE (BNP), S STAT 08/19/2023 11:20 AM PARKING GARAGE MANAGER PROTHROMBIN TIME (PT), P STAT 08/19/2023 11:20 AM PARKING GARAGE MANAGER CBC WITH DIFFERENTIAL, B STAT 08/19/2023 11:20 AM PARKING GARAGE MANAGER BASIC METABOLIC PANEL, S/P STAT 08/19/2023 11:20 AM PARKING GARAGE MANAGER documented in this encounter Results * (ABNORMAL) Troponin T, 2h/6h, 5th Gen (08/19/2023 1:33 PM PARKING GARAGE MANAGER) Troponin T, 2 hr, 5th gen 19(H) <=10 ng/L 08/19/2023 1:55 PM PARKING GARAGE MANAGER STMA 2H Delta -4 ng/L 08/19/2023 1:55 PM PARKING GARAGE MANAGER STMA 2H Delta Interp Indeterminate 08/19/2023 1:55 PM PARKING GARAGE MANAGER STMA Comment:Indeterminate delta, additional sample suggested Troponin T, 6 hr, 5th gen CANCELED ng/L 08/20/2023 11:17 AM PARKING GARAGE MANAGER STMA Comment: Patient already discharged. Result canceled by the ancillary. 6H Delta CANCELED ng/L 08/20/2023 11:17 AM PARKING GARAGE MANAGER STMA Comment:Result canceled by t he ancillary. 6H Delta Interp CANCELED 08/20/2023 11:17 AM PARKING GARAGE MANAGER STMA Comment:Result canceled by t ancillary. Blood (Blood, Venous) 08/19/2023 1:33 PM PARKING GARAGE MANAGER 08/19/2023 1:37 PM PARKING GARAGE MANAGER Narrative [facility] - 08/20/2023 11:17 AM PARKING GARAGE MANAGER Specimen Information: Specimen ID: [id number] Specimen Type: Blood Specimen Collection Start Date: 08/19/2023 ??1:33 PM Specimen Received Date: 08/19/2023 ??1:37 PM Specimen ID: [id number] Specimen Type: Blood Donavan Blankenship M.D. LAB BLOOD TROPONIN [facility] [address] [place] [address], [facility] [address] [place] [address] * ECG 12 Lead (08/19/2023 12:14 PM PARKING GARAGE MANAGER) Ventricular Rate ECG/Min 76 BPM MUSE QRSD Interval 166 ms MUSE QT Interval 486 ms MUSE QTC Interval 547 ms MUSE R [place] -85 degrees MUSE T Wave [place] 142 degrees MUSE 08/19/2023 12:1 4 PM PARKING GARAGE MANAGER 08/20/2023 10:19 AM PARKING GARAGE MANAGER Impressions MUSE - 08/19/2023 12:27 PM PARKING GARAGE MANAGER Dual chamber electronic pacemaker Atrial flutter Prolonged QT When compared with ECG of 02-MAY-2022 11:28, QT has lengthened Reviewed by XIANG Murray Narrative Procedure Note Raymundo Raygoza M.D., M.P.H. - 08/20/2023 IMPRESSION: Dual chamber electronic pacemaker Atrial flutter Prolonged QT When compared with ECG of 02-MAY-2022 11:28, QT has lengthened Reviewed by XIANG Murray Donavan Blankenship M.D. ECG ORDERABLES Performing Organization Address City/[facility]/ZIP Co de Phone Number MUSE NA * (ABNORMAL) Troponin T, Baseline, 5th gen (08/19/2023 11:20 AM PARKING GARAGE MANAGER) Troponin T, Baseline, 5th gen 23(H) <=10 ng/L 08/19/2023 11:47 AM PARKING GARAGE MANAGER STMA Blood (Blood, Venous) 08/19/2023 11:20 AM PARKING GARAGE MANAGER 08/19/2023 11:27 AM PARKING GARAGE MANAGER Donavan Blankenship M.D. LAB BLOOD TROPONIN Performing Organization Address [facility] Co de Phone Number [facility] [address] [place] [address], [facility] [address] [place] [address] * (ABNORMAL) Prothrombin Time (PT) (08/19/2023 11:20 AM PARKING GARAGE MANAGER) Prothrombin Time, P 23.3(H) 9.4 - 12.5 sec 08/19/2023 11:35 AM PARKING GARAGE MANAGER STMA INR 2.1 0.9 - 1.1 08/19/2023 11:35 AM PARKING GARAGE MANAGER ST[facility] Comment: ----ADDITIONAL INFORMATION---- Standard intensity warfarin therapeutic range: 2.0 to 3.0 ?? High intensity warfarin therapeutic range: 2.5 to 3.5 Blood (Blood, Venous) 08/19/2023 11:20 AM PARKING GARAGE MANAGER 08/19/2023 11:27 AM PARKING GARAGE MANAGER Donavan Blankenship M.D. LAB BLOOD ADD-ON [facility] [address] [place], [place] [address] [place] [address] [address] [place] [address] * (ABNORMAL) NT-Pro B-Type Natriuretic Peptide (BNP) (08/19/2023 11:20 AM PARKING GARAGE MANAGER) NT-Pro BNP 1244(H) <=540 pg/mL 08/19/2023 11:56 AM PARKING GARAGE MANAGER [facility] Comment: NT-proBNP values less than 300 pg/mL [...] failure. Blood (Blood, Venous) 08/19/2023 11:20 AM PARKING GARAGE MANAGER 08/19/2023 11:27 AM PARKING GARAGE MANAGER Donavan Blankenship M.D. LAB BLOOD ADD-ON Performing Organization Address City/[facility]/ZIP Co de Phone Number [facility] [address] [place] [address], [facility] [address] [place] [address] * Lactate, B (08/19/2023 11:20 AM PARKING GARAGE MANAGER) Pathologist [facility] Lactate, B 1.2 0.5 - 2.2 mmol/L 08/19/2023 11:30 AM PARKING GARAGE MANAGER [facility] Blood (Blood, Venous) 08/19/2023 11:20 AM PARKING GARAGE MANAGER 08/19/2023 11:27 AM PARKING GARAGE MANAGER Donavan Blankenship M.D. LAB BLOOD NON ADD- ON [facility] [address] [place] [address], [facility] STMA [facility] [address] [place] [address] * (ABNORMAL) Hepatic Function Panel (08/19/2023 11:20 AM PARKING GARAGE MANAGER) Bilirubin, Total, S 0.8 0.0 - 1.2 mg/dL 08/19/2023 12:15 PM PARKING GARAGE MANAGER DTL Bilirubin, Direct, S 0.3 0.0 - 0.3 mg/dL 08/19/2023 12:15 PM PARKING GARAGE MANAGER DTL Aspartate Aminotransferase (AST), S 31 8 - 43 U/L 08/19/2023 12:15 PM PARKING GARAGE MANAGER DTL Alanine Aminotransferase (ALT), S 23 7 - 45 U/L 08/19/2023 12:15 PM PARKING GARAGE MANAGER DTL Alkaline Phosphatase, S 127(H) 35 - 104 U/L 08/19/2023 12:15 PM PARKING GARAGE MANAGER DTL Albumin, S 4.1 3.5 - 5.0 g/dL 08/19/2023 12:15 PM PARKING GARAGE MANAGER DTL Protein, Total, S 6.4 6.3 - 7.9 g/dL 08/19/2023 12:15 PM PARKING GARAGE MANAGER DTL Blood (Blood, Venous) 08/19/2023 11:20 AM PARKING GARAGE MANAGER 08/19/2023 11:52 AM PARKING GARAGE MANAGER Donavan Blankenship M.D. LAB BLOOD ADD-ON [facility] [address] [place] [address], [facility] DTL [facility] [address] [place] [address] * (ABNORMAL) CBC with Differential, Blood (08/19/2023 11:20 AM PARKING GARAGE MANAGER) Hemoglobin 12.2 11.6 - 15.0 g/dL 08/19/2023 11:30 AM PARKING GARAGE MANAGER STMA Hematocrit 36.6 35.5 - 44.9 % 08/19/2023 11:30 AM PARKING GARAGE MANAGER STMA Erythrocytes 4.14 3.92 - 5.13 x10(12)/L 08/19/2023 11:30 AM PARKING GARAGE MANAGER STMA MCV 88.4 78.2 - 97.9 fL 08/19/2023 11:30 AM PARKING GARAGE MANAGER STMA RBC Distrib Width 13.2 12.2 - 16.1 % 08/19/2023 11:30 AM PARKING GARAGE MANAGER STMA Platelet Count 183 157 - 371 x10(9)/L 08/19/2023 11:30 AM PARKING GARAGE MANAGER STMA Leukocytes 8.4 3.4 - 9.6 x10(9)/L 08/19/2023 11:30 AM PARKING GARAGE MANAGER STMA Neutrophils 6.50(H) 1.56 - 6.45 x10(9)/L 08/19/2023 11:30 AM PARKING GARAGE MANAGER DHPM Lymphocytes 1.11 0.95 - 3.07 x10(9)/L 08/19/2023 11:30 AM PARKING GARAGE MANAGER STMA Monocytes 0.67 0.26 - 0.81 x10(9)/L 08/19/2023 11:30 AM PARKING GARAGE MANAGER STMA Eosinophils 0.07 0.03 - 0.48 x10(9)/L 08/19/2023 11:30 AM PARKING GARAGE MANAGER STMA Basophils 0.03 0.01 - 0.08 x10(9)/L 08/19/2023 11:30 AM PARKING GARAGE MANAGER STMA Blood (Blood, Venous) 08/19/2023 11:20 AM PARKING GARAGE MANAGER 08/19/2023 11:27 AM PARKING GARAGE MANAGER Donavan Blankenship M.D. LAB BLOOD ADD-ON [facility] [address] [place] [address], [facility] STMA [facility] [address] [place] [address] [facility] [address] [place] [address] * (ABNORMAL) Basic Metabolic Panel (08/19/2023 11:20 AM PARKING GARAGE MANAGER) Potassium, P 5.0 3.6 - 5.2 mmol/L 08/19/2023 11:43 AM PARKING GARAGE MANAGER STMA Sodium, P 141 135 - 145 mmol/L 08/19/2023 11:43 AM PARKING GARAGE MANAGER STMA Chloride, P 106 98 - 107 mmol/L 08/19/2023 11:43 AM PARKING GARAGE MANAGER STMA Bicarbonate, P 27 22 - 29 mmol/L 08/19/2023 11:43 AM PARKING GARAGE MANAGER STMA Anion Gap, P 8 7 - 15 08/19/2023 11:43 AM PARKING GARAGE MANAGER STMA BUN (Blood Urea Nitrogen), P 28(H) 6 - 21 mg/dL 08/19/2023 11:43 AM PARKING GARAGE MANAGER STMA Creatinine 0.67 0.59 - 1.04 mg/dL 08/19/2023 11:43 AM PARKING GARAGE MANAGER STMA Estimated GFR (eGFR) 87 >=60 mL/min/BSA 08/19/2023 11:43 AM PARKING GARAGE MANAGER STMA Comment: Estimated GFR calculated using the 2020 CKD_EPI creatinine equation. Calcium, Total, P 9.4 8.8 - 10.2 mg/dL 08/19/2023 11:43 AM PARKING GARAGE MANAGER STMA Glucose, P 112 70 - 140 mg/dL 08/19/2023 11:43 AM PARKING GARAGE MANAGER STMA Blood (Blood, Venous) 08/19/2023 11:20 AM PARKING GARAGE MANAGER 08/19/2023 11:27 AM PARKING GARAGE MANAGER Donavan Blankenship M.D. [place] [address], [facility] [address] [place] [address] documented in this encounter Visit Diagnoses Diagnosis Epistaxis- Primary documented in this encounter Administered Medications Inactive Administered Medications - up to 3 most recent administrations Medication Order MAR Action Action Date Dose Rate Site oxymetazoline 0.05 % nasal spray 2 spray (AFRIN) 2 spray, each nostril, Once, On 08/19/23 at 1307, For 1 dose, Do not use for more than 3 days. Given 08/19/2023 1:17 PM PARKING GARAGE MANAGER 2 sprays documented in this encounter Active and Recently Administered Medications Times are shown in PARKING GARAGE MANAGER. Scheduled Medication Order 08/17/2023 08/18/2023 08/19/2023 oxymetazoline 0.05 % nasal spray 2 spray (AFRIN) (COMPLETED) 2 spray, each nostril, Once, On 08/19/23 at 1307, For 1 dose, Do not use for more than 3 days. 1317 (Given - Provid er: Neha Fernando R.N.) documented in this encounter Additional Health Concerns Assessment Noted Time PHQ-9 Depression Total Score: 13 01/08/ 008 12:22 PM CDT documented as of this encounter Care Teams Flower Planter Relationship Specialty Start Date End Date Elsewhere, Pcp PCP - General Internal Medicine 08/19/23 documented as of this encounter
--- OUTSIDE RECORDS SUMMARY | 2023-09-05 16:49 | XMS_ITS | Encounter Summary ---
Author Name Unknown Organization [facility] Address [address] [place] [address] Care Team Providers Care Tribal Delegate Name Role Phone Elsewhere, Pcp Primary Care Provider Unavailabl e Encounter Details Date Type Department Care Team (Latest Contact Info) Description 08/24/2023 4:00 AM QUALITY CONTROL ENGINEER - 08/24/2023 11:59 PM QUALITY CONTROL ENGINEER Hospital Encounter Department of Cardiovascular Diseases in [place], [place] [address] [place] [address] Tony Nelson M.B.B.S. [address] [place] [address] Encounter For Checking And Testing Of Cardiac Pacemaker Pulse Generator Battery Discharge Disposition: Home or Self Care Social [...] often do you attend chur ch or amish services? Never 04/30/2022 Do you belong to any clubs o r organizations such as jew groups, unions, fraternal or athletic groups, or [...] and heating? Not hard at all 04/30/2022 [facility] [place] of Occupat ional Health - Occupational Stress [...] PM CDT documented as of this encounter Medications at Time of Discharge Medication Sig Dispensed Refills Start Date End Date acetaminophen (TYLENOL) 500 mg tablet Take 250 mg by mouth as needed for pain. 0 calcium carbonate 260 mg calcium (648 mg) tablet Take 1 tablet by mouth 2 (two) times a day. 0 12/13/2016 cholecalciferol (VITAMIN D3) 50 mcg (2,000 Unit) capsule Take 1 capsule by mouth daily. 0 12/25/2014 cyclobenzaprine (FLEXERIL) 5 mg tablet Take 5 mg by mouth every 8 (eight) hours as needed for muscle spasms. 0 08/10/2023 multivitamin tablet Take 1 tablet by mouth daily. 0 06/05/2009 GAL 250 250 mg tablet TAKE 4 TABLETS BY MOUTH AT BEDTIME 360 tablet 3 08/07/2022 documented as of this encounter Plan of Treatment Upcoming Encounters Date Type Department Care Team (Latest Contact Info) Description 09/07/2023 12:00 PM QUALITY CONTROL ENGINEER Clinical Communication Virtual Review in [place], [place] [address] [place] [address] 09/10/2023 2:00 PM QUALITY CONTROL ENGINEER Telemedicine Department of Cardiovascular Medicine in [address] [phone] Jesus Neal M.D. [address] [place] [phone] documented as of this encounter Procedures Procedure Name Priority Date/Time Associated Diagnosis Comments PACER REMOTE FOLLOW UP Routine 08/24/2023 2:01 PM QUALITY CONTROL ENGINEER Encounter For Checking And Testing Of Cardiac Pacemaker Pulse Generator Battery documented in this encounter Results * PACER REMOTE FOLLOW UP (08/24/2023 2:01 PM QUALITY CONTROL ENGINEER) Date Time Interrogation Session [id number] [facility] Implantable Pulse Generator Cloud Subject Matter Expert [employer] Implantable Pulse Generator Model [id number] Hortencia XT DR YING [facility] Implantable Pulse Generator Serial Number [id number] [facility] Type Interrogation Session Remote [facility] Clinic Name [facility] Implantable Pulse Generator Type Pacemaker [facility] Implantable Pulse Generator Implant Date 20200219 [facility] Implantable Lead Cloud Subject Matter Expert Medtronic [facility] Implantable Lead Model 4076 CapsureFix Novus MRI SureScan [facility] Implantable Lead Serial Number [id number] [facility] Implantable Lead Implant Date 20200219 [facility] Implantable Lead Polarity Type Bipolar Lead [facility] Implantable Lead Location Detail 1 UNKNOWN [facility] Implantable Lead Special Function Lead length: 45 cm [facility] Implantable Lead Location Right Atrium [facility] Implantable Lead Cloud Subject Matter Expert Medtronic [facility] Implantable Lead Model 4076 CapsureFix Novus MRI SureScan [facility] Implantable Lead Serial Number [id number] [facility] Implantable Lead Implant Date 20200219 [facility] Implantable Lead Polarity Type Bipolar Lead [facility] Implantable Lead Location Detail 1 UNKNOWN [facility] Implantable Lead Special Function Lead length: 52 cm [facility] Implantable Lead Location Right Ventricle [facility] Garry Setting Mode (NBG Code) DDDR [facility] Garry Setting Lower Rate Limit 70 {beats}/ min [facility] Garry Setting Maximum Tracking Rate 130 {beats}/ min [facility] Garry Setting Maximum Sensor Rate 130 {beats}/ min [facility] Garry Setting CASE Delay Low 150 ms [facility] Garry Setting PAV Delay Low 180 ms [facility] Garry Setting AT Mode Switch Rate 140 {beats}/ min [facility] Garry Setting AT Mode Switch Mode DDIR [facility] Lead Channel Setting Sensing Polarity Bipolar [facility] Lead Channel Setting Sensing Anode Location Right Atrium [facility] Lead Channel Setting Sensing Anode Terminal Ring [facility] Lead Channel Setting Sensing Cathode Location Right Atrium [facility] Lead Channel Setting Sensing Cathode Terminal Tip [facility] Lead Channel Setting Sensing Sensitivity 0.3 mV [facility] Lead Channel Setting Sensing Polarity Bipolar [facility] Lead Channel Setting Sensing Anode Location Right Ventricle [facility] Lead Channel Setting Sensing Anode Terminal Ring [facility] Lead Channel Setting Sensing Cathode Location Right Ventricle [facility] Lead Channel Setting Sensing Cathode Terminal Tip [facility] Lead Channel Setting Sensing Sensitivity 0.9 mV [facility] Lead Channel Setting Pacing Polarity Bipolar [facility] Lead Channel Setting Pacing Anode Location Right Atrium [facility] Lead Channel Setting Pacing Anode Terminal Ring [facility] Lead Channel Setting Sensing Cathode Location Right Atrium [facility] Lead Channel Setting Sensing Cathode Terminal Tip [facility] Lead Channel Setting Pacing Pulse Width 0.4 ms [facility] Lead Channel Setting Pacing Amplitude 1.5 V [facility] Lead Channel Setting Pacing Capture Mode Adaptive [facility] Lead Channel Setting Pacing Polarity Bipolar [facility] Lead Channel Setting Pacing Anode Location Right Ventricle [facility] Lead Channel Setting Pacing Anode Terminal Ring [facility] Lead Channel Setting Sensing Cathode Location Right Ventricle [facility] Lead Channel Setting Sensing Cathode Terminal Tip [facility] Lead Channel Setting Pacing Pulse Width 0.4 ms [facility] Lead Channel Setting Pacing Amplitude 2 V [facility] Lead Channel Setting Pacing Capture Mode Adaptive [facility] Zone Setting Type Category VF [facility] Zone Setting Type Category VT [facility] Zone Setting Type Category VT [facility] Zone Setting Type Category VT [facility] Zone Setting Detection Interval 350 ms [facility] Zone Setting Type Category ATRIAL_FIBRILLATI ON [facility] Zone Setting Type Category AT/AF [facility] Zone Setting Detection Interval 430 ms [facility] Lead Channel Impedance Value 418 ohm [facility] Lead Channel Sensing Intrinsic Amplitude 3.875 mV [facility] Lead Channel Pacing Threshold Amplitude 0.375 V [facility] Lead Channel Pacing Threshold Pulse Width 0.4 ms [facility] Lead Channel Impedance Value 532 ohm [facility] Lead Channel Sensing Intrinsic Amplitude 7.5 mV [facility] Lead Channel Pacing Threshold Amplitude 0.5 V [facility] Lead Channel Pacing Threshold Pulse Width 0.4 ms [facility] Battery Date Time of Measurements [facility] Battery DOLL WIG MAKER ROOTED HAIR Trigger 2.625 [facility] Battery Remaining Longevity 111 mo [facility] Battery Voltage 3.00 V [facility] Garry Statistic Date Time Start [facility] Garry Statistic Date Time End [facility] Garry Statistic RA Percent Paced 0.01 % [facility] Garry Statistic RV Percent Paced 99.96 % [facility] Atrial Tachy Statistic Date Time Start [facility] Atrial Tachy Statistic Date Time End [facility] Atrial Tachy Statistic AT/AF Leeper Percent 100 % [facility] Episode [...] SYSTEM Episode Statistic Recent Date Time Start [facility] Episode Statistic Recent Date Time End [facility] Episode Statistic Recent Date Time [...] Region Laterality Modality Other 08/23/2023 8:41 PM QUALITY CONTROL ENGINEER Narrative 08/29/2023 4:52 PM QUALITY CONTROL ENGINEER PURPOSE OF VISIT: ??Routine quarterly remote transmission PRESENTING EGM: ??AF, ORACLE WMS CONSULTANT @ 75 bpm ATRIAL ARRHYTHMIAS: 1 AT/AF episode since 05/24/2023, in progress, 100% AF burden VENTRICULAR ARRHYTHMIAS: ??None since 05/24/2023 ?PVC Leeper: None since 05/24/2023 BATTERY LONGEVITY: Expected battery [...] Tony Covington CV IMPLANTABLE CA RDIAC DEVICE documented in this encounter Visit Diagnoses Diagnosis Encounter For Checking And Testing Of Cardiac Pacemaker Pulse Generator Battery documented in this encounter Additional Health Concerns Assessment Noted Time PHQ-9 Depression Total Score: 13 008 12:22 PM CDT documented as of this encounter Care Teams Tribal Delegate Relationship Specialty Start Date End Date Elsewhere, Pcp PCP - General Internal Medicine 08/19/23 documented as of this encounter
--- OUTSIDE RECORDS SUMMARY | 2023-09-05 16:49 | XMS_ITS | Encounter Summary ---
Author Name Unknown Organization [facility] Address [address] [place] [address] Care Team Providers Care De Icer Installer Name Role Phone Neelima Nj APRN, C.N.P., D.N.P., M.S.N. [facility] Care Provider Encounter Details Date Type Department Care Team (Late st Contact Info) Description 07/31/2023 Orders Only [facility] PCP HL MNT Neelima Nj APRN, C.N.P., D.N.P., M.S.N. [address] [place] [phone] Social History Tobacco Use Types Packs/Day Years [...] often do you attend chur ch or zoroastrian services? Never 04/30/2022 Do you belong to any clubs o r organizations such as confucianist groups, unions, fraternal or athletic groups, or [...] and heating? Not hard at all 04/30/2022 [facility] [place] of Occupat ional Health - Occupational Stress [...] place to sleep or slept in a halfway (including now)? No 04/30/2022 Nutrition Answer Date [...] Info) Description 09/07/2023 12:00 PM MANAGER OF COMPLIANCE Clinical Communication Virtual Review in [place], [place] [address] [place] [address] 09/10/2023 2:00 PM MANAGER OF COMPLIANCE Telemedicine Department of Cardiovascular Medicine in [place], [place] [address] [place] [phone] Jesus Neal M.D. [address] [place] [phone] documented as of this encounter Visit Diagnoses Not on filedocumented in this encounter Additional Health Concerns Assessment Noted Time PHQ-9 Depression Total Score: 13 008 12:22 PM CDT documented as of this encounter Care Teams De Icer Installer Relationship Specialty Start Date End Date Neelima Nj APRN, C.N.P., D.N.P., M.S.N. [address] [phone] PCP - General Internal Medicine 06/05/22 08/18/23 documented as of this encounter
--- OUTSIDE RECORDS SUMMARY | 2023-09-05 16:49 | XMS_ITS | Encounter Summary ---
Author Name Unknown Organization [facility] Address [address] [place] [address] Care Team Providers Care Tibco Developer Name Role Phone Elsewhere, Pcp Primary Care Provider Unavailabl e Reason for Visit * Reason Onset Date Comments Emily Discussion 08/21/2023 Encounter Details Date Type Department Care Team (Latest Contact Info) Description 08/21/2023 Clinical Communication Department of Cardiovascular Medicine in [place], [place] [address] [place] [address] Briquetter Operator, Liz Alston Discussion Social History Tobacco Use Types Packs/Day Years [...] often do you attend chur ch or orthodox services? Never 04/30/2022 Do you belong to any clubs o r organizations such as mandaeism groups, unions, fraternal or athletic groups, or [...] and heating? Not hard at all 04/30/2022 [facility] [place] of Occupat ional Health - Occupational Stress [...] place to sleep or slept in a long-term (including now)? No 04/30/2022 Nutrition Answer Date [...] encounter Miscellaneous Notes * Telephone Encounter - Laurence Amor - 08/30/2023 10:58 AM CST Images from the original note were not included. You Jesus Neal M.D.; Tony Nelson M.B.B.S.; [facility] C[facility] Hrs [id number] minutes ago (10:44 AM) Amelie Neal, This is scheduled for a video visit 09/10. She will have her son and daughter with her on the call. Thank you! Jesus Woodson M.D. Tellier, Michelle L, R.N.; [facility] [id number] hours ago (11:46 AM) Thanks including our schedulers to see where we are on setting up a follow up with me Rita Crum R.N. Kapa, Suraj, M.D.Yesterday (9:08 AM) Hey I'm going to take her off my radar unless I hear back from you to schedule. Thanks! You [facility] Scheduling; Tony Nelson M.B.B.S.; Jesus Neal M.D.; Rita Crum R.N.6days ago Haley Novoa Rst C[facility] Scheduling3 hours ago (1:00 PM) SP Thank you for replying. Son will be here visiting September 07 & so if we could do a televisit one of those days so both he & daughter could join in that would work great.. I am continuing to take my 10 mg Xarelto & no bleeds since Sunday. Will see PCP on Aug 28.but was advised to continue my Xarelto as Prescribed until I speak to cardiology. We want to visit about the Watchman Pro ceedure. I saw Dr. Nelson regarding that previously so possibly telehealth visit with him (or Dr. Neal) Lucio May routed conversation to [facility] H[facility] Scheduling6 days ago Jesus Neal M.D. Tony Nelson M.B.BKym; Kayla Vuong R.N.; Lucio May; Lila Lynch M.D.; Rita Crum R.N.6 days ago Agree if want to start with phone visit we can to make sure how she'd want to proceed Lucio May routed conversation to [facility] C[facility] Hrs Scheduling6 days ago Tony Nelson M.B.B.S. Kayla Vuong R.N.; Lucio May; Lila Gan M.D.; Rita Crum R.N.; Jesus Neal M.D.6 days ago Last I recall she was not interested in a procedure but certainly reasonable if she wishes to proceed. I have cc'd Jesus who had a relationship with her initially. Lucio Campos routed conversation to [facility] Hrs Scheduling7 days ago Kayla Vuong R.N. Lucio May; Lila Lynch M.D.; Tony Nelson M.B.B.S.; Rita Crum R.N.8 days ago Patient was considered for watchman and was seen by Dr. Lynch in 2020 to discuss watchman-since he has had fall with head trauma, serious nosebleed as below is it time to consider watchman Lucio May [facility] Rn9 days ago Patient is on waitlist for HRS appointment. Please see concerns below. Thank you! Silvia Thomas routed conversation to [facility] C[facility] Hrs Scheduling9 days ago Haley Novoa [facility]st Cvd [id number] days ago SP Appointment Request From: Haley Bose With Provider: Jesus Neal M.D. [Department of Cardiovascular Medicine in [place], [place]] Preferred Date Range: Any date 09/10/2023 or earlier Preferred Times: Sunday Morning Reason for visit: Request an Appointment Comments: ER 08/16 Serious Nosebleed & told I to see Briquetter Operator. Requesting cyndee't for this time as son will be here to take me. I am Worried about Xarelto. Canceled Nov. due to a fall & head trauma +Knee cap E SEATER OPERATOR * Telephone Encounter - Laurence Amor - 08/23/2023 2:33 PM CST Amelie pena Pt has sent 4 or 5 appointment requests in the last few days through the portal for differing reasons in addition to future watchman procedure. The requests all say Dr Neal before 09/[address] Nelson is out of town until next Sunday. She saw Dr Neal in 2020. Please advise on how to proceed. She had recent ER visit. Thank you! Lauernce Most recent request: Comments: was told followup w/ my supervisor electronic coils when in [place] [facility] on 08/16 & . Serious nose bleeds??Continue my blood thinner or Change Dose or Eliquis 2.5 mg ??? . call me [phone] # is correct E SEATER OPERATOR * Telephone Encounter - Laurence Amor - 08/23/2023 2:32 PM CST Images from the original note were not included. Kayla Vuong, Bernice. Lucio May; Lila Lynch M.D.; Tony Nelson, M.B.B.S.; Rita Crum, R.N.Yesterday (9:07 AM) Patient was considered for watchman and was seen by Dr. Lynch in 2020 to discuss watchman-since he has had fall with head trauma, serious nosebleed as below is it time to consider watchman Lucio May [facility] Rn2 days ago Patient is on waitlist for HRS appointment. Please see concerns below. Thank you! Silvia Thomas routed conversation to Rst Cvd Hrs Scheduling2 days ago Haley Novoa Rst Cvd Scheduling4 days ago SP Appointment Request From: Haley Bose With Provider: Jesus Neal M.D. [Department of Cardiovascular Medicine in [place], [place]] Preferred Date Range: Any date 09/10/2023 or earlier Preferred Times: Sunday Morning Reason for visit: Request an Appointment Comments: ER 08/16 Serious Nosebleed & told I to see Briquetter Operator. Requesting cyndee't for this time as son will be here to take me. I am Worried about Xarelto. Canceled Jun.27 due to a fall & head trauma +Knee cap E SEATER OPERATOR * Telephone Encounter - Lashay Gilbert - 08/21/2023 8:30 AM VALVE SEATER OPERATOR Haley is calling today to re visit the watchman discussion from 05/18 visit. She was in the ED with nose bleeds and wants to discuss blood thinners and the watchman. Please advise if we can set up afollow up with you and what testing would you like? Patient Appointment Services Specialist Division of [place] [address] [email or web address] P RST CVD DEVICE SCHEDULING P RST CVD HRS SCHEDULING E SEATER OPERATOR documented in this encounter Plan of Treatment Upcoming Encounters Date Type Department Care Team (Latest Contact Info) Description 09/07/2023 12:00 PM VALVE SEATER OPERATOR Clinical Communication Virtual Review in [address] [address] 09/10/2023 2:00 PM VALVE SEATER OPERATOR Telemedicine Department of Cardiovascular Medicine in [address] [phone] Jesus Neal M.D. [address] [place] [phone] documented as of this encounter Visit Diagnoses Not on filedocumented in this encounter Additional Health Concerns Assessment Noted Time PHQ-9 Depression Total Score: 13 008 12:22 PM CDT documented as of this encounter Care Teams Tibco Developer Relationship Specialty Start Date End Date Elsewhere, Pcp PCP - General Internal Medicine 08/19/23 documented as of this encounter
--- OUTSIDE RECORDS SUMMARY | 2023-09-05 16:49 | XMS_ITS | Encounter Summary ---
Author Name Unknown Organization [facility] Address [address] [place] [address] Care Team Providers Care Tearer Name Role Phone Elsewhere, Pcp Primary Care Provider Unavailabl e Encounter Details Date Type Department Care Team (Late st Contact Info) Description 07/26/2023 CPAP Download Remote Patient Monitoring [facility] [address] [place] [address] [facility], Provider Social History Tobacco Use Types Packs/Day Years [...] often do you attend chur ch or restorationism services? Never 04/30/2022 Do you belong to any clubs o r organizations such as scientology groups, unions, fraternal or athletic groups, or [...] and heating? Not hard at all 04/30/2022 [facility] [place] of Occupat ional Health - Occupational Stress [...] place to sleep or slept in a residential (including now)? No 04/30/2022 Nutrition Answer Date [...] (Latest Contact Info) Description 09/07/2023 12:00 PM GRAIN SHIPPER Clinical Communication Virtual Review in [place], [place] [address] [place] [address] 09/10/2023 2:00 PM GRAIN SHIPPER Telemedicine Department of Cardiovascular Medicine in [place], [place] [address] [place] [address] Jesus Neal M.D. [address] [place] [address] documented as of this encounter Visit Diagnoses Not on filedocumented in this encounter Additional Health Concerns Assessment Noted Time PHQ-9 Depression Total Score: 13 008 12:22 PM CDT documented as of this encounter Care Teams Tearer Relationship Specialty Start Date End Date Elsewhere, Pcp PCP - General Internal Medicine 08/19/23 documented as of this encounter
--- OUTSIDE RECORDS SUMMARY | 2023-09-05 16:49 | XMS_ITS | Encounter Summary ---
Author Name Unknown Organization [facility] Address [address] [place] [address] Care Team Providers Care Payment Analyst Name Role Phone Elsewhere, Pcp Primary Care Provider Unavailabl e Encounter Details Date Type Department Care Team (Latest Contact Info) Description 08/17/2023 Intake [facility] Social History Tobacco Use Types Packs/Day Years [...] often do you attend chur ch or quaker services? Never 04/30/2022 Do you belong to any clubs o r organizations such as worship groups, unions, fraternal or athletic groups, or [...] and heating? Not hard at all 04/30/2022 [facility] of Occupat ionmi Health - Occupational Stress Questionnaire Answer Date [...] place to sleep or slept in a retirement (including now)? No 04/30/2022 Nutrition Answer Date [...] (Latest Contact Info) Description 09/07/2023 12:00 PM NURSING TEACHER Clinical Communication Virtual Review in [place], [place] [address] [place] [address] 09/10/2023 2:00 PM NURSING TEACHER Telemedicine Department of Cardiovascular Medicine in [place], [place] [address] [place] [address] Jesus Neal M.D. [address] [place] [address] documented as of this encounter Visit Diagnoses Not on filedocumented in this encounter Additional Health Concerns Assessment Noted Time PHQ-9 Depression Total Score: 13 008 12:22 PM CDT documented as of this encounter Care Teams Payment Analyst Relationship Specialty Start Date End Date Elsewhere, Pcp PCP - General Internal Medicine 08/19/23 documented as of this encounter
--- OUTSIDE RECORDS SUMMARY | 2023-09-05 16:50 | XMS_ITS | Encounter Summary ---
Author Name Unknown Organization [facility] Address [address] [place] [address] Care Team Providers Care Route Driver Name Role Phone Neelima Nj APRN, C.NVeritoP., D.N.P., M.S.N. [facility] Care Provider Encounter Details Date Type Department Care Team (Latest Contact Info) Description 11/23/2022 4:00 AM CDT - 11/23/2022 11:59 PM CDT Hospital Encounter Department of Cardiovascular Diseases in [place], [place] [address] [place] [phone] Zay Morley M.D., M.B.A. [address] [place] [phone] Encounter For Checking And Testing Of Cardiac Pacemaker Pulse Generator Battery Discharge Disposition: Home or Self Care Social History Tobacco Use Types Packs/Day Years Used Date Smoking Tobacco: Never Smokeless Tobacco: Never Comments:Never ever used tob acco Alcohol Use Standard Drinks/Week Comments No 0 (1 standard drink = 0.6 oz [...] often do you attend chur ch or yazidi services? Never 04/30/2022 Do you belong to any clubs o r organizations such as jewish groups, unions, fraternal or athletic groups, or [...] and heating? Not hard at all 04/30/2022 [facility] [place] of Occupat ional Health - Occupational Stress [...] (Latest Contact Info) Description 09/07/2023 12:00 PM ICU MANAGER Clinical Communication Virtual Review in [place], [place] [address] [place] [address] 09/10/2023 2:00 PM ICU MANAGER Telemedicine Department of Cardiovascular Medicine in [address] [phone] Jesus Neal M.D. [address] [place] [phone] documented as of this encounter Procedures Procedure Name Priority Date/Time Associated Diagnosis Comments PACER REMOTE FOLLOW UP Routine 11/27/2022 9:54 AM CDT Encounter For Checking And Testing Of Cardiac Pacemaker Pulse Generator Battery documented in this encounter Results * PACER REMOTE FOLLOW UP (11/27/2022 9:54 AM CDT) Date Time Interrogation Session [id number] [facility] Implantable Pulse Generator [facility] Implantable Pulse Generator Model [id number] [place] XT DR YING [facility] Implantable Pulse Generator Serial Number [id number] [facility] Type Interrogation Session Remote [facility] Clinic Name [facility] [place] [facility] Implantable Pulse Generator Type Pacemaker [facility] Implantable Pulse Generator Implant Date 20200219 [facility] Implantable Lead Fisher [employer]yster Medtronic [facility] Implantable Lead Model 4076 CapsureFix Novus MRI SureScan [facility] Implantable Lead Serial Number [id number] [facility] Implantable Lead Implant Date 20200219 [facility] Implantable Lead Polarity Type Bipolar Lead [facility] Implantable Lead Location Detail 1 UNKNOWN [facility] Implantable Lead Special Function Lead length: 45 cm [facility] Implantable Lead Location Right Atrium [facility] Implantable Lead Fisher [employer]yster Medtr[employer] [facility] Implantable Lead Model 4076 CapsureFix Novus MRI SureScan [facility] Implantable Lead Serial Number [id number] [facility] Implantable Lead Implant Date 20200219 [facility] Implantable Lead Polarity Type Bipolar Lead [facility] Implantable Lead Location Detail 1 UNKNOWN [facility] Implantable Lead Special Function Lead length: 52 cm [facility] Implantable Lead Location Right Ventricle [facility] Garry Setting Mode (NBG Code) DDDR [facility] Garry Setting Lower Rate Limit 70 {beats}/ min [facility] Garry Setting Maximum Tracking Rate 130 {beats}/ min [facility] Garry Setting Maximum Sensor Rate 130 {beats}/ min [facility] Garry Setting CASE Delay Low 150 ms [facility] Garry Setting PAV Delay Low 180 ms [facility] Garry Setting AT Mode Switch Rate 140 {beats}/ min [facility] Lead Channel Setting Sensing Polarity Bipolar [facility] Lead Channel Setting Sensing Anode Location Right Atrium [facility] Lead Channel Setting Sensing Anode Terminal Ring [facility] Lead Channel Setting Sensing Cathode Location Right Atrium [facility] Lead Channel Setting Sensing Cathode Terminal Tip [facility] Lead Channel Setting Sensing Sensitivity 0.3 mV [facility] Lead Channel Setting Sensing Polarity Bipolar [facility] Lead Channel Setting Sensing Anode Location Right Ventricle [facility] Lead Channel Setting Sensing Anode Terminal Ring [facility] Lead Channel Setting Sensing Cathode Location Right Ventricle [facility] Lead Channel Setting Sensing Cathode Terminal Tip [facility] Lead Channel Setting Sensing Sensitivity 0.9 mV [facility] Lead Channel Setting Pacing Polarity Bipolar [facility] Lead Channel Setting Pacing Anode Location Right Atrium [facility] Lead Channel Setting Pacing Anode Terminal Ring [facility] Lead Channel Setting Sensing Cathode Location Right Atrium [facility] Lead Channel Setting Sensing Cathode Terminal Tip [facility] Lead Channel Setting Pacing Pulse Width 0.4 ms [facility] Lead Channel Setting Pacing Amplitude 1.5 V [facility] Lead Channel Setting Pacing Capture Mode Adaptive [facility] Lead Channel Setting Pacing Polarity Bipolar [facility] Lead Channel Setting Pacing Anode Location Right Ventricle [facility] Lead Channel Setting Pacing Anode Terminal Ring [facility] Lead Channel Setting Sensing Cathode Location Right Ventricle [facility] Lead Channel Setting Sensing Cathode Terminal Tip [facility] Lead Channel Setting Pacing Pulse Width 0.4 ms [facility] Lead Channel Setting Pacing Amplitude 2 V [facility] Lead Channel Setting Pacing Capture Mode Adaptive [facility] Zone Setting Type Category VF [facility] Zone Setting Type Category VT [facility] Zone Setting Type Category VT [facility] Zone Setting Type Category VT [facility] Zone Setting Detection Interval 350 ms [facility] Zone Setting Type Category ATRIAL_FIBRILLATI ON [facility] Zone Setting Type Category AT/AF [facility] Zone Setting Detection Interval 430 ms [facility] Lead Channel Impedance Value 437 ohm [facility] Lead Channel Impedance Value 285 ohm [facility] Lead Channel Sensing Intrinsic Amplitude 4.5 mV [facility] Lead Channel Sensing Intrinsic Amplitude 4.5 mV [facility] Lead Channel Impedance Value 570 ohm [facility] Lead Channel Impedance Value 475 ohm [facility] Lead Channel Pacing Threshold Amplitude 0.625 V [facility] Lead Channel Pacing Threshold Pulse Width 0.4 ms [facility] Battery Date Time of Measurements [facility] Battery TERMINAL BLOCK ASSEMBLER Trigger 2.625 [facility] Battery Remaining Longevity 121 mo [facility] Battery Voltage 3.01 V [facility] Garry Statistic Date Time Start [facility] Garry Statistic Date Time End [facility] Garry Statistic RA Percent Paced 0.02 % [facility] Garry Statistic RV Percent Paced 99.98 % [facility] Atrial Tachy Statistic Date Time Start [facility] Atrial Tachy Statistic Date Time End [facility] Atrial Tachy Statistic AT/AF [place] Percent 100 % [facility] Episode Statistic Recent Count 0 [facility] Episode Statistic Type Category AT/AF [facility] Episode Statistic Recent Count 0 [facility] Episode Statistic Type Category Patient Activated [facility] Episode Statistic Recent Count 0 [facility] Episode Statistic Type Category SVT [facility] Episode Statistic Recent Count 0 [facility] Episode Statistic Type Category VT [facility] Episode Statistic Recent Count 0 [facility] Episode Statistic Type Category VT [facility] Episode Statistic Recent Date Time Start [facility] Episode Statistic Recent Date Time End [id number] [facility] Episode Statistic Recent Date Time Start [facility] Episode Statistic Recent Date Time End [id number] [facility] Episode Statistic Recent Date Time Start [facility] Episode Statistic Recent Date Time End [id number] [facility] Episode Statistic Recent Date Time Start [facility] Episode Statistic Recent Date Time End [id number] [facility] Episode Statistic Recent Date Time Start [facility] Episode Statistic Recent Date Time End [id number] [facility] Episode Statistic Total Count [...] SYSTEM Episode Statistic Total Date Time End [id number] [facility] Episode Statistic Total Date Time Start [facility] Episode Statistic Total Date Time End [id number] [facility] Episode Statistic Total Date Time Start [facility] Episode Statistic Total Date Time End [id number] [facility] Episode Statistic Total Date Time Start [facility] Episode Statistic Total Date Time End [id number] [facility] Episode Statistic Total Date Time Start [facility] Episode Statistic Total Date Time End [id number] [facility] Anatomical Region Laterality Modality Other 11/23/2022 4:38 AM CDT Narrative 12/01/2022 10:18 AM CDT PURPOSE OF VISIT: ??Routine remote transmission. PRESENTING EGM: ??Atrial flutter with SQUEEGEE TENDER at 70 bpm. ATRIAL ARRHYTHMIAS: ?Atrial fibrillation burden: ??100%. Patient is on anticoagulation therapy. VENTRICULAR ARRHYTHMIAS: ?No new events. BATTERY LONGEVITY: Expected battery longevity trends reviewed and are stable and consistent with device settings and use. SUMMARY: All device function appears normal. FOLLOW UP: Next routine follow-up will be in 3 months via [facility] transmission. DEVICE RN: Skyler Montano RN Provider statement: This patient underwent device interrogation. I agree that the device interrogation was medically indicated to provide appropriate care and continue routine device interrogations as indicated. Zay Morley M.D., M.B.A. CV IMPLA NTABLE CARDIAC DEVICE documented in this encounter Visit Diagnoses Diagnosis Encounter For Checking And Testing Of Cardiac Pacemaker Pulse Generator Battery documented in this encounter Additional Health Concerns Assessment Noted Time PHQ-9 Depression Total Score: 13 008 12:22 PM CDT documented as of this encounter Care Teams Route Driver Relationship Specialty Start Date End Date Neelima Nj APRN, C.N.P., D.N.P., M.S.N. [address] [phone] PCP - General Internal Medicine 06/05/22 08/18/23 documented as of this encounter
--- OUTSIDE RECORDS SUMMARY | 2023-09-05 16:50 | XMS_ITS | Encounter Summary ---
Author Name Unknown Organization [facility] Address [address] [place] [address] Care Team Providers Care Packing Shed Supervisor Name Role Phone Neelima Nj APRN, C.N.P., D.N.P., M.S.N. [facility] Care Provider Encounter Details Date Type Department Care Team (Late st Contact Info) Description 04/02/2023 Clinical Communication Department of Sleep Medicine in [place], [place] [address] [place] [address] Neelima Nj APRN, Madeline.N.P., D.N.P., M.S.N. [address] [place] [address] Social History Tobacco Use Types Packs/Day Years [...] any clubs o r organizations such as bahai groups, unions, fraternal or athletic groups, or [...] and heating? Not hard at all 04/30/2022 [facility] [place] of Occupat ional Health - Occupational Stress [...] place to sleep or slept in a nursing home (including now)? No 04/30/2022 Nutrition Answer [...] (Latest Contact Info) Description 09/07/2023 12:00 PM ROTARY DRIER Clinical Communication Virtual Review in [place], [place] [address] [place] [address] 09/10/2023 2:00 PM ROTARY DRIER Telemedicine Department of Cardiovascular Medicine in [place], [place] [address] [place] [address] Jesus Neal M.D. [address] [place] [address] documented as of this encounter Visit Diagnoses Not on filedocumented in this encounter Additional Health Concerns Assessment Noted Time PHQ-9 Depression Total Score: 13 008 12:22 PM CDT documented as of this encounter Care Teams Packing Shed Supervisor Relationship Specialty Start Date End Date Neelima Nj APRN, C.N.P., D.N.P., M.S.N. [address] [place] [address] PCP - General Internal Medicine 06/05/22 08/18/23 documented as of this encounter
--- OUTSIDE RECORDS SUMMARY | 2023-09-05 16:50 | XMS_ITS | Encounter Summary ---
Author Name Unknown Organization [facility] Address [address] [place] [address] Care Team Providers Care Agronomy Location Manager Name Role Phone Neelima Nj APRN C.N.P., D.N.P., M.S.N. [facility] Care Provider Encounter Details Date Type Department Care Team (Late st Contact Info) Description 03/09/2023 Orders Only Department of Cardiovascular Medicine in [place], [place] [address] [place] [address] Kristen Callahan Atrial Fibrillation Unspecified (HCC) (Primary Dx) Social History Tobacco Use Types Packs/Day Years [...] week 04/30/2022 [facility] or [facility] services? Never 04/30/2022 Do you belong to any clubs o r organizations such as taoism groups, unions, fraternal or athletic groups, or [...] and heating? Not hard at all 04/30/2022 [facility] [place] of Occupat ional Health - Occupational Stress [...] place to sleep or slept in a prison (including now)? No 04/30/2022 Nutrition Answer Date [...] (Latest Contact Info) Description 09/07/2023 12:00 PM SNOW REMOVAL/PLOWING Clinical Communication Virtual Review in [place], [place] [address] [place] [address] 09/10/2023 2:00 PM SNOW REMOVAL/PLOWING Telemedicine Department of Cardiovascular Medicine in [place], [place] [address] [place] [address] Jesus Neal M.D. [address] [place] [address] Scheduled Orders Name Type Priority Associated Diagnoses Orde r Schedule CBC with Differential, Blood Lab Routine Atrial Fibrillation Unspecified (HCC) Expected: 03/09/2023 (Approximate), Expires: 06/09/2024 Creatinine with Estimated GFR Lab Routine Atrial Fibrillation Unspecified (HCC) Expected: 03/09/2023 (Approximate), Expires: 06/09/2024 Lipid Panel Lab Routine Atrial Fibrillation Unspecified (HCC) Expected: 03/09/2023 (Approximate), Expires: 06/09/2024 Potassium Lab Routine Atrial Fibrillation Unspecified (HCC) Expected: 03/09/2023 (Approximate), Expires: 06/09/2024 Sodium Lab Routine Atrial Fibrillation Unspecified (HCC) Expected: 03/09/2023 (Approximate), Expires: 06/09/2024 Thyroid Function [place] Lab Routine Atrial Fibrillation Unspecified (HCC) Expected: 03/09/2023 (Approximate), Expires: 06/09/2024 documented as of this encounter Visit Diagnoses Diagnosis Atrial Fibrillation Unspecified (HCC)- Primary documented in this encounter Additional Health Concerns Assessment Noted Time PHQ-9 Depression Total Score: 13 008 12:22 PM CDT documented as of this encounter Care Teams Agronomy Location Manager Relationship Specialty Start Date End Date Neelima Nj APRN, C.N.P., D.N.P., M.S.N. [address] [place] [phone] PCP - General Internal Medicine 06/05/22 08/18/23 documented as of this encounter
--- OUTSIDE RECORDS SUMMARY | 2023-09-05 16:50 | XMS_ITS | Encounter Summary ---
Author Name Unknown Organization [facility] Address [address] [place] [address] Care Team Providers Care Bitumastic Applier Name Role Phone Neelima Nj APRN, C.N.P., D.N.P., M.S.N. [facility] Care Provider Encounter Details Date Type Department Care Team (Latest Contact Info) Description 04/06/2023 Clinical Communication Department of Cardiovascular Medicine in [place], [place] [address] [place] [address] Core WinderGamaliel M.D. Social History Tobacco Use Types Packs/Day Years [...] often do you attend chur ch or shinto services? Never 04/30/2022 Do you belong to any clubs o r organizations such as orthodoxy groups, unions, fraternal or athletic groups, or [...] and heating? Not hard at all 04/30/2022 [facility] [place] of Occupat ional Health - Occupational Stress [...] place to sleep or slept in a long term (including now)? No 04/30/2022 Nutrition Answer Date [...] (Latest Contact Info) Description 09/07/2023 12:00 PM MIXING TECHNICIAN Clinical Communication Virtual Review in [place], [place] [address] [place] [address] 09/10/2023 2:00 PM MIXING TECHNICIAN Telemedicine Department of Cardiovascular Medicine in [place], [place] [address] [place] [phone] Jesus Nela M.D. [address] [place] [phone] documented as of this encounter Visit Diagnoses Not on filedocumented in this encounter Additional Health Concerns Assessment Noted Time PHQ-9 Depression Total Score: 13 008 12:22 PM CDT documented as of this encounter Care Teams Bitumastic Applier Relationship Specialty Start Date End Date Neelima Nj APRN, C.N.P., D.N.P., M.S.N. [address] [phone] PCP - General Internal Medicine 06/05/22 08/18/23 documented as of this encounter
--- OUTSIDE RECORDS SUMMARY | 2023-09-05 16:50 | XMS_ITS | Encounter Summary ---
Author Name Unknown Organization [facility] Address [address] [place] [address] Care Team Providers Care Block Greaser Name Role Phone Neelima Nj APRN, C.N.P., D.N.P., M.S.N. [facility] Care Provider Encounter Details Date Type Department Care Team (Late st Contact Info) Description 05/01/2023 Orders Only [facility] PCP [facility] Neelima Nj APRN, C.N.P., D.N.P., M.S.N. [address] [place] [phone] Social History Tobacco Use Types Packs/Day Years [...] often do you attend chur ch or gnosticism services? Never 04/30/2022 Do you belong to any clubs o r organizations such as roman catholic groups, unions, fraternal or athletic groups, or [...] and heating? Not hard at all 04/30/2022 [facility] [place] of Occupat ional Health - Occupational Stress [...] place to sleep or slept in a usp (including now)? No 04/30/2022 Nutrition Answer Date [...] (Latest Contact Info) Description 09/07/2023 12:00 PM TOOLROOM CHECKER Clinical Communication Virtual Review in [place], [place] [address] [place] [address] 09/10/2023 2:00 PM TOOLROOM CHECKER Telemedicine Department of Cardiovascular Medicine in [place], [place] [address] [place] [phone] Jesus Neal M.D. [address] [place] [phone] documented as of this encounter Visit Diagnoses Not on filedocumented in this encounter Additional Health Concerns Assessment Noted Time PHQ-9 Depression Total Score: 13 008 12:22 PM CDT documented as of this encounter Care Teams Block Greaser Relationship Specialty Start Date End Date Neelima Nj APRN, C.N.P., D.N.P., M.S.N. [address] [phone] PCP - General Internal Medicine 06/05/22 08/18/23 documented as of this encounter
--- OUTSIDE RECORDS SUMMARY | 2023-09-05 16:50 | XMS_ITS | Encounter Summary ---
Author Name Unknown Organization [facility] Address [address] [place] [address] Care Team Providers Care Molecular Geneticist Name Role Phone Neelima Nj APRN C.N.P., D.N.P., M.S.N. [facility] Care Provider Reason for Visit * Reason Onset Date Comments Pre-visit Intake 03/15/2023 Encounter Details Date Type Department Care Team (Latest Contact Info) Description 03/15/2023 2:15 PM CDT Clinical Communication Virtual Review in [place], [place] 200 [place] [address] Pre-visit Intake Social History Tobacco Use Types Packs/Day Years [...] week 04/30/2022 How often do you attend [facility] or baptism services? Never 04/30/2022 Do you belong to any clubs o r organizations such as sabianist groups, unions, fraternal or athletic groups, or [...] and heating? Not hard at all 04/30/2022 [facility] [place] of Occupat ional Health - Occupational Stress [...] (Latest Contact Info) Description 09/07/2023 12:00 PM HYGIENE TEACHER Clinical Communication Virtual Review in [place], [place] [address] [place] [address] 09/10/2023 2:00 PM HYGIENE TEACHER Telemedicine Department of Cardiovascular Medicine in [place], [place] [address] [place] [address] Jesus Neal M.D. [address] [place] [address] documented as of this encounter Visit Diagnoses Not on filedocumented in this encounter Additional Health Concerns Assessment Noted Time PHQ-9 Depression Total Score: 13 008 12:22 PM CDT documented as of this encounter Care Teams Molecular Geneticist Relationship Specialty Start Date End Date Neelima Nj APRN, C.N.P., D.N.P., M.S.N. [address] [phone] PCP - General Internal Medicine 06/05/22 08/18/23 documented as of this encounter
--- OUTSIDE RECORDS SUMMARY | 2023-09-05 16:50 | XMS_ITS | Encounter Summary ---
Author Name Unknown Organization [facility] Address [address] [place] [address] Care Team Providers Care Mitten Stitcher Name Role Phone Neelima Nj APRN, C.N.P., D.N.P., M.S.N. [facility] Care Provider Reason for Referral * Outpatient (Routine) - Authorized Specialty Diagnoses / Procedures Referred By Contact Referred To Contact Gastroenterology and Hepatology Roney Vega APRN, C.N.P. 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 [address] [place] [address] [facility] Referral ID Status Reason Start Date Expiration Date V isits Requested Visits Authorized [id number] Authorized 03/13/2023 03/12/2024 1 1 Encounter Details Date Type Department Care Team (Latest Contact Info) Description 03/13/2023 Orders Only Division of Gastroenterology in [place], [place] [address] [place] [address] Roney Vega APRN, C.N.P. [address] [place] [address] Cirrhosis Biliary Primary (HCC) (Primary Dx) Social History Tobacco Use [...] often do you attend chur ch or taoism services? Never 04/30/2022 Do you belong to any clubs o r organizations such as lutheran groups, unions, fraternal or athletic groups, or [...] and heating? Not hard at all 04/30/2022 [facility] [place] of Occupat ional Health - Occupational Stress [...] to sleep or slept in a senior care (including now)? No 04/30/2022 Nutrition Answer Date [...] (Latest Contact Info) Description 09/07/2023 12:00 PM SCALLOP BINDER Clinical Communication Virtual Review in [address] [address] 09/10/2023 2:00 PM SCALLOP BINDER Telemedicine Department of Cardiovascular Medicine in [address] [phone] Jesus Neal M.D. [address] [place] [phone] Scheduled Orders Name Type Priority Associated Diagnoses Order Schedule 25-Hydroxyvitamin D2 and D3 Lab Routine Cirrhosis Biliary Primary (HCC) Expected: 03/13/2023 (Approximate), Expires: 03/13/2024 AFP (Alpha-Fetoprotein), Tumor Marker Lab Routine Cirrhosis Biliary Primary (HCC) Expected: 03/13/2023 (Approximate), Expires: 06/13/2024 Alkaline Phosphatase Lab Routine Cirrhosis Biliary Primary (HCC) Expected: 03/13/2023 (Approximate), Expires: 03/13/2024 ALT (Alanine Aminotransferase) Lab Routine Cirrhosis Biliary Primary (HCC) Expected: 03/13/2023 (Approximate), Expires: 03/13/2024 AST (Aspartate Aminotransferase) Lab Routine Cirrhosis Biliary Primary (HCC) Expected: 03/13/2023 (Approximate), Expires: 03/13/2024 Bilirubin, Direct Lab Routine Cirrhosis Biliary Primary (HCC) Expected: 03/13/2023 (Approximate), Expires: 03/13/2024 Bilirubin, Total Lab Routine Cirrhosis Biliary Primary (HCC) Expected: 03/13/2023 (Approximate), Expires: 03/13/2024 CBC without Differential Lab Routine Cirrhosis Biliary Primary (HCC) Expected: 03/13/2023 (Approximate), Expires: 03/13/2024 Creatinine with Estimated GFR Lab Routine Cirrhosis Biliary Primary (HCC) Expected: 03/13/2023 (Approximate), Expires: 03/13/2024 US Abdomen Complete Imaging RAD - Routin e (most inpatients and all outpatients) Cirrhosis Biliary Primary (HCC) Expected: 03/13/2023 (Approximate), Expires: 03/13/2024 Sodium Lab Routine Cirrhosis Biliary Primary (HCC) Expected: 03/13/2023 (Approximate), Expires: 03/13/2024 Prothrombin Time (PT) Lab Routine Cirrhosis Biliary Primary (HCC) Expected: 03/13/2023 (Approximate), Expires: 03/13/2024 Potassium Lab Routine Cirrhosis Biliary Primary (HCC) Expected: 03/13/2023 (Approximate), Expires: 03/13/2024 Glucose, Fasting Lab Routine Cirrhosis Biliary Primary (HCC) Expected: 03/13/2023 (Approximate), Expires: 03/13/2024 Scheduled Referrals Name Type Priority Associated Diagnoses Order Schedule Gastroenterology and Hepatology office visit (clinic) Outpatient Referral Routine Expected: 03/13/2023 (Approximate), Expires: 03/13/2024 documented as of this encounter Visit Diagnoses Diagnosis Cirrhosis Biliary Primary (HCC)- Primary documented in this encounter Additional Health Concerns Assessment Noted Time PHQ-9 Depression Total Score: 13 05/15/2 008 12:22 PM CDT documented as of this encounter Care Teams Mitten Stitcher Relationship Specialty Start Date End Date Neelima Nj APRN, C.N.P., D.N.P., M.S.N. [address] [place] [phone] PCP - General Internal Medicine 06/05/22 08/18/23 documented as of this encounter
--- OUTSIDE RECORDS SUMMARY | 2023-09-05 16:50 | XMS_ITS | Encounter Summary ---
Author Name Unknown Organization [facility] Address [address] [place] [address] Care Team Providers Care Bail Bonding Agent Name Role Phone Neelima Nj APRN C.N.P., D.N.P., M.S.N. [facility] Care Provider Reason for Visit * Reason Onset Date Comments Pre-visit Testing Orders 04/04/2023 Encounter Details Date Type Department Care Team (Latest Contact Info) Description 04/04/2023 Clinical Communication Department of Cardiovascular Medicine in [place], [place] [address] [place] [address] Plum PackerGamaliel M.D. Pre-visit Testing Orders Social History Tobacco Use Types Packs/Day Years [...] How often do you attend chur or shinto services? Never 04/30/2022 Do you belong to any clubs o r organizations such as rastafarian groups, unions, fraternal or athletic groups, or [...] and heating? Not hard at all 04/30/2022 [facility] [place] of Occupat ional Health - Occupational Stress [...] encounter Miscellaneous Notes * Telephone Encounter - AmorEvelina Whittingtonsa Gongora - 04/04/2023 1:54 PM CDT Amelie Nelson, Pt is scheduled to see you in June for 1 year follow-up. She mentioned you would want a device interrogation and possible other testing. Please advise. Thank you! Laurence Patient Appointment Services Specialist Division of Cardiovascular Diseases [address] [address] [email or web address] P RST CVD DEVICE SCHEDULING P RST CVD HRS SCHEDULING documented in this encounter Plan of Treatment Upcoming Encounters Date Type Department Care Team (Latest Contact Info) Description 09/07/2023 12:00 PM SERVICE CONSULTANT Clinical Communication Virtual Review in [place], [place] 200 [place] [address] 09/10/2023 2:00 PM SERVICE CONSULTANT Telemedicine Department of Cardiovascular Medicine in [place], [place] [address] [place] [phone] Jesus Neal M.D. [address] [place] [phone] documented as of this encounter Visit Diagnoses Not on filedocumented in this encounter Additional Health Concerns Assessment Noted Time PHQ-9 Depression Total Score: 13 008 12:22 PM CDT documented as of this encounter Care Teams Bail Bonding Agent Relationship Specialty Start Date End Date Neelima Nj APRN, C.N.P., D.N.P., M.S.N. [address] [phone] PCP - General Internal Medicine 06/05/22 08/18/23 documented as of this encounter
--- OUTSIDE RECORDS SUMMARY | 2023-09-05 16:50 | XMS_ITS | Encounter Summary ---
Author Name Unknown Organization [facility] Address [address] [place] [address] Care Team Providers Care Qi Specialist Name Role Phone Neelima Nj APRN, C.N.P., D.N.P., M.S.N. [facility] Care Provider Encounter Details Date Type Department Care Team (Late st Contact Info) Description 01/31/2023 Orders Only [facility] PCP HL MNT Neelima Nj APRN, C.N.P., D.N.P., M.S.N. [address] [place] [phone] Social History Tobacco Use Types Packs/Day Years [...] often do you attend chur ch or yarsanism services? Never 04/30/2022 Do you belong to any clubs o r organizations such as latter day groups, unions, fraternal or athletic groups, or [...] and heating? Not hard at all 04/30/2022 [facility] [place] of Occupat ional Health - Occupational Stress [...] place to sleep or slept in a snf (including now)? No 04/30/2022 Nutrition Answer Date [...] (Latest Contact Info) Description 09/07/2023 12:00 PM OFFICE NURSE Clinical Communication Virtual Review in [place], [place] [address] [place] [address] 09/10/2023 2:00 PM OFFICE NURSE Telemedicine Department of Cardiovascular Medicine in [place], [place] [address] [place] [phone] Jesus Neal M.D. [address] [place] [phone] documented as of this encounter Visit Diagnoses Not on filedocumented in this encounter Additional Health Concerns Assessment Noted Time PHQ-9 Depression Total Score: 13 008 12:22 PM CDT documented as of this encounter Care Teams Qi Specialist Relationship Specialty Start Date End Date Neelima Nj APRN, C.N.P., D.N.P., M.S.N. [address] [phone] PCP - General Internal Medicine 06/05/22 08/18/23 documented as of this encounter
--- OUTSIDE RECORDS SUMMARY | 2023-09-05 16:50 | XMS_ITS | Encounter Summary ---
Author Name Unknown Organization [facility] Address [address] [place] [address] Care Team Providers Care Submarine Advisory Team Watch Officer Name Role Phone Neelima Nj APRN, C.N.P., D.N.P., M.S.N. [facility] Care Provider Encounter Details Date Type Department Care Team (Latest Contact Info) Description 03/09/2023 Clinical Communication Division of Gastroenterology in [place], [place] [address] [place] [phone] Roney Vega APRN, C.N.P. [address] [place] [phone] Social History Tobacco Use Types Packs/Day Years [...] often do you attend chur ch or jewish services? Never 04/30/2022 Do you belong to [...] and heating? Not hard at all 04/30/2022 [facility] [place] of Occupat ional Health - Occupational Stress [...] place to sleep or slept in a detention (including now)? No 04/30/2022 Nutrition Answer Date [...] (Latest Contact Info) Description 09/07/2023 12:00 PM HOOP COILER Clinical Communication Virtual Review in [place], [place] [address] [place] [address] 09/10/2023 2:00 PM HOOP COILER Telemedicine Department of Cardiovascular Medicine in [place], [place] [address] [place] [phone] Jesus Neal M.D. [address] [place] [phone] documented as of this encounter Visit Diagnoses Not on filedocumented in this encounter Additional Health Concerns Assessment Noted Time PHQ-9 Depression Total Score: 13 008 12:22 PM CDT documented as of this encounter Care Teams Submarine Advisory Team Watch Officer Relationship Specialty Start Date End Date Neelima Nj APRN, C.N.P., D.N.P., M.S.N. [address] [place] [phone] PCP - General Internal Medicine 06/05/22 08/18/23 documented as of this encounter
--- OUTSIDE RECORDS SUMMARY | 2023-09-05 16:50 | XMS_ITS | Encounter Summary ---
Author Name Unknown Organization [facility] Address [address] [place] [address] Care Team Providers Care Insurance Specialist Name Role Phone Neelima Nj APRN, C.N.P., D.N.P., M.S.N. [facility] Care Provider Encounter Details Date Type Department Care Team (Latest Contact Info) Description 02/22/2023 4:00 AM CDT - 02/22/2023 11:59 PM CDT Hospital Encounter Department of Cardiovascular Diseases in [place], [place] [address] [place] [address] Pro Buchanan M.D. [address] [place] [address] Encounter For Checking And Testing Of Cardiac [...] often do you attend chur ch or bahai services? Never 04/30/2022 Do you belong to any clubs o r organizations such as adventism groups, unions, fraternal or athletic groups, or [...] and heating? Not hard at all 04/30/2022 [facility] [place] [facility] Occupat ional Health - Occupational Stress [...] place to sleep or slept in a custodial (including now)? No 04/30/2022 Nutrition Answer Date [...] (Latest Contact Info) Description 09/07/2023 12:00 PM ENTRY LEVEL ACCOUNTING CLERK Clinical Communication Virtual Review in [address] [address] 09/10/2023 2:00 PM ENTRY LEVEL ACCOUNTING CLERK Telemedicine Department of Cardiovascular Medicine in [address] [address] Jesus Neal M.D. [address] [place] [phone] documented as of this encounter Procedures Procedure Name Priority Date/Time Associated Diagnosis Comments PACER REMOTE FOLLOW UP Routine 02/23/2023 3:05 PM CDT Encounter For Checking And Testing Of Cardiac Pacemaker Pulse Generator Battery documented in this encounter Results * PACER REMOTE FOLLOW UP (02/23/2023 3:05 PM CDT) Date Time Interrogation Session [id number] [facility] Implantable Pulse Generator Straight Ruling Machine Operator [employer] [place] [facility] Implantable Pulse Generator Model [id number] [place] [address] YING [facility] Implantable Pulse Generator Serial Number [id number] [facility] Type Interrogation Session Remote [facility] Clinic Name [facility] Implantable Pulse Generator Type Pacemaker [facility] Implantable Pulse Generator Implant Date 20200219 [facility] Implantable Lead Straight Ruling Machine Operator Medtronic [facility] Implantable Lead Model 4076 CapsureFix Novus MRI SureScan [facility] Implantable Lead Serial Number [id number] [facility] Implantable Lead Implant Date 20200219 [facility] Implantable Lead Polarity Type Bipolar Lead [facility] Implantable Lead Location Detail 1 UNKNOWN [facility] Implantable Lead Special Function Lead length: 45 cm [facility] Implantable Lead Location Right Atrium [facility] Implantable Lead Straight Ruling Machine Operator Medtronic [facility] Implantable Lead Model 4076 CapsureFix Novus MRI SureScan [facility] Implantable Lead Serial Number [id number] [facility] Implantable Lead Implant Date 20200219 [facility] Implantable Lead Polarity Type Bipolar Lead [facility] Implantable Lead Location Detail 1 UNKNOWN [facility] Implantable Lead Special Function Lead length: 52 cm [facility] Implantable Lead Location Right Ventricle [facility] Garry Setting Mode (NBG Code) DDDR [facility] Garry Setting Lower Rate Limit 70 {beats}/ min [facility] Garry Setting Maximum Tracking Rate 130 {beats}/ min [facility] Garry Setting Maximum Sensor Rate 130 {beats}/ min [facility] Garry Setting CASE Delay Low 150 ms [facility] Garry Setting PAV Delay Low 180 ms [facility] Garry Setting AT Mode Switch Rate 140 {beats}/ min [facility] Garry Setting AT Mode Switch Mode DDIR [facility] Lead Channel Setting Sensing Polarity Bipolar [facility] Lead Channel Setting Sensing Anode Location Right Atrium [facility] Lead Channel Setting Sensing Anode Terminal Ring [facility] Lead Channel Setting Sensing Cathode Location Right Atrium [facility] Lead Channel Setting Sensing Cathode Terminal Tip [facility] Lead Channel Setting Sensing Sensitivity 0.3 mV [facility] Lead Channel Setting Sensing Polarity Bipolar [facility] Lead Channel Setting Sensing Anode Location Right Ventricle [facility] Lead Channel Setting Sensing Anode Terminal Ring [facility] Lead Channel Setting Sensing Cathode Location Right Ventricle [facility] Lead Channel Setting Sensing Cathode Terminal Tip [facility] Lead Channel Setting Sensing Sensitivity 0.9 mV [facility] Lead Channel Setting Pacing Polarity Bipolar [facility] Lead Channel Setting Pacing Anode Location Right Atrium [facility] Lead Channel Setting Pacing Anode Terminal Ring [facility] Lead Channel Setting Sensing Cathode Location Right Atrium [facility] Lead Channel Setting Sensing Cathode Terminal Tip [facility] Lead Channel Setting Pacing Pulse Width 0.4 ms [facility] Lead Channel Setting Pacing Amplitude 1.5 V [facility] Lead Channel Setting Pacing Capture Mode Adaptive [facility] Lead Channel Setting [...] Channel Setting Pacing Pulse Width 0.4 ms [facility] Lead Channel Setting Pacing Amplitude 2 V [facility] Lead Channel Setting Pacing Capture Mode Adaptive [facility] Zone Setting Type Category VF [facility] Zone Setting Type Category VT [facility] Zone Setting Type Category VT [facility] Zone Setting Type Category VT [facility] Zone Setting Detection Interval 350 ms [facility] Zone Setting Type Category ATRIAL_FIBRILLATI ON [facility] Zone Setting Type Category AT/AF [facility] Zone Setting Detection Interval 430 ms [facility] Lead Channel Impedance Value 361 ohm [facility] Lead Channel Impedance Value 285 ohm [facility] Lead Channel Sensing Intrinsic Amplitude 4.625 mV [facility] Lead Channel Impedance Value 570 ohm [facility] Lead Channel Impedance Value 494 ohm [facility] Battery Date Time of Measurements [id number] [facility] Battery Status Middle of Service [facility] Battery SENIOR NET PROGRAMMER Trigger 2.625 [facility] Battery Remaining Longevity 118 mo [facility] Battery Voltage 3.00 V [facility] Garry Statistic Date Time Start [id number] [facility] Garry Statistic Date Time End [id number] [facility] Garry Statistic RA Percent Paced 0.01 % [facility] Garry Statistic RV Percent Paced 99.99 % [facility] Atrial Tachy Statistic Date Time Start [id number] [facility] Atrial Tachy Statistic Date Time End [id number] [facility] Atrial Tachy Statistic AT/AF Pilot Percent 100 % [facility] Episode Statistic Recent Count 0 [facility] Episode Statistic Type Category AT/AF [facility] Episode Statistic Recent Count 0 [facility] Episode Statistic Type Category Patient Activated [facility] Episode Statistic Recent Count 0 [facility] Episode Statistic Type Category SVT [facility] Episode Statistic Recent Count 0 [facility] Episode Statistic Type Category VT [facility] Episode Statistic Recent Count 0 [facility] Episode Statistic Type Category VF F[facility] Episode Statistic Recent Count 0 [facility] Episode Statistic Type Category VT [facility] Episode Statistic Recent Date Time Start [id number] [facility] Episode Statistic Recent Date Time End [id number] [facility] Episode Statistic Recent Date Time Start [id number] [facility] Episode Statistic Recent Date Time End [id number] [facility] Episode Statistic Recent Date Time Start [id number] [facility] Episode Statistic Recent Date Time End [id number] [facility] Episode Statistic Recent Date Time Start [id number] [facility] Episode Statistic Recent Date Time End [id number] [facility] Episode Statistic Recent Date Time Start [id number] [facility] Episode Statistic Recent Date Time End [id number] [facility] Episode Statistic Recent Date Time Start 37233528112125 [facility] Episode Statistic Recent Date Time End [id number] [facility] Episode Statistic Total Count [...] SYSTEM Episode Statistic Total Date Time End [id number] [facility] Episode Statistic Total Date Time Start [id number] [facility] Episode Statistic Total Date Time End [id number] [facility] Episode Statistic Total Date Time Start [id number] [facility] Episode Statistic Total Date Time End [id number] [facility] Episode Statistic Total Date Time Start [id number] [facility] Episode Statistic Total Date Time End [id number] [facility] Episode Statistic Total Date Time Start [id number] [facility] Episode Statistic Total Date Time End [id number] [facility] Anatomical Region Laterality Modality Other 02/22/2023 5:59 AM CDT Narrative 02/27/2023 9:03 PM CDT PURPOSE OF VISIT: ??Routine quarterly remote. PRESENTING EGM: ??Atrial sensed Ventricular paced @ 70 bpm. ATRIAL ARRHYTHMIAS: ??Chronic AF for 1+yrs; s/p AVNA. Program VVIR @ next in-clinic check. ?Atrial fibrillation burden: ??100% VENTRICULAR ARRHYTHMIAS: ??None since last remote on 11/23/2022. ?Sustained episodes: 0 ?Non-Sustained episodes: 0 ?PVC Pilot: None BATTERY LONGEVITY: Expected battery longevity trends reviewed and are stable and consistent with device settings and use. SUMMARY: All device function and lead trends appear normal. FOLLOW UP: Next routine follow-up will be in 3 months via remote on 05/25/2023. DEVICE RN: Radha Crum RN Provider statement: This patient underwent device interrogation. I agree that the device interrogation was medically indicated to provide appropriate care and continue routine device interrogations as indicated. Pro Buchanan M.D. CV IMPLANTABLE CARDIAC DEVICE documented in this encounter Visit Diagnoses Diagnosis Encounter For Checking And Testing Of Cardiac Pacemaker Pulse Generator Battery documented in this encounter Additional Health Concerns Assessment Noted Time PHQ-9 Depression Total Score: 13 008 12:22 PM CDT documented as of this encounter Care Teams Insurance Specialist Relationship Specialty Start Date End Date Neelima Nj APRN, C.N.P., D.N.P., M.S.N. [address], [place] [address] PCP - General Internal Medicine 06/05/22 08/18/23 documented as of this encounter
--- OUTSIDE RECORDS SUMMARY | 2023-09-05 16:50 | XMS_ITS | Encounter Summary ---
Author Name Unknown Organization [facility] Address [address] [place] [address] Care Team Providers Care Cloth Shrinking Machine Operator Helper Name Role Phone Neelima Nj APRN, C.N.P., D.N.P., M.S.N. [facility] Care Provider Encounter Details Date Type Department Care Team (Latest Contact Info) Description 05/25/2023 4:00 AM CDT - 05/25/2023 11:59 PM CDT Hospital Encounter Department of Cardiovascular Diseases in [place], [place] [address] [place] [address] Travis Guillaume M.D. Encounter For Checking And Testing Of Cardiac [...] and heating? Not hard at all 04/30/2022 [facility] [place] of Occupat ional Health - Occupational Stress [...] (Latest Contact Info) Description 09/07/2023 12:00 PM RAILCAR MECHANIC Clinical Communication Virtual Review in [place], [place] [address] [place] [address] 09/10/2023 2:00 PM RAILCAR MECHANIC Telemedicine Department of Cardiovascular Medicine in [address] [phone] Jesus Neal M.D. [address] [place] [phone] documented as of this encounter Procedures Procedure Name Priority Date/Time Associated Diagnosis Comments PACER REMOTE FOLLOW UP Routine 05/25/2023 1:32 PM CDT Encounter For Checking And Testing Of Cardiac Pacemaker Pulse Generator Battery documented in this encounter Results * PACER REMOTE FOLLOW UP (05/25/2023 1:32 PM CDT) Date Time Interrogation Session [id number] [facility] Implantable Pulse Generator Polymerization Helper Medtronic [facility] Implantable Pulse Generator Model [id number] Hortencia XT DR YING [facility] Implantable Pulse Generator Serial Number [id number] [facility] Type Interrogation Session Remote [facility] Clinic Name [facility] Implantable Pulse Generator Type Pacemaker [facility] Implantable Pulse Generator Implant Date 20200219 [facility] Implantable Lead Polymerization Helper Medtronic [facility] Implantable Lead Model 4076 CapsureFix Novus MRI SureScan [facility] Implantable Lead Serial Number [id number] [facility] Implantable Lead Implant Date 20200219 [facility] Implantable Lead Polarity Type Bipolar Lead [facility] Implantable Lead Location Detail 1 UNKNOWN [facility] Implantable Lead Special Function Lead length: 45 cm [facility] Implantable Lead Location Right Atrium [facility] Implantable Lead Polymerization Helper Medtronic [facility] Implantable Lead Model 4076 CapsureFix Novus MRI SureScan [facility] Implantable Lead Serial Number [id number] [facility] Implantable Lead Implant Date 20200219 [facility] Implantable Lead Polarity Type Bipolar Lead [facility] Implantable Lead Location Detail 1 UNKNOWN [facility] Implantable Lead Special Function Lead length: 52 cm [facility] Implantable Lead Location Right Ventricle [facility] Garry Setting Mode (NBG Code) DDDR [facility] Garry Setting Lower Rate Limit 70 {beats}/ min [facility] Garry Setting Maximum Tracking Rate 130 {beats}/ min [facility] Garry Setting Maximum Sensor Rate 130 {beats}/ min [facility] Garry Setting CASE Delay Low 150 ms [facility] Garry Setting PAV Delay Low 180 ms [facility] Garry Setting AT Mode Switch Rate 140 {beats}/ min [facility] Lead Channel Setting Sensing Polarity Bipolar [facility] Lead Channel Setting Sensing Anode Location Right Atrium [facility] Lead Channel Setting Sensing Anode Terminal Ring [facility] Lead Channel Setting Sensing Cathode Location Right Atrium [facility] Lead Channel Setting Sensing Cathode Terminal Tip [facility] Lead Channel Setting Sensing Sensitivity 0.3 mV [facility] Lead Channel Setting Sensing Polarity Bipolar [facility] Lead Channel Setting Sensing Anode Location Right Ventricle [facility] Lead Channel Setting Sensing Anode Terminal Ring [facility] Lead Channel Setting Sensing Cathode Location Right Ventricle [facility] Lead Channel Setting Sensing Cathode Terminal Tip [facility] Lead Channel Setting Sensing Sensitivity 0.9 mV [facility] Lead Channel Setting Pacing Polarity Bipolar [facility] Lead Channel Setting Pacing Anode Location Right Atrium [facility] Lead Channel Setting Pacing Anode Terminal Ring [facility] Lead Channel Setting Sensing Cathode Location Right Atrium [facility] Lead Channel Setting Sensing Cathode Terminal Tip [facility] Lead Channel Setting Pacing Pulse Width 0.4 ms [facility] Lead Channel Setting Pacing Amplitude 1.5 V [facility] Lead Channel Setting Pacing Capture Mode Adaptive [facility] Lead Channel Setting Pacing Polarity Bipolar [facility] Lead Channel Setting Pacing Anode Location Right Ventricle [facility] Lead Channel Setting Pacing Anode Terminal Ring [facility] Lead Channel Setting Sensing Cathode Location Right Ventricle [facility] Lead Channel Setting Sensing Cathode Terminal Tip [facility] Lead Channel Setting Pacing Pulse Width 0.4 ms [facility] Lead Channel Setting Pacing Amplitude 2 V [facility] Lead Channel Setting Pacing Capture Mode Adaptive [facility] Zone Setting Type Category VF [facility] Zone Setting Type Category [place] [facility] Zone Setting Type Category [place] [facility] Zone Setting Type Category [facility] Zone Setting Detection Interval 350 ms [facility] Zone Setting Type Category ATRIAL_FIBRILLATI ON [facility] Zone Setting Type Category AT/AF [facility] Zone Setting Detection Interval 430 ms [facility] Lead Channel Impedance Value 456 ohm [facility] Lead Channel Impedance Value 323 ohm [facility] Lead Channel Sensing Intrinsic Amplitude 7.75 mV [facility] Lead Channel Sensing Intrinsic Amplitude 7.75 mV [facility] Lead Channel Pacing Threshold Amplitude 0.375 V [facility] Lead Channel Pacing Threshold Pulse Width 0.4 ms [facility] Lead Channel Impedance Value 627 ohm [facility] Lead Channel Impedance Value 532 ohm [facility] Lead Channel Sensing Intrinsic Amplitude 7.5 mV [facility] Lead Channel Sensing Intrinsic Amplitude 7.5 mV [facility] Lead Channel Pacing Threshold Amplitude 0.5 V [facility] Lead Channel Pacing Threshold Pulse Width 0.4 ms [facility] Battery Date Time of Measurements [facility] Battery GREEN HOUSE MANAGER Trigger 2.625 [facility] Battery Remaining Longevity 117 mo [facility] Battery Voltage 3.00 V [facility] Garry Statistic Date Time Start [id number] [facility] Garry Statistic Date Time End [facility] Garry Statistic RA Percent Paced 0.01 % [facility] Garry Statistic RV Percent Paced 99.99 % [facility] Atrial Tachy Statistic Date Time Start [id number] [facility] Atrial Tachy Statistic Date Time End [facility] Atrial Tachy Statistic AT/AF [place] Percent 100 % [facility] Episode Statistic Recent Count 0 [facility] Episode Statistic Type Category AT/AF [facility] Episode Statistic Recent Count 0 [facility] Episode Statistic Type Category Patient Activated [facility] Episode Statistic Recent Count 0 [facility] Episode Statistic Type Category SVT [facility] Episode Statistic Recent Count 0 [facility] Episode Statistic Type Category [place] [facility] Episode Statistic Recent Count 0 [facility] Episode Statistic Type Category [place] [facility] Episode Statistic Recent Date Time Start [id number] [facility] Episode Statistic Recent Date Time End [id number] [facility] Episode Statistic Recent Date Time Start [id number] [facility] Episode Statistic Recent Date Time End [id number] [facility] Episode Statistic Recent Date Time Start [id number] [facility] Episode Statistic Recent Date Time End [id number] [facility] Episode Statistic Recent Date Time Start [id number] [facility] Episode Statistic Recent Date Time End [id number] [facility] Episode Statistic Recent Date Time Start [id number] [facility] Episode Statistic Recent Date Time End [id number] [facility] Episode Statistic Total Count [...] SYSTEM Episode Statistic Total Date Time End [id number] [facility] Episode Statistic Total Date Time Start [facility] Episode Statistic Total Date Time End [id number] [facility] Episode Statistic Total Date Time Start [facility] Episode Statistic Total Date Time End [id number] [facility] Episode Statistic Total Date Time Start [id number] [facility] Episode Statistic Total Date Time End [id number] [facility] Episode Statistic Total Date Time Start [facility] Episode Statistic Total Date Time End [id number] [facility] Anatomical Region Laterality Modality Other 05/24/2023 9:50 PM CDT Narrative 05/28/2023 9:23 AM CDT PURPOSE OF VISIT: Routine remote transmission. ?? PRESENTING EGM: ??Atrial flutter with LICENSING OFFICER at 72 bpm. ATRIAL ARRHYTHMIAS: ?Atrial fibrillation burden: ??100%. Patient is on anticoagulation therapy. VENTRICULAR ARRHYTHMIAS: ?Sustained episodes: None. ?Non-Sustained episodes: None. ? BATTERY LONGEVITY: Expected battery longevity trends reviewed [...] and continue routine device interrogations as indicated. Travis Guillaume M.D. CV IMPLANTABLE CARDIAC DEVICE documented in this encounter Visit Diagnoses Diagnosis Encounter For Checking And Testing Of Cardiac Pacemaker Pulse Generator Battery documented in this encounter Additional Health Concerns Assessment Noted Time PHQ-9 Depression Total Score: 13 008 12:22 PM CDT documented as of this encounter Care Teams Cloth Shrinking Machine Operator Helper Relationship Specialty Start Date End Date Neelima Nj APRN, C.N.P., D.N.P., M.S.N. [address] [phone] PCP - General Internal Medicine 06/05/22 08/18/23 documented as of this encounter
--- OUTSIDE RECORDS SUMMARY | 2023-09-05 16:50 | XMS_ITS | Encounter Summary ---
Author Name Unknown Organization [facility] Address [address] [place] [address] Care Team Providers Care Paper Deliverer Name Role Phone Neelima Nj APRN, C.N.P., D.N.P., M.S.N. [facility] Care Provider Encounter Details Date Type Department Care Team (Late st Contact Info) Description 04/06/2023 Orders Only Department of Cardiovascular Medicine in [place], [place] [address] [place] [address] It Operations SpecialistGamaliel M.D. Atrial Fibrillation Longstanding Persistent (HCC) (Primary Dx) Social History Tobacco Use [...] week 04/30/2022 How often do you attend [facility] or faith services? Never 04/30/2022 Do you belong to any clubs o r organizations such as yazidism groups, unions, fraternal or athletic groups, or [...] and heating? Not hard at all 04/30/2022 [facility] [place] of Occupat ional Health - Occupational Stress [...] place to sleep or slept in a skilled nursing (including now)? No 04/30/2022 Nutrition Answer Date [...] (Latest Contact Info) Description 09/07/2023 12:00 PM DATABASE TECHNICIAN Clinical Communication Virtual Review in [place], [place] [address] [place] [address] 09/10/2023 2:00 PM DATABASE TECHNICIAN Telemedicine Department of Cardiovascular Medicine in [place], [place] [address] [place] [address] Jesus Neal M.D. [address] [place] [address] documented as of this encounter Visit Diagnoses Diagnosis Atrial Fibrillation Longstanding Persistent (HCC)- Primary documented in this encounter Additional Health Concerns Assessment Noted Time PHQ-9 Depression Total Score: 13 008 12:22 PM CDT documented as of this encounter Care Teams Paper Deliverer Relationship Specialty Start Date End Date Neelima Nj APRN, C.N.P., D.N.P., M.S.N. [address] [phone] PCP - General Internal Medicine 06/05/22 08/18/23 documented as of this encounter
--- OUTSIDE RECORDS SUMMARY | 2023-09-05 16:51 | XMS_ITS | Clinical Summary ---
Author Name Unknown Organization [facility] Address [place], [place] [address] Care Team Providers Care Dolphin Trainer Name Role Phone [facility] Phys Of Primary Care Provider Un available Allergies Active Allergy Reactions Criticality Noted Date Comments Sulfa (Sulfonamide Antibiotics) *Unknown 09/13/2020 Told by MD not to take due to liver failure Azithromycin *Unknown 09/13/2020 Told my MD not to take due to liver failure Active Problems Problem Noted Date Diagnosed Date Counseling for marital and partner problems, uns pecified 01/29/2007 Major depressive disorder, recurrent episode, mo derate 12/05/2006 Pathological gambling 12/05/2006 Counseling for parent-child problem, unspecified 12/05/2006 Immunizations Name Administration Dates Next Due AMB INFLUENZA IIV3 (AGE 65+ YRS) PF (Flu Clinic Only) 06/12/2019 Influenza A (H1N1), Inactivated (Age >=3 Years) 08/13/2009 Social History Tobacco Use Types Packs/Day Years Used Date Smoking Tobacco: Never Smokeless Tobacco: Never Tobacco Cessation:Counseling Given: Yes Alcohol Use Standard Drinks/Week Comments Not Currently 0 (1 standard drink = 0.6 oz pur e alcohol) Sex and Gender Information Value Date Recorded Sex Assigned at Not on file Gender Identity Not on file Sexual Orientation Not on file Obstetrics History Last Filed Vital Signs Vital Sign Reading Time Taken Comments Blood Pressure 131/61 09/13/2020 7:00 AM GRAINING OPERATOR Pulse 92 09/13/2020 7:00 AM GRAINING OPERATOR Temperature 36.7 ??C (98.1 ??F) 09/13/2020 6:45 AM CS T Respiratory Rate 18 09/13/2020 6:45 AM GRAINING OPERATOR Oxygen Saturation 96% 09/13/2020 7:00 AM GRAINING OPERATOR Inhaled Oxygen Concentration - - Weight 64.4 kg (142 lb) 09/13/2020 6:45 AM GRAINING OPERATOR Height 157.5 cm (5' 2) 09/13/2020 6:45 AM GRAINING OPERATOR Body Mass Index 25.97 09/13/2020 6:45 AM GRAINING OPERATOR Plan of Treatment Health Maintenance Due Date Last Done Comments COVID-19 vaccine series (#1) 1941 Tdap 1952 Depression screening for age 12+ 1953 BMI (ht and wt on same day) for age 18+ 1959 Tetanus booster 1961 Zoster (shingles) series for age 50+ (1 of 2) 1991 DEXA/DXA scan for age 65+ 2006 Medicare Wellness for age 65+ 2006 Pneumococcal series for age 65+ (1 of 1 - PCV) 2006 Influenza for age 65+ 04/27/2023 06/12/2019, 009 Care Teams Dolphin Trainer Relationship Specialty Start Date End Date Jimmie Martinez Phys Of PCP - General 09/13/20
--- OUTSIDE RECORDS SUMMARY | 2023-09-05 16:51 | XMS_ITS | Encounter Summary ---
Author Name Unknown Organization [facility] Address [address] [place] [address] Care Team Providers Care Straight Cutter Machine Name Role Phone Neelima Nj APRN C.N.P., D.N.P., M.S.N. [facility] Care Provider Reason for Visit * Reason Comments Appointment Encounter Details Date Type Department Care Team (Latest Contact Info) Description 02/09/2022 Clinical Communication Department of Cardiovascular Medicine in [place], [place] [address] [place] [address] Rn Mental HealthGamaliel M.D. Appointment Social History Tobacco Use Types Packs/Day Years [...] How often do you attend chur or restoration services? Never 04/30/2022 Do you belong to any clubs o r organizations such as tenriism groups, unions, fraternal or athletic groups, or [...] at all 04/30/2022 [facility] [place] of Occupat ional Health - Occupational Stress [...] encounter Miscellaneous Notes * Telephone Encounter - Roney Le - 03/15/2023 2:49 PM CDT The patient is calling in and stating that she was in the ED locally and she did blood work. Do we need to repeat the blood work? Thank you Roney * Telephone Encounter - Lashay Gilbert - 02/09/2022 9:40 AM CDT Haley is coming 05/02 for her liver appts, you do not have any openings. Would you like to do testing while she id here 05/02? And then follow up with your next avail as a NFTF? documented in this encounter Plan of Treatment Upcoming Encounters Date Type Department Care Team (Latest Contact Info) Description 09/07/2023 12:00 PM CARETAKER Clinical Communication Virtual Review in [place], [place] [address] [place] [address] 09/10/2023 2:00 PM CARETAKER Telemedicine Department of Cardiovascular Medicine in [place], [place] [address] [place] [phone] Jesus Neal M.D. [address] [place] [phone] documented as of this encounter Visit Diagnoses Not on filedocumented in this encounter Additional Health Concerns Assessment Noted Time PHQ-9 Depression Total Score: 13 008 12:22 PM CDT documented as of this encounter Care Teams Straight Cutter Machine Relationship Specialty Start Date End Date Neelima Nj APRN, C.N.P., D.N.P., M.S.N. [address] [phone] PCP - General Internal Medicine 06/05/22 08/18/23 documented as of this encounter
== END 2023-08-29 12:57 | disposition home or self-care (01) ==
LOC: NFLDREF 09-05 16:46
PROVIDERS: PCP Internal Medicine; Referring Provider Internal Medicine; Visit Provider Internal Medicine
DX: R30.0 Dysuria (principal)
CPT/HCPCS: 87086; 87186

== ENCOUNTER 2023-08-31 08:58 | Emergency (ER) | payer MEDICARE, BC, SELFPAY ==
[2023-08-31 09:10] VITALS: BP 149/66; PULSE 80; RESP 18; TEMP 36.8; O2SAT 96; BMI 28.5
--- NOTE | 2023-08-31 09:18 | ED_ITS ---
HPI - General Adult General Chief complaint: Epistaxis/Nosebleed Stated complaint: nose bleed Time Seen by Provider: 08/31/23 09:18 History of Present Illness HPI narrative: Nosebleed that started around 6:40a,. has history of nosebleeds. Has Afarin in both nostrils, no obvious external bleeding at this time. Is on Xarelto. 83-year-old woman presenting to the emergency department with recent nose bleed. Is anticoagulated with Xarelto now at half dosing due to recurrent bleeding. Was seen recently in [place] and had the left nostril packed with what sounds like Merocel. She says they said bleeding site was high up. She is not reporting lightheadedness or shortness of breath. 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 She called for advice and subsequently placed Afrin-soaked cotton balls into left and right nostril. She is still feeling some blood oozing into her throat and is quite concerned. Anticoagulation for history of atrial fibrillation. With recurrent bleeds have been discussing placement of Watchman. She also notes that has been having some concerns of potential urinary tract infection. No fever or abdominal pain. Has been experiencing some frequency; urgency is not new. Having left a urinalysis 2 days ago she has been trying to get results and treatment for this. I am able to review record and can see culture results showing Klebsiella including sensitivities. Related Data Home Medications Medication Instructions Recorded Confirmed calcium carbonate 600 mg calcium 600 mg PO DAILY 07/17/22 08/31/23 (1,500 mg) tablet (Calcium) cholecalciferol (vitamin D3) 25 2,000 unit PO DAILY 07/17/22 08/31/23 mcg (1,000 unit) capsule multivitamin (Multiple Vitamins 1 tab PO QAM 07/17/22 08/31/23 tablet) ursodiol 250 mg tablet (GAL 250) 1,000 mg PO QHS 07/26/23 08/31/23 Previous Rx's Medication Instructions Recorded rivaroxaban 10 mg tablet (Xarelto) 10 mg PO DAILY #90 tabs 07/17/23 cephalexin 500 mg capsule 500 mg PO TID #30 caps 08/31/23 Allergies Allergy/AdvReac Type Severity Reaction Status Date / Time erythromycin base Allergy Unknown Unknown Verified 08/31/23 09:13 Sulfa (Sulfonamide Allergy Unknown Unknown Verified 08/31/23 09:13 Antibiotics) azithromycin AdvReac Verified 08/31/23 09:13 Penicillins AdvReac Verified 08/31/23 09:13 Review of Systems Status of ROS: Reports: 6 or more systems reviewed and unremarkable except as noted in History and below [facility] Medical History Stenosis of esophagus ?K22.2 - Esophageal obstruction (ICD-10) History of iron deficiency anemia ?Z86.2 - Personal history of diseases of the blood and blood-forming organs and certain disorders involving the immune mechanism (ICD-10) Surgical History History of cataract surgery ?Z98.49 - Cataract extraction status, unspecified eye (ICD-10) Hematoma following procedure (02/23/20) History of vein stripping ?Z98.890 - Other specified postprocedural states (ICD-10) History of hysterectomy ?Z90.710 - Acquired absence of both cervix and uterus (ICD-10) History of cholecystectomy ?Z90.49 - Acquired absence of other specified parts of digestive tract (ICD- 10) History of cardiac pacemaker (02/20/20) ?Z95.0 - Presence of cardiac pacemaker (ICD-10) History of atrioventricular latoya ablation (02/20/20) ?Z98.890 - Other specified postprocedural states (ICD-10) Cyst of ovary (1996) ?N83.209 - Unspecified ovarian cyst, unspecified side (ICD-10) Family History Father Colon cancer Grandmother No problems noted. Daughter Stroke PFO (patent foramen ovale) Mother Stroke Social History What is your current living situation?: I presently have a place to live Problems where you live: no known problems Problems where you live details: none In the past 12 months, utilities in danger of being shut off: no In past 12 months, lack of transportation kept you from medical appts, meetings, work, or getting things needed for daily living: no In the past 12 mos, have been you worried that your food would run out before you had money to buy more?: never true In the past 12 mos, the food you bought just didn't last and you didn't have money to buy more?: never true Smoking Status: Never smoker Do you use any of these nicotine containing products: None Second hand tobacco smoke exposure: No How often do you have a drink containing alcohol: never How often do you have six or more drinks on one occasion: Never AUDIT-C Alcohol total score: 0 Non-prescribed substance use: denies use Caffeine: No How often does anyone, including family, friends and others, physically hurt you : never How often does anyone, including family, friends and others, insult or talk down to you: never How often does anyone, including family, friends and others, threaten you with harm: never How often does anyone, including family, friends and others, scream or curse at you: never Little interest or pleasure in doing things: not at all Feeling down, depressed, or hopeless: not at all service: No Exam Narrative: Exam Narrative: Pleasant. Effusive. Appears anxious, stressed. Breathing easily intermittently gagging on some blood in her throat though minimal produced. Has cotton ball in the right nostril which has trace amount of blood on it. Blood soaked but not actively bleeding cotton ball more deeply placed in the left nostril. Oropharynx is with some trace posterior staining. I do not see a clot at this time or marked active bleeding. Heart in regular rate. Well-perfused peripherally moving all extremities without difficulty. Const: Vital Signs, click to edit/add: Vital Signs - 24 hr 08/31/23 09:10 Temperature 98.3 F Pulse Rate [Right Pulse Oximeter] 80 Respiratory Rate 18 Blood Pressure [Ri ght Upper Arm] 149/66 H Pulse Oximetry 96 Oxygen Delivery Me thod Room Air Documenting provider has reviewed patient's vital signs: yes Course Vital Signs Vital signs: Initial Vital Signs Temperature 98.3 F 08/31/23 09:10 Temperature Source Temporal Artery Scan 08/31/23 09:10 Pulse Rate 80 08/31/23 09:10 Pulse Rhythm Regular 08/31/23 09:10 Respiratory Rate 18 08/31/23 09:10 Blood Pressure 149/66 H 08/31/23 09:10 Blood Pressure Mean 93 08/31/23 09:10 Blood Pressure Position Sitting 08/31/23 09:10 Pulse Oximetry 96 01/05/24 09:10 Oxygen Delivery Method Room Air 08/31/23 09:10 Vital Signs Temperature 98.3 F 08/31/23 09:10 Pulse Rate 80 08/31/23 09:10 Respiratory Rate 18 08/31/23 09:10 Blood Pressure 149/66 H 08/31/23 09:10 Pulse Oximetry 96 08/31/23 09:10 Oxygen Delivery Method Room Air 08/31/23 09:10 Temperature 98.3 F 08/31/23 09:10 Pulse Rate 80 08/31/23 09:10 Respiratory Rate 18 08/31/23 09:10 Blood Pressure 149/66 H 08/31/23 09:10 Pulse Oximetry 96 08/31/23 09:10 Oxygen Delivery Method Room Air 08/31/23 09:10 Medical Decision Making MDM Narrative Medical decision making narrative: I emphasized that it looks like she has done the right thing and properly treated her nose bleed. I would propose a period of observation here. I do not think that we need to do further labs. She is vitally well otherwise. After period of observation there is some light oozing or staining of blood posteriorly. She does cough up another clot. I removed her cotton ball packing. There is light oozing from a point medial upper septum on the left but very trace. More broadly superior slightly oozing I think as well. Given her history I think unlikely to be solved by cautery and I wouldn't have confidence for this. I think her emotional state would also benefit from more secure stabilization with packing. Understandably she is d isinclined toward rhino rocket or rapid rhino. I think Merocel would be my 1st choice regardless. I did therefore cut down Merocel packing and placed shortened version in the nostril. After period of observation bleeding was controlled. Appears to be tolerating well. Did also spend some time in conversation with her daughter over the phone planning follow-up and expectation for cares. Did set up an appointment with ENT for follow-up. Will cover with antibiotic prophylaxis with cephalexin which should also treat what appears to be current cystitis. See patient discharge plan Discharge Plan Discharge Clinical Impression: Epistaxis, Cystitis Patient Disposition: Home, Self-Care Condition: Improved Additional Instructions: For your cystitis symptoms, it looks like from the culture results, should be covered by cephalexin. We have this in the [facility]. A little oozing is okay --this means pinking of the Merocel packing and maybe a little bit of drainage in you throat. If it starts to bleed more briskly, place nose clamp. And if it is continuing over the period of an hour, please be seen/return. Generally a humidified space is a good idea. Need to have humidified CPAP in the future and/or sleep under the mist of a cool mist humidifier. Can use white petroleum jelly in your nose applying at least 3 times daily with last application before bed if not already doing this. I think the timing of this appointment is quite good. I am sorry it is in [place]. Apparently Dr. Sanon does not see people in [place] anymore. It is hard to get an appointment with ENT generally; they are scheduling out multiple months. I believe you had been referred. I would do what you can to get to this appointment. If [place] is impossible, you can be seen anywhere to have this packing pulled and then addressed further if necessary. Follow up appointment is scheduled with ENT on 09/04 with a 1:30pm appointment time. Please arrive at 1:20pm to complete paperwork. If you have any questions or need to reschedule, please call [phone]. [facility] [address] [place] [address] Prescriptions: No Action multivitamin [Multiple Vitamins] Tablet 1 tab PO QAM calcium carbonate [Calcium 600] 600 mg calcium (1,500 mg) tablet 600 mg PO DAILY cholecalciferol (vitamin D3) 25 mcg (1,000 unit) capsule 2,000 unit PO DAILY Xarelto 10 mg tablet 10 mg PO DAILY Qty: 90 3RF ursodiol [GAL 250] 250 mg tablet 1,000 mg PO QHS cephalexin 500 mg capsule 500 mg PO TID Qty: 30 0RF Rx Instructions: Take for 10 days Follow Up/Referrals: Unique Reed MD [Primary Care Provider] - [facility]one [facility]: [facility] Info Inst[facility]
== END 2023-08-31 12:25 | disposition home or self-care (01) ==
PROVIDERS: Emergency Provider Family Medicine; PCP Internal Medicine
DX: R04.0 Epistaxis (principal); N30.90 Cystitis, unspecified without hematuria
CPT/HCPCS: 99284

== ENCOUNTER 2023-09-25 13:32 | Outpatient (CLI) | payer MEDICARE, BC, SELFPAY ==
--- OUTSIDE RECORDS SUMMARY | 2023-09-27 11:50 | XMS_ITS | Encounter Summary ---
Author Name Unknown Organization [facility] Address [address] [place] [address] Care Team Providers Care Shaker Plate Operator Name Role Phone Elsewhere, Pcp Primary Care Provider Unavailabl e Reason for Visit * Reason Onset Date Comments Pre-visit Intake 09/07/2023 Encounter Details Date Type Department Care Team (Latest Contact Info) Description 09/07/2023 12:00 PM NURSING HOME DIRECTOR Clinical Communication Virtual Review in [place], [place] [address] [place], [place] [id number] Pre-visit Intake Social History Tobacco Use Types Packs/Day Years Used Date Smoking Tobacco: Never Smokeless Tobacco: Never Tobacco Cessation:Counseling Given: Not Answered Comments:Never ever used tobacco Alcohol Use Standard Drinks/Week Comments Never 0 (1 standard drink = 0.6 oz pur e alcohol) [facility] Utilities Answer Date Recorded In the past 12 months has e electric, gas, oil, or water company threatened to shut off services in your home? No 09/05/2023 Humiliation, Afraid, Rape, and Kick questionnair e [...] How often do you attend chur or alevism services? Never 04/30/2022 Do you belong to any clubs o r organizations such as anglican groups, unions, fraternal or athletic groups, or [...] and heating? Not hard at all 04/30/2022 [facility] [place] of Occupat ional Health - Occupational Stress [...] to strenuous exercise (like a brisk walk)? 0 days 09/05/2023 On average, how many minutes do you engage in exercise at this level? 0 min 09/05/2023 Hunger Vital Sign Answer Date Recorded Within the past 12 months, y ou worried that your food would run out before you got the money to buy more. Never true 09/05/19 24 Within the past 12 months, t he food you bought just didn't last and you didn't have money to get more. Never true 09/05/2023 PRAPARE - Transportation Answer Date Re corded In the past 12 months, has l ack of transportation kept you from medical appointments or from getting medications? Yes 08/27 In the past 12 months, has l ack of transportation kept you from meetings, work, or from getting things needed for daily living? Yes 09/05/2023 Nutrition Answer Date Recorded Nutrition: EVOO Fat Source No 09/05 On average, how many serving s of fruits and vegetables do you eat per day (serving size is equal to 1 cup or approximately the size of a tennis ball)? 0-2 09/05/2023 Dental Answer Date Recorded Dental: Regular Dentist No 04/30/20 Employment Answer Date Recorded Employment status Retired 09/05/2023 Housing Stability Answer Date Recorded What is your living situation today? I have a [facility] place to live 09/05/2023 Education Answer Date Recorded What is the highest level of school you have completed or the highest degree you have received? 12th grade 12/18/2019 Sex and Gender Information Value Date Recorded Sex Assigned at Female 04/30/2022 10:29 AM CDT Gender Identity Female 01/06/2018 4:13 PM CDT Sexual Orientation Straight 01/06/2018 4: 13 PM CDT documented as of this encounter Plan of Treatment Not on file documented as of this encounter Visit Diagnoses Not on filedocumented in this encounter Additional Health Concerns Assessment Noted Time PHQ-9 Depression Total Score: 13 008 12:22 PM CDT documented as of this encounter Care Teams Shaker Plate Operator Relationship Specialty Start Date End Date Elsewhere, Pcp PCP - General Internal Medicine 08/19/23 documented as of this encounter
--- OUTSIDE RECORDS SUMMARY | 2023-09-27 11:50 | XMS_ITS | Referral Summary ---
Author Name Unknown Organization [facility] Address [address] [place] [address] Care Team Providers Care Supervisor Prepress Name Role Phone Elsewhere, Pcp Primary Care Provider Unavailabl e Source Comments Patient records contain information from all sites at [facility]. For routine questions regarding patient records, call [phone] during business hours, M-F 8:00 AM - 5:00 PM Central Time. Record requests for emergency care only can be directed to [phone] at any time.[facility] Encounters Date Type Department Care Team Description 09/10/2023 2:00 PM BRICK MAKER Telemedicine Department of Cardiovascular Medicine in [place], [place] [address] [place] [phone] Jesus Neal M.D. Atrial Fibrillation Longstanding Persistent (HCC) (Primary Dx) 09/07/2023 12:00 PM BRICK MAKER Clinical Communication Virtual Review in [place], [place] 200 [place] [address] Pre-visit Intake 08/26/2023 CPAP Download Remote Patient Monitoring [facility] [address] [place] [address] [facility], Provider 08/24/2023 4:00 AM BRICK MAKER - 08/24/2023 11:59 PM BRICK MAKER Hospital Encounter Department of Cardiovascular Diseases in [place], [place] [address] [place] [phone] Tony Nelson M.B.B.S. Encounter For Checking And Testing Of Cardiac Pacemaker Pulse Generator Battery Discharge Disposition: Home or Self Care 08/21/2023 Clinical Communication Department of Cardiovascular Medicine in [place], [place] [address] [place] [address] Lens CleanerGamaliel M.D. Watchman Discussion 08/19/2023 10:43 AM BRICK MAKER - 08/19/2023 4:35 PM BRICK MAKER Emergency [facility] Emergency Department [address] [place] [phone] Lalitha Ayon M.D., M.S. Roger Sorenson M.D. Epistaxis (Primary Dx) Discharge Disposition: Home or Self Care 08/19/2023 Clinical Communication [facility] [address] [place] [phone] Cathleen Valero, R.N. Follow-up 08/17/2023 8:17 AM BRICK MAKER - 08/17/2023 12:56 PM BRICK MAKER Emergency [facility] Emergency Department [address] [place] [phone] Magdaleno Centeno M.D. Epistaxis (Primary Dx) Discharge Disposition: Home or Self Care 08/17/2023 Intake [facility] 07/31/2023 Orders Only [facility] Neelima Nj APRN, C.N.P., D.N.P., M.S.N. 07/27/2023 Clinical Communication Department of Sleep Medicine in [place], [place] [address] [place] [address] Neelima Nj APRN, C.N.P., Jazmin.P., M.S.N. Med Refill 07/26/2023 CPAP Download Remote Patient Monitoring [facility] [address] [place] [address] [facility], Provider from Last 3 Months Allergies Active Allergy Reactions Criticality Noted Date Comments Azithromycin Other (see comments) 06/14/2011 Liver problems Erythromycin Base Other (see comments) 06/14/20 Liver problems Isoniazid Other (see comments) 09/07/2023 Can not take Penicillin V Other (see comments) 01/04/2021 Sulfa [...] needed for muscle spasms. 0 08/10/2023 Active cephalexin (KEFLEX) 500 mg capsule Take 500 mg by mouth every 6 (six) hours. 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 Contusion (Hematoma) Thigh Initial Left 02/23/20 Ablation Atrioventricular Node Status Post 02/19 Atrial [...] Influenza, Seasonal, Injectable 06/19/20 06,06/14/2005,07/11/2004,2002,07/08/2002,06/18/2001 PCV13 06/30/2015 PPSV23(Discontinued) 07/12/2007,07/08/1986 RZV (SHINGRIX) 01/21/2019(Deferred: Other) Td, (Adult) Unspecified 06/14/2011,07/27/2000 Tdap 07/01/2012 influenza high dose (65 year s or older) (PF) 06/30/2015,06/08/2014,06/25/2013,2011,06/14/2011,06/13/2010 Social History Tobacco Use Types Packs/Day Years Used Date Smoking Tobacco: Never Smokeless Tobacco: Never Tobacco Cessation:Counseling Given: Not Answered Comments:Never ever used tobacco Alcohol Use Standard Drinks/Week Comments Never 0 (1 standard drink = 0.6 oz pur e alcohol) [facility] [employer] Answer Date Recorded In the past 12 months has e [employer], gas, oil, or water [employer] threatened to shut off services in your [...] often do you attend chur ch or faith services? Never 04/30/2022 Do you [...] and heating? Not hard at all 04/30/2022 [facility] [place] [facility] Occupat ional Health - Occupational Stress [...] your living situation today? I [facility] a [facility] place to live 09/05/2023 Education Answer [...] Comments Blood Pressure 131/87 08/19/2023 4:30 PM BRICK MAKER Pulse 73 08/19/2023 4:30 PM BRICK MAKER Temperature 36.6 ??C (97.9 ??F) 08/19/2023 1 0:51 AM BRICK MAKER Respiratory Rate 16 08/19/2023 10:5 1 AM BRICK MAKER Oxygen Saturation 98% 08/19/2023 4:30 PM BRICK MAKER Inhaled Oxygen Concentration - - Weight 70.3 kg (154 lb 15.7 oz) 023 10:45 AM BRICK MAKER Height 158 cm (5' 2.21) 05/15/2022 11: 39 AM CDT Body Mass Index 28.16 05/15/2022 11:39 AM CDT Plan of Treatment Not on file Medical Devices Implanted Type Area Staffing Specialist Device Identifier Shelf Expiration Date Model / Serial / Lot Lead Ppm Capsure Fix Novus 45 - [id number] - [id number] Implanted:Qty : 1 on 02/19/2020 by Jose Slade M.D. at [facility] Cardiac Lead Medtronic 10/29/2021 [id number] / [id number] / Coil Micro Hilal [id number] - [id number] Implanted:Qty : 1 on 02/23/2020 by Jeb Whitten M.D. at [facility] Embolization Coil [employer] 01/30/2021 [id number] / / [id number] Ppm Hortencia Dr - [id number] - [id number] Implanted:Qty : 1 on 02/19/2020 by Jose Slade M.D. at [facility] Pacemaker Medtronic 05/24/2021 [id number] / [id number] / Procedures Procedure Name Priority Date/Time Associated Diagnosis Comments PACER REMOTE FOLLOW UP Routine 08/24/2023 2:01 PM BRICK MAKER Encounter For Checking And Testing Of Cardiac Pacemaker Pulse Generator Battery TROPONIN T, 2H/6H, 5TH GEN, P Timed 08/19/2023 1:33 PM BRICK MAKER ECG STAT 08/19/2023 12:14 PM BRICK MAKER TROPONIN T, BASELINE, 5TH GEN, P STAT 08/19/2023 11:20 AM BRICK MAKER PROTHROMBIN TIME (PT), P STAT 08/19/2023 11:20 AM BRICK MAKER NT-PRO B-TYPE NATRIURETIC PEPTIDE (BNP), S STAT 08/19/2023 11:20 AM BRICK MAKER LACTATE, B STAT 08/19/2023 11:20 AM BRICK MAKER HEPATIC FUNCTION PANEL, S STAT 08/19/2023 11:20 AM BRICK MAKER CBC WITH DIFFERENTIAL, B STAT 08/19/2023 11:20 AM BRICK MAKER BASIC METABOLIC PANEL, S/P STAT 08/19/2023 11:20 AM BRICK MAKER PROTHROMBIN TIME (PT), P STAT 08/17/2023 10:55 AM BRICK MAKER TYPE AND SCREEN STAT 08/17/2023 10:55 AM BRICK MAKER BASIC METABOLIC PANEL, S/P STAT 08/17/2023 10:55 AM BRICK MAKER CBC WITH DIFFERENTIAL, B STAT 08/17/2023 10:55 AM BRICK MAKER from Last 3 Months Results * PACER REMOTE FOLLOW UP (08/24/2023 2:01 PM BRICK MAKER) Date Time Interrogation Session [id number] [facility] Implantable Pulse Generator Staffing Specialist Medtronic [facility] Implantable Pulse Generator Model [id number] Hortencia XT DR MRI [facility] Implantable Pulse Generator Serial Number [id number] [facility] Type Interrogation Session Remote [facility] Clinic Name [facility] Baljeet [facility] Implantable Pulse Generator Type Pacemaker [facility] Implantable Pulse Generator Implant Date 20200219 [facility] Implantable Lead Staffing Specialist Medtronic [facility] Implantable Lead Model 4076 CapsureFix Novus MRI SureScan [facility] Implantable Lead Serial Number [id number] [facility] Implantable Lead Implant Date 20200219 [facility] Implantable Lead Polarity Type Bipolar Lead [facility] Implantable Lead Location Detail 1 UNKNOWN [facility] Implantable Lead Special Function Lead length: 45 cm [facility] Implantable Lead Location Right Atrium [facility] Implantable Lead Staffing Specialist Medtronic [facility] Implantable Lead Model 4076 CapsureFix Novus MRI SureScan [facility] Implantable Lead Serial Number [id number] [facility] Implantable Lead Implant Date 20200219 [facility] Implantable Lead Polarity Type Bipolar Lead [facility] Implantable Lead Location Detail 1 UNKNOWN [facility] Implantable Lead Special Function Lead length: 52 cm [facility] Implantable Lead Location Right Ventricle [facility] Garry Setting Mode (NBG Code) DDDR [facility] Garry Setting Lower Rate Limit 70 {beats}/ min [facility] Garry Setting Maximum Tracking Rate 130 {beats}/ min [facility] Garry Setting Maximum Sensor Rate 130 {beats}/ min [facility] Garry Setting CASE Delay Low 150 ms [facility] Garry Setting PAV Delay Low 180 ms [facility] Garry Setting AT Mode Switch Rate 140 {beats}/ min [facility] Garry Setting AT Mode Switch Mode DDIR [facility] Lead Channel Setting Sensing Polarity Bipolar [facility] Lead Channel Setting Sensing Anode Location Right Atrium [facility] Lead Channel Setting Sensing Anode Terminal Ring [facility] Lead Channel Setting Sensing Cathode Location Right Atrium [facility] Lead Channel Setting Sensing Cathode Terminal Tip [facility] Lead Channel Setting Sensing Sensitivity 0.3 mV [facility] Lead Channel Setting Sensing Polarity Bipolar [facility] Lead Channel Setting Sensing Anode Location Right Ventricle [facility] Lead Channel Setting Sensing Anode Terminal Ring [facility] Lead Channel Setting Sensing Cathode Location Right Ventricle [facility] Lead Channel Setting Sensing Cathode Terminal Tip [facility] Lead Channel Setting Sensing Sensitivity 0.9 mV [facility] Lead Channel Setting Pacing Polarity Bipolar [facility] Lead Channel Setting Pacing Anode Location Right Atrium [facility] Lead Channel Setting Pacing Anode Terminal Ring [facility] Lead Channel Setting Sensing Cathode Location Right Atrium [facility] Lead Channel Setting Sensing Cathode Terminal Tip [facility] Lead Channel Setting Pacing Pulse Width 0.4 ms [facility] Lead Channel Setting Pacing Amplitude 1.5 V [facility] Lead Channel Setting Pacing Capture Mode Adaptive [facility] Lead Channel Setting Pacing Polarity Bipolar [facility] Lead Channel Setting Pacing Anode Location Right Ventricle [facility] Lead Channel Setting Pacing Anode Terminal Ring [facility] Lead Channel Setting Sensing Cathode Location Right Ventricle [facility] Lead Channel Setting Sensing Cathode Terminal Tip [facility] Lead Channel Setting Pacing Pulse Width 0.4 ms [facility] Lead Channel Setting Pacing Amplitude 2 V [facility] Lead Channel Setting Pacing Capture Mode Adaptive [facility] Zone Setting Type Category VF [facility] Zone Setting Type Category VT [facility] Zone Setting Type Category VT [facility] Zone Setting Type Category VT [facility] Zone Setting Detection Interval 350 ms [facility] Zone Setting Type Category ATRIAL_FIBRILLATI ON [facility] Zone Setting Type Category AT/AF [facility] Zone Setting Detection Interval 430 ms [facility] Lead Channel Impedance Value 418 ohm [facility] Lead Channel Sensing Intrinsic Amplitude 3.875 mV [facility] Lead Channel Pacing Threshold Amplitude 0.375 V [facility] Lead Channel Pacing Threshold Pulse Width 0.4 ms [facility] Lead Channel Impedance Value 532 ohm [facility] Lead Channel Sensing Intrinsic Amplitude 7.5 mV [facility] Lead Channel Pacing Threshold Amplitude 0.5 V [facility] Lead Channel Pacing Threshold Pulse Width 0.4 ms [facility] Battery Date Time of Measurements [facility] Battery HYDROTECHNICAL SPECIALIST Trigger 2.625 [facility] Battery Remaining Longevity 111 mo [facility] Battery Voltage 3.00 V [facility] Garry Statistic Date Time Start [facility] Garry Statistic Date Time End [facility] Garry Statistic RA Percent Paced 0.01 % [facility] Garry Statistic RV Percent Paced 99.96 % [facility] Atrial Tachy Statistic Date Time Start [facility] Atrial Tachy Statistic Date Time End [facility] Atrial Tachy Statistic AT/AF [place] Percent 100 % [facility] Episode Statistic Recent Count 0 [facility] Episode Statistic Type Category AT/AF [facility] Episode Statistic Recent Count 0 [facility] Episode Statistic Type Category [...] Region Laterality Modality Other 08/23/2023 8:41 PM BRICK MAKER Narrative 08/29/2023 4:52 PM BRICK MAKER PURPOSE OF VISIT: ??Routine quarterly remote transmission PRESENTING EGM: ??AF, 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 @ 75 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 ATRIAL ARRHYTHMIAS: 1 AT/AF episode since 05/24/2023, in progress, 100% AF burden VENTRICULAR ARRHYTHMIAS: ??None since 05/24/2023 ?PVC [place]: None since 05/24/2023 BATTERY LONGEVITY: Expected battery [...] T, 2h/6h, 5th Gen (08/19/2023 1:33 PM BRICK MAKER) Troponin T, 2 hr, 5th gen 19(H) <=10 ng/L 08/19/2023 1:55 PM BRICK MAKER [facility] 2H Delta -4 ng/L 08/19/2023 1:55 PM BRICK MAKER [facility] 2H Delta Interp Indeterminate 08/19/2023 1:55 PM BRICK MAKER [facility] Comment:Indeterminate delta, additional sample suggested Troponin T, 6 hr, 5th gen CANCELED ng/L 09/18/2023 1:52 AM BRICK MAKER [facility] Comment: Patient already discharged. Result canceled by the ancillary. 6H Delta CANCELED ng/L 08/20/2023 11:17 AM BRICK MAKER [facility] Comment:Result canceled by t he ancillary. 6H Delta Interp CANCELED 08/20/2023 11:17 AM BRICK MAKER [facility] Comment:Result canceled by t he ancillary. Blood (Blood, Venous) 08/19/2023 1:33 PM BRICK MAKER 08/19/2023 1:37 PM BRICK MAKER Narrative [facility] - 09/18/2023 1:52 AM BRICK MAKER Specimen Information: Specimen ID: [id number] Specimen Type: Blood Specimen Collection Start Date: 08/19/2023 ??1:33 PM Specimen Received Date: 08/19/2023 ??1:37 PM Specimen ID: [id number] Specimen Type: Blood Donavan Blankenship M.D. LAB BLOOD TROPONIN Performing Organization Address [facility] Co de Phone Number [facility] [address] [place] [address], [facility] STMA [facility] [address] [place] [address] * ECG 12 Lead (08/19/2023 12:14 PM BRICK MAKER) Ventricular Rate ECG/Min 76 BPM MUSE QRSD Interval 166 ms MUSE QT Interval 486 ms MUSE QTC Interval 547 ms MUSE R [place] -85 degrees MUSE T Wave [place] 142 degrees MUSE 08/19/2023 12:1 4 PM BRICK MAKER 08/20/2023 10:19 AM BRICK MAKER Impressions MUSE - 08/19/2023 12:27 PM BRICK MAKER Dual chamber electronic pacemaker Atrial flutter Prolonged QT When compared with ECG of 02-MAY-2022 11:28, QT has lengthened Reviewed by XIANG Murray Narrative Procedure Note Raymundo Raygoza M.D., M.P.H. - 08/20/2023 IMPRESSION: Dual chamber electronic pacemaker Atrial flutter Prolonged QT When compared with ECG of 02-MAY-2022 11:28, QT has lengthened Reviewed by XIANG Murray Donavan Blankenship M.D. ECG ORDERABLES Performing Organization Address City/[facility]/ZIP Co de Phone Number MUSE NA * Lactate, B (08/19/2023 11:20 AM BRICK MAKER) Lactate, B 1.2 0.5 - 2.2 mmol/L 08/19/2023 11:30 AM BRICK MAKER [facility] Blood (Blood, Venous) 08/19/2023 11:20 AM BRICK MAKER 08/19/2023 11:27 AM BRICK MAKER Donavan Blankenship M.D. LAB BLOOD NON ADD- ON [facility] [address] [place], [place] [id number] [place] [address] [address] [place] [address] * (ABNORMAL) Troponin T, Baseline, 5th gen (08/19/2023 11:20 AM BRICK MAKER) Troponin T, Baseline, 5th gen 23(H) <=10 ng/L 08/19/2023 11:47 AM BRICK MAKER [facility] Blood (Blood, Venous) 08/19/2023 11:20 AM BRICK MAKER 08/19/2023 11:27 AM BRICK MAKER Donavan Blankenship M.D. LAB BLOOD TROPONIN Performing Organization Address City/[facility] Co de Phone Number [facility] [address] [place], [place] [address] [place] [phone] * (ABNORMAL) Hepatic Function Panel (08/19/2023 11:20 AM BRICK MAKER) Bilirubin, Total, S 0.8 0.0 - 1.2 mg/dL 08/19/2023 12:15 PM BRICK MAKER DTL Bilirubin, Direct, S 0.3 0.0 - 0.3 mg/dL 08/19/2023 12:15 PM BRICK MAKER DTL Aspartate Aminotransferase (AST), S 31 8 - 43 U/L 08/19/2023 12:15 PM BRICK MAKER DTL Alanine Aminotransferase (ALT), S 23 7 - 45 U/L 08/19/2023 12:15 PM BRICK MAKER DTL Alkaline Phosphatase, S 127(H) 35 - 104 U/L 08/19/2023 12:15 PM BRICK MAKER DTL Albumin, S 4.1 3.5 - 5.0 g/dL 08/19/2023 12:15 PM BRICK MAKER DTL Protein, Total, S 6.4 6.3 - 7.9 g/dL 08/19/2023 12:15 PM BRICK MAKER DTL Blood (Blood, Venous) 08/19/2023 11:20 AM BRICK MAKER 08/19/2023 11:52 AM BRICK MAKER Donavan Blankenship M.D. LAB BLOOD ADD-ON [facility] [address] [place] [address], [facility] DTL [facility] [address] [place] [address] * (ABNORMAL) NT-Pro B-Type Natriuretic Peptide (BNP) (08/19/2023 11:20 AM BRICK MAKER) NT-Pro BNP 1244(H) <=540 pg/mL 08/19/2023 11:56 AM BRICK MAKER [facility] Comment: NT-proBNP values less than 300 [...] failure. Blood (Blood, Venous) 08/19/2023 11:20 AM BRICK MAKER 08/19/2023 11:27 AM BRICK MAKER Donavan Blankenship M.D. LAB BLOOD ADD-ON Performing Organization Address City/State/[facility] Co de Phone Number [facility] [address] [place] [address], [facility] STMA [facility] [address] [place] [address] * (ABNORMAL) Prothrombin Time (PT) (08/19/2023 11:20 AM BRICK MAKER) Only the most recent of2 resultswithin the time period is included. Prothrombin Time, P 23.3(H) 9.4 - 12.5 sec 08/19/2023 11:35 AM BRICK MAKER [facility] INR 2.1 0.9 - 1.1 08/19/2023 11:35 AM BRICK MAKER [facility] Comment: ----ADDITIONAL INFORMATION---- Standard intensity warfarin therapeutic range: 2.0 to 3.0 ?? High intensity warfarin therapeutic range: 2.5 to 3.5 Blood (Blood, Venous) 08/19/2023 11:20 AM BRICK MAKER 08/19/2023 11:27 AM BRICK MAKER Donavan Blankenship M.D. LAB BLOOD ADD-ON [facility] [address] [place] [address], [facility] STMA [facility] [address] [place] [address] * (ABNORMAL) CBC with Differential, Blood (08/19/2023 11:20 AM BRICK MAKER) Only the most recent of2 resultswithin the time period is included. Hemoglobin 12.2 11.6 - 15.0 g/dL 08/19/2023 11:30 AM BRICK MAKER [facility] Hematocrit 36.6 35.5 - 44.9 % 08/19/2023 11:30 AM BRICK MAKER [facility] Erythrocytes 4.14 3.92 - 5.13 x10(12)/L 08/19/2023 11:30 AM BRICK MAKER [facility] MCV 88.4 78.2 - 97.9 fL 08/19/2023 11:30 AM BRICK MAKER [facility] RBC Distrib Width 13.2 12.2 - 16.1 % 08/19/2023 11:30 AM BRICK MAKER [facility] Platelet Count 183 157 - 371 x10(9)/L 08/19/2023 11:30 AM BRICK MAKER [facility] Leukocytes 8.4 3.4 - 9.6 x10(9)/L 08/19/2023 11:30 AM BRICK MAKER [facility] Neutrophils 6.50(H) 1.56 - 6.45 x10(9)/L 08/19/2023 11:30 AM BRICK MAKER DH[facility] Lymphocytes 1.11 0.95 - 3.07 x10(9)/L 08/19/2023 11:30 AM BRICK MAKER [facility] Monocytes 0.67 0.26 - 0.81 x10(9)/L 08/19/2023 11:30 AM BRICK MAKER [facility] Eosinophils 0.07 0.03 - 0.48 x10(9)/L 08/19/2023 11:30 AM BRICK MAKER [facility] Basophils 0.03 0.01 - 0.08 x10(9)/L 08/19/2023 11:30 AM BRICK MAKER [facility]MA Blood (Blood, Venous) 08/19/2023 11:20 AM BRICK MAKER 08/19/2023 11:27 AM BRICK MAKER Donavan Blankenship M.D. LAB BLOOD ADD-ON [facility] [address] [place] [address], [facility] STMA [facility] [address] [place] [address] [facility] [address] [place] [address] * (ABNORMAL) Basic Metabolic Panel (08/19/2023 11:20 AM BRICK MAKER) Only the most recent of2 resultswithin the time period is included. Potassium, P 5.0 3.6 - 5.2 mmol/L 08/19/2023 11:43 AM BRICK MAKER [facility] Sodium, P 141 135 - 145 mmol/L 08/19/2023 11:43 AM BRICK MAKER [facility] Chloride, P 106 98 - 107 mmol/L 08/19/2023 11:43 AM BRICK MAKER [facility] Bicarbonate, P 27 22 - 29 mmol/L 08/19/2023 11:43 AM BRICK MAKER [facility] Anion Gap, P 8 7 - 15 08/19/2023 11:43 AM BRICK MAKER [facility] BUN (Blood Urea Nitrogen), P 28(H) 6 - 21 mg/dL 08/19/2023 11:43 AM BRICK MAKER [facility] Creatinine 0.67 0.59 - 1.04 mg/dL 08/19/2023 11:43 AM BRICK MAKER [facility] Estimated GFR (eGFR) 87 >=60 mL/min/BSA 08/19/2023 11:43 AM BRICK MAKER [facility] Comment: Estimated GFR calculated using the 2020 CKD_EPI creatinine equation. Calcium, Total, P 9.4 8.8 - 10.2 mg/dL 08/19/2023 11:43 AM BRICK MAKER [facility] Glucose, P 112 70 - 140 mg/dL 08/19/2023 11:43 AM BRICK MAKER [facility] Blood (Blood, Venous) 08/19/2023 11:20 AM BRICK MAKER 08/19/2023 11:27 AM BRICK MAKER Donavan Blankenship M.D. LAB BLOOD ADD-ON Performing Organization Address [facility] Co de Phone Number [facility] [address] [place] [address], [facility] STMA [facility] [address] [place] [address] * Type and Screen (with Reflex Antibody ID) (08/17/2023 10:55 AM BRICK MAKER) ABORh O Pos Not applicable 08/17/2023 11:20 AM BRICK MAKER STRM Antibody Screen Negative Negative 08/17/2023 11:36 AM BRICK MAKER STRM Type & Screen Expiration 08/20/2023 23:59 08/17/2023 11:20 AM BRICK MAKER STRM Testing Location [place] DEFAULT 08/17/2023 11:01 AM BRICK MAKER STRM Blood (Blood, Venous) 08/17/2023 10:55 AM BRICK MAKER 08/17/2023 11:01 AM BRICK MAKER Kristen Ashley M.D. LAB BLOOD BANK TEST ORDERABLES Performing Organization Address [facility] Co de Phone Number [facility] [address] [place] [address], [facility] STRM [facility] [address] [place] [address] from Last 3 Months Advance Directives For more information, please contact: [phone] Documents on File Type Date Recorded Patient Director Of Hotel Operations Expl anation Advance Directives 02/06/2020 10:03 AM [facility] Care Directive Advance Directives 06/10/2014 12:00 AM Any gacy document. See document viewer. Advance Directives [...] Communication Carroll Bose Son Health Care Agent [email or web address] Katelynn Vu Daughter First Alternate Health Care Agent [email or web address] Care Teams Supervisor Prepress Relationship Specialty Start Date End Date Elsewhere, Pcp PCP - General Internal Medicine 08/19/23
--- OUTSIDE RECORDS SUMMARY | 2023-09-27 11:50 | XMS_ITS | Encounter Summary ---
Author Name Unknown Organization [facility] Address [address] [place] [id number] Care Team Providers Care Support Assistant Name Role Phone Elsewhere, Pcp Primary Care Provider Unavailabl e Encounter Details Date Type Department Care Team (Late st Contact Info) Description 08/26/2023 CPAP Download Remote Patient Monitoring [facility] [address] [place] [address] [facility], Provider Social History Tobacco Use Types Packs/Day Years Used Date Smoking Tobacco: Never Smokeless Tobacco: Never Comments:Never ever used tob acco Alcohol Use Standard Drinks/Week Comments Never 0 (1 standard drink = 0.6 oz pur e alcohol) [facility] Utilities Answer Date Recorded In the past 12 months has th e electric, gas, oil, or water company [...] often do you attend chur ch or judaism services? Never 04/30/2022 Do you belong to any clubs o r organizations such as quaker groups, unions, fraternal or athletic groups, or [...] Not hard at all 04/30/2022 [facility] of Occupat ional Health - Occupational Stress [...] your living situation today? I have a [facility] place to live 09/05/2023 Education Answer [...] documented as of this encounter Care Teams Support Assistant Relationship Specialty Start Date End Date Elsewhere, Pcp PCP - General Internal Medicine 08/19/23 documented as of this encounter
--- OUTSIDE RECORDS SUMMARY | 2023-09-27 11:50 | XMS_ITS | Encounter Summary ---
Author Name Unknown Organization [facility] Address [address] [place] [id number] Care Team Providers Care Education Program Specialist Name Role Phone Elsewhere, Pcp Primary Care Provider Unavailabl e Reason for Referral * Outpatient (Routine) - Authorized Specialty Diagnoses / Procedures Referred By Carolyn dominguez Referred To Contact Cardiovascular Disease Jesus Neal M.D. [address] [place] [address] Tony Nelson M.B.B.S. [address] [place] [address] Referral ID Status Reason Start Date Expiration Date V isits Requested Visits Authorized [id number] Authorized 09/11/2023 09/10/2026 1 1 RAL CLAIMS AGENT Encounter Details Date Type Department Care Team (Latest Contact Info) Description 09/10/2023 2:00 PM GENERAL CLAIMS AGENT Telemedicine Department of Cardiovascular Medicine in [place], [place] [address] [place] [address] Jesus Neal M.D. [address] [place] [address] Atrial Fibrillation Longstanding Persistent (HCC) (Primary Dx) Social History Tobacco Use Types Packs/Day Years Used Date Smoking Tobacco: Never Smokeless Tobacco: Never Comments:Never ever used tob acco Alcohol Use Standard Drinks/Week Comments Never 0 (1 standard drink = 0.6 oz pur e alcohol) [facility] Utilities Answer Date Recorded In the past 12 months has th e electric, gas, oil, or water [employer] threatened to shut off services in your [...] often do you attend chur ch or restorationist services? Never 04/30/2022 Do you belong to [...] and heating? Not hard at all 04/30/2022 [facility] of Occupat ional Health - Occupational Stress [...] Date Recorded Dental: Regular Dentist No 04/30/20 22 Employment Answer Date Recorded Employment status Retired 09/05/2023 Housing Stability Answer Date Recorded What is your living situation today? I have a [facility] place to live 09/05/2023 Education Answer Date Recorded What is the highest level of school you have completed or the highest degree you have received? 12th grade 12/18/2019 Sex and Gender Information Value Date Recorded Sex Assigned at Female 04/30/2022 10:29 AM CDT Gender Identity Female 01/06/2018 4:13 PM CDT Sexual Orientation Straight 01/06/2018 4: 13 PM CDT documented as of this encounter Progress Notes * Jesus Neal M.D. - 09/10/2023 2:00 PM CST Consult conducted via real-time audio/video technology [facility] Chief complaint: Epistaxis History of present illness: Mrs. Bose returns. Unfortunately she has had recurrent severe epistaxis requiring ENT intervention despite the lower dose of Xarelto (10 mg daily). In this setting sheis joined by her family on the video visit. She finds that these recurrent episodes of epistaxis are severely impacting quality of life and she is now searching for alternative options. Her CHADS-VASc continues to be 3 due to age and gender. Otherwise she carries no other risk factors for stroke. Systems review: As per HPI, otherwise all systems reviewed and negative Physical exam: General: No apparent distress Assessment and plan: Atrial fibrillation Recurrent severe epistaxis CHADS-VASc = 3 (Age, gender) This is a complicated situation. We discussed at length the reasoning behind stroke prevention in atrial fibrillation and alternatives to anticoagulation. She has about a 3% per year risk of stroke and up to 5% per year risk of stroke/TIA/systemic embolism in the absence of therapy. The issue is she has had continued bleeding episodes spontaneously even on lower dose Xarelto. It is unclear to me that even trying a lower dose of an alternative drug (eg, Eliquis) would offer much more benefit than this especially because she also doesn't meet criteria for dose reduction of Eliquis meaning the stroke reduction benefit in her would be unclear. 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 For now she and her family decided to stop anticoagulation and regroup in [address] Nelson to see if they can regroup on salient questions related to DIEUDONNE occlusion and revisit this option. I explained this is reasonable and I did discuss as well with Dr. Nelson who is happy torevisit the procedure with them. Otherwise all questions were answered. A total of 45 minutes was spent in review and consultation. RAL CLAIMS AGENT documented in this encounter Plan of Treatment Scheduled Referrals Name Type Priority Associated Diagnoses Order Schedule Cardiovascular Disease office visit (clinic) HRS Outpatient Referral Routine Expected: 12/11/2023 (Approximate), Expires: 12/10/2024 documented as of this encounter Visit Diagnoses Diagnosis Atrial Fibrillation Longstanding Persistent (HCC)- Primary documented in this encounter Additional Health Concerns Assessment Noted Time PHQ-9 Depression Total Score: 13 01/08/ 008 12:22 PM CDT documented as of this encounter Care Teams Education Program Specialist Relationship Specialty Start Date End Date Elsewhere, Pcp PCP - General Internal Medicine 08/19/23 documented as of this encounter
--- OUTSIDE RECORDS SUMMARY | 2023-09-27 11:50 | XMS_ITS | Clinical Summary ---
Author Name Unknown Organization [facility] Address [address] [place] [address] Care Team Providers Care Zone Manager Name Role Phone Elsewhere, Pcp Primary Care Provider Unavailabl e Source Comments Patient records contain information from all sites at [facility]. For routine questions regarding patient records, call [phone] during business hours, M-F 8:00 AM - 5:00 PM Central Time. Record requests for emergency care only can be directed to [phone] at any time.[facility] Allergies Active Allergy Reactions Criticality Noted Date Comments Azithromycin Other (see comments) 06/14/2011 Liver problems Erythromycin Base Other (see comments) 06/14/20 11 Liver problems Isoniazid Other (see comments) 09/07/2023 [...] Department Care Team Description 09/10/2023 2:00 PM NUCLEAR MONITORING TECHNICIAN Telemedicine Department of Cardiovascular Medicine in [place], [place] [address] [place] [phone] Jesus Neal M.D. Atrial Fibrillation Longstanding Persistent (HCC) (Primary Dx) 09/07/2023 12:00 PM NUCLEAR MONITORING TECHNICIAN Clinical Communication Virtual Review in [place], [place] [address] [place] [address] Pre-visit Intake 08/26/2023 CPAP Download Remote Patient Monitoring [facility] [address] [place] [address] [facility], Provider 08/24/2023 4:00 AM NUCLEAR MONITORING TECHNICIAN - 08/24/2023 11:59 PM NUCLEAR MONITORING TECHNICIAN Hospital Encounter Department of Cardiovascular Diseases in [place], [place] [address] [place] [phone] Tony Nelson M.B.B.S. Encounter For Checking And Testing Of Cardiac Pacemaker Pulse Generator Battery Discharge Disposition: Home or Self Care 08/21/2023 Clinical Communication Department of Cardiovascular Medicine in [place], [place] [address] [place] [phone] Rn AppealsGamaliel M.D. Watchman Discussion 08/19/2023 10:43 AM NUCLEAR MONITORING TECHNICIAN - 08/19/2023 4:35 PM NUCLEAR MONITORING TECHNICIAN Emergency [facility] [address] [place] [phone] Lalitha Ayon M.D., M.S. Roger Sorenson M.D. Epistaxis (Primary Dx) Discharge Disposition: Home or Self Care 08/19/2023 Clinical Communication [facility] [address] [place] [phone] Cathleen Valero R.N. Follow-up 08/17/2023 8:17 AM NUCLEAR MONITORING TECHNICIAN - 08/17/2023 12:56 PM NUCLEAR MONITORING TECHNICIAN Emergency [facility] [address] [place] [phone] Magdaleno Centeno M.D. Epistaxis (Primary Dx) Discharge Disposition: Home or Self Care 08/17/2023 Intake [facility] 07/31/2023 Orders Only [facility] PCP [facility] Neelima Nj APRN C.N.P., D.N.P., M.S.N. 07/27/2023 Clinical Communication Department of Sleep Medicine in [place], [place] [address] [place] [phone] Neelima Nj APRN, C.N.P., D.N.P., M.S.N. Med Refill 07/26/2023 CPAP Download Remote Patient Monitoring [facility] [address] [place] [address] [facility], Provider from Last 3 Months Immunizations [...] Relation Name Status Comments Brother Noble Connell Father Axel Connell Mother Olga Connell Paternal Grandmother Chioma Garcias Sister Patrica Pierce Son Carroll Bose Social History Tobacco Use Types Packs/Day Years Used Date Smoking Tobacco: Never Smokeless Tobacco: Never Tobacco Cessation:Counseling Given: Not Answered Comments:Never ever used tobacco Alcohol Use Standard Drinks/Week Comments Never 0 (1 standard drink = 0.6 oz pur e alcohol) [facility] [employer] Answer Date Recorded In the past 12 months has [facility] [employer], oil, or water [employer] threatened to shut off services in your [...] often do you attend chur ch or restoration services? Never 04/30/2022 Do you belong to any clubs o r organizations such as sabianism groups, unions, fraternal or athletic groups, or [...] and heating? Not hard at all 04/30/2022 [facility] - Occupational Stress Questionnaire Answer [...] your living situation today? I have a [facility] place to live 09/05/2023 Education Answer [...] Comments Blood Pressure 131/87 08/19/2023 4:30 PM NUCLEAR MONITORING TECHNICIAN Pulse 73 08/19/2023 4:30 PM NUCLEAR MONITORING TECHNICIAN Temperature 36.6 ??C (97.9 ??F) 08/19/2023 1 0:51 AM NUCLEAR MONITORING TECHNICIAN Respiratory Rate 16 08/19/2023 10:5 1 AM NUCLEAR MONITORING TECHNICIAN Oxygen Saturation 98% 08/19/2023 4:30 PM NUCLEAR MONITORING TECHNICIAN Inhaled Oxygen Concentration - - Weight 70.3 kg (154 lb 15.7 oz) 023 10:45 AM NUCLEAR MONITORING TECHNICIAN Height 158 cm (5' 2.21) 05/15/2022 11: 39 AM CDT Body Mass Index 28.16 05/15/2022 11:39 AM CDT Plan of Treatment Health Maintenance Due Date [...] Cologuard Discontinued Medical Devices Implanted Type Area Crm Technical Lead Device Identifier Shelf Expiration Date Model / Serial / Lot Lead Ppm Capsure Fix Novus 45 - [id number] - [id number] Implanted:Qty : 1 on 02/19/2020 by Jose Slade M.D. at [facility] Cardiac Lead Medtronic 10/29/2021 [id number] / [id number] / Coil Micro Hilal [id number] - [id number] Implanted:Qty : 1 on 02/23/2020 by Jeb Whitten M.D. at [facility] Embolization Coil [employer] 01/30/2021 [id number] / / [id number] Radnor - [id number] - [id number] Implanted:Qty : 1 on 02/19/2020 by Jose Slade M.D. at [facility] Pacemaker Medtronic 05/24/2021 [id number] / [id number] / Procedures Procedure Name Priority Date/Time Associated Diagnosis Comments PACER REMOTE FOLLOW UP Routine 08/24/2023 2:01 PM NUCLEAR MONITORING TECHNICIAN Encounter For Checking And Testing Of Cardiac Pacemaker Pulse Generator Battery TROPONIN T, 2H/6H, 5TH GEN, P Timed 08/19/2023 1:33 PM NUCLEAR MONITORING TECHNICIAN ECG STAT 08/19/2023 12:14 PM NUCLEAR MONITORING TECHNICIAN TROPONIN T, BASELINE, 5TH GEN, P STAT 08/19/2023 11:20 AM NUCLEAR MONITORING TECHNICIAN PROTHROMBIN TIME (PT), P STAT 08/19/2023 11:20 AM NUCLEAR MONITORING TECHNICIAN NT-PRO B-TYPE NATRIURETIC PEPTIDE (BNP), S STAT 08/19/2023 11:20 AM NUCLEAR MONITORING TECHNICIAN LACTATE, B STAT 08/19/2023 11:20 AM NUCLEAR MONITORING TECHNICIAN HEPATIC FUNCTION PANEL, S STAT 08/19/2023 11:20 AM NUCLEAR MONITORING TECHNICIAN CBC WITH DIFFERENTIAL, B STAT 08/19/2023 11:20 AM NUCLEAR MONITORING TECHNICIAN BASIC METABOLIC PANEL, S/P STAT 08/19/2023 11:20 AM NUCLEAR MONITORING TECHNICIAN PROTHROMBIN TIME (PT), P STAT 08/17/2023 10:55 AM NUCLEAR MONITORING TECHNICIAN TYPE AND SCREEN STAT 08/17/2023 10:55 AM NUCLEAR MONITORING TECHNICIAN BASIC METABOLIC PANEL, S/P STAT 08/17/2023 10:55 AM NUCLEAR MONITORING TECHNICIAN CBC WITH DIFFERENTIAL, B STAT 08/17/2023 10:55 AM NUCLEAR MONITORING TECHNICIAN from Last 3 Months Results * PACER REMOTE FOLLOW UP (08/24/2023 2:01 PM NUCLEAR MONITORING TECHNICIAN) Date Time Interrogation Session [id number] [facility] Implantable Pulse Generator Crm Technical Lead Medtronic [employer] [facility] Implantable Pulse Generator Model [id number] Hortencia XT DR YING [facility] Implantable Pulse Generator Serial Number [id number] [employer] [facility] Type Interrogation Session Remote [facility] Clinic Name [facility] Implantable Pulse Generator Type Pacemaker [facility] Implantable Pulse Generator Implant Date 20200219 [facility] Implantable Lead Crm Technical Lead Medtronic [facility] Implantable Lead Model 4076 CapsureFix Novus MRI SureScan [facility] Implantable Lead Serial Number [id number] [facility] Implantable Lead Implant Date 20200219 [facility] Implantable Lead Polarity Type Bipolar Lead [facility] Implantable Lead Location Detail 1 UNKNOWN [facility] Implantable Lead Special Function Lead length: 45 cm [facility] Implantable Lead Location Right Atrium [facility] Implantable Lead Crm Technical Lead Medtronic [facility] Implantable Lead Model 4076 CapsureFix Novus MRI SureScan [facility] Implantable Lead Serial Number [id number] [facility] Implantable Lead Implant Date 20200219 [facility] Implantable Lead Polarity Type Bipolar Lead [facility] Implantable Lead Location Detail 1 UNKNOWN [facility] Implantable Lead Special Function Lead length: 52 cm [facility] Implantable Lead Location Right Ventricle [facility] Garry Setting Mode (NBG Code) DDDR [facility] Garry Setting Lower Rate Limit 70 {beats}/ min [facility] Garry Setting Maximum Tracking Rate 130 {beats}/ min [facility] Garry Setting Maximum Sensor Rate 130 {beats}/ min [facility] Garry Setting CASE Delay Low 150 ms [facility] Garry Setting PAV Delay Low 180 ms [facility] Garry Setting AT Mode Switch Rate 140 {beats}/ min [facility] Garry Setting AT Mode Switch Mode DDIR [facility] Lead Channel Setting Sensing Polarity Bipolar [facility] Lead Channel Setting Sensing Anode Location Right Atrium [facility] Lead Channel Setting Sensing Anode Terminal Ring [facility] Lead Channel Setting Sensing Cathode Location Right Atrium [facility] Lead Channel Setting Sensing Cathode Terminal Tip [facility] Lead Channel Setting Sensing Sensitivity 0.3 mV [facility] Lead Channel Setting Sensing Polarity Bipolar [facility] Lead Channel Setting Sensing Anode Location Right Ventricle [facility] Lead Channel Setting Sensing Anode Terminal Ring [facility] Lead Channel Setting Sensing Cathode Location Right Ventricle [facility] Lead Channel Setting Sensing Cathode Terminal Tip [facility] Lead Channel Setting Sensing Sensitivity 0.9 mV [facility] Lead Channel Setting Pacing Polarity Bipolar [facility] Lead Channel Setting Pacing Anode Location Right Atrium [facility] Lead Channel Setting Pacing Anode Terminal Ring [facility] Lead Channel Setting Sensing Cathode Location Right Atrium [facility] Lead Channel Setting Sensing Cathode Terminal Tip [facility] Lead Channel Setting Pacing Pulse Width 0.4 ms [facility] Lead Channel Setting Pacing Amplitude 1.5 V [facility] Lead Channel Setting Pacing Capture Mode Adaptive [facility] Lead Channel Setting Pacing Polarity Bipolar [facility] Lead Channel Setting Pacing Anode Location Right Ventricle [facility] Lead Channel Setting Pacing Anode Terminal Ring [facility] Lead Channel Setting Sensing Cathode Location Right Ventricle [facility] Lead Channel Setting Sensing Cathode Terminal Tip [facility] Lead Channel Setting Pacing Pulse Width 0.4 ms [facility] Lead Channel Setting Pacing Amplitude 2 V [facility] Lead Channel Setting Pacing Capture Mode Adaptive [facility] Zone Setting Type Category VF [facility] Zone Setting Type Category VT [facility] Zone Setting Type Category VT [facility] Zone Setting Type Category VT [facility] Zone Setting Detection Interval 350 ms [facility] Zone Setting Type Category ATRIAL_FIBRILLATI ON [facility] Zone Setting Type Category AT/AF [facility] Zone Setting Detection Interval 430 ms [facility] Lead Channel Impedance Value 418 ohm [facility] Lead Channel Sensing Intrinsic Amplitude 3.875 mV [facility] Lead Channel Pacing Threshold Amplitude 0.375 V [facility] Lead Channel Pacing Threshold Pulse Width 0.4 ms [facility] Lead Channel Impedance Value 532 ohm [facility] Lead Channel Sensing Intrinsic Amplitude 7.5 mV [facility] Lead Channel Pacing Threshold Amplitude 0.5 V [facility] Lead Channel Pacing Threshold Pulse Width 0.4 ms [facility] Battery Date Time of Measurements [facility] Battery COLLEGE PHYSICS INSTRUCTOR Trigger 2.625 [facility] Battery Remaining Longevity 111 mo [facility] Battery Voltage 3.00 V [facility] Garry Statistic Date Time Start [facility] Garry Statistic Date Time End [facility] Garry Statistic RA Percent Paced 0.01 % [facility] Garry Statistic RV Percent Paced 99.96 % [facility] Atrial Tachy Statistic Date Time Start [facility] Atrial Tachy Statistic Date Time End [facility] Atrial Tachy Statistic AT/AF [place] Percent 100 % [facility] Episode Statistic Recent Count 0 [facility] Episode Statistic Type Category AT/AF [facility] Episode Statistic Recent Count 0 [facility] Episode Statistic Type Category Patient Activated [facility] Episode Statistic Recent Count 0 [facility] Episode Statistic Type Category SVT [facility] Episode Statistic Recent Count 0 [facility] Episode Statistic Type Category VT [facility] Episode Statistic Recent Count 0 [facility] Episode Statistic Type [...] Region Laterality Modality Other 08/23/2023 8:41 PM NUCLEAR MONITORING TECHNICIAN Narrative 08/29/2023 4:52 PM NUCLEAR MONITORING TECHNICIAN PURPOSE OF VISIT: ??Routine quarterly remote transmission PRESENTING EGM: ??AF, 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 @ 75 bpm ATRIAL ARRHYTHMIAS: 1 AT/AF episode since 05/24/2023, in progress, 100% AF burden VENTRICULAR ARRHYTHMIAS: ??None since 05/24/2023 ?PVC [place]: None since 05/24/2023 BATTERY LONGEVITY: Expected battery [...] T, 2h/6h, 5th Gen (08/19/2023 1:33 PM NUCLEAR MONITORING TECHNICIAN) Troponin T, 2 hr, 5th gen 19(H) <=10 ng/L 08/19/2023 1:55 PM NUCLEAR MONITORING TECHNICIAN [facility] 2H Delta -4 ng/L 08/19/2023 1:55 PM NUCLEAR MONITORING TECHNICIAN [facility] 2H Delta Interp Indeterminate 08/19/2023 1:55 PM NUCLEAR MONITORING TECHNICIAN [facility] Comment:Indeterminate delta, additional sample suggested Troponin T, 6 hr, 5th gen CANCELED ng/L 09/18/2023 1:52 AM NUCLEAR MONITORING TECHNICIAN [facility] Comment: Patient already discharged. Result canceled by the ancillary. 6H Delta CANCELED ng/L 08/20/2023 11:17 AM NUCLEAR MONITORING TECHNICIAN [facility] Comment:Result canceled by t he ancillary. 6H Delta Interp CANCELED 08/20/2023 11:17 AM NUCLEAR MONITORING TECHNICIAN [facility] Comment:Result canceled by t he ancillary. Blood (Blood, Venous) 08/19/2023 1:33 PM NUCLEAR MONITORING TECHNICIAN 08/19/2023 1:37 PM NUCLEAR MONITORING TECHNICIAN Narrative [facility] - 09/18/2023 1:52 AM NUCLEAR MONITORING TECHNICIAN Specimen Information: Specimen ID: [id number] Specimen Type: Blood Specimen Collection Start Date: 08/19/2023 ??1:33 PM Specimen Received Date: 08/19/2023 ??1:37 PM Specimen ID: [id number] Specimen Type: Blood Donavan Blankenship M.D. LAB BLOOD TROPONIN [facility] [address] [place], [place] [address] [address] [place] [address] * ECG 12 Lead (08/19/2023 12:14 PM NUCLEAR MONITORING TECHNICIAN) Pathologist [facility] Ventricular Rate ECG/Min 76 BPM MUSE QRSD Interval 166 ms MUSE QT Interval 486 ms MUSE QTC Interval 547 ms MUSE R [place] -85 degrees MUSE T Wave [place] 142 degrees MUSE 08/19/2023 12:1 4 PM NUCLEAR MONITORING TECHNICIAN 08/20/2023 10:19 AM NUCLEAR MONITORING TECHNICIAN Impressions MUSE - 08/19/2023 12:27 PM NUCLEAR MONITORING TECHNICIAN Dual chamber electronic pacemaker Atrial flutter Prolonged [...] NA * Lactate, B (08/19/2023 11:20 AM NUCLEAR MONITORING TECHNICIAN) Pathologist [facility] Lactate, B 1.2 0.5 - 2.2 mmol/L 08/19/2023 11:30 AM NUCLEAR MONITORING TECHNICIAN [facility] Blood (Blood, Venous) 08/19/2023 11:20 AM NUCLEAR MONITORING TECHNICIAN 08/19/2023 11:27 AM NUCLEAR MONITORING TECHNICIAN Donavan Blankenship M.D. LAB BLOOD NON ADD- ON [facility] [address] [place] [address], [facility] [address] [place] [address] * (ABNORMAL) Troponin T, Baseline, 5th gen (08/19/2023 11:20 AM NUCLEAR MONITORING TECHNICIAN) Troponin T, Baseline, 5th gen 23(H) <=10 ng/L 08/19/2023 11:47 AM NUCLEAR MONITORING TECHNICIAN [facility] Blood (Blood, Venous) 08/19/2023 11:20 AM NUCLEAR MONITORING TECHNICIAN 08/19/2023 11:27 AM NUCLEAR MONITORING TECHNICIAN Donavan Blankenship M.D. LAB BLOOD TROPONIN [facility] [address] [place] [address], [facility] STMA [facility] [address] [place] [address] * (ABNORMAL) Hepatic Function Panel (08/19/2023 11:20 AM NUCLEAR MONITORING TECHNICIAN) Bilirubin, Total, S 0.8 0.0 - 1.2 mg/dL 08/19/2023 12:15 PM NUCLEAR MONITORING TECHNICIAN DTL Bilirubin, Direct, S 0.3 0.0 - 0.3 mg/dL 08/19/2023 12:15 PM NUCLEAR MONITORING TECHNICIAN DTL Aspartate Aminotransferase (AST), S 31 8 - 43 U/L 08/19/2023 12:15 PM NUCLEAR MONITORING TECHNICIAN DTL Alanine Aminotransferase (ALT), S 23 7 - 45 U/L 08/19/2023 12:15 PM NUCLEAR MONITORING TECHNICIAN DTL Alkaline Phosphatase, S 127(H) 35 - 104 U/L 08/19/2023 12:15 PM NUCLEAR MONITORING TECHNICIAN DTL Albumin, S 4.1 3.5 - 5.0 g/dL 08/19/2023 12:15 PM NUCLEAR MONITORING TECHNICIAN DTL Protein, Total, S 6.4 6.3 - 7.9 g/dL 08/19/2023 12:15 PM NUCLEAR MONITORING TECHNICIAN DTL Blood (Blood, Venous) 08/19/2023 11:20 AM NUCLEAR MONITORING TECHNICIAN 08/19/2023 11:52 AM NUCLEAR MONITORING TECHNICIAN Donavan Blankenship M.D. LAB BLOOD ADD-ON [facility] [address] [place] [address], [facility] DTL [facility] [address] [place] [address] * (ABNORMAL) NT-Pro B-Type Natriuretic Peptide (BNP) (08/19/2023 11:20 AM NUCLEAR MONITORING TECHNICIAN) Pathologist [facility] NT-Pro BNP 1244(H) <=540 pg/mL 08/19/2023 11:56 AM NUCLEAR MONITORING TECHNICIAN [facility] Comment: NT-proBNP values less than 300 [...] failure. Blood (Blood, Venous) 08/19/2023 11:20 AM NUCLEAR MONITORING TECHNICIAN 08/19/2023 11:27 AM NUCLEAR MONITORING TECHNICIAN Donavan Blankenship M.D. LAB BLOOD ADD-ON [facility] [address] [place] [address], [facility] [address] [place] [address] * (ABNORMAL) Prothrombin Time (PT) (08/19/2023 11:20 AM NUCLEAR MONITORING TECHNICIAN) Only the most recent of2 resultswithin the time period is included. Pathologist [facility] Prothrombin Time, P 23.3(H) 9.4 - 12.5 sec 08/19/2023 11:35 AM NUCLEAR MONITORING TECHNICIAN [facility] INR 2.1 0.9 - 1.1 08/19/2023 11:35 AM NUCLEAR MONITORING TECHNICIAN [facility] Comment: ----ADDITIONAL INFORMATION---- Standard intensity warfarin therapeutic range: 2.0 to 3.0 ?? High intensity warfarin therapeutic range: 2.5 to 3.5 Blood (Blood, Venous) 08/19/2023 11:20 AM NUCLEAR MONITORING TECHNICIAN 08/19/2023 11:27 AM NUCLEAR MONITORING TECHNICIAN Donavan Blankenship M.D. LAB BLOOD ADD-ON [facility] [address] [place] [address], [facility] STMA [facility] [address] [place] [address] * (ABNORMAL) CBC with Differential, Blood (08/19/2023 11:20 AM NUCLEAR MONITORING TECHNICIAN) Only the most recent of2 resultswithin the time period is included. Hemoglobin 12.2 11.6 - 15.0 g/dL 08/19/2023 11:30 AM NUCLEAR MONITORING TECHNICIAN [facility] Hematocrit 36.6 35.5 - 44.9 % 08/19/2023 11:30 AM NUCLEAR MONITORING TECHNICIAN [facility] Erythrocytes 4.14 3.92 - 5.13 x10(12)/L 08/19/2023 11:30 AM NUCLEAR MONITORING TECHNICIAN [facility] MCV 88.4 78.2 - 97.9 fL 08/19/2023 11:30 AM NUCLEAR MONITORING TECHNICIAN [facility] RBC Distrib Width 13.2 12.2 - 16.1 % 08/19/2023 11:30 AM NUCLEAR MONITORING TECHNICIAN [facility] Platelet Count 183 157 - 371 x10(9)/L 08/19/2023 11:30 AM NUCLEAR MONITORING TECHNICIAN [facility] Leukocytes 8.4 3.4 - 9.6 x10(9)/L 08/19/2023 11:30 AM NUCLEAR MONITORING TECHNICIAN [facility] Neutrophils 6.50(H) 1.56 - 6.45 x10(9)/L 08/19/2023 11:30 AM NUCLEAR MONITORING TECHNICIAN [facility] Lymphocytes 1.11 0.95 - 3.07 x10(9)/L 08/19/2023 11:30 AM NUCLEAR MONITORING TECHNICIAN [facility] Monocytes 0.67 0.26 - 0.81 x10(9)/L 08/19/2023 11:30 AM NUCLEAR MONITORING TECHNICIAN [facility] Eosinophils 0.07 0.03 - 0.48 x10(9)/L 08/19/2023 11:30 AM NUCLEAR MONITORING TECHNICIAN [facility] Basophils 0.03 0.01 - 0.08 x10(9)/L 08/19/2023 11:30 AM NUCLEAR MONITORING TECHNICIAN [facility] Blood (Blood, Venous) 08/19/2023 11:20 AM NUCLEAR MONITORING TECHNICIAN 08/19/2023 11:27 AM NUCLEAR MONITORING TECHNICIAN Donavan Blankenship M.D. LAB BLOOD ADD-ON [facility] [address] [place] [address], [facility] [address] [place] [address] [facility] [address] [place] [address] * (ABNORMAL) Basic Metabolic Panel (08/19/2023 11:20 AM NUCLEAR MONITORING TECHNICIAN) Only the most recent of2 resultswithin the time period is included. Pathologist [facility] Potassium, P 5.0 3.6 - 5.2 mmol/L 08/19/2023 11:43 AM NUCLEAR MONITORING TECHNICIAN [facility] Sodium, P 141 135 - 145 mmol/L 08/19/2023 11:43 AM NUCLEAR MONITORING TECHNICIAN [facility] Chloride, P 106 98 - 107 mmol/L 08/19/2023 11:43 AM NUCLEAR MONITORING TECHNICIAN [facility] Bicarbonate, P 27 22 - 29 mmol/L 08/19/2023 11:43 AM NUCLEAR MONITORING TECHNICIAN [facility] Anion Gap, P 8 7 - 15 08/19/2023 11:43 AM NUCLEAR MONITORING TECHNICIAN [facility] BUN (Blood Urea Nitrogen), P 28(H) 6 - 21 mg/dL 08/19/2023 11:43 AM NUCLEAR MONITORING TECHNICIAN [facility] Creatinine 0.67 0.59 - 1.04 mg/dL 08/19/2023 11:43 AM NUCLEAR MONITORING TECHNICIAN [facility] Estimated GFR (eGFR) 87 >=60 mL/min/BSA 08/19/2023 11:43 AM NUCLEAR MONITORING TECHNICIAN [facility] Comment: Estimated GFR calculated using the 2020 CKD_EPI creatinine equation. Calcium, Total, P 9.4 8.8 - 10.2 mg/dL 08/19/2023 11:43 AM NUCLEAR MONITORING TECHNICIAN [facility] Glucose, P 112 70 - 140 mg/dL 08/19/2023 11:43 AM NUCLEAR MONITORING TECHNICIAN [facility] Blood (Blood, Venous) 08/19/2023 11:20 AM NUCLEAR MONITORING TECHNICIAN 08/19/2023 11:27 AM NUCLEAR MONITORING TECHNICIAN Donavan Blankenship M.D. LAB BLOOD ADD-ON [facility] [address] [place] [address], [place] STMA [facility] [address] [place] [address] * Type and Screen (with Reflex Antibody ID) (08/17/2023 10:55 AM NUCLEAR MONITORING TECHNICIAN) ABORh O Pos Not applicable 08/17/2023 11:20 AM NUCLEAR MONITORING TECHNICIAN STRM Antibody Screen Negative Negative 08/17/2023 11:36 AM NUCLEAR MONITORING TECHNICIAN STRM Type & Screen Expiration 08/20/2023 23:59 08/17/2023 11:20 AM NUCLEAR MONITORING TECHNICIAN STRM Testing Location [place] DEFAULT 08/17/2023 11:01 AM NUCLEAR MONITORING TECHNICIAN STRM Blood (Blood, Venous) 08/17/2023 10:55 AM NUCLEAR MONITORING TECHNICIAN 08/17/2023 11:01 AM NUCLEAR MONITORING TECHNICIAN Kristen Ashley M.D. LAB BLOOD BANK TEST ORDERABLES [facility] [address] [place] [address], [place] STRM [facility] [address] [place] [address] from Last 3 Months Advance Directives For more information, please contact: [phone] Documents on File Type Date Recorded Patient Audiology Doctor Expl anation Advance Directives 02/06/2020 10:03 AM [facility] Directive Advance Directives 06/10/2014 12:00 AM [...] Communication Carroll Bose Son Health Care Agent [email or web address] Daughter First Alternate Health Care Agent [email or web address] Zone Manager Relationship Specialty Start Date End Date Elsewhere, Pcp PCP - General Internal Medicine 08/19/23
--- OUTSIDE RECORDS SUMMARY | 2023-09-27 11:50 | XMS_ITS ---
Author Name Unknown Organization [facility] Address [address] [place] [address] Care Team Providers Care Group Leader Semiconductor Processing Name Role Phone Unavailable Unavailable Unavailable Surgery Details Not on file Complications Check Surgery Details section. Procedure Estimated Blood Loss Check Surgery Details section. Procedure Findings Check Surgery Details section. Procedure Specimens Taken Check Surgery Details section.
--- OUTSIDE RECORDS SUMMARY | 2023-09-27 11:51 | XMS_ITS | Encounter Summary ---
Author Name Unknown Organization [facility] Address [address] [place] [address] Care Team Providers Care Rocket Motor Tester Name Role Phone Elsewhere, Pcp Primary Care Provider Unavailabl e Reason for Visit * Reason Onset Date Comments Follow-up 08/19/2023 Encounter Details Date Type Department Care Team (Late st Contact Info) Description 08/19/2023 Clinical Communication [facility] Emergency Department [address] [place] [phone] Cathleen Valero, R.N. Follow-up Social History Tobacco [...] often do you attend chur ch or spiritism services? Never 04/30/2022 Do you belong to any clubs o r organizations such as religious groups, unions, fraternal or athletic groups, or [...] and heating? Not hard at all 04/30/2022 [facility] [place] of Occupat ional Health - Occupational Stress [...] Cathleen Valero R.N. - 08/19/2023 8:21 AM RETAIL AIDE BACKGROUND Chief Complaint at time of ED [...] of care Cathleen Valero R.N. 08/19/23 0827 [place] AIDE documented in this encounter Plan of Treatment Not on file documented as of this encounter Visit Diagnoses Not on filedocumented in this encounter Additional Health Concerns Assessment Noted Time PHQ-9 Depression Total Score: 13 01/08/ 008 12:22 PM CDT documented as of this encounter Care Teams Rocket Motor Tester Relationship Specialty Start Date End Date Elsewhere, Pcp PCP - General Internal Medicine 08/19/23 documented as of this encounter
--- OUTSIDE RECORDS SUMMARY | 2023-09-27 11:51 | XMS_ITS | Encounter Summary ---
Author Name Unknown Organization [facility] Address [address] [place] [address] Care Team Providers Care Longwall Foreman Name Role Phone Neelima Nj APRN C.N.P., D.N.P., M.S.N. [facility] [place] Care Provider Reason for Referral * Outpatient (Routine) - Authorized Specialty Diagnoses / Procedures Referred By Contac t Referred To Contact Cardiovascular Disease Diagnoses Epistaxis Kristen Ashley M.D. [address] [place] [address] [facility] Referral ID Status Reason Start Date Expiration Date V isits Requested Visits Authorized [id number] Authorized 08/17/2023 08/16/2026 1 1 Scheduling Instructions To discuss anticoagulation for afib as requested by patient PULLER Reason for Visit * Reason Comments Epistaxis (Nose Bleed) Encounter Details Date Type Department Care Team (Late st Contact Info) Description 08/17/2023 8:17 AM WIRE PULLER - 08/17/2023 12:56 PM WIRE PULLER Emergency [facility] Emergency Department [address] [place] [address] Magdaleno Centeno M.D. [address] [place] [address] Epistaxis (Primary Dx) Discharge Disposition: Home or [...] often do you attend chur ch or confucianist services? Never 04/30/2022 Do you belong to any clubs o r organizations such as yazidi groups, unions, fraternal or athletic groups, or [...] hard at all 04/30/2022 [facility] [place] of Occupat ional Health - Occupational Stress [...] Comments Blood Pressure 118/79 08/17/2023 11:57 AM WIRE PULLER Pulse 71 08/17/2023 10:45 AM WIRE PULLER Temperature 36 ??C (96.8 ??F) 08/17/2023 8:25 AM WIRE PULLER Respiratory Rate 16 08/17/2023 10:45 AM WIRE PULLER Oxygen Saturation 95% 08/17/2023 10:45 AM WIRE PULLER Inhaled Oxygen Concentration - - Weight 70.3 kg (155 lb) 08/17/2023 8:25 AM WIRE PULLER Height - - Body Mass Index 28.16 05/15/2022 11:39 AM CDT documented in this encounter Discharge Instructions * Discharge Instructions* Kristen Ashley M.D. - 08/17/2023 12:25 PM WIRE PULLER Contact a doctor if: You have a [...] body. You get sweaty. You vomit blood. PULLER * Attachments The following attachments cannot be sent through Care Everywhere. * Nosebleed Adult Ripu-sn-Okys (Tristanian) documented in this encounter Medications at Time [...] this incident, her most recent nosebleed was [id number]. She follows with Cardiology and is on [...] nasal cavity and firm pressure was held [id number] minutes. Upon reassessment, no active bleeding. Pledgelets were removed. Minimal oozing from left anteroinferior septum and a small area of mucosal irritation. A small amount of fibrillar was laid over this area for reinforcement. Patient remained stable with no bleeding through discharge. ASSESSMENT: #1 Epistaxis, left anterior #2 long-term anticoagulant therapy, Xarelto 10 mg daily, for [...] will do so on an outpatient basis. PULLER documented in this encounter ED Notes * [...] History provided by: Patient and medical records data processing operator needed/used: no REVIEW OF SYSTEMS Constitutional: Negative [...] discussed the management of the patient with: Tetryl Boiling Tub Operator. I have personally seen and examined this [...] 08/17/23 1155 Magdaleno Centeno M.D. 08/22/23 1348 PULLER * Kristen Ashely M.D. - 08/17/2023 8:23 AM CST SUBJECTIVE [...] SunAug 17, 2023 1736 ABORh: O Pos 1736 INR: 1.8 173 Hemoglobin: 13.2 1737 Potassium, P: 5.1 1737 Sodium, P: 139 1737 Creatinine: 0.64 1737 Glucose, P: 125 Final Diagnoses: as of 08/17/23 173 Epistaxis Kristen Ashley M.D. Resident 08/17/23 1742 PULLER documented in this encounter Plan of Treatment Scheduled Referrals Name Type Priority Associated Diagnoses Order Schedule POST ED VISIT Cardiovascular Disease Outpatient Referral Routine Epistaxis Expected: 08/17/2023 (Approximate), Expires: 11/15/2024 documented as of this encounter Procedures Procedure Name Priority Date/Time Associated Diagnosis Comments PROTHROMBIN TIME (PT), P STAT 08/17/2023 10:55 AM WIRE PULLER CBC WITH DIFFERENTIAL, B STAT 08/17/2023 10:55 AM WIRE PULLER TYPE AND SCREEN STAT 08/17/2023 10:55 AM WIRE PULLER BASIC METABOLIC PANEL, S/P STAT 08/17/2023 10:55 AM WIRE PULLER documented in this encounter Results * (ABNORMAL) Prothrombin Time (PT) (08/17/2023 10:55 AM WIRE PULLER) Prothrombin Time, P 19.9(H) 9.4 - 12.5 sec 08/17/2023 11:08 AM WIRE PULLER STMA INR 1.8 0.9 - 1.1 08/17/2023 11:08 AM WIRE PULLER STMA Comment: ----ADDITIONAL INFORMATION---- Standard intensity warfarin therapeutic range: 2.0 to 3.0 ?? High intensity warfarin therapeutic range: 2.5 to 3.5 Blood (Blood, Venous) 08/17/2023 10:55 AM WIRE PULLER 08/17/2023 11:00 AM WIRE PULLER Kristen Ashley M.D. LAB BLOOD ADD-ON Performing Organization Address [facility] Co de Phone Number [facility] [address] [place] [address], [facility] STMA [facility] [address] [place] [address] * Type and Screen (with Reflex Antibody ID) (08/17/2023 10:55 AM WIRE PULLER) Pathologist [facility] ABORh O Pos Not applicable 08/17/2023 11:20 AM WIRE PULLER STRM Antibody Screen Negative Negative 08/17/2023 11:36 AM WIRE PULLER STRM Type & Screen Expiration 08/20/2023 23:59 08/17/2023 11:20 AM WIRE PULLER STRM Testing Location [place] DEFAULT 08/17/2023 11:01 AM WIRE PULLER STRM Blood (Blood, Venous) 08/17/2023 10:55 AM WIRE PULLER 08/17/2023 11:01 AM WIRE PULLER Kristen Ashley M.D. LAB BLOOD BANK TEST ORDERABLES Performing Organization Address [facility] Co de Phone Number [facility] [address] [place] [address], [facility] STRM [facility] [address] [place] [address] * (ABNORMAL) Basic Metabolic Panel (08/17/2023 10:55 AM WIRE PULLER) [facility] Potassium, P 5.1 3.6 - 5.2 mmol/L 08/17/2023 11:19 AM WIRE PULLER STMA Sodium, P 139 135 - 145 mmol/L 08/17/2023 11:19 AM WIRE PULLER STMA Chloride, P 105 98 - 107 mmol/L 08/17/2023 11:19 AM WIRE PULLER STMA Bicarbonate, P 27 22 - 29 mmol/L 08/17/2023 11:19 AM WIRE PULLER STMA Anion Gap, P 7 7 - 15 08/17/2023 11:19 AM WIRE PULLER STMA BUN (Blood Urea Nitrogen), P 35(H) 6 - 21 mg/dL 08/17/2023 11:19 AM WIRE PULLER STMA Creatinine 0.64 0.59 - 1.04 mg/dL 08/17/2023 11:19 AM WIRE PULLER STMA Estimated GFR (eGFR) 88 >=60 mL/min/BSA 08/17/2023 11:19 AM WIRE PULLER STMA Comment: Estimated GFR calculated using the 2020 CKD_EPI creatinine equation. Calcium, Total, P 9.3 8.8 - 10.2 mg/dL 08/17/2023 11:19 AM WIRE PULLER STMA Glucose, P 125 70 - 140 mg/dL 08/17/2023 11:19 AM WIRE PULLER STMA Blood (Blood, Venous) 08/17/2023 10:55 AM WIRE PULLER 08/17/2023 11:00 AM WIRE PULLER Kristen Ashley M.D. LAB BLOOD ADD-ON [facility] [address] [place] [address], [facility] STMA [facility] [address] [place] [address] * (ABNORMAL) CBC with Differential, Blood (08/17/2023 10:55 AM WIRE PULLER) Hemoglobin 13.2 11.6 - 15.0 g/dL 08/17/2023 11:04 AM WIRE PULLER STMA Hematocrit 40.9 35.5 - 44.9 % 08/17/2023 11:04 AM WIRE PULLER STMA Erythrocytes 4.62 3.92 - 5.13 x10(12)/L 08/17/2023 11:04 AM WIRE PULLER STMA MCV 88.5 78.2 - 97.9 fL 08/17/2023 11:04 AM WIRE PULLER STMA RBC Distrib Width 12.9 12.2 - 16.1 % 08/17/2023 11:04 AM WIRE PULLER STMA Platelet Count 222 157 - 371 x10(9)/L 08/17/2023 11:04 AM WIRE PULLER STMA Leukocytes 11.8(H) 3.4 - 9.6 x10(9)/L 08/17/2023 11:04 AM WIRE PULLER STMA Neutrophils 10.22(H) 1.56 - 6.45 x10(9)/L 08/17/2023 11:04 AM WIRE PULLER DHPM Lymphocytes 0.96 0.95 - 3.07 x10(9)/L 08/17/2023 11:04 AM WIRE PULLER STMA Monocytes 0.60 0.26 - 0.81 x10(9)/L 08/17/2023 11:04 AM WIRE PULLER STMA Eosinophils <0.03 0.03 - 0.48 x10(9)/L 08/17/2023 11:04 AM WIRE PULLER STMA Basophils 0.03 0.01 - 0.08 x10(9)/L 08/17/2023 11:04 AM WIRE PULLER STMA Blood (Blood, Venous) 08/17/2023 10:55 AM WIRE PULLER 08/17/2023 11:00 AM WIRE PULLER Kristen Ashley M.D. LAB BLOOD ADD-ON [facility] [address] [place] [address], [facility] STMA [facility] [address] [place] [address] DHPM [facility] [address] [place] [address] documented in this encounter Visit Diagnoses Diagnosis [...] 12 hours. Medication Applied 08/17/2023 11:46 AM WIRE PULLER 1 patch Upper Back lidocaine-phenylephrine 2-0.25% nasal spray 3 spray 3 spray, each nostril, Once, On Sun08/17/23 at 0826, For 1 dose Given 08/17/2023 8:41 AM WIRE PULLER 3 sprays tranexamic acid (CYKLOKAPRON) 1,000 mg/10 mL (100 mg/mL) injection - ADS Override Pull Starting on Sun08/17/23 at 0827, For 1 dose, Created by cabinet override tranexamic acid injection 500 mg (CYKLOKAPRON) 500 mg, topical, Once, On Sun08/17/23 at 0826, For 1 dose, Soak 3-4 pledgets in 5 mL (500 mg) and apply to affected nare. Given 08/17/2023 8:35 AM WIRE PULLER 500 mg documented in this encounter Active and Recently Administered Medications Times are shown in WIRE PULLER. Scheduled Medication Order 08/15/2023 08/16/2023 08/17/2023 lidocaine [...] documented as of this encounter Care Teams Longwall Foreman Relationship Specialty Start Date End Date Neelima Nj APRN, C.N.P., D.N.P., M.S.N. [address] [place] [phone] PCP - General Internal Medicine 06/05/22 08/18/23 documented as of this encounter
--- OUTSIDE RECORDS SUMMARY | 2023-09-27 11:51 | XMS_ITS | Encounter Summary ---
Author Name Unknown Organization [facility] Address [address] [place] [address] Care Team Providers Care Solar Mechanical Engineer Name Role Phone Elsewhere, Pcp Primary Care Provider Unavailabl e Encounter Details Date Type Department Care Team (Late st Contact Info) Description 07/26/2023 CPAP Download Remote Patient Monitoring [facility] [address] [place] [address] [facility], Provider Social History Tobacco Use Types Packs/Day [...] often do you attend chur ch or moravian services? Never 04/30/2022 Do you belong to [...] hard at all 04/30/2022 [facility] [place] of Occupat ional Health - Occupational Stress [...] documented as of this encounter Care Teams Solar Mechanical Engineer Relationship Specialty Start Date End Date Elsewhere, Pcp PCP - General Internal Medicine 08/19/23 documented as of this encounter
--- OUTSIDE RECORDS SUMMARY | 2023-09-27 11:51 | XMS_ITS | Encounter Summary ---
Author Name Unknown Organization [facility] Address [address] [place] [address] Care Team Providers Care It Auditor Name Role Phone Elsewhere, Pcp Primary Care [...] often do you attend chur ch or uatsdin services? Never 04/30/2022 Do you belong to any clubs o r organizations such as methodist groups, unions, fraternal or athletic groups, or [...] and heating? Not hard at all 04/30/2022 [facility] of Occupat ionvt Health - Occupational Stress Questionnaire Answer Date [...] documented as of this encounter Care Teams It Auditor Relationship Specialty Start Date End Date Elsewhere, Pcp PCP - General Internal Medicine 08/19/23 documented as of this encounter
--- OUTSIDE RECORDS SUMMARY | 2023-09-27 11:51 | XMS_ITS | Encounter Summary ---
Author Name Unknown Organization [facility] Address [address] [place] [address] Care Team Providers Care Cream Tester Name Role Phone Neelima Nj APRN C.N.P., D.N.P., M.S.N. [facility] Care Provider Encounter Details Date Type Department Care Team (Latest Contact Info) Description 04/06/2023 Clinical Communication Department of Cardiovascular Medicine in [place], [place] [address] [place] [address] Golf Cart AttendantGamaliel M.D. Social History Tobacco Use Types Packs/Day [...] any clubs o r organizations such as holiness groups, unions, fraternal or athletic groups, or [...] Not hard at all 04/30/2022 [facility] [place] of Occupat ional Health - Occupational Stress [...] place to sleep or slept in a half-way (including now)? No 04/30/2022 Nutrition Answer Date [...] documented as of this encounter Care Teams Cream Tester Relationship Specialty Start Date End Date Neelima Nj APRN, C.N.P., D.N.P., M.S.N. [address] [place] [phone] PCP - General Internal Medicine 06/05/22 08/18/23 documented as of this encounter
--- OUTSIDE RECORDS SUMMARY | 2023-09-27 11:51 | XMS_ITS | Encounter Summary ---
Author Name Unknown Organization [facility] Address [address] [place] [address] Care Team Providers Care Banking Attorney Name Role Phone Elsewhere, Pcp Primary Care Provider Unavailabl e Reason for Visit * Reason Onset Date Comments Emily Discussion 08/21/2023 Encounter Details Date Type Department Care Team (Latest Contact Info) Description 08/21/2023 Clinical Communication Department of Cardiovascular Medicine in [place], [place] [address] [place] [address] Contract Graphic Designer, Liz Alston Discussion Social History Tobacco Use Types Packs/Day Years Used Date Smoking Tobacco: Never Smokeless Tobacco: Never Comments:Never ever used tob acco Alcohol Use Standard Drinks/Week Comments Never 0 (1 standard drink = 0.6 oz pur e alcohol) [facility] Utilities Answer Date Recorded In [...] How often do you attend chur or pentecostal services? Never 04/30/2022 Do you belong to any clubs o r organizations such as scientologist groups, unions, fraternal or athletic groups, or [...] and heating? Not hard at all 04/30/2022 [facility] [place] of Occupat ional Health - Occupational Stress [...] your living situation today? I have a [facility] place to live 09/05/2023 Education Answer [...] M.D.; Tony Nelson M.B.B.S.; Rst Cvd Hrs [id number] minutes ago (10:44 AM) Amelie Neal, This is scheduled for a video visit 09/10. She will have her son and daughter with her on the call. Thank you! Jesus Woodson M.D. Tellier, Michelle L, R.N.; Rst Cvd Hrs [id number] hours ago (11:46 AM) Thanks including our [...] Hrs Scheduling6 days ago Jesus Neal M.D. Killu, Ammar M, M.B.B.SVerito; Kayla Vuong R.N.; Lucio May; Lila Lynch M.D.; Rita Crum R.N.6 days ago Agree if want to start with phone visit we can to make sure how she'd want to proceed Lucio May routed conversation to Rst Cvd Hrs Scheduling6 days ago Tony Nelson M.B.B.S. Johnson, Teresa A, R.N.; Lucio May; Lila Gan M.D.; Rita Crum R.N.; Jesus Neal M.D.6 days ago Last I recall she was not interested in a procedure but certainly reasonable if she wishes to proceed. I have cc'd Jesus who had a relationship with her initially. Lucio Campos routed conversation to [facility] Cvd Hrs Scheduling7 days ago Kayla Vuong R.N. Lucio May; Lila Lynch M.D.; Tony Nelson M.B.B.SVerito; Rita Crum R.N.8 days ago Patient was considered for watchman and was seen by Dr. Lynch in 2020 to discuss watchman-since he has had fall with head trauma, serious nosebleed as below is it time to consider watchman Lucio May [facility] Rn9 days ago Patient is on waitlist for HRS appointment. Please see concerns below. Thank you! Silvia Thomas routed conversation to t Cvd Hrs Scheduling9 days ago Haley Novoa Rst Cvd [id number] days ago SP Appointment Request From: Haley Bose With Provider: Jesus Neal M.D. [Department of Cardiovascular Medicine in [place], [place]] Preferred Date Range: Any date 09/10/2023 or earlier Preferred Times: Sunday Morning Reason for visit: Request an Appointment Comments: ER 08/16 Serious Nosebleed & told I to see Contract Graphic Designer. Requesting cyndee't for this time as son will be here to take me. I am Worried about Xarelto. Canceled Jun. due to a fall & head trauma +Knee cap NG CLOTH CUTTER * Telephone Encounter - Laurence Amor - [...] She had recent ER visit. Thank you! Laurence Most recent request: Comments: was told followup w/ my user support analyst supervisor when in [place] ER on 08/16 & . Serious nose bleeds??Continue my blood thinner or Change Dose or Eliquis 2.5 mg ??? . call me [phone] # is correct NG CLOTH CUTTER * Telephone Encounter - Laurence Amor - 08/23/2023 2:32 PM CST Images from the original note were not included. Kayla Vuong R.N. Lucio May; Lila Lynch M.D.; Tony Nelson, M.B.B.S.; Rita Crum, R.N.Yesterday (9:07 AM) Patient was considered for watchman and was seen by Dr. Lynch in 2020 to discuss watchman-since he has had fall with head trauma, serious nosebleed as below is it time to consider watchman Lucio May t Cvd Hr Clinic Rn2 days ago Patient is on waitlist for HRS appointment. Please see concerns below. Thank you! Silvia Thomas routed conversation to Rst Cvd Hrs Scheduling2 days ago Haley Novoa Rst Cvd Scheduling4 days ago SP Appointment Request From: Haley Bose With Provider: Jesus Neal M.D. [Department of Cardiovascular Medicine in [place], [place]] Preferred Date Range: Any date 09/10/2023 or earlier Preferred Times: Sunday Morning Reason for visit: Request an Appointment Comments: ER 08/16 Serious Nosebleed & told I to see Contract Graphic Designer. Requesting cyndee't for this time as son will be here to take me. I am Worried about Xarelto. Canceled Jun.27 due to a fall & head trauma +Knee cap NG CLOTH CUTTER * Telephone Encounter - Lashay Gilbert - 08/21/2023 8:30 AM WIPING CLOTH CUTTER Haley is calling today to re visit the watchman discussion from 05/18 visit. She was in the ED with nose bleeds and wants to discuss blood thinners and the watchman. Please advise if we can set up afollow up with you and what testing would you like? Patient Appointment Services Specialist Division of Cardiovascular Diseases [address] [address] [email or web address] P RST CVD DEVICE SCHEDULING P RST CVD HRS SCHEDULING NG CLOTH CUTTER documented in this encounter Plan of Treatment Not on file documented as of this encounter Visit Diagnoses Not on filedocumented in this encounter Additional Health Concerns Assessment Noted Time PHQ-9 Depression Total Score: 13 008 12:22 PM CDT documented as of this encounter Care Teams Banking Attorney Relationship Specialty Start Date End Date Elsewhere, Pcp PCP - General Internal Medicine 08/19/23 documented as of this encounter
--- OUTSIDE RECORDS SUMMARY | 2023-09-27 11:51 | XMS_ITS | Encounter Summary ---
Author Name Unknown Organization [facility] Address [address] [place] [address] Care Team Providers Care Gas Operations Analyst Name Role Phone Neelima Nj APRN, C.N.P., D.N.P., M.S.N. [facility] Care Provider Encounter Details Date Type Department Care Team (Latest Contact Info) Description 05/25/2023 4:00 AM CDT - 05/25/2023 11:59 PM CDT Hospital Encounter Department of Cardiovascular Diseases in [place], [place] [address] [place] [address] Travis Guillaume M.D. Encounter For Checking And [...] often do you attend chur ch or mu-ism services? Never 04/30/2022 Do you belong to [...] and heating? Not hard at all 04/30/2022 [facility] [place] of Occupat ional Health - Occupational Stress [...] on file documented as of this encounter Procedures Procedure Name Priority Date/Time Associated Diagnosis Comments PACER REMOTE FOLLOW UP Routine 05/25/2023 1:32 PM CDT Encounter For Checking And Testing Of Cardiac Pacemaker Pulse Generator Battery documented in this encounter Results * PACER REMOTE FOLLOW UP (05/25/2023 1:32 PM CDT) Date Time Interrogation Session [id number] [facility] Implantable Pulse Generator Wash Mill Operator Medtronic [facility] Implantable Pulse Generator Model [id number] Hortencia XT [facility] Implantable Pulse Generator Serial Number [id number] [facility] Type Interrogation Session Remote [facility] Clinic Name [facility] Implantable Pulse Generator Type Pacemaker [facility] Implantable Pulse Generator Implant Date 20200219 [facility] Implantable Lead Wash Mill Operator Elite Pharmaceuticalstronic [facility] Implantable Lead Model 4076 CapsureFix Novus MRI SureScan [facility] Implantable Lead Serial Number [id number] [facility] Implantable Lead Implant Date 20200219 [facility] Implantable Lead Polarity Type Bipolar Lead [facility] Implantable Lead Location Detail 1 UNKNOWN [facility] Implantable Lead Special Function Lead length: 45 cm [facility] Implantable Lead Location Right Atrium [facility] Implantable Lead Wash Mill Operator Medtronic [facility] Implantable Lead Model 4076 CapsureFix Novus MRI SureScan [facility] Implantable Lead Serial Number [id number] [facility] Implantable Lead Implant [...] 140 {beats}/ min [facility] Lead Channel Setting [...] SYSTEM Zone Setting Detection Interval 430 ms [facility] Lead Channel Impedance Value 456 ohm [facility] Lead Channel Impedance Value 323 ohm [facility] Lead Channel Sensing Intrinsic Amplitude 7.75 mV [facility] Lead Channel Sensing Intrinsic Amplitude 7.75 mV [facility] Lead Channel Pacing Threshold Amplitude 0.375 V [facility] Lead Channel Pacing Threshold Pulse Width 0.4 ms [facility] Lead Channel Impedance Value 627 ohm [facility] Lead Channel Impedance Value 532 ohm [facility] Lead Channel Sensing Intrinsic Amplitude 7.5 mV [facility] Lead Channel Sensing Intrinsic Amplitude 7.5 mV [facility] Lead Channel Pacing Threshold Amplitude 0.5 V [facility] Lead Channel Pacing Threshold Pulse Width 0.4 ms [facility] Battery Date Time of Measurements [id number] [facility] Battery AIRPORT SECURITY SCREENER Trigger 2.625 [facility] Battery Remaining Longevity 117 mo [facility] Battery Voltage 3.00 V [facility] Garry Statistic Date Time Start [id number] [facility] Garry Statistic Date Time End [id number] [facility] Garry Statistic RA Percent Paced 0.01 % [facility] Garry Statistic RV Percent Paced 99.99 % [facility] Atrial Tachy Statistic Date Time Start [id number] [facility] Atrial Tachy Statistic Date Time End [id number] [facility] Atrial Tachy Statistic AT/AF [place] Percent 100 % [facility] Episode [...] SYSTEM Episode Statistic Recent Date Time Start [id number] [facility] Episode Statistic Recent Date Time End [id number] [facility] Episode Statistic Recent Date Time Start [id number] [facility] Episode Statistic Recent Date Time End [id number] [facility] Episode Statistic Recent Date Time Start [id number] [facility] Episode Statistic Recent Date Time End [id number] [facility] Episode Statistic Recent Date Time Start [id number] [facility] Episode Statistic Recent Date Time End [id number] [facility] Episode Statistic Recent Date Time Start [id number] [facility] Episode Statistic Recent Date [...] transmission. ?? PRESENTING EGM: ??Atrial flutter with POWERHOUSE MECHANIC at 72 bpm. ATRIAL ARRHYTHMIAS: ?Atrial fibrillation [...] documented as of this encounter Care Teams Gas Operations Analyst Relationship Specialty Start Date End Date Neelima Nj APRN, C.N.P., D.N.P., M.S.N. [address] [place] [phone] PCP - General Internal Medicine 06/05/22 08/18/23 documented as of this encounter
--- OUTSIDE RECORDS SUMMARY | 2023-09-27 11:51 | XMS_ITS | Encounter Summary ---
Author Name Unknown Organization [facility] Address [address] [place] [address] Care Team Providers Care Preschool Head Teacher Name Role Phone Elsewhere, Pcp Primary Care Provider Unavailabl e Encounter Details Date Type Department Care Team (Latest Contact Info) Description 08/24/2023 4:00 AM [facility] - 08/24/2023 11:59 PM [facility] Hospital Encounter Department of Cardiovascular Diseases in [place], [place] [address] [place] [address] Tony Nelson M.B.B.S. [address] [place] [address] Encounter For Checking And Testing Of Cardiac [...] often do you attend chur ch or zoroastrianism services? Never 04/30/2022 Do you belong to any clubs o r organizations such as yazdanism groups, unions, fraternal or athletic groups, or [...] and heating? Not hard at all 04/30/2022 [facility] [place] of Occupat ional Health - Occupational Stress [...] place to sleep or slept in a fdc (including now)? No 04/30/2022 Nutrition Answer Date [...] REMOTE FOLLOW UP Routine 08/24/2023 2:01 PM [facility] Encounter For Checking And Testing Of Cardiac Pacemaker Pulse Generator Battery documented in this encounter Results * PACER REMOTE FOLLOW UP (08/24/2023 2:01 PM [facility]) Date Time Interrogation Session [id number] [facility] Implantable Pulse Generator Observer Electrical Prospecting Medtronic [employer] [facility] Implantable Pulse Generator Model W1DR01 Hortencia XT MRI [facility] Implantable Pulse Generator Serial Number [id number] [facility] Type Interrogation Session Remote [facility] Clinic Name [facility] Implantable Pulse Generator Type Pacemaker [facility] Implantable Pulse Generator Implant Date 20200219 [facility] Implantable Lead Observer Electrical Prospecting Medtronic [facility] Implantable Lead Model 4076 CapsureFix Novus MRI SureScan [facility] Implantable Lead Serial Number [id number] [facility] Implantable Lead Implant Date 20200219 [facility] Implantable Lead Polarity Type Bipolar Lead [facility] Implantable Lead Location Detail 1 UNKNOWN [facility] Implantable Lead Special Function Lead length: 45 cm [facility] Implantable Lead Location Right Atrium [facility] Implantable Lead Observer Electrical Prospecting Medtronic [facility] Implantable Lead Model 4076 CapsureFix Novus MRI SureScan [facility] Implantable Lead Serial Number [id number] [facility] Implantable [...] Setting AT Mode Switch Mode DDIR [facility] Lead [...] Channel Setting Pacing Anode Location Right Ventricle [facility] [...] SYSTEM Zone Setting Type Category VF [facility] Zone Setting Type Category VT [facility] Zone Setting Type Category VT [...] LAB SYSTEM Battery Date Time of Measurements [facility] Battery ALUMNI SECRETARY Trigger 2.625 [facility] Battery Remaining Longevity 111 mo [facility] Battery Voltage 3.00 V [facility] Garry Statistic Date Time Start [facility] Garry Statistic Date Time End [facility] Garry Statistic RA Percent Paced 0.01 % [facility] Garry Statistic RV Percent Paced 99.96 % [facility] Atrial Tachy Statistic Date Time Start [id number] [facility] Atrial Tachy Statistic Date Time End [facility] Atrial Tachy Statistic AT/AF [place] Percent 100 % [facility] Episode [...] SYSTEM Episode Statistic Recent Date Time Start [id number] [facility] Episode Statistic Recent Date Time End [facility] Episode Statistic Recent Date Time Start [id number] [facility] Episode Statistic Recent Date Time End F[facility] Episode Statistic Recent Date Time Start [id number] [facility] Episode Statistic Recent Date Time End [facility] Episode Statistic Recent Date Time Start [id number] [facility] Episode Statistic Recent Date [...] Region Laterality Modality Other 08/23/2023 8:41 PM [facility] Narrative 08/29/2023 4:52 PM [facility] PURPOSE OF VISIT: ??Routine quarterly remote transmission PRESENTING EGM: ??AF, CONDENSER TESTER @ 75 bpm ATRIAL ARRHYTHMIAS: 1 AT/AF episode since 05/24/2023, in progress, 100% AF burden VENTRICULAR ARRHYTHMIAS: ??None since 05/24/2023 ?PVC [place]: None since 05/24/2023 BATTERY LONGEVITY: Expected battery [...] documented as of this encounter Care Teams Preschool Head Teacher Relationship Specialty Start Date End Date Elsewhere, Pcp PCP - General Internal Medicine 08/19/23 documented as of this encounter
--- OUTSIDE RECORDS SUMMARY | 2023-09-27 11:51 | XMS_ITS | Encounter Summary ---
Author Name Unknown Organization [facility] Address [address] [place] [address] Care Team Providers Care Cemetery Vault Installer Name Role Phone Neelima Nj APRN, C.N.P., D.N.P., M.S.N. [facility] Care Provider Encounter Details Date Type Department Care Team (Late st Contact Info) Description 05/01/2023 Orders Only [facility] PCP HL MNT Neelima Nj APRN, C.N.P., D.N.P., M.S.N. [address] [place] [phone] Social History Tobacco Use Types Packs/Day Years [...] often do you attend chur ch or confucianism services? Never 04/30/2022 Do you belong to [...] and heating? Not hard at all 04/30/2022 [facility] [place] of Occupat ional Health - Occupational Stress [...] place to sleep or slept in a group home (including now)? No 04/30/2022 Nutrition Answer [...] documented as of this encounter Care Teams Cemetery Vault Installer Relationship Specialty Start Date End Date Neelima Nj APRN, C.N.P., D.N.P., M.S.N. [address] [place] [phone] PCP - General Internal Medicine 06/05/22 08/18/23 documented as of this encounter
--- OUTSIDE RECORDS SUMMARY | 2023-09-27 11:51 | XMS_ITS | Encounter Summary ---
Author Name Unknown Organization [facility] Address [address] [place] [address] Care Team Providers Care Groundhand Name Role Phone Elsewhere, Pcp Primary Care Provider Unavailabl e Reason for Visit * Reason Onset Date Comments Med Refill 07/27/2023 Encounter Details Date Type Department Care Team (Late st Contact Info) Description 07/27/2023 Clinical Communication Department of Sleep Medicine in [place], [place] [address] [place] [phone] Neelima Nj APRN, C.N.P., D.N.P., M.S.N. [address] [place] [phone] Med Refill Social History Tobacco Use [...] often do you attend chur ch or orthodoxy services? Never 04/30/2022 Do you belong to [...] hard at all 04/30/2022 [facility] [place] of Occupat ional Health - Occupational Stress [...] documented as of this encounter Care Teams Groundhand Relationship Specialty Start Date End Date Elsewhere, Pcp PCP - General Internal Medicine 08/19/23 documented as of this encounter
--- OUTSIDE RECORDS SUMMARY | 2023-09-27 11:51 | XMS_ITS | Encounter Summary ---
Author Name Unknown Organization [facility] Address [address] [place] [address] Care Team Providers Care Accident Report Clerk Name Role Phone Neelima Nj APRN, C.N.P., D.N.P., M.S.N. [facility] Care Provider Encounter Details Date Type Department Care Team (Late st Contact Info) Description 07/31/2023 Orders Only [facility] PCP HL MNT Neelima Nj APRN, C.N.P., D.N.P., M.S.N. [address] [place] [phone] Social History Tobacco Use Types Packs/Day Years [...] often do you attend chur ch or temple services? Never 04/30/2022 Do you belong to any clubs o r organizations such as hindu groups, unions, fraternal or athletic groups, or [...] and heating? Not hard at all 04/30/2022 [facility] [place] of Occupat ional Health - Occupational Stress [...] place to sleep or slept in a fci (including now)? No 04/30/2022 Nutrition Answer Date [...] documented as of this encounter Care Teams Accident Report Clerk Relationship Specialty Start Date End Date Neelima Nj APRN, C.N.P., D.N.P., M.S.N. [address] [place] [phone] PCP - General Internal Medicine 06/05/22 08/18/23 documented as of this encounter
--- OUTSIDE RECORDS SUMMARY | 2023-09-27 11:51 | XMS_ITS | Encounter Summary ---
Author Name Unknown Organization [facility] Address [address] [place] [address] Care Team Providers Care Purchasing Clerk Name Role Phone Elsewhere, Pcp Primary Care Provider Unavailabl e Reason for Visit * Reason Comments Coughing Up Blood Encounter Details Date Type Department Care Team (Late st Contact Info) Description 08/19/2023 10:43 AM MANAGER FIELD SALES - 08/19/2023 4:35 PM MANAGER FIELD SALES Emergency [facility] Emergency Department [address] [place] [phone] Lalitha Ayon M.D., M.S. [address] [place] [address] Roger Sorenson M.D. [address] [place] [phone] Epistaxis (Primary Dx) Discharge Disposition: Home or [...] often do you attend chur ch or nondenominational services? Never 04/30/2022 Do you belong to any clubs o r organizations such as voodoo groups, unions, fraternal or athletic groups, or [...] and heating? Not hard at all 04/30/2022 [facility] [place] of Occupat ional Health - Occupational Stress [...] place to sleep or slept in a intermediate (including now)? No 04/30/2022 Nutrition Answer Date [...] Blood Pressure 131/87 08/19/2023 4:30 PM MANAGER FIELD SALES Pulse 73 08/19/2023 4:30 PM MANAGER FIELD SALES Temperature 36.6 ??C (97.9 ??F) 08/19/2023 1 0:51 AM MANAGER FIELD SALES Respiratory Rate 16 08/19/2023 10:5 1 AM MANAGER FIELD SALES Oxygen Saturation 98% 08/19/2023 4:30 PM MANAGER FIELD SALES Inhaled Oxygen Concentration - - Weight 70.3 kg (154 lb 15.7 oz) 023 10:45 AM MANAGER FIELD SALES Height - - Body Mass Index 28.16 05/15/2022 11:39 AM CDT documented in this encounter Discharge Instructions * Discharge Instructions* King Chau M.D. - 08/19/2023 3:25 PM MANAGER FIELD SALES Hold your Xarelto until Sunday when you [...] above x 2, stop when nosebleed abates GER FIELD SALES * Attachments The following attachments cannot be sent through Care Everywhere. * Nosebleed Adult [id number] (Citizen Of [place]) documented in this encounter Medications at Time [...] 3 08/07/2022 documented as of this encounter Progress Notes * Magdaleno Bella M.D. - 08/19/2023 2:36 PM CST Otorhinolaryngology Communication Note Ms. Bose is an 83 y/o female with history of VIRI on CPAP and atrial fibrillation on Xarelto libby presented to the [facility] ED twice this week with acute epistaxis. [...] Department of Otorhinolaryngology Head and Neck Surgery GER FIELD SALES documented in this encounter ED Notes * [...] troponins. [address] ST-elevation AL or equivalent. 1523 Patient's epistaxis has stopped with Afrin spray. 1523 At this time, patient will be discharged with nasal clamp and instructions to hold her Xareltofor until Sunday when she has a family medicine follow-up appointment. I have provided detailed instructions for care for epistaxis provided by ENT colleagues. Final Diagnoses: as of 08/19/23 1529 Epistaxis King Chau M.D. Resident 08/19/23 1529 GER FIELD SALES * Roger Sorenson M.D. - 08/19/2023 2:24 PM CST Care of patient transferred to dc by Dr. Ayon. Disposition pending Reassessment. Briefly, [...] 1354 Epistaxis Roger Sorenson M.D. 08/20/23 1402 GER FIELD SALES * Lalitha Ayon M.D., M.S. - 08/19/2023 [...] Patient has been signed to the upcoming health analytics consultant. Blood work was ordered from the [...] 1523 Lalitha Ayon M.D., M.S. 08/21/23 0854 GER FIELD SALES * Patrica Castillo R.N. - 08/19/2023 10:47 [...] pain today. Patrica Castillo R.N. 08/19/23 1051 GER FIELD SALES documented in this encounter Plan of Treatment Not on file documented as of this encounter Procedures Procedure Name Priority Date/Time Associated Diagnosis Comments TROPONIN T, 2H/6H, 5TH GEN, P Timed 08/19/2023 1:33 PM MANAGER FIELD SALES ECG STAT 08/19/2023 12:14 PM MANAGER FIELD SALES LACTATE, B STAT 08/19/2023 11:20 AM MANAGER FIELD SALES TROPONIN T, BASELINE, 5TH GEN, P STAT 08/19/2023 11:20 AM MANAGER FIELD SALES HEPATIC FUNCTION PANEL, S STAT 08/19/2023 11:20 AM MANAGER FIELD SALES NT-PRO B-TYPE NATRIURETIC PEPTIDE (BNP), S STAT 08/19/2023 11:20 AM MANAGER FIELD SALES PROTHROMBIN TIME (PT), P STAT 08/19/2023 11:20 AM MANAGER FIELD SALES CBC WITH DIFFERENTIAL, B STAT 08/19/2023 11:20 AM MANAGER FIELD SALES BASIC METABOLIC PANEL, S/P STAT 08/19/2023 11:20 AM MANAGER FIELD SALES documented in this encounter Results * (ABNORMAL) Troponin T, 2h/6h, 5th Gen (08/19/2023 1:33 PM MANAGER FIELD SALES) Troponin T, 2 hr, 5th gen 19(H) <=10 ng/L 08/19/2023 1:55 PM MANAGER FIELD SALES STMA 2H Delta -4 ng/L 08/19/2023 1:55 PM MANAGER FIELD SALES STMA 2H Delta Interp Indeterminate 08/19/2023 1:55 PM MANAGER FIELD SALES STMA Comment:Indeterminate delta, additional sample suggested Troponin T, 6 hr, 5th gen CANCELED ng/L 09/18/2023 1:52 AM MANAGER FIELD SALES STMA Comment: Patient already discharged. Result canceled by the ancillary. 6H Delta CANCELED ng/L 08/20/2023 11:17 AM MANAGER FIELD SALES STMA Comment:Result canceled by t he ancillary. 6H Delta Interp CANCELED 08/20/2023 11:17 AM MANAGER FIELD SALES STMA Comment:Result canceled by t he ancillary. Blood (Blood, Venous) 08/19/2023 1:33 PM MANAGER FIELD SALES 08/19/2023 1:37 PM MANAGER FIELD SALES Narrative [facility] [place] - 09/18/2023 1:52 AM MANAGER FIELD SALES Specimen Information: Specimen ID: [id number] Specimen Type: Blood Specimen Collection Start Date: 08/19/2023 ??1:33 PM Specimen Received Date: 08/19/2023 ??1:37 PM Specimen ID: [id number] Specimen Type: Blood Donavan Blankenship M.D. LAB BLOOD TROPONIN [facility] [place] [address] [place] [address], [facility] [address] [place] [address] * ECG 12 Lead (08/19/2023 12:14 PM MANAGER FIELD SALES) Ventricular Rate ECG/Min 76 BPM MUSE QRSD Interval 166 ms MUSE QT Interval 486 ms MUSE QTC Interval 547 ms MUSE [place] -85 degrees MUSE T [place] 142 degrees MUSE 08/19/2023 12:1 4 PM MANAGER FIELD SALES 08/20/2023 10:19 AM MANAGER FIELD SALES Impressions MUSE - 08/19/2023 12:27 PM MANAGER FIELD SALES Dual chamber electronic pacemaker Atrial flutter Prolonged QT When compared with ECG of 02-MAY-2022 11:28, QT has lengthened Reviewed by XIANG Murray Narrative Procedure Note Raymundo Raygoza M.D., M.P.H. - 08/20/2023 IMPRESSION: Dual chamber electronic pacemaker Atrial flutter Prolonged QT When compared with ECG of 02-MAY-2022 11:28, QT has lengthened Reviewed by XIANG Murray Donavan Blankenship M.D. ECG ORDERABLES Performing Organization Address City/[facility]/ZIP Co de Phone Number MUSE NA * (ABNORMAL) Troponin T, Baseline, 5th gen (08/19/2023 11:20 AM MANAGER FIELD SALES) Pathologist [facility] Troponin T, Baseline, 5th gen 23(H) <=10 ng/L 08/19/2023 11:47 AM MANAGER FIELD SALES [facility] Blood (Blood, Venous) 08/19/2023 11:20 AM MANAGER FIELD SALES 08/19/2023 11:27 AM MANAGER FIELD SALES Donavan Blankenship M.D. LAB BLOOD TROPONIN Performing Organization Address [facility] de Phone Number [facility] [place] [address] [place] [address] * (ABNORMAL) Prothrombin Time (PT) (08/19/2023 11:20 AM MANAGER FIELD SALES) Pathologist [facility] Prothrombin Time, P 23.3(H) 9.4 - 12.5 sec 08/19/2023 11:35 AM MANAGER FIELD SALES [facility] INR 2.1 0.9 - 1.1 08/19/2023 11:35 AM MANAGER FIELD SALES [facility] Comment: ----ADDITIONAL INFORMATION---- Standard intensity warfarin therapeutic range: 2.0 to 3.0 ?? High intensity warfarin therapeutic range: 2.5 to 3.5 Blood (Blood, Venous) 08/19/2023 11:20 AM MANAGER FIELD SALES 08/19/2023 11:27 AM MANAGER FIELD SALES Donavan Blankesnhip M.D. LAB BLOOD ADD-ON Performing Organization Address [facility] Co de Phone Number [facility] [place] [address] [place] [address] * (ABNORMAL) NT-Pro B-Type Natriuretic Peptide (BNP) (08/19/2023 11:20 AM MANAGER FIELD SALES) Pathologist [facility] NT-Pro BNP 1244(H) <=540 pg/mL 08/19/2023 11:56 AM MANAGER FIELD SALES [facility] Comment: NT-proBNP values less than 300 pg/mL [...] Blood (Blood, Venous) 08/19/2023 11:20 AM MANAGER FIELD SALES 08/19/2023 11:27 AM MANAGER FIELD SALES Donavan Blankenship M.D. LAB BLOOD ADD-ON Performing Organization Address City/[facility]/ZIP Co de Phone Number [phone] [place] [address] * Lactate, B (08/19/2023 11:20 AM MANAGER FIELD SALES) [facility] Lactate, B 1.2 0.5 - 2.2 mmol/L 08/19/2023 11:30 AM MANAGER FIELD SALES [facility] Blood (Blood, Venous) 08/19/2023 11:20 AM MANAGER FIELD SALES 08/19/2023 11:27 AM MANAGER FIELD SALES Donavan Blankenship M.D. LAB BLOOD NON ADD- ON Performing Organization Address City/[facility]/ZIP Co de Phone Number [address] [address], [place] [address] * (ABNORMAL) Hepatic Function Panel (08/19/2023 11:20 AM MANAGER FIELD SALES) [facility] Bilirubin, Total, S 0.8 0.0 - 1.2 mg/dL 08/19/2023 12:15 PM MANAGER FIELD SALES DTL Bilirubin, Direct, S 0.3 0.0 - 0.3 mg/dL 08/19/2023 12:15 PM MANAGER FIELD SALES DTL Aspartate Aminotransferase (AST), S 31 8 - 43 U/L 08/19/2023 12:15 PM MANAGER FIELD SALES DTL Alanine Aminotransferase (ALT), S 23 7 - 45 U/L 08/19/2023 12:15 PM MANAGER FIELD SALES DTL Alkaline Phosphatase, S 127(H) 35 - 104 U/L 08/19/2023 12:15 PM MANAGER FIELD SALES DTL Albumin, S 4.1 3.5 - 5.0 g/dL 08/19/2023 12:15 PM MANAGER FIELD SALES DTL Protein, Total, S 6.4 6.3 - 7.9 g/dL 08/19/2023 12:15 PM MANAGER FIELD SALES DTL Blood (Blood, Venous) 08/19/2023 11:20 AM MANAGER FIELD SALES 08/19/2023 11:52 AM MANAGER FIELD SALES Donavan Blankenship M.D. LAB BLOOD ADD-ON [facility] [place] [address] [place] [address], [facility] [address] [place] [address] * (ABNORMAL) CBC with Differential, Blood (08/19/2023 11:20 AM MANAGER FIELD SALES) Hemoglobin 12.2 11.6 - 15.0 g/dL 08/19/2023 11:30 AM MANAGER FIELD SALES ST[facility] Hematocrit 36.6 35.5 - 44.9 % 08/19/2023 11:30 AM MANAGER FIELD SALES [facility] Erythrocytes 4.14 3.92 - 5.13 x10(12)/L 08/19/2023 11:30 AM MANAGER FIELD SALES [facility] MCV 88.4 78.2 - 97.9 fL 08/19/2023 11:30 AM MANAGER FIELD SALES [facility] RBC Distrib Width 13.2 12.2 - 16.1 % 08/19/2023 11:30 AM MANAGER FIELD SALES [facility] Platelet Count 183 157 - 371 x10(9)/L 08/19/2023 11:30 AM MANAGER FIELD SALES [facility] Leukocytes 8.4 3.4 - 9.6 x10(9)/L 08/19/2023 11:30 AM MANAGER FIELD SALES [facility] Neutrophils 6.50(H) 1.56 - 6.45 x10(9)/L 08/19/2023 11:30 AM MANAGER FIELD SALES DHPM Lymphocytes 1.11 0.95 - 3.07 x10(9)/L 08/19/2023 11:30 AM MANAGER FIELD SALES [facility] Monocytes 0.67 0.26 - 0.81 x10(9)/L 08/19/2023 11:30 AM MANAGER FIELD SALES [facility] Eosinophils 0.07 0.03 - 0.48 x10(9)/L 08/19/2023 11:30 AM MANAGER FIELD SALES [facility] Basophils 0.03 0.01 - 0.08 x10(9)/L 08/19/2023 11:30 AM MANAGER FIELD SALES [facility] Blood (Blood, Venous) 08/19/2023 11:20 AM MANAGER FIELD SALES 08/19/2023 11:27 AM MANAGER FIELD SALES Donavan Blankenship M.D. LAB BLOOD ADD-ON [facility] [place] [address] [place] [address], [facility] STMA [facility] [address] [place] [address] DHPM [facility] [address] [place] [address] * (ABNORMAL) Basic Metabolic Panel (08/19/2023 11:20 AM MANAGER FIELD SALES) Potassium, P 5.0 3.6 - 5.2 mmol/L 08/19/2023 11:43 AM MANAGER FIELD SALES ST[facility] Sodium, P 141 135 - 145 mmol/L 08/19/2023 11:43 AM MANAGER FIELD SALES [facility] Chloride, P 106 98 - 107 mmol/L 08/19/2023 11:43 AM MANAGER FIELD SALES [facility] Bicarbonate, P 27 22 - 29 mmol/L 08/19/2023 11:43 AM MANAGER FIELD SALES [facility] Anion Gap, P 8 7 - 15 08/19/2023 11:43 AM MANAGER FIELD SALES [facility] BUN (Blood Urea Nitrogen), P 28(H) 6 - 21 mg/dL 08/19/2023 11:43 AM MANAGER FIELD SALES [facility] Creatinine 0.67 0.59 - 1.04 mg/dL 08/19/2023 11:43 AM MANAGER FIELD SALES ST[facility] Estimated GFR (eGFR) 87 >=60 mL/min/BSA 08/19/2023 11:43 AM MANAGER FIELD SALES [facility] Comment: Estimated GFR calculated using the 2020 CKD_EPI creatinine equation. Calcium, Total, P 9.4 8.8 - 10.2 mg/dL 08/19/2023 11:43 AM MANAGER FIELD SALES ST[facility] Glucose, P 112 70 - 140 mg/dL 08/19/2023 11:43 AM MANAGER FIELD SALES [facility] Blood (Blood, Venous) 08/19/2023 11:20 AM MANAGER FIELD SALES 08/19/2023 11:27 AM MANAGER FIELD SALES Donavan Blankenship M.D. LAB BLOOD ADD-ON [facility] [place] [address] [place] [address], [facility] [address] [place] [address] documented in this encounter Visit Diagnoses Diagnosis [...] than 3 days. Given 08/19/2023 1:17 PM MANAGER FIELD SALES 2 sprays documented in this encounter Active and Recently Administered Medications Times are shown in MANAGER FIELD SALES. Scheduled Medication Order 08/17/2023 08/18/2023 08/19/2023 oxymetazoline [...] documented as of this encounter Care Teams Purchasing Clerk Relationship Specialty Start Date End Date Elsewhere, Pcp PCP - General Internal Medicine 08/19/23 documented as of this encounter
--- OUTSIDE RECORDS SUMMARY | 2023-09-27 11:52 | XMS_ITS | Encounter Summary ---
Author Name Unknown Organization [facility] Address [address] [place] [id number] Care Team Providers Care Trimming Department Blocker Name Role Phone Neelima Nj APRN C.N.P., D.N.P., M.S.N. [facility] Care Provider Reason for Visit * Reason Onset Date Comments Pre-visit Intake 03/15/2023 Encounter Details Date Type Department Care Team (Latest Contact Info) Description 03/15/2023 2:15 PM CDT Clinical Communication Virtual Review in [place], [place] [address] [place] [address] Pre-visit Intake Social History Tobacco [...] week 04/30/2022 How often do you attend [facility] or buddhist services? Never 04/30/2022 Do you belong to any clubs o r organizations such as catholic groups, unions, fraternal or athletic groups, [...] and heating? Not hard at all 04/30/2022 [facility] [place] of Occupat ional Health - Occupational Stress [...] documented as of this encounter Care Teams Trimming Department Blocker Relationship Specialty Start Date End Date Neelima Nj APRN, C.N.P., D.N.P., M.S.N. [address] [address] PCP - General Internal Medicine 06/05/22 08/18/23 documented as of this encounter
--- OUTSIDE RECORDS SUMMARY | 2023-09-27 11:52 | XMS_ITS | Encounter Summary ---
Author Name Unknown Organization [facility] Address [address] [place] [address] Care Team Providers Care Line Painting Machine Operator Name Role Phone Neelima Nj APRN, C.N.P., D.N.P., M.S.N. [facility] Care Provider Encounter Details Date Type Department Care Team (Late st Contact Info) Description 01/31/2023 Orders Only [facility] PCP HL MNT Neelima Nj APRN, C.N.P., D.N.P., M.S.N. [address] [place] [phone] Social History Tobacco Use Types Packs/Day Years [...] often do you attend chur ch or buddhist services? Never 04/30/2022 Do you belong to any clubs o r organizations such as sikhism groups, unions, fraternal or athletic groups, or [...] and heating? Not hard at all 04/30/2022 [facility] [place] of Occupat ional Health - Occupational Stress [...] documented as of this encounter Care Teams Line Painting Machine Operator Relationship Specialty Start Date End Date Neelima Nj APRN, C.N.P., D.N.P., M.S.N. [address] [place] [phone] PCP - General Internal Medicine 06/05/22 08/18/23 documented as of this encounter
--- OUTSIDE RECORDS SUMMARY | 2023-09-27 11:52 | XMS_ITS | Encounter Summary ---
Author Name Unknown Organization [facility] Address [address] [place] [address] Care Team Providers Care Evaluation Manager Name Role Phone Neelima Nj APRN C.N.P., D.N.P., M.S.N. [facility] Care Provider Reason for Visit * Reason Comments Appointment Encounter Details Date Type Department Care Team (Latest Contact Info) Description 02/09/2022 Clinical Communication Department of Cardiovascular Medicine in [place], [place] [address] [place] [address] Medical Office SpecialistGamaliel M.D. Appointment Social History Tobacco Use Types [...] How often do you attend chur or bahai services? Never 04/30/2022 Do you [...] and heating? Not hard at all 04/30/2022 [facility] [place] of Occupat ional Health - Occupational Stress [...] place to sleep or slept in a fpc (including now)? No 04/30/2022 Nutrition Answer Date [...] documented as of this encounter Care Teams Evaluation Manager Relationship Specialty Start Date End Date Neelima Nj APRN, C.N.P., D.N.P., M.S.N. [address] [phone] PCP - General Internal Medicine 06/05/22 08/18/23 documented as of this encounter
--- OUTSIDE RECORDS SUMMARY | 2023-09-27 11:52 | XMS_ITS | Encounter Summary ---
Author Name Unknown Organization [facility] Address [address] [place] [address] Care Team Providers Care Surface Supervisor Name Role Phone Neelima Nj APRN, C.NVeritoP., D.N.P., M.S.N. [facility] Care Provider Encounter Details Date Type Department Care Team (Latest Contact Info) Description 11/23/2022 4:00 AM CDT - 11/23/2022 11:59 PM CDT Hospital Encounter Department of Cardiovascular Diseases in [place], [place] [address] [place] [phone] Zay Morley M.D., M.B.A. [address] [place] [phone] Encounter For Checking And Testing Of Cardiac [...] often do you attend chur ch or methodist services? Never 04/30/2022 Do you belong to any clubs o r organizations such as oriental orthodox groups, unions, fraternal or athletic groups, or [...] and heating? Not hard at all 04/30/2022 [facility] [place] of Occupat ional Health - Occupational Stress [...] 9:54 AM CDT) Date Time Interrogation Session [id number] [facility] Implantable Pulse Generator Director Of Engineering Medtronic [facility] Implantable Pulse Generator Model [id number] [place] XT MRI [facility] Implantable Pulse Generator Serial Number [id number] [facility] Type Interrogation Session Remote [facility] Clinic Name [facility] Implantable Pulse Generator Type Pacemaker [facility] Implantable Pulse Generator Implant Date 20200219 [facility] Implantable Lead Director Of Engineering Medtronic [facility] Implantable Lead Model 4076 CapsureFix Novus MRI SureScan [facility] Implantable Lead Serial Number [id number] [facility] Implantable Lead Implant Date 20200219 [facility] Implantable Lead Polarity Type Bipolar Lead [facility] Implantable Lead Location Detail 1 UNKNOWN [facility] Implantable Lead Special Function Lead length: 45 cm [facility] Implantable Lead Location Right Atrium [facility] Implantable Lead Director Of Engineering Medtronic [facility] Implantable Lead Model 4076 CapsureFix Novus MRI SureScan [facility] Implantable Lead Serial Number [id number] [facility] Implantable Lead [...] {beats}/ min [facility] Lead Channel [...] Channel Setting Pacing Anode Location Right Atrium [facility] [...] Channel Setting Pacing Anode Location Right Ventricle [facility] [...] [facility] Lead Channel Impedance Value 437 ohm [facility] Lead Channel Impedance Value 285 ohm [facility] Lead Channel Sensing Intrinsic Amplitude 4.5 mV [facility] Lead Channel Sensing Intrinsic Amplitude 4.5 mV [facility] Lead Channel Impedance Value 570 ohm [facility] Lead Channel Impedance Value 475 ohm [facility] Lead Channel Pacing Threshold Amplitude 0.625 V [facility] Lead Channel Pacing Threshold Pulse Width 0.4 ms [facility] Battery Date Time of Measurements [facility] Battery PARALEGALS Trigger 2.625 [facility] Battery Remaining Longevity 121 mo [facility] Battery Voltage 3.01 V [facility] Garry Statistic Date Time Start [facility] Garry Statistic Date Time End [facility] Garry Statistic RA Percent Paced 0.02 % [facility] Garry Statistic RV Percent Paced 99.98 % [facility] Atrial Tachy Statistic Date Time Start [facility] Atrial Tachy Statistic Date Time End [facility] Atrial Tachy Statistic AT/AF [place] Percent 100 % [facility] Episode [...] SYSTEM Episode Statistic Recent Date Time End [id number] [facility] Episode Statistic Recent Date Time Start [facility] Episode Statistic Recent Date Time End [facility] Episode Statistic Recent Date Time Start [facility] Episode Statistic Recent Date Time End [facility] Episode Statistic Recent Date Time Start [facility] Episode Statistic Recent Date Time End [id number] [facility] Episode Statistic Recent Date [...] remote transmission. PRESENTING EGM: ??Atrial flutter with AUTOMOBILE SALES REPRESENTATIVE at 70 bpm. ATRIAL ARRHYTHMIAS: ?Atrial fibrillation [...] documented as of this encounter Care Teams Surface Supervisor Relationship Specialty Start Date End Date Neelima Nj APRN, C.N.P., D.N.P., M.S.N. [address] [place] [phone] PCP - General Internal Medicine 06/05/22 08/18/23 documented as of this encounter
--- OUTSIDE RECORDS SUMMARY | 2023-09-27 11:52 | XMS_ITS | Encounter Summary ---
Author Name Unknown Organization [facility] Address [address] [place] [address] Care Team Providers Care Risk Management Intern Name Role Phone Neelima Nj APRN, C.N.P., D.N.P., M.S.N. [facility] Care Provider Encounter Details Date Type Department Care Team (Latest Contact Info) Description 03/09/2023 Clinical Communication Division of Gastroenterology in [place], [place] [address] [place] [phone] Roney Vega APRN, C.N.P. [address] [place] [phone] Social History Tobacco Use Types Packs/Day Years [...] and heating? Not hard at all 04/30/2022 [facility] [place] of Occupat ional Health - Occupational Stress [...] documented as of this encounter Care Teams Risk Management Intern Relationship Specialty Start Date End Date Neelima Nj APRN, C.N.P., D.N.P., M.S.N. [address] [phone] PCP - General Internal Medicine 06/05/22 08/18/23 documented as of this encounter
--- OUTSIDE RECORDS SUMMARY | 2023-09-27 11:52 | XMS_ITS | Encounter Summary ---
Author Name Unknown Organization [facility] Address [address] [place] [address] Care Team Providers Care Money Counter Name Role Phone Neelima Nj APRN C.N.P., D.N.P., M.S.N. [facility] Care Provider Encounter Details Date Type Department Care Team (Late st Contact Info) Description 03/09/2023 Orders Only Department of Cardiovascular Medicine in [place], [place] [address] [place] [address] Kristen Callahan Atrial Fibrillation Unspecified (HCC) (Primary [...] week 04/30/2022 How often do you attend [facility] or alevism services? Never 04/30/2022 Do you belong to any clubs o r organizations such as baptist groups, unions, fraternal or athletic groups, or [...] and heating? Not hard at all 04/30/2022 [facility] of Occupat ional Health - Occupational Stress [...] documented as of this encounter Care Teams Money Counter Relationship Specialty Start Date End Date Neelima Nj APRN, C.N.P., D.N.P., M.S.N. [address] [address] PCP - General Internal Medicine 06/05/22 08/18/23 documented as of this encounter
--- OUTSIDE RECORDS SUMMARY | 2023-09-27 11:52 | XMS_ITS | Encounter Summary ---
Author Name Unknown Organization [facility] Address [address] [place] [address] Care Team Providers Care Inventory Control Analyst Name Role Phone Neelima Nj APRN C.N.P., D.N.P., M.S.N. [facility] Care Provider Reason for Visit * Reason Onset Date Comments Pre-visit Testing Orders 04/04/2023 Encounter Details Date Type Department Care Team (Latest Contact Info) Description 04/04/2023 Clinical Communication Department of Cardiovascular Medicine in [employer], [place] [address] [place] [address] Rotary Soil Stabilizer OperatorGamaliel M.D. Pre-visit Testing Orders Social History Tobacco [...] How often do you attend chur or scientology services? Never 04/30/2022 Do you belong to any clubs o r organizations such as religion groups, unions, fraternal or athletic groups, or [...] at all 04/30/2022 [facility] [place] of Occupat ional Health - Occupational [...] * Telephone Encounter - Laurence Amor - 04/04/2023 1:54 PM CDT Amelie Nelson, Pt is scheduled to see you in June for 1 year follow-up. She mentioned you would want a device interrogation and possible other testing. Please advise. Thank you! Laurence Patient Appointment Services Specialist Division of Cardiovascular Diseases [address] [address] [email or web address] P RST CVD DEVICE SCHEDULING P RST CVD HRS SCHEDULING documented in this encounter Plan of Treatment Not on file documented as of this encounter Visit Diagnoses Not on filedocumented in this encounter Additional Health Concerns Assessment Noted Time PHQ-9 Depression Total Score: 13 008 12:22 PM CDT documented as of this encounter Care Teams Inventory Control Analyst Relationship Specialty Start Date End Date Neelima Nj APRN, C.N.P., D.N.P., M.S.N. [address] [phone] PCP - General Internal Medicine 06/05/22 08/18/23 documented as of this encounter
--- OUTSIDE RECORDS SUMMARY | 2023-09-27 11:52 | XMS_ITS | Encounter Summary ---
Author Name Unknown Organization [facility] Address [address] [place] [address] Care Team Providers Care Spacecraft Systems Engineer Name Role Phone Neelima Nj APRN, C.N.P., D.N.P., M.S.N. [facility] Care Provider Encounter Details Date Type Department Care Team (Late st Contact Info) Description 04/02/2023 Clinical Communication Department of Sleep Medicine in [place], [place] [address] [place] [address] Neelima Nj APRN, Madeline.N.P., D.N.P., M.S.N. [address] [place] [address] Social History Tobacco Use Types [...] often do you attend chur ch or religion services? Never 04/30/2022 Do you belong to any clubs o r organizations such as shinto groups, unions, fraternal or athletic groups, or [...] hard at all 04/30/2022 [facility] [place] of Occupat ional Health - Occupational Stress [...] place to sleep or slept in a chcf (including now)? No 04/30/2022 Nutrition Answer Date [...] documented as of this encounter Care Teams Spacecraft Systems Engineer Relationship Specialty Start Date End Date Neelima Nj APRN, C.N.P., D.N.P., M.S.N. [address] [place] [address] PCP - General Internal Medicine 06/05/22 08/18/23 documented as of this encounter
--- OUTSIDE RECORDS SUMMARY | 2023-09-27 11:52 | XMS_ITS | Clinical Summary ---
Author Name Unknown Organization [facility] Address [place], [place] [address] Care Team Providers Care Jowl Trimmer Name Role Phone [facility] Phys Of Primary Care Provider Un available [...] Comments Blood Pressure 131/61 09/13/2020 7:00 AM CORE BLOWER OPERATOR Pulse 92 09/13/2020 7:00 AM CORE BLOWER OPERATOR Temperature 36.7 ??C (98.1 ??F) 09/13/2020 6:45 AM CS T Respiratory Rate 18 09/13/2020 6:45 AM CORE BLOWER OPERATOR Oxygen Saturation 96% 09/13/2020 7:00 AM CORE BLOWER OPERATOR Inhaled Oxygen Concentration - - Weight 64.4 kg (142 lb) 09/13/2020 6:45 AM CORE BLOWER OPERATOR Height 157.5 cm (5' 2) 09/13/2020 6:45 AM CORE BLOWER OPERATOR Body Mass Index 25.97 09/13/2020 6:45 AM CORE BLOWER OPERATOR Plan of Treatment Health Maintenance Due [...] age 65+ 04/27/2023 06/12/2019, 009 Care Teams Jowl Trimmer Relationship Specialty Start Date End Date Jimmie Martinez Phys Of PCP - General 09/13/20
--- OUTSIDE RECORDS SUMMARY | 2023-09-27 11:52 | XMS_ITS | Encounter Summary ---
Author Name Unknown Organization [facility] Address [address] [place] [address] Care Team Providers Care Truck Driver Rubbish Collector Name Role Phone Neelima Nj APRN, C.N.P., D.N.P., M.S.N. [facility] Care Provider Reason for Referral * Outpatient (Routine) - Authorized Specialty Diagnoses / Procedures Referred By Contact Referred To Contact Gastroenterology and Hepatology Roney Vega APRN, C.N.P. [address] [place] [address] [facility] Referral ID Status Reason Start Date Expiration Date V isits Requested Visits Authorized [id number] Authorized 03/13/2023 03/12/2026 1 1 * Outpatient (Routine) - Authorized Specialty Diagnoses / Procedures Referred By Carolyn dominguez Referred To Contact Diagnoses Cirrhosis Biliary Primary (HCC) Procedures US Abdomen Complete Roney Vega APRN, C.N.P. [address] [place] [address] [facility] Referral ID Status Reason Start Date Expiration Date V isits Requested Visits Authorized [id number] Authorized 03/13/2023 03/12/2024 1 1 Encounter Details Date Type Department Care Team (Latest Contact Info) Description 03/13/2023 Orders Only Division of Gastroenterology in [place], [place] [address] [place] [address] Roney Vega APRN, C.N.P. [address] [place] [address] Cirrhosis Biliary Primary (HCC) (Primary Dx) Social [...] often do you attend chur ch or latter day services? Never 04/30/2022 Do you belong to any clubs o r organizations such as zoroastrianism groups, unions, fraternal or athletic groups, or [...] and heating? Not hard at all 04/30/2022 [facility] [place] of Occupat ional Health - Occupational Stress [...] place to sleep or slept in a penitentiary (including now)? No 04/30/2022 Nutrition Answer Date [...] as of this encounter Plan of Treatment Scheduled Orders Name Type Priority Associated Diagnoses [...] documented as of this encounter Care Teams Truck Driver Rubbish Collector Relationship Specialty Start Date End Date Neelima Nj APRN, C.N.P., D.N.P., M.S.N. [address] [place] [address] PCP - General Internal Medicine 06/05/22 08/18/23 documented as of this encounter
--- OUTSIDE RECORDS SUMMARY | 2023-09-27 11:52 | XMS_ITS | Encounter Summary ---
Author Name Unknown Organization [facility] Address [address] [place] [address] Care Team Providers Care Senior Chemical Engineer Name Role Phone Neelima Nj APRN, C.N.P., D.N.P., M.S.N. [facility] Care Provider Encounter Details Date Type Department Care Team (Late st Contact Info) Description 04/06/2023 Orders Only Department of Cardiovascular Medicine in [place], [place] [address] [place] [address] Diamond MerchantGamaliel M.D. Atrial Fibrillation Longstanding Persistent (HCC) (Primary [...] week 04/30/2022 [facility] often do you attend [facility] or voodoo services? Never 04/30/2022 Do you belong to any clubs o r organizations such as advent groups, unions, fraternal or athletic groups, or [...] and heating? Not hard at all 04/30/2022 [facility] [place] of Occupat ional Health - Occupational Stress [...] documented as of this encounter Care Teams Senior Chemical Engineer Relationship Specialty Start Date End Date Neelima Nj APRN, C.N.P., D.N.P., M.S.N. [address], [place] [address] PCP - General Internal Medicine 06/05/22 08/18/23 documented as of this encounter
--- OUTSIDE RECORDS SUMMARY | 2023-09-27 11:52 | XMS_ITS | Encounter Summary ---
Author Name Unknown Organization [facility] Address [address] [place] [address] Care Team Providers Care Student Accounts Coordinator Name Role Phone Neelima Nj APRN, C.N.P., D.N.P., M.S.N. [facility] Care Provider Encounter Details Date Type Department Care Team (Latest Contact Info) Description 02/22/2023 4:00 AM CDT - 02/22/2023 11:59 PM CDT Hospital Encounter Department of Cardiovascular Diseases in [place], [place] [address] [place] [address] Pro Buchanan M.D. [address] [place] [address] Encounter For Checking And Testing Of Cardiac [...] any clubs o r organizations such as zoroastrian groups, unions, fraternal or athletic groups, or [...] and heating? Not hard at all 04/30/2022 [facility] of Occupat ional Health - Occupational Stress [...] 3:05 PM CDT) Date Time Interrogation Session [id number] [facility] Implantable Pulse Generator Foreign Legal Consultant Medtronic [facility] Implantable Pulse Generator Model [id number] [place] XT MRI [facility] Implantable Pulse Generator Serial Number [id number] [facility] Type Interrogation Session Remote [facility] Clinic Name [facility] Implantable Pulse Generator Type Pacemaker [facility] Implantable Pulse Generator Implant Date 20200219 [facility] Implantable Lead Foreign Legal Consultant Medtronic [facility] Implantable Lead Model [id number] CapsureFix Novus MRI SureScan [facility] Implantable Lead Serial Number [id number] [facility] Implantable Lead Implant Date 20200219 [facility] Implantable Lead Polarity Type Bipolar Lead [facility] Implantable Lead Location Detail 1 UNKNOWN [facility] Implantable Lead Special Function Lead length: 45 cm [facility] Implantable Lead Location Right Atrium [facility] Implantable Lead Foreign Legal Consultant Medtronic [facility] Implantable Lead Model 4076 CapsureFix Novus MRI SureScan [facility] Implantable Lead Serial Number [id number] [facility] Implantable Lead [...] Garry Setting AT Mode Switch Mode DDIR [facility] Lead Channel [...] Channel Setting Sensing Anode Location Right Ventricle [facility] Lead Channel Setting Sensing [...] Lead Channel Setting Pacing Amplitude 1.5 V [facility] Lead [...] [facility] Lead Channel Impedance Value 361 ohm [facility] Lead Channel Impedance Value 285 ohm [facility] Lead Channel Sensing Intrinsic Amplitude 4.625 mV [facility] Lead Channel Impedance Value 570 ohm [facility] Lead Channel Impedance Value 494 ohm [facility] Battery Date Time of Measurements [id number] [facility] Battery Status Middle of Service [facility] Battery SILO PAINTER Trigger 2.625 [facility] Battery Remaining Longevity 118 mo [facility] Battery Voltage 3.00 V [facility] Garry Statistic Date Time Start [id number] [facility] Garry Statistic Date Time End [id number] [facility] Garry Statistic RA Percent Paced 0.01 % [facility] Garry Statistic RV Percent Paced 99.99 % [facility] Atrial Tachy Statistic Date Time Start 97458021205482 [facility] Atrial Tachy Statistic Date Time End 92635785272989 [facility] Atrial Tachy Statistic AT/AF Saxon Percent 100 % [facility] Episode [...] [facility] Episode Statistic Type Category VF [facility] Episode Statistic Recent Count 0 [facility] Episode Statistic Type Category VT [facility] Episode Statistic Recent Date Time Start [id number] [facility] Episode Statistic Recent Date Time End [id number] [facility] Episode Statistic Recent Date Time Start 83678262598216 [facility] Episode Statistic Recent Date Time End [id number] [facility] Episode Statistic Recent Date Time Start [id number] [facility] Episode Statistic Recent Date Time End 52860112514848 [facility] Episode Statistic Recent Date Time Start 41578427917882 [facility] Episode Statistic Recent Date Time End 42166381410376 [facility] Episode Statistic Recent Date Time Start 81890677830869 [facility] Episode Statistic Recent Date Time End 22320004485898 [facility] Episode Statistic Recent Date Time Start 08457756325443 [facility] Episode Statistic Recent Date Time End 68089729479510 [facility] Episode Statistic Total Count [...] SYSTEM Episode Statistic Total Date Time Start 01479814453159 [facility] Episode Statistic Total Date Time End 91933188689716 [facility] Episode Statistic Total Date Time Start 76018744774571 [facility] Episode Statistic Total Date Time End 95460830820357 [facility] Episode Statistic Total Date Time Start 38114963066593 [facility] Episode Statistic Total Date Time End 33945758943952 [facility] Episode Statistic Total Date Time Start 54645574379267 [facility] Episode Statistic Total Date Time End [id number] [facility] Episode Statistic Total Date Time Start 64192882653358 [facility] Episode Statistic Total Date Time End 25609366463208 [facility] Anatomical Region Laterality Modality [...] ?Sustained episodes: 0 ?Non-Sustained episodes: 0 ?PVC Saxon: None BATTERY LONGEVITY: Expected battery longevity trends [...] documented as of this encounter Care Teams Student Accounts Coordinator Relationship Specialty Start Date End Date Neelima Nj APRN, C.N.P., D.N.P., M.S.N. [address] [address] PCP - General Internal Medicine 06/05/22 08/18/23 documented as of this encounter
== END 2023-09-25 13:33 | disposition home or self-care (01) ==
LOC: NFLDREF 09-27 11:47
PROVIDERS: PCP Internal Medicine; Referring Provider Internal Medicine; Visit Provider Internal Medicine
DX: R30.0 Dysuria (principal)
CPT/HCPCS: 87086; 87186

== ENCOUNTER 2023-11-14 09:28 | Outpatient (CLI) | payer MEDICARE, BC, SELFPAY | END 2023-11-14 09:29 | disposition home or self-care (01) | LOC: NFLDREF 11-16 06:53 | PROVIDERS: PCP Internal Medicine; Referring Provider Internal Medicine; Visit Provider Internal Medicine | DX: N39.0 Urinary tract infection, site not specified (principal); R05.1 Acute cough | CPT/HCPCS: 87086; 87186 ==

== ENCOUNTER 2023-12-11 09:50 | Emergency (ER) | payer MEDICARE, BC, SELFPAY ==
[2023-12-11 09:59] VITALS: BP 124/72; PULSE 95; RESP 18; TEMP 36.7; O2SAT 96; BMI 27.4
--- NOTE | 2023-12-11 10:08 | ED.GENADULT ---
HPI - General Adult General Time Seen by Provider: 10:09 Date Seen: 12/11/23 Chief complaint: Extremity Pain/Injury, Lower Stated complaint: L leg pain, swelling Time Seen by Provider: 12/11/23 10:08 Source: patient and RN notes reviewed Mode of arrival: ambulatory Limitations: no limitations History of Present Illness HPI narrative: This 83-year-old female is coming into the ER with concern of left lower extremity pain and swelling. She does have underlying chronic edema and does wear compression stockings. She has had no trauma. Symptoms have been ongoing for few days now. She talked to the triage nurse and was sent here for potential ultrasound of her lower extremity. She has no longer on chronic anticoagulation, this was stopped in August due to recurrent bad nose bleeds per her report. She states she talked to her managing consultant clinical professor and they decided to stop the anticoagulation. She was taking this for atrial fibrillation. No history of DVT. She denies any chest pain or shortness of breath, no respiratory symptoms. Related Data Home Medications Medication Instructions Recorded Confirmed calcium carbonate (Calcium 600) 600 mg PO DAILY 07/17/22 11/16/23 cholecalciferol (vitamin D3) 25 2,000 unit PO DAILY 07/17/22 11/16/23 mcg (1,000 unit) capsule multivitamin (Multiple Vitamins 1 tab PO QAM 07/17/22 11/16/23 tablet) ursodiol 250 mg tablet (GAL 250) 1,000 mg PO QHS 07/26/23 11/16/23 Allergies Allergy/AdvReac Type Severity Reaction Status Date / Time sulfamethoxazole Allergy Verified 11/16/23 18:36 [From Sulfamethoxazole-Trimethoprim] trimethoprim Allergy Verified 11/16/23 18:36 [From Sulfamethoxazole-Trimethoprim] Review of Systems Status of ROS: Reports: 6 or more systems reviewed and unremarkable except as noted in History and below [facility] Medical History (Updated 12/11/23 @ 12:17 by Vanesa Hugo MD) Cough ?R05.9 - Cough, unspecified (ICD-10) History of epistaxis ?Z87.898 - Personal history of other specified conditions (ICD-10) Stenosis of esophagus ?K22.2 - Esophageal obstruction (ICD-10) History of iron deficiency anemia ?Z86.2 - Personal history of diseases of the blood and blood-forming organs and certain disorders involving the immune mechanism (ICD-10) Surgical History History of cataract surgery ?Z98.49 - Cataract extraction status, unspecified eye (ICD-10) History of vein stripping ?Z98.890 - Other specified postprocedural states (ICD-10) History of hysterectomy ?Z90.710 - Acquired absence of both cervix and uterus (ICD-10) History of cholecystectomy ?Z90.49 - Acquired absence of other specified parts of digestive tract (ICD-10) 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 Daughter Stroke PFO (patent foramen ovale) Mother Stroke Social History What is your current living situation?: I presently have a place to live Problems where you live: no known problems Problems where you live details: none In the past 12 months, utilities in danger of being shut off: no In past 12 months, lack of transportation kept you from medical appts, meetings, work, or getting things needed for daily living: no In the past 12 mos, have been you worried that your food would run out before you had money to buy more?: never true In the past 12 mos, the food you bought just didn't last and you didn't have money to buy more?: never true Smoking Status: Never smoker Do you use any of these nicotine containing products: None Second hand tobacco smoke exposure: No How often do you have a drink containing alcohol: never How often do you have six or more drinks on one occasion: Never AUDIT-C Alcohol total score: 0 Non-prescribed substance use: denies use Caffeine: No How often does anyone, including family, friends and others, physically hurt you: never How often does anyone, including family, friends and others, insult or talk down to you: never How often does anyone, including family, friends and others, threaten you with harm: never How often does anyone, including family, friends and others, scream or curse at you: never Little interest or pleasure in doing things: not at all Feeling down, depressed, or hopeless: not at all service: No Exam Const: Vital Signs, click to edit/add: Vital Signs - 24 hr 12/11/23 09:59 Temperature 98.0 F Pulse Rate [Right Pulse Oximeter] 95 Respiratory Rate 18 Blood Pressure [Le ft Upper Arm] 124/72 Pulse Oximetry 96 Oxygen Delivery Me thod Room Air Patient is alert, interactive, no apparent distress. Speaking easily in complete sentences. Lungs are clear, good air entry, no wheezing or crackles. Heart rate is mostly regular, do not hear significant irregularity in her heart rate at the time I listened. No significant murmur, normal S1-S2, no S3-S4. Note patient is known to have atrial fibrillation. Abdomen is soft, nontender, no organomegaly or masses. She has a right lower compression stocking on. Her stocking is off the left leg, she has some mild erythema medially and posteriorly over the lower leg. She is tender in this area, do wonder if I feel veinous superficial tract that may be thrombosed. She is tender in the medial portion of this mild erythema. There is mild swelling of this area, no pretibial edema at this time. Neurovascular is intact in this extremity. Documenting provider has reviewed patient's vital signs: yes Course Course ED Course: We will obtain baseline labs with a basic metabolic panel and CBC. If we do need to reinitiate anticoagulation do want to have the kidney function established. We will proceed with venous ultrasound. She certainly very well may have a superficial thrombophlebitis, need to rule out underlying DVT. It is possible that this could be early cellulitis but doubtful of that on examination. Reevaluation(s) Time of Reevaluation #1: 12:37 Reevaluation #1: Reviewed with patient as well as her daughter whom we called on the phone that there is superficial thrombophlebitis. Patient states she cannot take aspirin, was told that she has a liver disease and is not supposed to take it. Thus we will just do conservative management with heat, elevation and following of this. We discussed signs and symptoms for return and consideration for doing a follow-up ultrasound on this extremity. Vital Signs Vital signs: Initial Vital Signs Temperature 98.0 F 12/11/23 09:59 Temperature Source Temporal Artery Scan 12/11/23 09:59 Pulse Rate 95 12/11/23 09:59 Respiratory Rate 18 12/11/23 09:59 Blood Pressure 124/72 12/11/23 09:59 Blood Pressure Mean 89 12/11/23 09:59 Blood Pressure Position Sitting 12/11/23 09:59 Pulse Oximetry 96 12/11/23 09:59 Oxygen Delivery Method Room Air 12/11/23 09:59 Vital Signs Temperature 98.0 F 12/11/23 09:59 Pulse Rate 95 12/11/23 09:59 Respiratory Rate 18 12/11/23 09:59 Blood Pressure 124/72 12/11/23 09:59 Pulse Oximetry 96 12/11/23 09:59 Oxygen Delivery Method Room Air 12/11/23 09:59 Temperature 98.0 F 12/11/23 09:59 Pulse Rate 95 12/11/23 09:59 Respiratory Rate 18 12/11/23 09:59 Blood Pressure 124/72 12/11/23 09:59 Pulse Oximetry 96 12/11/23 09:59 Oxygen Delivery Method Room Air 12/11/23 09:59 Medical Decision Making Lab Data Lab results reviewed: Yes I reviewed the patient's lab results Labs: Lab Results 12/11/23 Range/Units 10:30 WBC 6.76 (4.50-11.00) K/uL RBC 4.90 (4.00-5.20) m/uL Hgb 13.2 (12.0-16.0) gm/dL Hct 41.5 (33.0-51.0) % MCV 85 (80-100) fL MCH 27 (26-34) pg MCHC 32 (32-36) gm/dL RDW Coeff of Rach 14.9 (11.5-15.5) % Plt Count 170 (140-440) K/uL Neut % (Auto) 71.8 (42.0-72.0) % Lymph % (Auto) 16.3 L (20-44) % [place] % (Auto) 9.6 (0.0-11.0) % Eos % (Auto) 1.8 (0.0-7.0) % Baso % (Auto) 0.4 (0.0-3.0) % Neut # (Auto) 4.85 (1.7-7.0) K/uL Lymph # (Auto) 1.10 (0.90-2.90) K/uL [place] # (Auto) 0.60 (0.00-0.90) K/UL Eos # (Auto) 0.12 (0.00-0.50) K/uL Baso # (Auto) 0.03 (0.00-0.30) K/uL Abs Immat Gran (auto) 0.01 (0.00-0.30) K/uL Imm/Tot Granulo (auto) 0.1 % Sodium 139 (135-149) mmol/L Potassium 4.5 (3.6-5.1) mmol/L Chloride 108 (96-114) mmol/L Carbon Dioxide 28 (20-32) mmol/L Anion Gap 3 L (7-15) mEq/L BUN 19 (7-30) mg/dL Creatinine 0.6 (0.5-1.5) mg/dL Estimated Creat Clear 32.73 Estimated GFR 90 ml/min Glucose 98 (60-115) mg/dL Calcium 8.7 (8.4-10.6) mg/dL Imaging Data Venous US: Attestation: I have reviewed the pertinent imaging results. Radiologist's impression: Patient: ALONZO BUCHANAN Facility:?[facility] Patient ID:?[id number] Site Patient ID:?[id number]. Site :?[id number] Study:?US Extremity Left LEV-12/11/2023 11:15:13 AM Ordering Physician:?VANESA CUNNINGHAM Final Report: INDICATION: Leg pain and swelling. TECHNIQUE: Ultrasound venous duplex lower rig left ht extremity. Compression venous exam was performed using ramirez-scale, color Doppler, and spectral Doppler analysis. COMPARISON: None available. FINDINGS: Deep veins: Sonographic imaging demonstrates the ri left ght common femoral, deep femoral, superficial femoral, popliteal, posterior tibial, peroneal and the contralateral right common femoral veins to be fully compressible with normal color Doppler blood flow. Superficial veins: Visualized portions of the greater saphenous vein are fully compressible. Noncompressible superficial veins along the medial left calf involving the mid and distal calf. IMPRESSION: 1. No left lower extremity deep venous thrombosis. 2. Superficial thrombophlebitis involving the medial aspect of the left mid/distal calf. Dictated by Margaret Fried MD @ 12/11/2023 11:24:19 AM (Electronic Signature) Discharge Plan Discharge Clinical Impression: Superficial thrombophlebitis Qualifiers: Superficial thrombophlebitis-Involved body area: lower extremity Laterality: left Qualified Code(s): I80.02 - Phlebitis and thrombophlebitis of superficial vessels of left lower extremity Patient Disposition: Home, Self-Care Condition: Stable Instructions: Superficial Thrombophlebitis (ED) Additional Instructions: Use warm packs, elevation as needed. Need to schedule follow-up with your primary care provider/clinic within the next week for re-evaluation. Consideration for follow-up ultrasound should be given if you are having increasing swelling, increasing pain or symptoms not improving over the next week. Activity Level: Activity as Tolerated Prescriptions: No Action multivitamin [Multiple Vitamins] Tablet 1 tab PO QAM calcium carbonate [Calcium 600] 600 mg calcium (1,500 mg) tablet 600 mg PO DAILY cholecalciferol (vitamin D3) 25 mcg (1,000 unit) capsule 2,000 unit PO DAILY ursodiol [GAL 250] 250 mg tablet 1,000 mg PO QHS Follow Up/Referrals: Unique Reed MD [Primary Care Provider] - Stand Alone Forms: [employer] Info Instructions
--- NOTE | 2023-12-11 10:12 | US_ITS ---
Patient: ALONZO BUCHANAN Facility:?[facility] Patient ID:?[id number] Site Patient ID:?[id number]. Site :?[id number] Study:?US-Extremity Left LEV-12/11/2023 11:15:13 AM Ordering Physician:OXANA CUNNINGHAM Final Report: INDICATION: Leg pain and swelling. TECHNIQUE: Ultrasound venous duplex lower rig left ht extremity. Compression venous exam was performed using ramirez-scale, color Doppler, and spectral Doppler analysis. COMPARISON: None available. FINDINGS: Deep veins: Sonographic imaging demonstrates the ri left ght common femoral, deep femoral, superficial femoral, popliteal, posterior tibial, peroneal and the contralateral right common femoral veins to be fully compressible with normal color Doppler blood flow. Superficial veins: Visualized portions of the greater saphenous vein are fully compressible. Noncompressible superficial veins along the medial left calf involving the mid and distal calf. IMPRESSION: 1. No left lower extremity deep venous thrombosis. 2. Superficial thrombophlebitis involving the medial aspect of the left mid/distal calf. Dictated by Margaret Fried MD @ 12/11/2023 11:24:19 AM Signed by:?Margaret Fried MD @12/11/2023 11:24:19 AM (Electronic Signature)
--- OUTSIDE RECORDS SUMMARY | 2023-12-11 10:22 | XMS_ITS | Clinical Summary ---
Author Name Unknown Organization [facility] Address [address] [place] [address] Care Team Providers Care Saddle And Side Wire Stitcher Name Role Phone Elsewhere, Pcp Primary Care Provider Unavailabl e Source Comments Patient records contain information from all sites at [facility]. For routine questions regarding patient records, call [phone] during business hours, M-F 8:00 AM - 5:00 PM Central Time. Record requests for emergency care only can be directed to [phone] at any time.[facility] Allergies Active Allergy Reactions Criticality Noted Date [...] by mouth 2 (two) times a day. 12/13/2016 Active cholecalciferol (VITAMIN D3) 50 mcg (2,000 Unit) capsule Take 1 capsule by mouth daily. 12/25/2014 Active multivitamin tablet Take 1 tablet by mouth daily. 06/05/2009 Active rivaroxaban (XARELTO) 10 mg tablet Take 1 tablet (10 mg total) by mouth daily with dinner. 90 tablet 3 04/29/2021 Active acetaminophen (TYLENOL) 500 mg tablet Take 250 mg by mouth as needed for pain. Active GAL 250 250 mg tablet TAKE 4 TABLETS BY MOUTH AT BEDTIME 360 tablet 3 08/07/2022 Active cyclobenzaprine (FLEXERIL) 5 mg tablet Take 5 mg by mouth every 8 (eight) hours as needed for muscle spasms. 08/10/2023 Active cephalexin (KEFLEX) 500 mg capsule Take 500 mg by mouth every 6 (six) hours. Active Active Problems Problem Noted Date Diagnosed [...] Encounters Date Type Department Care Team Description 11/27/2023 CPAP Download Remote Patient Monitoring [facility] [address] [place] [address] [facility], Provider 11/23/2023 4:00 AM CDT - 11/23/2023 11:59 PM CDT Hospital Encounter Department of Cardiovascular Diseases in [place], [place] [address] [place] [address] Joseph Waters M.B.B.S. Aftercare Cardiac Pacemaker Discharge Disposition: Home or Self Care 10/27/2023 CPAP Download Remote Patient Monitoring [facility] [address] [place] [address] [facility], Provider 09/26/2023 CPAP Download Remote Patient Monitoring [facility] [address] [place] [address] [facility], Provider from Last 3 Months Immunizations Name [...] Olga Connell Liver disease Paternal Grandmother Chioma Zambranor Never knew her Lung cancer Sister Patrica Pierce 2005 age 61 Other cancer Sister Patrica Pierce at a ge 61 Melanoma Son Carroll Bose 2013 at Age 49 Relation Name Status Comments Brother Noble Connell Father Axel Connell Mother Olga Connell Paternal Grandmother Chioma Katerine Sister Patrica Pierce Son Carroll Bose Social History Tobacco Use Types Packs/Day Years Used Date Smoking Tobacco: Never Smokeless Tobacco: Never Tobacco Cessation:Counseling Given: Not Answered Comments:Never ever used tobacco Alcohol Use Standard Drinks/Week Comments Never 0 (1 standard drink = 0.6 oz pur e alcohol) [facility] Utilities Answer Date Recorded In the past 12 months has [employer], or water [employer] threatened to shut off services in your [...] often do you attend chur ch or oriental orthodox services? Never 04/30/2022 Do you belong [...] and heating? Not hard at all 04/30/2022 [facility] of Occupat ional Health - Occupational Stress [...] your living situation today? I have a [facility] place to live 09/05/2023 Education Answer [...] Comments Blood Pressure 131/87 08/19/2023 4:30 PM GAS TECHNICIAN Pulse 73 08/19/2023 4:30 PM GAS TECHNICIAN Temperature 36.6 ??C (97.9 ??F) 08/19/2023 1 0:51 AM GAS TECHNICIAN Respiratory Rate 16 08/19/2023 10:5 1 AM GAS TECHNICIAN Oxygen Saturation 98% 08/19/2023 4:30 PM GAS TECHNICIAN Inhaled Oxygen Concentration - - Weight 70.3 kg (154 lb 15.7 oz) 023 10:45 AM GAS TECHNICIAN Height 158 cm (5' 2.21) 05/15/2022 11: 39 AM CDT Body Mass Index 28.16 05/15/2022 11:39 AM CDT Plan of Treatment Upcoming Encounters Date Type Department Care Team (Late st Contact Info) Description 01/04/2024 4:30 PM CDT Virtual Visit Department of Cardiovascular Medicine in [place], [place] [address] [place] [address] Tony Nelson M.B.B.S. [address] [place] [address] Health Maintenance Due Date Last Done Comments [...] Cologuard Discontinued Medical Devices Implanted Type Area Coal Feeder Operator Device Identifier Shelf Expiration Date Model / Serial / Lot Lead Ppm Capsure Fix Novus 52 - [id number] - [id number] Implanted:Qty : 1 on 02/19/2020 by Jose Slade M.D. at [facility] Cardiac Lead Medtronic 10/22/2021 [id number] / [id number] / Lead Ppm Capsure Fix Novus 45 - [id number] - [id number] Implanted:Qty : 1 on 02/19/2020 by Jose Slade M.D. at [facility] Cardiac Lead Medtronic 10/29/2021 [id number] / [id number] / Coil Vrtx Hlcl Cmpx .018x5 - [id number] Implanted:Qty : 1 on 02/23/2020 by Jeb Whitten M.D. at [facility] Embolization Coil [employer] 08/17/2022 [id number] / / [id number] Coil Vrtx Hlcl Cmpx .018x5 - [id number] Implanted:Qty : 1 on 02/23/2020 by Jeb Whitten M.D. at [facility] Embolization Coil [employer] 12/21/2022 [id number] 50 / / [id number] Coil Micro Hilal 0.279k0x7 - [id number] Implanted:Qty : 1 on 02/23/2020 by Jeb Whitten M.D. at [facility] Embolization Coil [employer] 01/30/2021 [id number] / / [id number] Ppm Hortencia Edgar - [id number] - [id number] Implanted:Qty : 1 on 02/19/2020 by Jose Slade M.D. at [facility] Pacemaker Medtronic 05/24/2021 [id number] / [id number] / Procedures Procedure Name Priority Date/Time Associated Diagnosis Comments PACER REMOTE FOLLOW UP Routine 11/28/2023 1:53 PM CDT Aftercare Cardiac Pacemaker US ABDOMEN COMPLETE RAD - Routine (most inpatients and all outpatients) 05/02/2022 8:44 AM CDT Cirrhosis Biliary Primary (HCC) COLONOSCOPY Routine 01/06/2021 2:36 PM CDT Polyp Colon from Last 3 Months or Most Recently Relevant to Health Maintenance Results * PACER REMOTE FOLLOW UP (11/28/2023 1:53 PM CDT) Date Time Interrogation Session [id number] [facility] Implantable Pulse Generator Coal Feeder Operator [facility] [facility] Implantable Pulse Generator Model [id number] [facility] Implantable Pulse Generator Serial Number [id number] [facility] Type Interrogation Session Remote [facility] Clinic Name [facility] Baljeet [facility] Implantable Pulse Generator Type Pacemaker [facility] Implantable Pulse Generator Implant Date 20200219 [facility] Implantable Lead Coal Feeder Operator Medtronic [facility] Implantable Lead Model 4076 CapsureFix Novus MRI SureScan [facility] Implantable Lead Serial Number [id number] [facility] Implantable Lead Implant Date 20200219 [facility] Implantable Lead Polarity Type Bipolar Lead [facility] Implantable Lead Location Detail 1 UNKNOWN [facility] Implantable Lead Special Function Lead length: 45 cm [facility] Implantable Lead Location Right Atrium [facility] Implantable Lead Coal Feeder Operator Medtronic [facility] Implantable Lead Model 4076 CapsureFix Novus MRI SureScan [facility] Implantable Lead Serial Number [id number] [facility] Implantable Lead [...] CENTER [facility] SYSTEM Lead Channel Impedance Value 456 ohm [facility] Lead Channel Impedance Value 285 ohm [facility] Lead Channel Sensing Intrinsic Amplitude 5.125 mV [facility] Lead Channel Sensing Intrinsic Amplitude 5.125 mV [facility] Lead Channel Impedance Value 551 ohm [facility] Lead Channel Impedance Value 456 ohm [facility] Lead Channel Sensing Intrinsic Amplitude 7.5 mV [facility] Lead Channel Sensing Intrinsic Amplitude 7.5 mV [facility] Lead Channel Pacing Threshold Amplitude 0.5 V [facility] Lead Channel Pacing Threshold Pulse Width 0.4 ms [facility] Battery Date Time of Measurements [id number] [facility] Battery LUCERNE FARMER Trigger 2.625 [facility] Battery Remaining Longevity 109 mo [facility] Battery Voltage 2.99 V [facility] Garry Statistic Date Time Start [id number] [facility] Garry Statistic Date Time End [facility] Garry Statistic RA Percent Paced 0.01 % [facility] Garry Statistic RV Percent Paced 99.86 % [facility] Atrial Tachy Statistic Date Time Start [id number] [facility] Atrial Tachy Statistic Date Time End [facility] Atrial Tachy Statistic AT/AF [place] Percent 100 % [facility] [...] SYSTEM Episode Statistic Recent Date Time Start [id number] [facility] Episode Statistic Recent Date Time End [facility] Episode Statistic Recent Date Time Start [facility] Episode Statistic Recent Date Time End F[facility] Episode Statistic Recent Date Time Start [id number] [facility] Episode Statistic Recent Date Time End F[facility] Episode Statistic Recent Date Time Start [facility] Episode Statistic Recent Date Time End F[facility] Episode Statistic Recent Date Time Start [id number] [facility] Episode Statistic Recent Date [...] SYSTEM Episode Statistic Total Date Time End [id number] [facility] Episode Statistic Total Date Time Start [facility] Episode Statistic Total Date Time End F[facility] Episode Statistic Total Date Time Start [facility] Episode Statistic Total Date Time End [id number] [facility] Episode Statistic Total Date Time Start [facility] Episode Statistic Total Date Time End [id number] [facility] Episode Statistic Total Date Time Start [facility] Episode Statistic Total Date Time End [facility] Anatomical Region Laterality Modality Other 11/22/2023 9:34 PM CDT Narrative 12/04/2023 7:39 AM CDT PURPOSE OF VISIT: ??Routine quarterly remote transmission PRESENTING EGM: ??/AF-EXPLOSIVE ORDNANCE HANDLER at 70 bpm. ATRIAL ARRHYTHMIAS: 1 AT/AF episode since 08/23/2023, 100% burden. Chronic AF since at least Sep 2022. VENTRICULAR ARRHYTHMIAS: ??None since 08/23/2023 ?PVC [place]: None since 08/23/2023 BATTERY LONGEVITY: Expected battery longevity trends reviewed and are stable and consistent with device settings and use. SUMMARY: All device function appears normal, short V-V counter is 0. FOLLOW UP: Next routine follow-up will be in 3 months via remote transmission DEVICE RN: Eula Fong RN Provider statement: This patient underwent device interrogation. I agree that the device interrogation was medically indicated to provide appropriate care and continue routine device interrogations as indicated. Joseph Covington CV IMPLANTABLE CARDIAC DEVICE * US Abdomen Complete (05/02/2022 8:44 AM CDT) Anatomical Region Laterality Modality Abdomen, Ultrasound RST LOS, Ultrasound ARZ LOS, Ultrasound FLA LOS N/A Ultrasound 05/02/2022 8:50 AM CDT Impressions 05/02/2022 8:53 AM CDT 1. ??Cirrhotic hepatic contour without focal mass. LI-RADS 1 B 2. Tiny cyst in the body of the pancreas. Narrative 05/02/2022 8:53 AM CDT EXAM: US ABDOMEN COMPLETE COMPARISON: 05/20/2020 FINDINGS: Liver: Coarse echotexture consistent with chronic parenchymal disease. ??Cirrhotic hepatic contour. No focal mass. Ultrasound LI-RADS score is as follows: Ultrasound Category: US-1: ??Negative (No US evidence of HCC). ??Recommend continued routine surveillance. Visualization Score: B: ??Moderate limitations (limitations may obscure small masses, especially < 1 cm). Ultrasound LI-RADS is a standardized system for imaging technique, interpretation, reporting, and data collection for screening or surveillance ultrasound exams in patients at risk for developing HCC. Ultrasound LI-RADS is supported and endorsed by the [employer]. More information can be found on the following link: [email or web address] Gallbladder: Absent. Intrahepatic ducts: Not dilated. Common duct: Not dilated. Pancreas: 4 mm cyst in the pancreatic body. Right kidney: Length: 9.3 cm. Normal echogenicity. No hydronephrosis. Left kidney: Length: 9.8 cm. Normal echogenicity. No hydronephrosis. Spleen: Normal. ??Spleen length: 12.2 cm Aorta: Normal caliber. IVC: Normal where seen. Ascites: ??None. Procedure Note Amando Collier M.D. - 05/02/2022 EXAM: US ABDOMEN COMPLETE COMPARISON: 05/20/2020 FINDINGS: Liver: Coarse echotexture consistent with chronic parenchymal disease.Cirrhotic hepatic contour. No focal mass. Ultrasound LI-RADS score is as follows: Ultrasound Category: US-1: Negative (No US evidence of HCC). Recommendcontinued routine surveillance. Visualization Score: B: Moderate limitations (limitations may obscuresmall masses, especially < 1 cm). Ultrasound LI-RADS is a standardized system for imaging technique,interpretation, reporting, and data collection for screening or surveillance ultrasound exams in patientsat risk for developing HCC. Ultrasound LI-RADS is supported and endorsed by the [employer]. More information can be found on the following link: [email or web address]/[email or web address] ound- [email or web address] Gallbladder: Absent. Intrahepatic ducts: Not dilated. Common duct: Not dilated. Pancreas: 4 mm cyst in the pancreatic body. Right kidney: Length: 9.3 cm. Normal echogenicity. No hydronephrosis. Left kidney: Length: 9.8 cm. Normal echogenicity. No hydronephrosis. Spleen: Normal. Spleen length: 12.2 cm Aorta: Normal caliber. IVC: Normal where seen. Ascites: None. IMPRESSION: 1. Cirrhotic hepatic contour without focal mass. LI-RADS 1 B 2. Tiny cyst in the body of the pancreas. Roney Vega APRN C.N.P. IMG US PRO CEDURES from Last 3 Months or Most Recently Relevant to Health Maintenance Advance Directives For more information, please contact: [phone] Documents on File Type Date Recorded Patient Clinical Operations Specialist Expl anation Advance Directives 02/06/2020 10:03 AM [facility] Care Directive Advance Directives 06/10/2014 12:00 AM [place] document. See document viewer. Advance Directives 08/15/2011 12:00 AM [place] document. See document viewer. * DNR/DNI (Latest Code Status on File) Date Activated Date Inactivated Comments 02/11/2021 1:56 PM 02/14/2021 7:12 PM * Full Code Date Activated Date Inactivated Comments 02/25/2020 12:32 PM 02/11/2021 9:08 AM Question Answer Comments Full Code: Discussed * Full Code Date Activated Date Inactivated Comments 02/23/2020 3:51 PM 02/25/2020 12:32 PM Question Answer Comments Full Code: Discussed * DNR/DNI Date Activated Date Inactivated Comments 02/20/2020 10:29 AM 02/20/2020 8:46 PM * Full Code Date Activated Date Inactivated Comments 02/20/2020 6:49 AM 02/20/2020 10:29 AM Question Answer Comments Full Code: Discussed Healthcare Agents on File Name Relationship Healthcare Agent Relationship Communication Carroll Bose Son Health Care Agent Katelynn Womack Daughter First Alternate Health Care Agent [email or web address] Care Teams Saddle And Side Wire Stitcher Relationship Specialty Start Date End Date Elsewhere, Pcp PCP - General Internal Medicine 08/19/23
--- OUTSIDE RECORDS SUMMARY | 2023-12-11 10:23 | XMS_ITS | Encounter Summary ---
Author Name Unknown Organization [facility] Address [address] [place] [address] Care Team Providers Care Brass Wind Instrument Maker Name Role Phone Elsewhere, Pcp Primary Care Provider Unavailabl e Encounter Details Date Type Department Care Team (Late st Contact Info) Description 10/27/2023 CPAP Download Remote Patient Monitoring [facility] [address] [place] [address] [facility], Provider Social History Tobacco Use Types Packs/Day Years Used Date Smoking Tobacco: Never Smokeless Tobacco: Never Comments:Never ever used tob acco Alcohol Use Standard Drinks/Week Comments Never 0 (1 standard drink = 0.6 oz pur e alcohol) [facility] Utilities Answer Date Recorded In the past [...] often do you attend chur ch or adventism services? Never 04/30/2022 Do you belong to any clubs o r organizations such as confucianism groups, unions, fraternal or athletic groups, or [...] hard at all 04/30/2022 [facility] [place] of Occupat ional Health - Occupational Stress [...] your living situation today? I have a [facility] place to live 09/05/2023 Education Answer [...] Virtual Visit Department of Cardiovascular Medicine in [place], [place] [address] [place] [address] Tony Nelson M.B.B.S. [address] [place] [address] documented as of this encounter Visit Diagnoses Not on filedocumented in this encounter Additional Health Concerns Assessment Noted Time PHQ-9 Depression Total Score: 13 01/08/ 008 12:22 PM CDT documented as of this encounter Care Teams Brass Wind Instrument Maker Relationship Specialty Start Date End Date Elsewhere, Pcp PCP - General Internal Medicine 08/19/23 documented as of this encounter
--- OUTSIDE RECORDS SUMMARY | 2023-12-11 10:23 | XMS_ITS | Encounter Summary ---
Author Name Unknown Organization [facility] Address [address] [place] [address] Care Team Providers Care Internal Controls Analyst Name Role Phone Elsewhere, Pcp Primary Care Provider Unavailabl e Encounter Details Date Type Department Care Team (Late st Contact Info) Description 11/27/2023 CPAP Download Remote Patient Monitoring [facility] [address] [place] [address] [facility], Provider Social History Tobacco Use Types Packs/Day Years Used Date Smoking Tobacco: Never Smokeless Tobacco: Never Comments:Never ever used tob acco Alcohol Use Standard Drinks/Week Comments Never 0 (1 standard drink = 0.6 oz pur e alcohol) [facility] Utilities Answer Date Recorded In the [...] often do you attend chur ch or church services? Never 04/30/2022 Do you belong to [...] hard at all 04/30/2022 [facility] of Occupat ional Health - Occupational Stress [...] your living situation today? I have a [facility] place to live 09/05/2023 Education Answer [...] Virtual Visit Department of Cardiovascular Medicine in [place], [place] [address] [place] [address] Tony Nelson M.B.B.S. [address] [place] [address] documented as of this encounter Visit Diagnoses Not on filedocumented in this encounter Additional Health Concerns Assessment Noted Time PHQ-9 Depression Total Score: 13 01/08/ 008 12:22 PM CDT documented as of this encounter Care Teams Internal Controls Analyst Relationship Specialty Start Date End Date Elsewhere, Pcp PCP - General Internal Medicine 08/19/23 documented as of this encounter
--- OUTSIDE RECORDS SUMMARY | 2023-12-11 10:23 | XMS_ITS | Encounter Summary ---
Author Name Unknown Organization [facility] Address [address] [place] [address] Care Team Providers Care Tip Finisher Name Role Phone Elsewhere, Pcp Primary Care Provider Unavailabl e Encounter Details Date Type Department Care Team (Late st Contact Info) Description 09/26/2023 CPAP Download Remote Patient Monitoring [facility] [address] [place] [address] [facility], Provider Social History Tobacco Use Types Packs/Day Years Used Date Smoking Tobacco: Never Smokeless Tobacco: Never Comments:Never ever used tob acco Alcohol Use Standard Drinks/Week Comments Never 0 (1 standard drink = 0.6 oz pur e alcohol) [facility] Utilities Answer Date Recorded In the [...] any clubs o r organizations such as gnosticist groups, unions, fraternal or athletic groups, or [...] and heating? Not hard at all 04/30/2022 [facility] [place] of Occupat ional Health - Occupational Stress [...] your living situation today? I have a [facility] place to live 09/05/2023 Education Answer Date [...] Virtual Visit Department of Cardiovascular Medicine in [place], [place] [address] [place] [address] Tony Nelson M.B.B.S. [address] [place] [address] documented as of this encounter Visit Diagnoses Not on filedocumented in this encounter Additional Health Concerns Assessment Noted Time PHQ-9 Depression Total Score: 13 01/08/ 008 12:22 PM CDT documented as of this encounter Care Teams Tip Finisher Relationship Specialty Start Date End Date Elsewhere, Pcp PCP - General Internal Medicine 08/19/23 documented as of this encounter
--- OUTSIDE RECORDS SUMMARY | 2023-12-11 10:23 | XMS_ITS | Encounter Summary ---
Author Name Unknown Organization [facility] Address [address] [place] [address] Care Team Providers Care International Exchange Coordinator Name Role Phone Elsewhere, Pcp Primary Care Provider Unavailabl e Encounter Details Date Type Department Care Team (Late st Contact Info) Description 08/26/2023 CPAP Download Remote Patient Monitoring [facility] [address] [place] [address] [facility], Provider Social History Tobacco Use Types Packs/Day Years Used Date Smoking Tobacco: Never Smokeless Tobacco: Never Comments:Never ever used tob acco Alcohol Use Standard Drinks/Week Comments Never 0 (1 standard drink = 0.6 oz pur e alcohol) [facility] Utilities Answer Date Recorded In the [...] any clubs o r organizations such as mormonism groups, unions, fraternal or athletic groups, or [...] hard at all 04/30/2022 [facility] [place] of Occupat ional Health - Occupational Stress [...] your living situation today? I have a [facility] place to live 09/05/2023 Education Answer [...] Virtual Visit Department of Cardiovascular Medicine in [place], [place] [address] [place] [address] Tony Nelson M.B.B.S. [address] [place] [address] documented as of this encounter Visit Diagnoses Not on filedocumented in this encounter Additional Health Concerns Assessment Noted Time PHQ-9 Depression Total Score: 13 01/08/ 008 12:22 PM CDT documented as of this encounter Care Teams International Exchange Coordinator Relationship Specialty Start Date End Date Elsewhere, Pcp PCP - General Internal Medicine 08/19/23 documented as of this encounter
--- OUTSIDE RECORDS SUMMARY | 2023-12-11 10:23 | XMS_ITS ---
Author Name Unknown Organization [facility] Address [address] [place] [address] Care Team Providers Care Paperhanger Contractor Name Role Phone Unavailable Unavailable Unavailable Surgery Details Not on file Complications Check Surgery Details section. Procedure Estimated Blood Loss Check Surgery Details section. Procedure Findings Check Surgery Details section. Procedure Specimens Taken Check Surgery Details section.
--- OUTSIDE RECORDS SUMMARY | 2023-12-11 10:23 | XMS_ITS | Encounter Summary ---
Author Name Unknown Organization [facility] Address [address] [place] [address] Care Team Providers Care Mold Checker Name Role Phone Elsewhere, Pcp Primary Care Provider Unavailabl e Reason for Visit * Reason Onset Date Comments Emily Discussion 08/21/2023 Encounter Details Date Type Department Care Team (Latest Contact Info) Description 08/21/2023 Clinical Communication Department of Cardiovascular Medicine in [place], [place] [address] [place] [address] Talent Acquisition Specialist, Liz Alston Discussion Social History Tobacco Use Types Packs/Day Years Used Date Smoking Tobacco: Never Smokeless Tobacco: Never Comments:Never ever used tob acco Alcohol Use Standard Drinks/Week Comments Never 0 (1 standard drink = 0.6 oz pur e alcohol) [facility] Utilities Answer Date Recorded In [...] How often do you attend chur or denominational services? Never 04/30/2022 Do you belong to [...] Not hard at all 04/30/2022 [facility] of Occupat ional Health - Occupational Stress [...] your living situation today? I have a [facility] place to live 09/05/2023 Education Answer Date [...] M.D.; Tony Nelson M.B.B.S.; Rst Cvd Hrs [id number] minutes ago (10:44 AM) Amelie Neal, This is scheduled for a video visit 09/10. She will have her son and daughter with her on the call. Thank you! Jesus Woodson M.D. Tellier, Michelle L, R.N.; Rst Cvd Hrs [id number] hours ago (11:46 AM) Thanks including our [...] her initially. Lucio Campos routed conversation to [facility] Cvd Hrs Scheduling7 days ago Kayla Vuong R.N. Lucio May; Lila Lynch M.D.; Tony Nelson M.B.B.SVerito; Rita Crum R.N.8 days ago Patient was considered for watchman and was seen by Dr. Lynch in 2020 to discuss watchman-since he has had fall with head trauma, serious nosebleed as below is it time to consider watchman Lucio May [facility] Cvd Hr Clinic Rn9 days ago Patient is on waitlist for HRS appointment. Please see concerns below. Thank you! Silvia Thomas routed conversation to t Cvd Hrs Scheduling9 days ago Haley Noova Rst Cvd [id number] days ago SP Appointment Request From: Haley Bose With Provider: Jesus Neal M.D. [Department of Cardiovascular Medicine in [place], [place]] Preferred Date Range: Any date 09/10/2023 or earlier Preferred Times: Sunday Morning Reason for visit: Request an Appointment Comments: ER 08/16 Serious Nosebleed & told I to see Talent Acquisition Specialist. Requesting cyndee't for this time as son will be here to take me. I am Worried about Xarelto. Canceled Jun. due to a fall & head trauma +Knee cap MATIC SILK SCREEN PRINTER * Telephone Encounter - Laurence Amor - [...] request: Comments: was told followup w/ my speech language specialist when in [place] ER on 08/16 & . Serious nose bleeds??Continue my blood thinner or Change Dose or Eliquis 2.5 mg ??? . call me [phone] # is correct MATIC SILK SCREEN PRINTER * Telephone Encounter - Laurence Amor - [...] Neal M.D. [Department of Cardiovascular Medicine in [place], [place]] Preferred Date Range: Any date 09/10/2023 or earlier Preferred Times: Sunday Morning Reason for visit: Request an Appointment Comments: ER 08/16 Serious Nosebleed & told I to see Talent Acquisition Specialist. Requesting cyndee't for this time as son will be here to take me. I am Worried about Xarelto. Canceled Jun.27 due to a fall & head trauma +Knee cap MATIC SILK SCREEN PRINTER * Telephone Encounter - Lashay Gilbert - 08/21/2023 8:30 AM AUTOMATIC SILK SCREEN PRINTER Haley is calling today to re visit the watchman discussion from 05/18 visit. She was in the ED with nose bleeds and wants to discuss blood thinners and the watchman. Please advise if we can set up afollow up with you and what testing would you like? Patient Appointment Services Specialist Division of Cardiovascular Diseases [address] [address] [email or web address] P RST CVD DEVICE SCHEDULING P RST CVD HRS SCHEDULING MATIC SILK SCREEN PRINTER documented in this encounter Plan of Treatment Upcoming Encounters Date Type Department Care Team (Late st Contact Info) Description 01/04/2024 4:30 PM CDT Virtual Visit Department of Cardiovascular Medicine in [place], [place] [address] [place] [phone] Tony Nelson M.B.B.S. [address] [place] [phone] documented as of this encounter Visit Diagnoses Not on filedocumented in this encounter Additional Health Concerns Assessment Noted Time PHQ-9 Depression Total Score: 13 008 12:22 PM CDT documented as of this encounter Care Teams Mold Checker Relationship Specialty Start Date End Date Elsewhere, Pcp PCP - General Internal Medicine 08/19/23 documented as of this encounter
--- OUTSIDE RECORDS SUMMARY | 2023-12-11 10:23 | XMS_ITS | Encounter Summary ---
Author Name Unknown Organization [facility] Address [address] [place] [address] Care Team Providers Care Laminator Printed Circuit Boards Name Role Phone Elsewhere, Pcp Primary Care Provider Unavailabl e Reason for Visit * Reason Onset Date Comments Pre-visit Intake 09/07/2023 Encounter Details Date Type Department Care Team (Latest Contact Info) Description 09/07/2023 12:00 PM BOOK SEWER Clinical Communication Virtual Review in [place], [place] [address] [place], [place] [phone] Pre-visit Intake Social History Tobacco Use Types Packs/Day Years Used Date Smoking Tobacco: Never Smokeless Tobacco: Never Tobacco Cessation:Counseling Given: Not Answered Comments:Never ever used tobacco Alcohol Use Standard Drinks/Week Comments Never 0 (1 standard drink = 0.6 oz pur e alcohol) [facility] Utilities Answer Date Recorded In the [...] How often do you attend chur or judaism services? Never 04/30/2022 Do you belong to any clubs o r organizations such as mandaen groups, unions, fraternal or athletic groups, or [...] and heating? Not hard at all 04/30/2022 [facility] of Occupat ional Health - Occupational Stress [...] your living situation today? I have a [facility] place to live 09/05/2023 Education Answer [...] Virtual Visit Department of Cardiovascular Medicine in [place], [place] [address] [place] [address] Tony Nelson M.B.B.S. [address] [place] [address] documented as of this encounter Visit Diagnoses Not on filedocumented in this encounter Additional Health Concerns Assessment Noted Time PHQ-9 Depression Total Score: 13 008 12:22 PM CDT documented as of this encounter Care Teams Laminator Printed Circuit Boards Relationship Specialty Start Date End Date Elsewhere, Pcp PCP - General Internal Medicine 08/19/23 documented as of this encounter
--- OUTSIDE RECORDS SUMMARY | 2023-12-11 10:23 | XMS_ITS | Encounter Summary ---
Author Name Unknown Organization [facility] Address [address] [place] [address] Care Team Providers Care Splitting Machine Feeder Name Role Phone Elsewhere, Pcp Primary Care [...] often do you attend chur ch or islam services? Never 04/30/2022 Do you belong to [...] and heating? Not hard at all 04/30/2022 [facility] of Occupat ionms Health - Occupational Stress Questionnaire Answer Date [...] place to sleep or slept in a [facility] (including now)? No 04/30/2022 Nutrition Answer Date [...] Virtual Visit Department of Cardiovascular Medicine in [place], [place] 200 [place] [address] Tony Nelson M.B.B.S. [address] [place] [address] documented as of this encounter Visit Diagnoses Not on filedocumented in this encounter Additional Health Concerns Assessment Noted Time PHQ-9 Depression Total Score: 13 008 12:22 PM CDT documented as of this encounter Care Teams Splitting Machine Feeder Relationship Specialty Start Date End Date Elsewhere, Pcp PCP - General Internal Medicine 08/19/23 documented as of this encounter
--- OUTSIDE RECORDS SUMMARY | 2023-12-11 10:23 | XMS_ITS | Encounter Summary ---
Author Name Unknown Organization [facility] Address [address] [place] [address] Care Team Providers Care Waste Paper Hammermill Operator Name Role Phone Elsewhere, Pcp Primary Care Provider Unavailabl e Reason for Referral * Outpatient (Routine) - Authorized Specialty Diagnoses / Procedures Referred By Carolyn dominguez Referred To Contact Cardiovascular Disease Jesus Neal M.D. [address] [place] [address] Tony Nelson M.B.B.S. [address] [place] [address] Referral ID Status Reason Start Date Expiration Date V isits Requested Visits Authorized [id number] Authorized 09/11/2023 09/10/2026 1 1 MOLDER Encounter Details Date Type Department Care Team (Latest Contact Info) Description 09/10/2023 2:00 PM FOAM MOLDER Telemedicine Department of Cardiovascular Medicine in [place], [place] [address] [place] [address] Jesus Neal M.D. [address] [place] [address] Atrial Fibrillation Longstanding Persistent (HCC) (Primary Dx) Social History Tobacco Use Types Packs/Day Years Used Date Smoking Tobacco: Never Smokeless Tobacco: Never Comments:Never ever used tob acco Alcohol Use Standard Drinks/Week Comments Never 0 (1 standard drink = 0.6 oz pur e alcohol) [facility] Utilities Answer Date Recorded In the past 12 months has e electric, gas, oil, or water [employer] threatened to shut off services in your [...] often do you attend chur ch or caodaism services? Never 04/30/2022 Do you belong to [...] and heating? Not hard at all 04/30/2022 [facility] of Occupat ional Health - Occupational Stress [...] audio/video technology by [facility] Chief complaint: [...] minutes was spent in review and consultation. MOLDER documented in this encounter Plan of Treatment Upcoming Encounters Date Type Department Care Team (Late st Contact Info) Description 01/04/2024 4:30 PM CDT Virtual Visit Department of Cardiovascular Medicine in [place], [place] [address] [place] [phone] Tony Nelson M.B.B.S. [address] [place] [address] Scheduled Referrals Name Type Priority Associated Diagnoses Order Schedule Cardiovascular Disease office visit (clinic) HRS Outpatient Referral Routine Expected: 12/11/2023 (Approximate), Expires: 12/10/2024 documented as of this encounter Visit Diagnoses Diagnosis Atrial Fibrillation Longstanding Persistent (HCC)- Primary documented in this encounter Additional Health Concerns Assessment Noted Time PHQ-9 Depression Total Score: 13 008 12:22 PM CDT documented as of this encounter Care Teams Waste Paper Hammermill Operator Relationship Specialty Start Date End Date Elsewhere, Pcp PCP - General Internal Medicine 08/19/23 documented as of this encounter
--- OUTSIDE RECORDS SUMMARY | 2023-12-11 10:23 | XMS_ITS | Referral Summary ---
Author Name Unknown Organization [facility] Address [address] [place] [address] Care Team Providers Care Hvac/R Service Technician Name Role Phone Elsewhere, Pcp Primary Care Provider Unavailabl e Source Comments Patient records contain information from all sites at [facility]. For routine questions regarding patient records, call [phone] during business hours, M-F 8:00 AM - 5:00 PM Central Time. Record requests for emergency care only can be directed to [phone] at any time.[facility] Encounters Date Type Department Care Team Description 11/27/2023 CPAP Download Remote Patient Monitoring [facility] [address] [place] [address] [facility], Provider 11/23/2023 4:00 AM CDT - 11/23/2023 11:59 PM CDT Hospital Encounter Department of Cardiovascular Diseases in [place], [place] [address] [place] [phone] KoJoseph ruiz M.B.B.SVerito Aftercare Cardiac Pacemaker Discharge Disposition: Home or Self Care 10/27/2023 CPAP Download Remote Patient Monitoring [facility] [address] [place] [address] [facility], Provider 09/26/2023 CPAP Download Remote Patient Monitoring [facility] [address] [place] [address] [facility], Provider from Last 3 Months Allergies [...] drink = 0.6 oz pur e alcohol) [facility] [employer] Answer Date Recorded In the past 12 months has [employer], gas, oil, or water [employer] threatened to shut off services in your [...] week 04/30/2022 How often do you attend [facility] or worship services? Never 04/30/2022 Do you belong to any clubs o r organizations such as baptism groups, unions, fraternal or athletic groups, or [...] and heating? Not hard at all 04/30/2022 [facility] of Occupat ional Health - Occupational Stress [...] Comments Blood Pressure 131/87 08/19/2023 4:30 PM STUDENT TEACHING COORDINATOR Pulse 73 08/19/2023 4:30 PM STUDENT TEACHING COORDINATOR Temperature 36.6 ??C (97.9 ??F) 08/19/2023 1 0:51 AM STUDENT TEACHING COORDINATOR Respiratory Rate 16 08/19/2023 10:5 1 AM STUDENT TEACHING COORDINATOR Oxygen Saturation 98% 08/19/2023 4:30 PM STUDENT TEACHING COORDINATOR Inhaled Oxygen Concentration - - Weight 70.3 kg (154 lb 15.7 oz) 023 10:45 AM STUDENT TEACHING COORDINATOR Height 158 cm (5' 2.21) 05/15/2022 11: 39 AM CDT Body Mass Index 28.16 05/15/2022 11:39 AM CDT Plan of Treatment Upcoming Encounters Date Type Department Care Team (Late st Contact Info) Description 01/04/2024 4:30 PM CDT Virtual Visit Department of Cardiovascular Medicine in [place], [place] [address] [place] [address] Tony Nelson M.B.B.S. [address] [place] [address] Medical Devices Implanted Type Area Letterer Device Identifier Shelf Expiration Date Model / Serial / Lot Lead Ppm Capsure Fix Novus 52 - [id number] - [id number] Implanted:Qty : 1 on 02/19/2020 by Jose Slade M.D. at [facility] Cardiac Lead Medtronic 10/22/2021 [id number] / [id number] / Lead Ppm Capsure Fix Novus 45 - [id number] - [id number] Implanted:Qty : 1 on 02/19/2020 by Jose Slade M.D. at [facility] Cardiac Lead Medtronic 10/29/2021 [id number] / [id number] / Coil Vrtx Hlcl Cmpx .018x5 - [id number] Implanted:Qty : 1 on 02/23/2020 by Jeb Whitten M.D. at [facility] Embolization Coil [employer] 08/17/2022 [id number] 50 / / [id number] Coil Vrtx Hlcl Cmpx .018x5 - [id number] Implanted:Qty : 1 on 02/23/2020 by Jeb Whitten M.D. at [facility] Embolization Coil [employer] 12/21/2022 [id number] 50 / / [id number] Coil Micro Hilal 0.248g9o5 - [id number] Implanted:Qty : 1 on 02/23/2020 by Jeb Whitten M.D. at [facility] Embolization Coil [employer] 01/30/2021 [id number] / / [id number] Ppm Hortencia Edgar - [id number] - [id number] Implanted:Qty : 1 on 02/19/2020 by Jose Slade M.D. at [facility] Pacemaker Medtronic 05/24/2021 [id number] / [id number] / Procedures Procedure Name Priority Date/Time [...] 1:53 PM CDT) Date Time Interrogation Session [id number] [facility] Implantable Pulse Generator Letterer Medtronic [facility] Implantable Pulse Generator Model [id number] Hortencia XT DR MRI [facility] Implantable Pulse Generator Serial Number [id number] [facility] Type Interrogation Session Remote [facility] Clinic Name [facility] [place] [facility] Implantable Pulse Generator Type Pacemaker [facility] Implantable Pulse Generator Implant Date 20200219 [facility] Implantable Lead Letterer Medtronic [facility] Implantable Lead Model 4076 CapsureFix Novus MRI SureScan [facility] Implantable Lead Serial Number [id number] [facility] Implantable Lead Implant Date 20200219 [facility] Implantable Lead Polarity Type Bipolar Lead [facility] Implantable Lead Location Detail 1 UNKNOWN [facility] Implantable Lead Special Function Lead length: 45 cm [facility] Implantable Lead Location Right Atrium [facility] Implantable Lead Letterer Medtronic [facility] Implantable Lead Model 4076 CapsureFix Novus MRI SureScan [facility] Implantable Lead Serial Number [id number] [facility] Implantable Lead Implant Date 20200219 [facility] Implantable Lead Polarity Type Bipolar Lead [facility] Implantable Lead Location Detail 1 UNKNOWN [facility] Implantable Lead Special Function Lead length: 52 cm [facility] Implantable Lead Location Right Ventricle [facility] Garry Setting Mode (NBG Code) DDDR [facility] Garry Setting Lower Rate Limit 70 {beats}/ min [facility] Garry Setting Maximum Tracking Rate 130 {beats}/ min [facility] Garry Setting Maximum Sensor Rate 130 {beats}/ min [facility] Garry Setting CASE Delay Low 150 ms [facility] Garry Setting PAV Delay Low 180 ms [facility] Garry Setting AT Mode Switch Rate 140 {beats}/ min [facility] Lead Channel Setting Sensing Polarity Bipolar [facility] Lead Channel Setting Sensing Anode Location Right Atrium [facility] Lead Channel Setting Sensing Anode Terminal Ring [facility] Lead Channel Setting Sensing Cathode Location Right Atrium [facility] Lead Channel Setting Sensing Cathode Terminal Tip [facility] Lead Channel Setting Sensing Sensitivity 0.3 mV [facility] Lead Channel Setting Sensing Polarity Bipolar [facility] Lead Channel Setting Sensing Anode Location Right Ventricle [facility] Lead Channel Setting Sensing Anode Terminal Ring [facility] Lead Channel Setting Sensing Cathode Location Right Ventricle [facility] Lead Channel Setting Sensing Cathode Terminal Tip [facility] Lead Channel Setting Sensing Sensitivity 0.9 mV [facility] Lead Channel Setting Pacing Polarity Bipolar [facility] Lead Channel Setting Pacing Anode Location Right Atrium [facility] Lead Channel Setting Pacing Anode Terminal Ring [facility] Lead Channel Setting Sensing Cathode Location Right Atrium [facility] Lead Channel Setting Sensing Cathode Terminal Tip [facility] Lead Channel Setting Pacing Pulse Width 0.4 ms [facility] Lead Channel Setting Pacing Amplitude 1.5 V [facility] Lead Channel Setting Pacing Capture Mode Adaptive [facility] Lead Channel Setting Pacing Polarity Bipolar [facility] Lead Channel Setting Pacing Anode Location Right Ventricle [facility] Lead Channel Setting Pacing Anode Terminal Ring [facility] Lead Channel Setting Sensing Cathode Location Right Ventricle [facility] Lead Channel Setting Sensing Cathode Terminal Tip [facility] Lead Channel Setting Pacing Pulse Width 0.4 ms [facility] Lead Channel Setting Pacing Amplitude 2 V [facility] Lead Channel Setting Pacing Capture Mode Adaptive [facility] Zone Setting Type Category VF [facility] Zone Setting Type Category VT [facility] Zone Setting Type Category VT [facility] Zone Setting Type Category VT [facility] Zone Setting Detection Interval 350 ms [facility] Zone Setting Type Category ATRIAL_FIBRILLATI ON [facility] Zone Setting Type Category AT/AF [facility] Zone Setting Detection Interval 430 ms [facility] Lead Channel Impedance Value 456 ohm [facility] Lead Channel Impedance Value 285 ohm [facility] Lead Channel Sensing Intrinsic Amplitude 5.125 mV [facility] Lead Channel Sensing Intrinsic Amplitude 5.125 mV [facility] Lead Channel Impedance Value 551 ohm [facility] Lead Channel Impedance Value 456 ohm [facility] Lead Channel Sensing Intrinsic Amplitude 7.5 mV [facility] Lead Channel Sensing Intrinsic Amplitude 7.5 mV [facility] Lead Channel Pacing Threshold Amplitude 0.5 V [facility] Lead Channel Pacing Threshold Pulse Width 0.4 ms [facility] Battery Date Time of Measurements [id number] [facility] Battery DENTAL CERAMIST HELPER Trigger 2.625 [facility] Battery Remaining Longevity 109 mo [facility] Battery Voltage 2.99 V [facility] Garry Statistic Date Time Start [id number] [facility] Garry Statistic Date Time End [facility] Garry Statistic RA Percent Paced 0.01 % [facility] Garry Statistic RV Percent Paced 99.86 % [facility] Atrial Tachy Statistic Date Time Start [id number] [facility] Atrial Tachy Statistic Date Time End [facility] Atrial Tachy Statistic AT/AF [place]ldon Percent 100 % [facility] Episode Statistic Recent Count 0 [facility] Episode Statistic Type Category AT/AF [...] SYSTEM Episode Statistic Total Date Time End [id number] [facility] Episode Statistic Total Date [...] VISIT: ??Routine quarterly remote transmission PRESENTING EGM: ??/AF-DOOR TECHNICIAN at 70 bpm. ATRIAL ARRHYTHMIAS: 1 AT/AF episode since 08/23/2023, 100% burden. Chronic AF since at least Sep 2022. VENTRICULAR ARRHYTHMIAS: ??None since 08/23/2023 ?PVC Sheldon: None since 08/23/2023 BATTERY LONGEVITY: Expected battery [...] LI-RADS is supported and endorsed by the [employer]. More information can be found on the following link: [email or web address] Gallbladder: Absent. Intrahepatic ducts: Not dilated. Common [...] LI-RADS is supported and endorsed by the [employer]. More information can be found on the following link: [email or web address]- [email or web address] Gallbladder: Absent. Intrahepatic ducts: Not dilated. Common [...] Advance Directives For more information, please contact: [phone] Documents on File Type Date Recorded Patient Line Assembly Utility Worker Expl anation Advance Directives 02/06/2020 10:03 AM [facility] Care Directive Advance Directives 06/10/2014 12:00 AM Le gactanner document. See document viewer. Advance Directives 08/15/2011 [...] Womack Daughter First Alternate Health Care Agent [email or web address] Care Teams Hvac/R Service Technician Relationship Specialty Start Date End Date Elsewhere, Pcp PCP - General Internal Medicine 08/19/23
--- OUTSIDE RECORDS SUMMARY | 2023-12-11 10:23 | XMS_ITS | Clinical Summary ---
Author Name Unknown Organization [employer] [facility] Address [place], [place] [address] Care Team Providers Care Subacute Nurse Name Role Phone [place] [facility] Phys Of Primary Care Provider Un [...] Comments Blood Pressure 131/61 09/13/2020 7:00 AM ELECTRIC MOTOR ASSEMBLER Pulse 92 09/13/2020 7:00 AM ELECTRIC MOTOR ASSEMBLER Temperature 36.7 ??C (98.1 ??F) 09/13/2020 6:45 AM CS T Respiratory Rate 18 09/13/2020 6:45 AM ELECTRIC MOTOR ASSEMBLER Oxygen Saturation 96% 09/13/2020 7:00 AM ELECTRIC MOTOR ASSEMBLER Inhaled Oxygen Concentration - - Weight 64.4 kg (142 lb) 09/13/2020 6:45 AM ELECTRIC MOTOR ASSEMBLER Height 157.5 cm (5' 2) 09/13/2020 6:45 AM ELECTRIC MOTOR ASSEMBLER Body Mass Index 25.97 09/13/2020 6:45 AM ELECTRIC MOTOR ASSEMBLER Plan of Treatment Health Maintenance Due Date Last Done Comments Tdap 1952 Depression screening for age 12+ 1953 BMI (ht and wt on same day) for age 18+ 1959 Tetanus booster 1961 Zoster (shingles) series for age 50+ (1 of 2) 1991 DEXA/DXA scan for age 65+ 2006 Medicare Wellness for age 65+ 2006 Pneumococcal series for age 65+ (1 of 1 - PCV) 2006 COVID-19 vaccine series (2022- season) 2023 Influenza for age 65+ 04/27/2024 06/12/2019, 009 Care Teams Subacute Nurse Relationship Specialty Start Date End Date Jimmie Martinez Phys Of PCP - General 09/13/20
--- OUTSIDE RECORDS SUMMARY | 2023-12-11 10:23 | XMS_ITS | Encounter Summary ---
Author Name Unknown Organization [facility] Address [address] [place] [address] Care Team Providers Care Traction Power Engineer Name Role Phone Elsewhere, Pcp Primary Care Provider Unavailabl e Encounter Details Date Type Department Care Team (Latest Contact Info) Description 11/23/2023 4:00 AM CDT - 11/23/2023 11:59 PM CDT Hospital Encounter Department of Cardiovascular Diseases in [place], [place] [address] [place] [address] Joseph Waters M.B.B.S. [address] [place] [address] Aftercare Cardiac Pacemaker Discharge Disposition: Home or Self Care Social History Tobacco Use Types Packs/Day Years Used Date Smoking Tobacco: Never Smokeless Tobacco: Never Comments:Never ever used tob acco Alcohol Use Standard Drinks/Week Comments Never 0 (1 standard drink = 0.6 oz pur e alcohol) [facility] Utilities Answer Date Recorded In the [...] often do you attend chur ch or tenriism services? Never 04/30/2022 Do you belong to any clubs o r organizations such as orthodox groups, unions, fraternal or athletic groups, [...] and heating? Not hard at all 04/30/2022 [place] [facility] Occupat ional [facility] - Occupational Stress [...] your living situation today? I have a [facility] place to live 09/05/2023 Education Answer [...] mg by mouth as needed for pain. calcium carbonate 260 mg calcium (648 mg) tablet Take 1 tablet by mouth 2 (two) times a day. 12/13/2016 cephalexin (KEFLEX) 500 mg capsule Take 500 mg by mouth every 6 (six) hours. cholecalciferol (VITAMIN D3) 50 mcg (2,000 Unit) capsule Take 1 capsule by mouth daily. 12/25/2014 cyclobenzaprine (FLEXERIL) 5 mg tablet Take 5 mg by mouth every 8 (eight) hours as needed for muscle spasms. 08/10/2023 multivitamin tablet Take 1 tablet by mouth daily. 06/05/2009 GAL 250 250 mg tablet TAKE 4 TABLETS BY MOUTH AT BEDTIME 360 tablet 3 08/07/2022 documented as of this encounter Plan of Treatment Upcoming Encounters Date Type Department Care Team (Late st Contact Info) Description 01/04/2024 4:30 PM CDT Virtual Visit Department of Cardiovascular Medicine in [place], [place] [address] [place] [address] Tony Nelson M.B.B.S. [address] [place] [address] documented as of this encounter Procedures Procedure Name Priority Date/Time Associated Diagnosis Comments PACER REMOTE FOLLOW UP Routine 11/28/2023 1:53 PM CDT Aftercare Cardiac Pacemaker documented in this encounter Results * PACER REMOTE FOLLOW UP (11/28/2023 1:53 PM CDT) Date Time Interrogation Session [id number] [facility] Implantable Pulse Generator Customer Support Coordinator [employer] [facility] Implantable Pulse Generator Model [id number] Hortencia XT MRI [facility] Implantable Pulse Generator Serial Number [id number] [facility] Type Interrogation Session Remote [facility] Clinic Name [facility] Implantable Pulse Generator Type Pacemaker [facility] Implantable Pulse Generator Implant Date 20200219 [facility] Implantable Lead Customer Support Coordinator SpazioDatitronic [facility] Implantable Lead Model 4076 CapsureFix Novus MRI SureScan [facility] Implantable Lead Serial Number [id number] [facility] Implantable Lead Implant Date 20200219 [facility] Implantable Lead Polarity Type Bipolar Lead [facility] Implantable Lead Location Detail 1 UNKNOWN [facility] Implantable Lead Special Function Lead length: 45 cm [facility] Implantable Lead Location Right Atrium [facility] Implantable Lead Customer Support Coordinator Medtronic [facility] Implantable Lead Model 4076 CapsureFix Novus MRI SureScan [facility] Implantable Lead Serial Number [id number] [facility] Implantable Lead Implant Date 20200219 [facility] Implantable Lead Polarity Type Bipolar Lead [facility] Implantable Lead Location Detail 1 UNKNOWN [facility] Implantable Lead Special Function Lead length: 52 cm [facility] Implantable Lead Location Right Ventricle [facility] Garry Setting Mode (NBG Code) DDDR [facility] Garry Setting Lower Rate Limit 70 {beats}/ min [facility] Garry Setting Maximum Tracking Rate 130 {beats}/ min [facility] Garry Setting Maximum Sensor Rate 130 {beats}/ min [facility] Garry Setting CASE Delay Low 150 ms [facility] Garry Setting PAV Delay Low 180 ms [facility] Garry Setting AT Mode Switch Rate 140 {beats}/ min [facility] Lead Channel Setting Sensing Polarity Bipolar [facility] Lead Channel Setting Sensing Anode Location Right Atrium [facility] Lead Channel Setting Sensing Anode Terminal Ring [facility] Lead Channel Setting Sensing Cathode Location Right Atrium [facility] Lead Channel Setting Sensing Cathode Terminal Tip [facility] Lead Channel Setting Sensing Sensitivity 0.3 mV [facility] Lead Channel Setting Sensing Polarity Bipolar [facility] Lead Channel Setting Sensing Anode Location Right Ventricle [facility] Lead Channel Setting Sensing Anode Terminal Ring [facility] Lead Channel Setting Sensing Cathode Location Right Ventricle [facility] Lead Channel Setting Sensing Cathode Terminal Tip [facility] Lead Channel Setting Sensing Sensitivity 0.9 mV [facility] Lead Channel Setting Pacing Polarity Bipolar [facility] Lead Channel Setting Pacing Anode Location Right Atrium [facility] Lead Channel Setting Pacing Anode Terminal Ring [facility] Lead Channel Setting Sensing Cathode Location Right Atrium [facility] Lead Channel Setting Sensing Cathode Terminal Tip [facility] Lead Channel Setting Pacing Pulse Width 0.4 ms [facility] Lead Channel Setting Pacing Amplitude 1.5 V [facility] Lead Channel Setting Pacing Capture Mode Adaptive [facility] Lead Channel Setting Pacing Polarity Bipolar [facility] Lead Channel Setting Pacing Anode Location Right Ventricle [facility] Lead Channel Setting Pacing Anode Terminal Ring [facility] Lead Channel Setting Sensing Cathode Location Right Ventricle [facility] Lead Channel Setting Sensing Cathode Terminal Tip [facility] Lead Channel Setting Pacing Pulse Width 0.4 ms [facility] Lead Channel Setting Pacing Amplitude 2 V [facility] Lead Channel Setting Pacing Capture Mode Adaptive [facility] Zone Setting Type Category [...] Lead Channel Sensing Intrinsic Amplitude 5.125 mV [facility] Lead Channel Sensing Intrinsic Amplitude 5.125 mV [facility] Lead Channel Impedance Value 551 ohm [facility] Lead Channel Impedance Value 456 ohm [facility] Lead Channel Sensing Intrinsic Amplitude 7.5 mV [facility] Lead Channel Sensing Intrinsic Amplitude 7.5 mV [facility] Lead Channel Pacing Threshold Amplitude 0.5 V [facility] Lead Channel Pacing Threshold Pulse Width 0.4 ms [facility] Battery Date Time of Measurements [id number] [facility] Battery PAINTER ASSISTANT Trigger 2.625 [facility] Battery Remaining Longevity 109 mo [facility] Battery Voltage 2.99 V [facility] Garry Statistic Date Time Start [facility] Garry Statistic Date Time End [facility] Garry Statistic RA Percent Paced 0.01 % [facility] Garry Statistic RV Percent Paced 99.86 % [facility] Atrial Tachy Statistic Date Time Start [id number] [facility] Atrial Tachy Statistic Date Time End [facility] Atrial Tachy Statistic AT/AF [place] Percent 100 % [facility] Episode [...] SYSTEM Episode Statistic Recent Date Time Start [id number] [facility] Episode Statistic Recent Date Time End [facility] Episode Statistic Recent Date Time Start [id number] [facility] Episode Statistic Recent Date Time End [id number] [facility] Episode Statistic Recent Date Time Start [facility] Episode Statistic Recent Date Time End [facility] Episode Statistic Recent Date Time Start [id number] [facility] Episode Statistic Recent Date Time End [facility] Episode Statistic Recent Date Time Start [id number] [facility] Episode Statistic Recent Date [...] VISIT: ??Routine quarterly remote transmission PRESENTING EGM: ??/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 ATRIAL ARRHYTHMIAS: 1 AT/AF episode since 08/23/2023, 100% burden. Chronic AF since at least Sep 2022. VENTRICULAR ARRHYTHMIAS: ??None since 08/23/2023 ?PVC [place]: None since 08/23/2023 BATTERY LONGEVITY: Expected battery [...] indicated. Joseph Covington CV IMPLANTABLE CARDIAC DEVICE documented in this encounter Visit Diagnoses Diagnosis Aftercare Cardiac Pacemaker documented in this encounter Additional Health Concerns Assessment Noted Time PHQ-9 Depression Total Score: 13 008 12:22 PM CDT documented as of this encounter Care Teams Traction Power Engineer Relationship Specialty Start Date End Date Elsewhere, Pcp PCP - General Internal Medicine 08/19/23 documented as of this encounter
[2023-12-11 10:40] LABS: Basophils Absolute Auto 0.03 K/uL (0.00-0.30); Basophils Percent Auto 0.4 % (0.0-3.0); Eosinophils Absolute Auto 0.12 K/uL (0.00-0.50); Eosinophils Percent Auto 1.8 % (0.0-7.0); Hematocrit 41.5 % (33.0-51.0); Hemoglobin* 13.2 gm/dL (12.0-16.0); Immature Granulocytes Abs Auto 0.01 K/uL (0.00-0.30); Immature Granulocytes Pct Auto 0.1 %; Lymphocytes Percent Auto 16.3 % (20-44); Mean Corpuscular HGB Conc 32 gm/dL (32-36); Mean Corpuscular Hemoglobin 27 pg (26-34); Mean Corpuscular Volume 85 fL (80-100); Monocytes Percent Auto 9.6 % (0.0-11.0); Neutrophils Absolute Auto 4.85 K/uL (1.7-7.0); Neutrophils Percent Auto 71.8 % (42.0-72.0); Platelet Count* 170 K/uL (140-440); RDW Coefficient of Variation % 14.9 % (11.5-15.5); White Blood Count* 6.76 K/uL (4.50-11.00)
[2023-12-11 10:46] LABS: Slide Review Reflex No
[2023-12-11 10:48] LABS: Chloride* 108 mmol/L (96-114)
[2023-12-11 10:49] LABS: Potassium* 4.5 mmol/L (3.6-5.1); Sodium* 139 mmol/L (135-149)
[2023-12-11 10:51] LABS: Creatinine* 0.6 mg/dL (0.5-1.5); Est. Creatinine Clearance* 32.73; Estimated Glomerular Filt Rate 90 ml/min
[2023-12-11 10:52] LABS: Anion Gap 3 mEq/L (7-15); Blood Urea Nitrogen* 19 mg/dL (7-30); Calcium* 8.7 mg/dL (8.4-10.6); Carbon Dioxide* 28 mmol/L (20-32); Glucose* 98 mg/dL (60-115)
== END 2023-12-11 13:00 | disposition home or self-care (01) ==
PROVIDERS: Emergency Provider Family Medicine; PCP Internal Medicine
DX: I80.02 Phlebitis and thrombophlebitis of superficial vessels of left lower extremity (principal)
CPT/HCPCS: 36415; 80048; 85025; 93971; 99283

== ENCOUNTER 2024-03-20 13:00 | Outpatient (RCR) | payer MEDICARE, BC, SELFPAY ==
--- NOTE | 2023-10-25 12:22 | PT.OPEX ---
PT [place] Outpatient Eval initial eval requires signature PT [facility] Outpatient Eval Start: 10/25/23 07:29 Freq: Status: Active Protocol: Document 10/25/23 07:30 MALINA (Rec: 10/25/23 12:20 MALINA [id number]) E-signed By GINA HaasT Physical Therapy Outpatient Evaluation Insurance Information Insurance Name Medicare B Medical Diagnosis rt patella fx bilateral knee pain gait balance deficient neck pain Rt patellar fx -06-20-23 Treating Diagnosis bilateral knee pain neck pain Referring MD Viral Burkett Subjective Subjective -15 min late Haley comes into clinic dealing with bilateral knee pain along with neck pain. Did have a fall back on 06/19/23 resulting in R patellar fx. States the initially occurred when walking around the house using a quad cane where she ended up getting her feet caught up leading to a fall. She still has pretty consistent knee pain that has been ongoing since the injury but is trying to do more and more. The left knee has been consistently hurting for awhile states was from a fall she had 10 years ago. She usually walks using a SPC when leaving the house but inside the home does not use anything . Does have some stairs she uses to get in the home but going down the stairs will use a chair lift. Also sleeps in her recliner that is a lift chair. Has L sided neck and shoulder pain that has been intermittent for several years now. Overall wants to improve strength ROM reaching sleeping Pain Comments 04/05-lifting reaching stepping walking Current Work Status Retired Precautions Treatment Precautions/Contraindications pacemaker -2020 depression osteoporosis liver disease PBC Objective Other/Pertinent Objective GAIT/FUNCTIONAL MOBILITY : ambulates with SPC in R UE in step to pattern decreased pace, increased antalgic pattern SPINAL ALIGNMENT/POSTURE - increased kyphotic posture CERVICAL ROM Flexion: min loss Extension: mod loss Right Rotation: mod loss Left Rotation: max loss SHOULDER AROM WNL - increased shrugging on the L NECK/SHOULDER MMT: Shoulder shru/5B Shoulder flexion: 4+B Shoulder abduction: 4+B Shoulder External Rotation: 4+ /5B Shoulder Internal Rotation: 5/ 5B Elbow Flexion: 5/5B Elbow Ext: 5/5B JOINT MOBILITY/PALPATION increased upper trap, mid trap , sub occipital tightness narrow base stance- modified: 30 sec with min sway KNEE ROM R 5- 75 before guarding and pain L WNL LLE MMT: Hip flexion: R 4-5 L 4/5 Hip abduction: R 3+/5 L4- /5 - performed in seated due to pt tolerance Knee flexion: R 4/5 L4+ /5 Knee extension: R 4/5 L 4+/5 Assessment Assessment/Impression Pt is a 83 yr old female who presents with concerns of Bilateral knee pain and neck pain. Patient also has notable objective findings including limited ROM, impaired balance, decreased strength also likely contributing to the problem. Patient is a good candidate for skilled therapy to target deficits described above. Skilled PT intervention is necessary for use of therapeutic exercise manual therapy, neuromuscular re- education, gait training, and therapeutic activity. Functional impairments include difficulty with: walking standing stairs. See appropriate sections of PT eval for complete list of goals and POC. D/C plan and criteria is for pt to achieve the goals as listed below or until max rehab potential is met. Pt was agreeable with plan of care and goals established. POST-OP Patient presents with signs and symptoms consistent with diagnosis of , s/p week post operative. Rehab potential is. Acevedo impairments include: decreased ROM and strength of the extremity, poor balance and compensatory gait patterning, pain/limitations with functional activities such as squatting, walking, and climbing stairs. Skilled PT is required to address these acevedo impairments and to provide and progress with an appropriate home exercise program. Plan of Care Rehabilitation Potential Good Physical Therapy Goals GOALS Pt will be independent with HEP within 10-12 weeks to allow for independence and continued improvement past formal therapy Patient will demonstrate/ report ability to walk for 15- 20 minutes with SPC with pain level <1/10, to allow for community and household ambulation within 10-12 weeks Pt will be able to demonstrate / report ability to lift #3-5 from counter height to overhead without pain within 10-12 weeks, for household and work activity. Patient will demonstrate/ report ability to sleep with losing <1-2 hours of sleep being interrupted by neck and shoulder pain. within 10-12 weeks Coordination/Communication With Referral Source Treatment Plan/Direct Interventions Gait Training,Joint Mobilization,Manual Therapy, Neuromuscular Re-ed,Self-Care/ Home Management,Therapeutic Activities,Therapeutic Exercises Frequency/Duration 1-2 visits a week for 10-12 weeks Patient Will Be Discharged From Therapy Completion of LTG(s) Evaluation Billing Untimed Code Treatment Minutes 50 Complexity Moderate Certification Information Physician Comment/Change : Physician NPI Number #
--- NOTE | 2024-02-14 12:01 | PT.OPDNX ---
PT [place] Outpatient Daily Note progress note requires signature PT [facility] Outpatient Daily Note Start: 10/25/23 07:29 Freq: Status: Active Protocol: Document 02/14/24 07:33 MALINA (Rec: 02/14/24 12:01 MALINA [id number]) E-signed By Madhu Hernández DPT PT OP Daily Progress Note Visit Information Note Type Daily Note,Recert/Progress Note Visit Number [id number] Insurance Information Recert Due Date 01/23/24 Insurance Name Medicare B Medical Diagnosis rt patella fx bilateral knee pain gait balance deficient neck pain Rt patellar fx -06-20-23 Treating Diagnosis bilateral knee pain neck pain Referring MD Viral Burkett Subjective Subjective ~15 minutes late ~ Haley comes she has been sick the pass several weeks with flu/diarrhea. Due to that has been really limited in her ability to do hep. States she is still feeling tired this week. Pain in the neck is about a 4/10. Knees/legs feel heavy but no painful. lifting/reaching: pain free walking: pain free but difficult Pain Comments 04/05-lifting reaching stepping walking Precautions Treatment Precautions/Contraindications pacemaker -2019 depression osteoporosis liver disease PBC Home Exercise Home Exercise Comments [id number] Objective Other/Pertinent Objective GAIT/FUNCTIONAL MOBILITY : ambulates with SPC in R UE in step through pattern decreased pace. SPINAL ALIGNMENT/POSTURE - increased kyphotic posture- no change CERVICAL ROM Flexion: no loss Extension: mod loss Right Rotation: min- mod loss Left Rotation: mod- max loss NECK/SHOULDER MMT: Shoulder flexion: 5/5 R 4+/5L Shoulder abduction: 5/5 R 4+/5 L Shoulder External Rotation: 4+ /5B Shoulder Internal Rotation: 5/ 5B JOINT MOBILITY/PALPATION increased upper trap, mid trap ,tightness LE MMT Hip flexion: R 4/5 L 4+/5 Hip abduction: R 4-/5 L4 /5 - performed in seated due to pt tolerance Knee flexion: R 4+/5 L5 /5 Knee extension: R 4/5 L 4+/5 Patient Instructed in Risks/Benefits Yes Therapeutic Exercise Therapeutic Exercise Minutes (minutes) 25 Therapeutic Exercise: To Restore extensive review of hep while Functional Status adjusting frequency of program along with poc going forward Exercises - Narrow Stance with Counter Support - Supine Hip Abduction -Seated Long Arc Quad - Seated Cervical Retraction and Extension - Shoulder External Rotation and Scapular Retraction with Resistance - Drawing [place] - Corner Pec Major Stretch - Doorway Pec Stretch at 60 Degrees Abduction with Arm Straight - Seated Thoracic Lumbar Extension with Pectoralis Stretch Treatment Minutes Untimed Code Treatment Minutes 25 Timed Code Treatment Minutes 25 Total Treatment Time 50 Billing Units Therapeutic Exercise Units 2 Assessment/Impression Assessment/Impression Patient is a 83 year old female that presents with Rt knee pain and cervical pain. Patient has shown improvement in PT demonstrating decreased pain, increased range of motion, and increased strength . However the biggest limitation patient is dealing with activity tolerance and endurance. She feels fatigued quickly and needing increased rest throughout the day. Pt states she wants to continue working on strengthening and improving endurance. Pt would still be a good candidate for skilled PT. Plan of Care Physical Therapy Goals GOALS Pt will be independent with HEP within 10-12 weeks to allow for independence and continued improvement past formal therapy Patient will demonstrate/ report ability to walk for 15- 20 minutes with SPC with pain level <1/10, to allow for community and household ambulation within 10-12 weeks met no pain in knees just fatigue and unable to do more the rest of the day Pt will be able to demonstrate / report ability to lift #3-5 from counter height to overhead without pain within 10-12 weeks, for household and work activity. nm Patient will demonstrate/ report ability to sleep with losing <1-2 hours of sleep being interrupted by neck and shoulder pain. within 10-12 weeks -met but is up frequently due to needing bathroom Daily Plan of Care Continue per POC Recertification Information Initial Certification Date 10/25/23 Recertification Start Date 01/23/24 Recertification Due Date 05/14/24 Discharge Note Date of First Visit for Therapy 10/25/23 Initial Primary Functional Limitations walking standing sleeping reaching sleeping Initial Pain Level 8/10
== END 2024-03-20 14:00 | disposition home or self-care (01) ==
PROVIDERS: PCP Internal Medicine; Visit Provider Physician Assistant Surgical
DX: S82.001A Unspecified fracture of right patella, initial encounter for closed fracture (principal); M25.562 Pain in left knee; Z51.89 Encounter for other specified aftercare
CPT/HCPCS: 97110; 97140; 97162

== ENCOUNTER 2024-09-04 15:38 | Outpatient (CLI) | payer MEDICARE, BC, SELFPAY | END 2024-09-04 15:39 | disposition home or self-care (01) | LOC: NFLDREF 09-15 14:43 | PROVIDERS: PCP Internal Medicine; Referring Provider Internal Medicine; Visit Provider Internal Medicine | DX: R30.0 Dysuria (principal) | CPT/HCPCS: 87086; 87186 ==

== ENCOUNTER 2024-09-26 10:42 | Outpatient (CLI) | payer MEDICARE, BC, SELFPAY | END 2024-09-26 10:43 | disposition home or self-care (01) | LOC: NFLDREF 10:44 | PROVIDERS: PCP Internal Medicine; Visit Provider Registered Nurse | DX: N30.00 Acute cystitis without hematuria (principal); N39.0 Urinary tract infection, site not specified | CPT/HCPCS: 87086 ==

== ENCOUNTER 2025-01-08 09:45 | Outpatient (RCR) | payer MEDICARE, BC, SELFPAY ==
--- NOTE | 2024-09-04 12:57 | PT.OPEX ---
PT [place] Outpatient Eval PT [facility] Outpatient Eval Start: 09/04/24 08:55 Freq: Status: Active Protocol: Document 09/04/24 08:57 DONTRELL (Rec: 09/04/24 12:52 DONTRELL [id number]) E-signed By Lashay Ba, PT Physical Therapy Outpatient Evaluation Insurance Information Recert Due Date 12/03/24 Insurance Name Medicare B Medical Diagnosis left shoulder pain, deconditioned status Treating Diagnosis deconditioned status, left shoulder pain Referring MD Unique Reed MD Subjective Subjective Haley lives alone. She had a Stroke 06/19/24 and had the shot. Initially had L sided weakness with stroke onset. She had acute therapy. She has used a cane for a long time. She had some balance issues before the stroke, and then after the stroke it felt a bit worse. In 2019 had a pacemaker put in, then watchman procedure in Jul 2024 for chronic A-fib. She had a knicked artery during pacemaker attempt and bled into her leg for 6 days (2019) . She had significant pain in L leg with that, repaired the hole with foam. L leg doesn't feel right and has pain in inguinal area. She had home health after discharge from [place] 06/24. HH PT ended Prior to OP PT. She's shad shoulder pain for 3 years, L side shoulder/neck pain. She had seen Madhu for this in the past. She has fallen in her garage. She uses a walker at home, but furniture surfs. She uses a walker when she goes to the senior center, a man helps her load and unload walker. She sleeps in a recliner has for 40 years, and uses a desk to help her transfer out of chair in the night. She has grab bars in the hallway, in garage entry, [facility]. She has a stair lift to go up and down. Uses cane in R hand. 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 She has UI and wears a depends with a pad inside of it. She does not exercises, just IADLs. Pain Comments R patellar pain 3-4/10 L groin pain discomfort L shoulder pain 6-7/ Date of Next Physician Visit 01/09/25 Current Work Status Retired Precautions Treatment Precautions/Contraindications PMH: Chronic A-[place], h/o cardioembolic CVA, mild cog impairment, osteoporosis, h/o R patellar fx, Sleep apnea, atony of bladder, she has a liver disease of 40 years. Therapy Limitations/Systems Review Cognition Objective Other/Pertinent Objective Posture: flattened lumbar lordosis, Dowager's hump, Forward head, rounded shoulders. Gait- seeking support with L arm, cane step through pattern in R arm, forwarf flexed thoracic spine and hips Strength test to follow Sit/stand transfers: heavy use of arms, inconsistent first attempt to rise. Stand to sit poor eccen control Functional Test Performed & Score Rivera/56 Assessment Assessment/Impression Pt demonstrates impaired dynamic balance. She demonstrates poor strength for functional transfers to control eccentric lowering. She would benefit from greater support than cane with gait at this time, but has impaired functional strength for loading walker into car indep. She was very unstable with standing balance s visual support. She had arrived late to session and had lengthy subjective due to complex health hx and frustration with her health. She does live indep and would benefit from improved strength, flexibility , and endurance to remain indep and reduce risk of falls . Primary Functional Limitations fall risk, L shoulder/neck pain, gait instability, inability to lift walker into care for community mobility, R knee pain with transfers. Plan of Care Rehabilitation Potential Fair Rehabilitation Potential Comments complex health, deconditioned status. Chronicity of condition. Physical Therapy Goals Being able to load walker indep safely in 12 weeks to access community safely. Rivera of /56 to demonstrate improved balance c less falls risk Pt will demonstrate ability to rotate cervical spine 40 degrees bilat to improve comfort with driving in 12 weeks. Pt will be indep c HEP in order to maintain and progress gains made in therapy in 6 weeks. Pt demonstrates increased in her ability to transfer from ground to standing c UE support in 12 weeks. Pt will demonstrate sit/stand transfer s UE support to reduce strain on shoulders in 8 weeks. Treatment Plan/Direct Interventions Electrical Stimulation,Gait Training,Heat,Ice/Cold/ Vasopneumatic,Manual Therapy, Neuromuscular Re-ed,Self-Care/ Home Management,Therapeutic Activities,Therapeutic Exercises Frequency/Duration 1-2x/week for 12 weeks Patient Will Be Discharged From Therapy Completion of LTG(s),Skills Plateau,Independent w/HEP, Independently Progressing Evaluation Billing Untimed Code Treatment Minutes 45 PT Eval No Charge No Complexity High Certification Information Initial Certification Date 09/04/24 Ending Certification Date 12/03/24 Provider Signature Required Yes Provider Signature Shows Agreement With POC & Medical Necessity Physician NPI Number Write NPI# Here Physician Comment/Change : Physician Signature & Date Requested Please Sign/Date Here
--- NOTE | 2024-12-18 14:13 | PT.OPDNX ---
PT [place] Out[facility] Daily Note PT [facility] Outpatient Daily Note Start: 09/04/24 08:55 Freq: Status: Active Protocol: Document 12/18/24 12:53 DONTRELL (Rec: 12/18/24 14:12 DONTRELL [id number]) E-signed By Lashay Ba, PT PT OP Daily Progress Note Visit Information Note Type Daily Note Visit Number 10 Insurance Information Recert Due Date 03/18/25 Insurance Name Medicare B Medical Diagnosis left shoulder pain, deconditioned status Treating Diagnosis deconditioned status, left shoulder pain Referring MD Unique Reed MD Subjective Subjective She has reduced shoulder pain and neck pain with not reclining chair as far. Her cat woke her up this morning at 5 am and she very tired today. She is trying to clean out her garage a little bit Pain Comments R patellar pain 3-4/10 L groin pain discomfort L shoulder pain 6-710 Date of Next Physician Visit 09/04/24 Precautions Treatment Precautions/Contraindications PMH: Chronic A-trenton, h/o cardioembolic CVA, mild cog impairment, osteoporosis, h/o R patellar fx, Sleep apnea, atony of bladder, she has a liver disease of 40 years. Home Exercise Home Exercise Comments Access Code: [email or web address] URL: [email or web address] Date: 10/23/2024 Prepared by: Lashay Ba Exercises - Seated Long Arc Quad - 1 x daily - 4-5 x weekly - 1-2 sets - 10 reps - Ankle Pumps in Elevation - 1 x daily - 4-5 x weekly - 1-2 sets - 10 reps - Proper Sit to Stand Technique - 5 x daily - 4-5 x weekly - 1 sets - 1-2 reps - Heel Raises with Counter Support - 1 x daily - 4-5 x weekly - 1-2 sets - 10 reps - Seated Shoulder External Rotation - 1 x daily - 4-5 x weekly - 1 sets - 10 reps - Seated Hip Abduction with Resistance - 1 x daily - 4-5 x weekly - 1 sets - 10 reps - Seated Bicep Curls Supinated with Dumbbells - 1 x daily - 4-5 x weekly - 1-2 sets - 10 reps - Standing March with Counter Support - 1 x daily - 4-5 x weekly - 1-2 sets - 10 reps Objective Other/Pertinent Objective Posture: flattened lumbar lordosis, Dowager's hump, Forward head, rounded shoulders. Gait- seeking support with L arm, cane step through pattern in R arm, forwarf flexed thoracic spine and hips Strength test to follow Sit/stand transfers: heavy use of arms, inconsistent first attempt to rise. Stand to sit poor eccen control Scoliosis noted through thoracic spine. H/o compression fx's of thoracic spine Functional Test Performed & Score Rivera/56 BP: 132/78, HR 76 Patient Instructed in Risks/Benefits Yes Therapeutic Exercise Therapeutic Exercise Minutes (minutes) 45 Therapeutic Exercise: To Restore Nu Step L1 for 7 min Functional Status sit/stand x5 c LE emphasis from 19 chair c arms seated cervical retractions x10 -combined c yellow band rows x10 -combined c shoulder ext vs yellow band x10 seated scap retractions x10 Standing lateral taps x10 c Bilat UE support Standing heel/toe raises c B UE support x15 standing retro taps x10 c UE support Forward lean at counter: hip ext x10- cues for neutral spine UT stretch holding chair on L- cues for sidebend in tall posture UT activation at wall (wall slides) for thoracic ext Seated ER vs yellow band- difficulty c adducted arm position seated heel raises x10 seated tib ant c slow eccen x20, legs positioned ant Self Care Management Training Self Care Management Training assisted pt in apply biofreeze to upper R quadrant as she has limited reach. Treatment Minutes Timed Code Treatment Minutes 45 Total Treatment Time 45 Billing Units Therapeutic Exercise Units 3 Assessment/Impression Assessment/Impression Pt continues to struggle c patellar pain with knee ext activities on R and reduced quad strength. Her balance is improved as demonstrated by less UE reaching c UE to steady while walking through clinic today. Do continue to recommend 4WW or RW for improved support. She is challenged by indep to load walker in/out of vehicle to use support as well. Recommend strengthening and balance progressions to facilitate lifting AD greater than weight of cane into van. Primary Functional Limitations fall risk, L shoulder/neck pain, gait instability, inability to lift walker into care for community mobility, R knee pain with transfers. Plan of Care Physical Therapy Goals Being able to load walker indep safely in 12 weeks to access community safely. Rivera of 40/56 to demonstrate improved balance c less falls risk Pt will demonstrate ability to rotate cervical spine 40 degrees bilat to improve comfort with driving in 12 weeks. Pt will be indep c HEP in order to maintain and progress gains made in therapy in 6 weeks. Pt demonstrates increased in her ability to transfer from ground to standing c UE support in 12 weeks. Pt will demonstrate sit/stand transfer s UE support to reduce strain on shoulders in 8 weeks. Daily Plan of Care Continue per POC Recertification Information Initial Certification Date 09/04/24 Recertification Start Date 12/18/24 Recertification Due Date 03/18/25 Reasons to Continue Skilled Therapy Haley is deconditioned. She has had multiple missed session in winter due to health, fatigue and weather. She prefers 1 session per week due to fatigue and difficulty with attending sessions. She continues to benefit from intervals of strengthening in standing and sitting as her endurance and standing tolerence are limited. She has R UQ pain that is congruent with hyperkyphosis of thoracic spine c protracted cervical spine, RC weakness, and continued eccen demands on UT and lev scap to maintain head position. She has a complex medical health including heart surgery, stroke, liver disorder, h/o patellar fx on R , and deconditioned status. She is a falls risk and would benefit from continued care to enhance indep c IADLs c decreased falls risk. Rehabilitation Potential Fair- she has intermittent HEP compliance. Continued Plan of Care and Interventions Ther Ex, NMR, gait training, self cares, therapuetic activity Provider Signature Shows Agreement With POC & Medical Necessity Physician Comment/Change Comment or Changes Physician NPI Number #
== END 2025-01-09 08:37 | disposition home or self-care (01) ==
PROVIDERS: PCP Internal Medicine; Visit Provider Internal Medicine
DX: M25.512 Pain in left shoulder (principal); R54 Age-related physical debility; Z51.89 Encounter for other specified aftercare
CPT/HCPCS: 97110; 97112; 97116; 97140; 97163; 97535

== ENCOUNTER 2025-01-14 15:48 | Outpatient (CLI) | payer MEDICARE, BC, SELFPAY | END 2025-01-14 15:49 | disposition home or self-care (01) | LOC: NFLDREF 01-21 16:25 | PROVIDERS: PCP Internal Medicine; Referring Provider Internal Medicine; Visit Provider Internal Medicine | DX: N39.0 Urinary tract infection, site not specified (principal); B96.89 Other specified bacterial agents as the cause of diseases classified elsewhere | CPT/HCPCS: 87086 ==

== ENCOUNTER 2025-02-20 16:00 | Outpatient (CLI) | payer MEDICARE, BC, SELFPAY | END 2025-02-20 16:01 | disposition home or self-care (01) | LOC: NFLDREF 02-24 13:57 | PROVIDERS: PCP Internal Medicine; Referring Provider Internal Medicine; Visit Provider Internal Medicine | DX: R30.0 Dysuria (principal); R19.5 Other fecal abnormalities | CPT/HCPCS: 87086 ==

== ENCOUNTER 2025-06-04 10:53 | Outpatient (CLI) | payer MEDICARE, BC, SELFPAY ==
[2025-06-04 14:54] LABS: Hematocrit* 42.6 % (33.0-51.0); Hemoglobin* 13.7 gm/dL (12.0-16.0); Immature Granulocytes Abs Auto 0.05 K/uL (0.00-0.30); Immature Granulocytes Pct Auto 0.8 %; Mean Corpuscular HGB Conc 32 gm/dL (32-36); Mean Corpuscular Hemoglobin 29 pg (26-34); Mean Corpuscular Volume 89 fL (80-100); RDW Coefficient of Variation % 13.5 % (11.5-15.5); Red Blood Count* 4.80 m/uL (4.00-5.20); White Blood Count* 6.25 K/uL (4.50-11.00)
[2025-06-04 14:58] LABS: Lymphocytes Absolute Auto 0.80 K/uL (0.90-2.90); Slide Review Reflex No
== END 2025-06-04 10:54 | disposition home or self-care (01) ==
LOC: NPINS 10:54
PROVIDERS: PCP Internal Medicine; Visit Provider Nurse Practitioner
DX: K74.3 Primary biliary cirrhosis (principal)
CPT/HCPCS: 85025

== ENCOUNTER 2025-07-08 14:45 | Outpatient (RCR) | payer MEDICARE, BC, SELFPAY ==
--- NOTE | 2025-03-12 14:55 | PT.OPEX ---
PT [place] [facility]patient Eval PT [facility] Outpatient Eval Start: 03/11/25 15:30 Freq: Status: Active Protocol: Document 03/12/25 07:25 HLA (Rec: 03/12/25 14:47 HLA [id number]) E-signed By Clare Izaguirre, PT, DPT Physical Therapy Outpatient Evaluation Insurance Information Recert Due Date 06/09/25 Insurance Name Medicare B,Blue Cross/Blue Shield Medical Diagnosis gait imbalance. PMHx of CVA, TIAs, a-fib with Watchman procedure, pacemaker, osteoporosis, biliary cholangitis , VIRI, cognitive impairment, R patella fx Treating Diagnosis balance impairment, gt instability, weakness, fall risk Referring MD Reed Subjective Preferred Name Haley Subjective Reports fear of falling, decline in her mobility and wants to be stronger, move better, have better balance. She has some emotional feelings throughout session, crying over her lengthy illness and complicated life regarding her health the past few years. Pain Comments R knee pain L scapula pain mild to moderate Date of Last 03/03/25 Physician Visit Current Work Status Retired Precautions Treatment Access Code: [email or web address] Precautions/ URL: [email or web address] Contraindications Date: 03/12/2025 Prepared by: Clare Izaguirre Exercises - Sit to Stand with Armchair - 1 x daily - 7 x weekly - 1 sets - 10 reps - Seated Passive Cervical Retraction - 1 x daily - 7 x weekly - 1 sets - 10 reps - 5 hold - Seated Shoulder Shrugs - 1 x daily - 7 x weekly - 1 sets - 10 reps - Shoulder Rolls in Sitting - 1 x daily - 7 x weekly - 1 sets - 10 reps - Seated Scapular Retraction - 1 x daily - 7 x weekly - 1 sets - 10 reps - 5 hold - Narrow Stance with Counter Support - 1 x daily - 7 x weekly - 1 sets - 3 reps - 20 hold - Standing Tandem Balance with Counter Support - 1 x daily - 7 x weekly - 1 sets - 3 reps - 20 hold Weight Bearing Weight Bear as Tolerated Status Therapy Limitations/ Not Limited Systems Review Objective Range of Motion B shldrs 0-150 elevation, ER/IR full elbows B full wrists B full hands B full hips 5-110 flex B, hip abd 0-30, ER/IR 0-30 knees R knee 5-80, L 0-110 ankles R DF to 10, L to 10, B PF full Strength R shldr 5/5, L 4/5 elbows R 5/5, L 4/5 wrists R 5/5, L 4/5 hands R 5/5, L 4/5 hips 4+/5 R, 4/5 L knees B 4+/5 ankles DF 4/5 R, 4-/5 R, B PF 4/5 Swelling edema B LEs noted, elevates at home Palpation pain palpation R patella Balance & Gait Gait gt abducted, short steps, thoracic kyphosis and fwd head. Short steps, reaches for franco and furniture no device. Balance testing below Posture fwd head, thoracic kyphosis Sensation/Reflexes B foot subjective c/o numbness. Intact to light touch Functional Test 5 time sit<>stand 16.95 sec shows fall risk Performed & Score Functional reach 9 inches shows fall risk TUG 15.99 sec shows fall risk Tinetti 17/28 no device high fall risk Assessment Assessment/ Haley is an 84-year-old female referred to PT by her Impression PCP due to gait imbalance. Haley lives alone in her own 1 level home, 3 step entry with railing. 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 She has been ind at dressing, sponge bathes , no shower, amb with cane outdoors, furniture-walks in the home. She sleeps in a lift chair at home. Owns several walkers but space is challenging so she did give her 4 wheeled walker away to a friend for now. She has some concerns about falling coming into the clinic today. No falls in the past 2-3 months, she is quite fearful she will fall especially at night. She takes her phone with her and also had a medical alert button at night. Her goal is to be stronger, improve balance so she can walk with more ease. She is open to using an AD, would have to ask for her walker back, however. Prefers cane outdoors and no device in the home. Her goal is to remain in her own home. Pt presents with weakness L UE/LE and R knee (previous patellar fx), impaired balance with 5 time sit<>stand 16.95 sec shows fall risk; Functional reach 9 inches shows fall risk; TUG 15.99 sec shows fall risk; Tinetti no device high fall risk. She has significant thoracic kyphosis and fwd head, difficulty lifting head to neutral also impacting mobility. Gt is slow, abducted, short steps no device and with cane. Stairs sba with railing. 2 x 2 . Issued basic posture ex, positioning in recliner instructed, and began strength and balance ex and home program instruction today. Due to with weakness, impaired balance, impaired ambulation and will benefit from weekly PT for strengthening, ROM, balance training , gt training, safety, fall prevention and home ex program instruction with goal to return to community based mobility at low fall risk. Primary Functional impaired strength Limitations impaired balance impaired amb fall risk pain Plan of Care Rehabilitation Good Potential Physical Therapy Within 8 weeks Goals 1. Pt will remain free of falls during therapy intervention period. 2. Pt will score 20% increase on 2 of 3 balance tests for reduced fall risk, promoting independence. 3. Pt will be independent in home ex program to promote strength and balance and to reduce fall risk. 4. Pt will amb 200 feet with least restrictive device safely and independently for community mobility. Coordination/ Referral Source Communication With Treatment Plan/ Gait Training,Joint Mobilization,Manual Therapy, Direct Interventions Neuromuscular Re-ed,Orthotics/Braces,Therapeutic Exercises Frequency/Duration 1x/week x 8 weeks Patient Will Be Completion of LTG(s),Skills Plateau,Independent w/HEP, Discharged From Independently Progressing Therapy Evaluation Billing Untimed Code 25 Treatment Minutes PT Eval No Charge No Complexity Moderate Certification Information Initial 03/12/25 Certification Date Ending Certification 06/09/25 Date Provider Signature Yes Required Provider Signature POC & Medical Necessity Shows Agreement With Physician NPI Number Write NPI# Here Physician Comment/ : Change Physician Signature Please Sign/Date Here & Date Requested
== END 2025-07-29 08:40 | disposition home or self-care (01) ==
PROVIDERS: PCP Internal Medicine; Visit Provider Internal Medicine
DX: R26.89 Other abnormalities of gait and mobility (principal); Z51.89 Encounter for other specified aftercare
CPT/HCPCS: 97110; 97112; 97116; 97162

== ENCOUNTER 2025-07-19 15:03 | Outpatient (CLI) | payer MEDICARE, BC, SELFPAY | END 2025-07-19 15:04 | disposition home or self-care (01) | LOC: AMB 07-27 13:54 | PROVIDERS: PCP Internal Medicine; Visit Provider Family Medicine | DX: S79.911A Unspecified injury of right hip, initial encounter (principal); W10.9XXA Fall (on) (from) unspecified stairs and steps, initial encounter; Y92.008 Other place in unspecified non-institutional (private) residence as the place of occurrence of the external cause | CPT/HCPCS: A0425; A0427 ==

== ENCOUNTER 2025-07-19 15:39 | Emergency (ER) | payer MEDICARE, BC, SELFPAY ==
--- OUTSIDE RECORDS SUMMARY | 2025-06-22 07:14 | XMS_ITS | Encounter Summary ---
Author Organization [facility] Address [address] [place] [id number] Care Team Providers Care Assistant Coach Name Role Phone Elsewhere, Pcp Primary Care Provider Unavailabl e Encounter Details Date Type Department Care Team (Latest Contact Info) Description 06/22/2025 8:14 AM CDT - 06/22/2025 8:42 AM CDT Hospital Encounter Department of Laboratory Medicine and Pathology, [facility] in [place], [place] [address] [place] [phone] Kristen Montano P.A.-C., M.S. [address] [place] [phone] Atrial Fibrillation Permanent (HCC) Discharge Disposition: Home or Self Care Social History Tobacco Use Types Packs/Day Years Used Date Smoking Tobacco: Never Cigarettes Smokeless Tobacco: Never Comments:Exposed to 2nd hand smoke for many years. Alcohol Use Standard Drinks/Week Comments Never 0 (1 standard drink = 0.6 oz pur e alcohol) [facility] Utilities Answer Date Recorded In the past 12 months has th e electric, gas, oil, or water company threatened to shut off services in your home? No 10/22/2024 Humiliation, Afraid, Rape, and Kick questionnair e [...] by your partner or ex-partner? No 04/30/2022 Hunger Vital Sign Answer Date Recorded Within the past 12 months, y ou worried that your food would run out before you got the money to buy more. Never true 10/22/19 25 Within the past 12 months, t he food you bought just didn't last and you didn't have money to get more. Never true 10/22/2024 PRAPARE - Transportation Answer Date Re corded In the past 12 months, has l ack of transportation kept you from medical appointments or from getting medications? No 09/28 In the past 12 months, has l ack of transportation kept you from meetings, work, or from getting things needed for daily living? No 10/22/2024 Depression Answer Date Recor ded PHQ-9 Total Score (max 27) 6 04/16 Housing Stability Answer Date Recorded What is your living situation today? I have a [facility] [address] to live 10/22/2024 Education Answer Date Recorded What is the highest level of school you have completed or the highest degree you have received? 12th grade 12/18/2019 Comments No Sex and Gender Information Value Date Recorded Sex Assigned at Female 04/30/2022 10:29 AM CDT Legal Sex Female 8:55 AM SERVICE DOG TRAINER Gender Identity Female 01/06/2018 4:13 PM CDT Sexual Orientation Straight 01/06/2018 4: 13 PM CDT documented as of this encounter Medications at Time of Discharge acetaminophen (TylenoL) 500 mg tablet Take 500-1,000 mg by mouth as needed. 06/23/2024 calcium carbonate 260 mg calcium (648 mg) tablet Take 1 tablet by mouth 2 (two) times a day. 12/13/2016 cholecalciferol (VITAMIN D3) 50 mcg (2,000 Unit) capsule Take 1 capsule by mouth daily. 12/25/2014 clopidogreL (Plavix) 75 mg tablet Take 1 tablet (75 mg total) by mouth daily. Start after Eliquis completed and continued indefinitely for Watchman device. 90 tablet 3 11/04/2024 cyclobenzaprine (FlexeriL) 5 mg tablet Take 5 mg by mouth as needed. 06/23/2024 multivitamin tablet Take 1 tablet by mouth daily. 06/05/2009 [id number] -C (MoviPrep) 100-7.5-2.691 gram kitIndications:B lood In Stool Do first portion of prep at 6 PM the evening before. Second portion must be started 3 hrs before and finished 2 hrs prior to report time. 1 kit 03/03/2025 rosuvastatin (Crestor) 20 mg tablet Take 20 mg by mouth daily. ursodioL (GAL Forte) 500 mg tabletIndication s:Cirrhosis Biliary Primary (HCC) Take 1 tablet (500 mg total) by mouth 2 (two) times a day. 180 tablet 3 05/26/2025 ursodioL (GAL) 250 mg tablet Take 2 tablets (500 mg total) by mouth 2 (two) times a day. 360 tablet 3 06/01/2025 documented as of this encounter Plan of Treatment Upcoming Encounters Date Type Department Care Team (Late st Contact Info) Description 07/22/2025 3:30 PM SERVICE DOG TRAINER Office Visit Department of Orthopedic Surgery in [place], [place] [address] [place] [phone] Lucille Solomon APRN, C.N.P., D.N.P. [address] [place] [phone] 07/28/2025 9:00 AM SERVICE DOG TRAINER Virtual Visit Department of Cardiovascular Medicine in [place], [place] [address] [place] [phone] Kristen Montano P.A.-C., M.S. [address] [place] [phone] documented as of this encounter Goals Goal Patient Goal Type Associated Problems Recent Progress Patient-Stated? Author [facility] Care Plan for Colonoscopy Routine Prep Care Plan [facility] Care Plan for Colonoscopy Routine Prep No Denia Ball M.B.BVeritoS. documented as of this encounter Procedures Procedure Name Priority Date/Time Associated Diagnosis Comments CBC WITH DIFFERENTIAL, B Routine 06/22/2025 8:29 AM CDT Atrial Fibrillation Permanent (HCC) CREATININE WITH EGFR, S/P Routine 06/22/2025 8:29 AM CDT Atrial Fibrillation Permanent (HCC) documented in this encounter Results * Creatinine with Estimated GFR (06/22/2025 8:29 AM CDT) Creatinine 0.68 0.59 - 1.04 mg/dL 06/22/2025 10:11 AM CDT DTL Estimated GFR (eGFR) 86 >=60 mL/min/BSA 06/22/2025 10:11 AM CDT DTL Comment: Estimated GFR calculated using the 2020 CKD_EPI creatinine equation. Blood (Blood, Venous) 06/22/2025 8:29 AM CDT 06/22/2025 9:02 AM CDT Kristen Montano P.A.-C., M.S. LAB BLOOD ADD-O N Final Result [facility] [place] [address] [place] [address], [place] DTL [facility] [address] [place] [address] * (ABNORMAL) CBC with Differential, Blood (06/22/2025 8:29 AM CDT) Hemoglobin 13.0 11.6 - 15.0 g/dL 06/22/2025 9:31 AM CDT DTL Hematocrit 39.7 35.5 - 44.9 % 06/22/2025 9:31 AM CDT DTL Erythrocytes 4.48 3.92 - 5.13 x10(12)/L 06/22/2025 9:31 AM CDT DTL MCV 88.6 78.2 - 97.9 fL 06/22/2025 9:31 AM CDT DTL RBC Distrib Width 13.9 12.2 - 16.1 % 06/22/2025 9:31 AM CDT DTL Platelet Count 118(L) 157 - 371 x10(9)/L 06/22/2025 9:56 AM CDT DTL Leukocytes 5.9 3.4 - 9.6 x10(9)/L 06/22/2025 9:56 AM CDT DTL Neutrophils 4.30 1.56 - 6.45 x10(9)/L 06/22/2025 9:31 AM CDT [facility] Lymphocytes 0.82(L) 0.95 - 3.07 x10(9)/L 06/22/2025 9:31 AM CDT DTL Monocytes 0.63 0.26 - 0.81 x10(9)/L 06/22/2025 9:31 AM CDT DTL Eosinophils 0.13 0.03 - 0.48 x10(9)/L 06/22/2025 9:31 AM CDT DTL Basophils <0.03 0.01 - 0.08 x10(9)/L 06/22/2025 9:31 AM CDT DTL Blood (Blood, Venous) 06/22/2025 8:29 AM CDT 06/22/2025 9:00 AM CDT us Kristen Montano P.A.-C., M.S. LAB BLOOD ADD-O N Final Result [facility] [place] [address] [place] [address], [facility] DTL [facility] [place] [address] [place] [address] [facility] [address] [place] [address] documented in this encounter Visit Diagnoses Diagnosis Atrial Fibrillation Permanent (HCC) documented in this encounter Additional Health Concerns Active Problems Noted Date Diagnosed Date [facility] Care Plan for Colonoscopy Routine Pr ep 03/02/2025 Assessment Noted Time PHQ-9 Depression Total Score: 6 04/16/20 24 9:44 AM CDT documented as of this encounter Care Teams Assistant Coach Relationship Specialty Start Date End Date Elsewhere, Pcp PCP - General Internal Medicine 08/19/23 documented as of this encounter
--- OUTSIDE RECORDS SUMMARY | 2025-06-22 07:43 | XMS_ITS | Encounter Summary ---
Author Organization [facility] Address [address] [place] [address] Care Team Providers Care Debit Agent Name Role Phone Elsewhere, Pcp Primary Care Provider Unavailabl e Reason for Referral * MRI/CAT/PET Scan (Routine) - Closed Specialty Diagnoses / Procedures Referred By Contsiddharth t Referred To Contact Radiology Diagnoses Atrial Fibrillation Permanent (HCC) Procedures CT Cardiac Structural Heart with IV Contrast Kristen Montano PVeritoAVerito-Madeline., M.S. [address] [place] [address] Phone: tel: fax: [facility] Referral ID Status Reason Start Date Expiration Date Visits Re quested Visits Authorized [id number] Closed 06/02/2025 09/02/2026 1 1 Reason for Visit * MRI/CAT/PET Scan (Routine) - Closed Specialty Diagnoses / Procedures Referred By Carolyn t Referred To Contact Radiology Diagnoses Atrial Fibrillation Permanent (HCC) Procedures CT Cardiac Structural Heart with IV Contrast Kristen Montano P.A.-C., M.S. [address] [place] [address] Phone: tel: fax: [facility] Referral ID Status Reason Start Date Expiration Date Visits Re quested Visits Authorized [id number] Closed 06/02/2025 09/02/2026 1 1 Encounter Details Date Type Department Care Team (Latest Contact Info) Description 06/22/2025 8:43 AM CDT - 06/22/2025 11:59 PM CDT Hospital Encounter Department of Radiology, [facility], in [place], [place] [address] [place] [address] Kristen Montano P.A.-C., M.S. [address] [place] [address] Atrial Fibrillation Permanent (HCC) Discharge Disposition: Home or Self Care Social History Tobacco Use Types Packs/Day Years Used Date Smoking Tobacco: Never Cigarettes Smokeless Tobacco: Never Comments:Exposed to 2nd hand smoke for many years. Alcohol Use Standard Drinks/Week Comments Never 0 (1 standard drink = 0.6 oz pur e alcohol) [facility] Utilities Answer Date Recorded In the past 12 months has [facility] [employer], oil, or water [employer] threatened to shut off services in your [...] living situation today? I have a [facility] place to live 10/22/2024 Education Answer Date Recorded What is the highest level of school you have completed or the highest degree you have received? 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 06/05/2009 [id number] (MoviPrep) 100-7.5-2.691 gram kitIndications:B lood In [...] 3 06/01/2025 documented as of this encounter Nursing Notes * Robbie, Loreto Gongora M.S., R.N. - 06/22/2025 9:30 AM CDT Pt has small veins. She is accepting IV contrast. Spoke with radiologist, Dr. Yeh, who Ok'd decreasing contrast rate. documented in this encounter Plan of Treatment Upcoming Encounters Date Type Department Care Team (Late st Contact Info) Description 07/22/2025 3:30 PM NEWSPAPER JOURNALIST Office Visit Department of Orthopedic Surgery in [place], [place] [address] [place] [address] Lucille Solomon, DEO, C.N.P., D.N.P. [address] [place] [phone] 07/28/2025 9:00 AM NEWSPAPER JOURNALIST Virtual Visit Department of Cardiovascular Medicine in [place], [place] [address] [place] [phone] Kristen Montano P.A.-C., M.S. [address] [place] [address] documented as of this encounter Goals Goal Patient Goal Type Associated Problems Recent Progress Patient-Stated? Author [facility] Care Plan for Colonoscopy Routine Prep Care Plan [facility] Care Plan for Colonoscopy Routine Prep Denia Srivastava M.B.B.S. documented as of this encounter Procedures Procedure Name Priority Date/Time Associated Diagnosis Comments CT CARDIAC STRUCTURAL HEART WITH IV CONTRAST RAD - Routine (most inpatients and all outpatients) 06/22/2025 10:34 AM CDT Atrial Fibrillation Permanent (HCC) documented in this encounter Results * CT Cardiac Structural Heart with IV Contrast (06/22/2025 10:34 AM CDT) Anatomical Region Laterality Modality Cardiac, Cardiovascular RST LOS, Thoracic ARZ LOS, Cardiovascular FLA LOS N/A Computed Tomography, Compute d Tomography Impressions 06/22/2025 11:57 AM CDT 1. Left atrial appendage closure device is satisfactorily position. Slow contrast opacification of distal appendage. No trinh-device leak. Minimal intra-device opacification. 2. No device associated thrombus facing left atrial body. Narrative 06/22/2025 11:57 AM CDT EXAM: CT CARDIAC STRUCTURAL HEART WITH IV CONTRAST Including 3D image post-processing. COMPARISON: Cardiac CT 03/01/2025 CARDIOVASCULAR FINDINGS: LEFT ATRIUM: Interval postprocedural changes of left atrial appendage closure. The closure device is in satisfactory position. The distal appendix demonstrates slow contrast opacification. Minimal intra-device opacification. No trinh-device channel. No device associated thrombus facing left atrial body.. OTHER CARDIOVASCULAR FINDINGS: Normal LV chamber sizes. Hypokinetic LV apex. Thickening of basal septum measuring up to 15 mm. Biatrial and right ventricular enlargement. Inferior aspect of atrial septum bulges into right atrial cavity. Mild mitral annular calcification. Tricuspid aortic valve with good leaflet excursion. Cardiac device leads terminate in right atrial appendage and right ventricular apex. No intracardiac thrombus. Main pulmonary artery measures 33 mm. Visualized pulmonary arteries are patent. Pulmonary veins are patent and drain into left atrium. Mid ascending aorta is mildly dilated to 40 mm. Remainder of thoracic aorta is patent and normal caliber. Mild to moderate calcified plaque in descending thoracic aorta. Mildly dilated distal celiac artery, incompletely imaged, similar to prior study. Study is not optimized for evaluation of coronary arteries. Scattered calcified plaque in the coronary arteries. ADDITIONAL FINDINGS: Lungs show mosaic attenuation, could be due to air-trapping or expiratory imaging. Mild bibasilar atelectasis. Streak artifact from cholecystectomy clips. Calcified granuloma in spleen.. Degenerative changes in the spine. Procedure Note Jacky Yeh M.D., Ph.D. - 06/22/2025 EXAM: CT CARDIAC STRUCTURAL HEART WITH IV CONTRAST Including 3D image post-processing. COMPARISON: Cardiac CT 03/01/2025 CARDIOVASCULAR FINDINGS: LEFT ATRIUM: Interval postprocedural changes of left atrial appendage closure. Theclosure device is in satisfactory position. The distal appendixdemonstrates slow contrast opacification. Minimal intra-deviceopacification. No trinh-device channel. No device associated thrombus facing left atrial body.. OTHER CARDIOVASCULAR FINDINGS: Normal LV chamber sizes. Hypokinetic LV apex. Thickening of basal septummeasuring up to 15 mm. Biatrial and right ventricular enlargement. Inferior aspect of atrialseptum bulges into right atrial cavity. Mild mitral annular calcification. Tricuspid aortic valve with good leaflet excursion. Cardiac device leads terminate in right atrial appendage and rightventricular apex. No intracardiac thrombus. Main pulmonary artery measures 33 mm. Visualized pulmonary arteries arepatent. Pulmonary veins are patent and drain into left atrium. Mid ascending aorta is mildly dilated to 40 mm. Remainder of thoracicaorta is patent and normal caliber. Mild to moderate calcified plaque indescending thoracic aorta. Mildly dilated distal celiac artery, incompletely imaged, similar to priorstudy. Study is not optimized for evaluation of coronary arteries. Scatteredcalcified plaque in the coronary arteries. ADDITIONAL FINDINGS: Lungs show mosaic attenuation, could be due to air-trapping or expiratoryimaging. Mild bibasilar atelectasis. Streak artifact from cholecystectomy clips. Calcified granuloma in spleen.. Degenerative changes in the spine. IMPRESSION: 1. Left atrial appendage closure device is satisfactorily position. Slowcontrast opacification of distal appendage. No trinh-device leak. Minimalintra-device opacification. 2. No device associated thrombus facing left atrial body. Kristen Montano P.A.-C., M.S. IMG CT PROCEDUR ES Final Result documented in this encounter Visit Diagnoses Diagnosis Atrial Fibrillation Permanent (HCC) documented in this encounter Administered Medications Inactive Administered Medications - up to 3 most recent administrations Medication Order MAR Action Action Date Dose Rate Site iopromide 370 mg iodine/mL injection 1-162 mL (Ultravist) 1-162 mL, intravenous, Once in imaging, contrast, Starting on Sun06/22/25 at 0941, For 1 dose, Imaging Protocol Orders, Dose per Radiant Medication Guidelines Given 06/22/2025 10:18 AM CDT 140 mL sodium chloride (PF) 0.9 % injection 1-100 mL 1-100 mL, intravenous, Once, On Sun06/22/25 at 1000, For 1 dose, Imaging Protocol Orders, Dose per Radiant Medication Guidelines Given 06/22/2025 10:03 AM CDT 10 mL documented in this encounter Additional Health Concerns Active Problems Noted Date Diagnosed Date [facility] Care Plan for Colonoscopy Routine Pr ep 03/02/2025 Assessment Noted Time PHQ-9 Depression Total Score: 6 04/16/20 24 9:44 AM CDT documented as of this encounter Care Teams Debit Agent Relationship Specialty Start Date End Date Elsewhere, Pcp PCP - General Internal Medicine 08/19/23 documented as of this encounter
[2025-07-19] VITALS (23 sets, daily range): BP systolic 128–176; BP diastolic 63–86; PULSE 70–77; RESP 14; TEMP 36.6; O2SAT 88–99
--- OUTSIDE RECORDS SUMMARY | 2025-07-19 15:40 | XMS_ITS | Clinical Summary ---
Author Organization [facility] Address [address] [place] [address] Care Team Providers Care Labor Relations Supervisor Name Role Phone Juan [facility] Phys Of Primary Care Provider Un available [...] Counseling for parent-child problem, unspecified 12/05/2006 Immunizations Immunization Administration Dates Next Due AMB INFLUENZA IIV3 (AGE 65+ YRS) PF (Flu Clinic Only) 06/12/2019 Influenza A (H1N1), Inactivated (Age >=3 Years) 08/13/2009 Social History Tobacco Use Types Packs/Day Years Used Date Smoking Tobacco: Never Smokeless Tobacco: Never Tobacco Cessation:Counseling Given: Yes Alcohol Use Standard Drinks/Week Comments Not Currently 0 (1 standard drink = 0.6 oz pur e alcohol) Comments No Sex and Gender Information Value Date Recorded Sex Assigned at Not on file Legal Sex Female 5:41 AM LIFE SKILLS SPECIALIST Gender Identity Not on file Sexual Orientation Not on file Obstetrics History Last Filed Vital Signs Vital Sign Reading Time Taken Comments Blood Pressure 131/61 09/13/2020 7:00 AM LIFE SKILLS SPECIALIST Pulse 92 09/13/2020 7:00 AM LIFE SKILLS SPECIALIST Temperature 36.7 C (98.1 F) 09/13/2020 6:45 AM LIFE SKILLS SPECIALIST Respiratory Rate 18 09/13/2020 6:45 AM LIFE SKILLS SPECIALIST Oxygen Saturation 96% 09/13/2020 7:00 AM LIFE SKILLS SPECIALIST Inhaled Oxygen Concentration - - Weight 64.4 kg (142 lb) 09/13/2020 6:45 AM LIFE SKILLS SPECIALIST Height 157.5 cm (5' 2) 09/13/2020 6:45 AM LIFE SKILLS SPECIALIST Body Mass Index 25.97 09/13/2020 6:45 AM LIFE SKILLS SPECIALIST Plan of Treatment Health Maintenance Due Date Last Done Comments Tetanus booster 1952 Depression screening for age 12+ 1953 BMI (ht and wt on same day) for age 18+ 1959 Pneumococcal series for age 50+ (1 of 1 - PCV) 1991 Zoster (shingles) series for age 50+ (1 of 2) 1991 DEXA/DXA scan for age 65+ 2006 Medicare Wellness for age 65+ 2006 RSV vaccine for adults or (1 - 1-dose 75+ series) 2016 Influenza Vaccine (#1) 2025 06/12/2019 Hepatitis B series for 19+ Aged Out N o longer eligible based on patient's age to complete this topic Insurance MEDICARE PB ONLY MEDICARE PART B HB ONLY Care Teams Labor Relations Supervisor Relationship Specialty Start Date End Date Jimmie Martinez Phys Of PCP - General 09/13/20
--- OUTSIDE RECORDS SUMMARY | 2025-07-19 15:41 | XMS_ITS | Encounter Summary ---
Author Organization [facility] Address [address] [place] [address] Care Team Providers Care Water Softener Servicer Name Role Phone Elsewhere, Pcp Primary Care Provider Unavailabl e Encounter Details Date Type Department Care Team (Late st Contact Info) Description 06/04/2025 Orders Only Division of Gastroenterology in [place], [place] [address] [place] [phone] External, Ordering ProviderLiz Social History Tobacco Use Types Packs/Day Years Used Date Smoking Tobacco: Never Cigarettes Smokeless Tobacco: Never Comments:Exposed to 2nd hand smoke for many years. Alcohol Use Standard Drinks/Week Comments Never 0 (1 standard drink = 0.6 oz pur e alcohol) [facility] Utilities Answer Date Recorded In [...] your living situation today? [facility] 10/22/2024 Education Answer Date Recorded What is the highest level of school you have completed or the highest degree you have received? 12th grade 12/18/2019 Comments No Sex and Gender Information Value Date Recorded Sex Assigned at Female 04/30/2022 10:29 AM CDT Legal Sex Female 8:55 AM IRRIGATION EQUIPMENT REMOVER Gender Identity Female 01/06/2018 4:13 PM CDT Sexual Orientation Straight 01/06/2018 4: 13 PM CDT documented as of this encounter Plan of Treatment Upcoming Encounters Date Type Department Care Team (Late st Contact Info) Description 07/22/2025 3:30 PM IRRIGATION EQUIPMENT REMOVER Office Visit Department of Orthopedic Surgery in [place], [place] [address] [place] [address] KnLucille anderson APRN CVeritoNVeritoPVerito, D.N.P. [address] [place] [phone] 07/28/2025 9:00 AM IRRIGATION EQUIPMENT REMOVER Virtual Visit Department of Cardiovascular Medicine in [place], [place] [address] [place] [phone] Kristen Montano P.A.-C., M.S. [address] [place] [phone] documented as of this encounter Goals Goal Patient Goal Type Associated Problems Recent Progress Patient-Stated? Author [facility] Care Plan for Colonoscopy Routine Prep Care Plan [facility] Care Plan for Colonoscopy Routine Prep Denia Srivastava M.B.BVeritoSVerito documented as of this encounter Procedures Procedure Name Priority Date/Time Associated Diagnosis Comments CBC WITH DIFFERENTIAL, B Routine 06/04/2025 10:55 AM CDT documented in this encounter Results * (ABNORMAL) CBC with Differential, Blood (06/04/2025 10:55 AM CDT) EXT Leukocytes 6.25 4.50 - 11.00 K/uL SCANNED REPORT EXT RBC 4.80 4.00 - 5.20 m/uL SCANNED REPORT EXT Hemoglobin 13.7 12.0 - 16.0 gm/dL SCANNED REPORT EXT Hematocrit 42.6 33.0 - 51.0 % SCANNED REPORT EXT MCV 89 80 - 100 fL SCANNED REPORT EXT Platelet Count 142 140 - 440 K/uL SCANNED REPORT EXT Neutrophils 4.70 1.7 - 7.0 K/uL SCANNED REPORT EXT Lymphocytes 0.80(L) 0.90 - 2.90 K/uL SCANNED REPORT EXT Monocytes 0.60 0.00 - 0.90 K/UL SCANNED REPORT EXT Eosinophils 0.11 0.00 - 0.50 K/uL SCANNED REPORT EXT Basophils 0.02 0.00 - 0.30 K/uL SCANNED REPORT 06/04/2025 10:5 5 AM CDT Narrative SCANNED REPORT - 06/04/2025 3:40 PM CDT External results verified in Extract by Bettie Donato on 06/04/2025 at 03:39 PM. Additional tests on scanned report. us Ordering Provider External M.DVerito LAB BLOOD ADD-ON Final Result SCANNED REPORT documented in this encounter Visit Diagnoses Not on filedocumented in this encounter Additional Health Concerns Active Problems Noted Date Diagnosed Date [facility] Care Plan for Colonoscopy Routine Pr ep 03/02/2025 Assessment Noted Time PHQ-9 Depression Total Score: 6 04/16/20 24 9:44 AM CDT documented as of this encounter Care Teams Water Softener Servicer Relationship Specialty Start Date End Date Elsewhere, Pcp PCP - General Internal Medicine 08/19/23 documented as of this encounter
--- OUTSIDE RECORDS SUMMARY | 2025-07-19 15:41 | XMS_ITS | Clinical Summary ---
Author Organization [facility] Address [address] [place] [id number] Care Team Providers Care Container Filler Name Role Phone Elsewhere, Pcp Primary Care Provider Unavailabl e Source Comments Patient records contain information from all sites at [facility]. For routine questions regarding patient records, call [phone] during business hours, M-F 8:00 AM - 5:00 PM Central Time. Record requests for emergency care only can be directed to [phone] at any time.[facility] Allergies Active Allergy Reactions Criticality Noted Date Comments Azithromycin Other (see comments) 06/14/2011 Liver problems Erythromycin Base Other (see comments) 06/14/20 11 Liver problems Penicillin V Other (see comments) 01/04/2021 Sulfa (Sulfonamide Antibiotics) Other (see comments) 2008 Liver problems Trimethoprim GI intolerance 11/16/2023 Medications * This document contains information received from the source organization and may not represent a complete record from that organization. calcium carbonate 260 mg calcium (648 mg) tablet Take 1 tablet by mouth 2 (two) times a day. 7 Active cholecalciferol (VITAMIN D3) 50 mcg (2,000 Unit) capsule Take 1 capsule by mouth daily. 5 Active multivitamin tablet Take 1 tablet by mouth daily. 9 Active acetaminophen (TylenoL) 500 mg tablet Take 500-1,000 mg by mouth as needed. 4 Active cyclobenzaprine (FlexeriL) 5 mg tablet Take 5 mg by mouth as needed. 4 Active rosuvastatin (Crestor) 20 mg tablet Take 20 mg by mouth daily. Active clopidogreL (Plavix) 75 mg tablet Take 1 tablet (75 mg total) by mouth daily. Start after Eliquis completed and continued indefinitely for Watchman device. 90 tablet 3 5 Active zolpidem (Ambien) 5 mg tablet Take 1 tablet (5 mg total) by mouth once for 1 dose. Take on the night of the sleep study in the presence of the boiler/chiller technician. 1 tablet 5 Active [id number] b-C (MoviPrep) 100-7.5-2.691 gram kitIndications: Blood In Stool Do first portion of prep at 6 PM the evening before. Second portion must be started 3 hrs before and finished 2 hrs prior to report time. 1 kit 5 Active ursodioL (GAL Forte) 500 mg tabletIndicatio ns:Cirrhosis Biliary Primary (HCC) Take 1 tablet (500 mg total) by mouth 2 (two) times a day. 180 tablet 3 5 05/26/20 26 Active ursodioL (GAL) 250 mg tablet Take 2 tablets (500 mg total) by mouth 2 (two) times a day. 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 Hyperlipidemia 08/04/2024 Atrial Fibrillation Permanent 06/11/2024 Overview (08/06/2024): 31 mm Watchman LAAO device 08/06/2024 Dystrophic Toenail 04/14/2024 Onychomycosis 04/14/2024 Hammer Toe Acquired Right 04/14/2024 Pacemaker Cardiac Status Post 02/14/2021 Impairment Cognitive Mild 02/14/2021 Esophageal Stenosis Acquired 02/14/2021 Melena 02/11/2021 Epistaxis 02/11/2021 Pseudoaneurysm Femoral 02/23/2020 Contusion (Hematoma) Thigh Initial Left 02/23/20 Ablation Atrioventricular Node Status Post 02/19 Atrial Fibrillation Unspecified 02/07/2020 Assessment & Plan (04/20/2021 9:37 AM CDT): The patient has a CHADS2-VASc score of [...] Problem Noted Date Diagnosed Date Resolved Date Postprocedural Hematoma Of S kin And Subcutaneous Tissue Following Other Procedure 02/23/2020 02/25/2020 Anticoagulant Therapy 02/17/20202020 Encounters Date Type Department Care Team Description 07/16/2025 Refill Department of Cardiovascular Medicine in [place], [place] [address] [place] [phone] Kristen Montano P.A.-C., M.S. Med Refill 07/08/2025 CPAP Download Remote Patient Monitoring [facility] [address] [place] [address] [facility], ProviderMD 06/22/2025 8:43 AM CDT - 06/22/2025 11:59 PM CDT Hospital Encounter Department of Radiology, [place], [place] [address] [place] [phone] Kristen Montano, P.A.-C., M.S. Atrial Fibrillation Permanent (HCC) Discharge Disposition: Home or Self Care 06/22/2025 8:14 AM CDT - 06/22/2025 8:42 AM CDT Hospital Encounter Department of Laboratory Medicine and Pathology, [facility] in [place], [place] [address] [place] [phone] Kristen Montano, P.A.-C., M.S. Atrial Fibrillation Permanent (HCC) Discharge Disposition: Home or Self Care 06/09/2025 Results Follow-Up Division of Gastroenterology in [place], [place] [address] [place] [phone] Raiza Bridges R.N. CBC with Differential, Blood 06/07/2025 CPAP Download Remote Patient Monitoring [facility] [address] [place] [address] [facility] 06/04/2025 Orders Only Division of Gastroenterology in [place], [place] [address] [place] [phone] External, Ordering ProviderLiz 06/02/2025 Clinical Communication Department of Cardiovascular Medicine in [place], [place] [address] [place] [phone] Kristen Montano P.A.-C., M.S. 05/26/2025 Clinical Communication Division of Gastroenterology in [place], [place] [address] [place] [phone] Roney Vega APRN, C.N.P. Med Question 05/22/2025 Refill Division of Gastroenterology in [place], [place] [address] [place] [phone] Roney Vega APRN, C.N.P. Med Refill 05/13/2025 Refill Division of Gastroenterology in [place], [place] [address] [place] [phone] Roney Vega APRN, C.N.P. Med Refill 05/12/2025 3:16 PM CDT - 05/12/2025 11:59 PM CDT Hospital Encounter Department of Cardiovascular Diseases in [address] [phone] Miguel Ángel Schuler M.D. Discharge Disposition: Home or Self Care 05/07/2025 CPAP Download Remote Patient Monitoring [facility] [address] [address] [place] [address] [facility] 05/06/2025 Orders Only Division of Gastroenterology in [place], [place] [address] [place] [phone] Roney Vega APRN, C.N.P. Cirrhosis Biliary Primary (HCC) 05/05/2025 Orders Only Division of Gastroenterology in [place], [place] [address] [place] [phone] Roney Vega APRN, C.N.P. Cirrhosis Biliary Primary (HCC) (Primary Dx) 04/24/2025 Orders Only Division of Gastroenterology in [place], [place] [address] [place] [phone] Roney Vega APRN, C.N.P. Cirrhosis Biliary Primary (HCC) (Primary Dx) from Last 3 Months Immunizations Immunization Administration Dates Next Due HZV (ZOSTAVAX) 07/12/2007 HepA Adult 01/11/2005,07/11/2004 HepB Adult 01/11/2005,08/08/2004,07/11/2004 Influenza, Seasonal, Injectable 06/19/20 06,06/14/2005,07/11/2004,2002,07/08/2002,06/18/2001 PCV13 06/30/2015 PPSV23 07/12/2007,07/08/1986 Td, (Adult) Unspecified 06/14/2011,07/27/2000 Tdap 07/01/2012 influenza trivalent high dos e (HD)(PF) 06/30/2015,06/08/2014,06/25/2013,2011,06/14/2011,06/13/2010 influenza trivalent vaccine (6 months and older)(PF) 2008,07/12/2007 Family History Medical History Relation Name Comments Alcohol abuse Brother Noble Connell Pancreatic cancer Brother Noble Connell at Age 64 Colon cancer Father Axel Connell at Age 69 Arthritis Mother Olga Connell in Knees Hypertension Mother Olga Connell Melanoma Mother Olga Connell at age 80 at 85 Transient ischemic attack Mother Olga Connell Liver disease Paternal Grandmother Chioma Zambranor Never knew her Cancer Sister Patrica Pierce at a ge 61 Lung cancer Sister Patrica Pierce 2005 age 61 Melanoma Son Carroll Bose 2013 at Age 49 Relation Name Status Comments Brother Noble Connell Alive Father Axel Connell Alive Mother Olga Connell Alive Paternal Grandmother Chioma Garcias Alive Sister Patrica Pierce Alive Son Carroll Bose Alive Social History Tobacco Use Types Packs/Day Years Used Date Smoking Tobacco: Never Cigarettes Smokeless Tobacco: Never Tobacco Cessation:Counseling Given: Not Answered Comments:Exposed to 2nd hand smoke for many years. Alcohol Use Standard Drinks/Week Comments Never 0 (1 standard drink = 0.6 oz pur e alcohol) [facility] Utilities Answer Date Recorded In the past 12 months has th e [employer], oil, or water [employer] threatened to shut off services in your [...] your living situation today? I have a [facility] place to live 10/22/2024 Education Answer Date Recorded What is the highest level of school you have completed or the highest degree you have received? 12th grade 12/18/2019 Comments No Sex and Gender Information Value Date Recorded Sex Assigned at Female 04/30/2022 10:29 AM CDT Legal Sex Female 8:55 AM VISUAL SPECIALIST Gender Identity Female 01/06/2018 4:13 PM CDT Sexual Orientation Straight 01/06/2018 4: 13 PM CDT Last Filed Vital Signs Vital Sign Reading Time Taken Comments Blood Pressure 156/71 03/01/2025 4:15 PM CDT Pulse 85 03/01/2025 4:15 PM CDT Temperature 36.6 C (97.8 F) 03/01/2025 10:54 AM CDT Respiratory Rate 18 03/01/2025 11:30 AM CDT Oxygen Saturation 95% 03/01/2025 4:15 PM CDT Inhaled Oxygen Concentration - - Weight 68 kg (149 lb 14.6 oz) 06/22/2025 9:49 AM CDT Height 155 cm (5' 1.02) 06/22/2025 9:49 AM CDT Body Mass Index 28.3 06/22/2025 9:49 AM CDT Plan of Treatment Upcoming Encounters Date Type Department Care Team (Late st Contact Info) Description 07/22/2025 3:30 PM VISUAL SPECIALIST Office Visit Department of Orthopedic Surgery in [place], [place] [address] [place] [phone] Lucille Solomon APRN, C.N.P., D.N.P. [address] [place] [phone] 07/28/2025 9:00 AM VISUAL SPECIALIST Virtual Visit Department of Cardiovascular Medicine in [place], [place] [address] [place] [phone] Kristen Montano P.A.-C., M.S. [address] [place] [phone] Health Maintenance Due Date Last Done Comments RSV vaccine - (32-36 weeks) or 50+ years (1 - 1-dose 75+ series) 2016 DTaP,Tdap,and Td Vaccines (2 - Td or Tdap) 07/01/2022 07/01/2012, 06/14/2011, 07/27/2000 Depression Monitoring (PHQ-9) 08/16/2024 04/16/2024 Depression Monitoring (PHQ-9 for quality tracking) 08/27/2024 COVID-19 Vaccine ( season) 2025 11/27/2024, 06/05/2024, 12/18/2023, Additional history exists Abdominal Ultrasound 09/01/2025 03/01/2025, 12/31/2024, 04/07/2024, Additional history exists Hepatitis A Vaccines Completed 01/11/2005, 07/11/20 04 Hepatitis B Vaccines Completed 01/11/2005, 08/08/2004, 07/11/2004 Pneumococcal vaccine (50+ years) Completed 06/30/2015, 07/12/2007, 07/08/1986 Zoster Vaccines Completed 05/08/2019, 02/24, 03/05/2019, Additional history exists Colonoscopy Discontinued 01/06/2021, 12/25, 06/04/2014, Additional history exists Fall Risk Screen (Annual) Completed 12/31/2024 Cologuard Discontinued 04/20/2025 Colorectal Cancer Surveillance Discontinued Influenza Vaccine Completed 06/18/2025, , 06/11/2023, Additional history exists CT Colonography Discontinued IPV Vaccines Aged Out No longer eligi ble based on patient's age to complete this topic Goals Goal Patient Goal Type Associated Problems Recent Progress Patient-Stated? Author [facility] Care Plan for Colonoscopy Routine Prep Care Plan [facility] Care Plan for Colonoscopy Routine Prep No Denia Ball M.BVeritoB.S. Medical Devices Implanted Type Area Mentally Impaired Teacher Device Identifier Shelf Expiration Date Model / Serial / Lot Lead Ppm Capsure Fix Novus 52 - [id number] - [id number] Implanted:Qty : 1 on 02/19/2020 by Jose Slade M.D. at [facility] Cardiac Lead Medtronic 10/22/2021 [id number] / [id number] / Lead Ppm Capsure Fix Novus 45 - [id number] - [id number] Implanted:Qty : 1 on 02/19/2020 by Jose Slade M.D. at [facility] Cardiac Lead Medtronic 10/29/2021 [id number] / [id number] / Coil Vrtx Hlcl Cmpx .018x5 - [id number] Implanted:Qty : 1 on 02/23/2020 by Jeb Whitten M.D. at [facility] Embolization Coil [employer] 08/17/2022 [id number] 50 / / [id number] Coil Vrtx Hlcl Cmpx .018x5 - [id number] Implanted:Qty : 1 on 02/23/2020 by Jeb Whitten M.D. at [facility] Embolization Coil [employer] 12/21/2022 [id number] 50 / / [id number] Coil Micro Hilal 0.621w4l0 - [id number] Implanted:Qty : 1 on 02/23/2020 by Jeb Whitten M.D. at [facility] Embolization Coil [employer] 01/30/2021 [id number] / / [id number] Maci [employer] [facility] Pro Del Sys 31 - [id number] Implanted:Qty : 1 on 08/06/2024 by Tony Nelson M.B.B.S. at [facility] Mesh or Patch [employer] 06/17/2027 [id number] 10 / / [id number] Ppm Hortencia Díaz [id number] - [id number] Implanted:Qty : 1 on 02/19/2020 by Jose Slade M.D. at [facility] Pacemaker Medtronic 05/24/2021 [id number] / [id number] / Procedures Procedure Name Priority Date/Time Associated Diagnosis Comments CT CARDIAC STRUCTURAL HEART WITH IV CONTRAST RAD - Routine (most inpatients and all outpatients) 06/22/2025 10:34 AM CDT Atrial Fibrillation Permanent (HCC) CREATININE WITH EGFR, S/P Routine 06/22/2025 8:29 AM CDT Atrial Fibrillation Permanent (HCC) CBC WITH DIFFERENTIAL, B Routine 06/22/2025 8:29 AM CDT Atrial Fibrillation Permanent (HCC) CBC WITH DIFFERENTIAL, B Routine 06/04/2025 10:55 AM CDT INTERFACED REMOTE DEVICE CHECK Routine 05/12/2025 3:16 PM CDT COLOGUARD Routine 04/20/2025 5:30 AM CDT Screening Cancer Colon CT ABDOMEN PELVIS WITH IV CONTRAST RAD - Semiurgent (Fast; most ED patients; some inpatients) 03/01/2025 2:44 PM CDT COLONOSCOPY Routine 01/06/2021 2:36 PM CDT Polyp Colon from Last 3 Months or Most Recently Relevant to Health Maintenance Results * CT Cardiac Structural Heart with [...] M.S. IMG CT PROCEDUR ES Final Result * (ABNORMAL) CBC with Differential, Blood (06/22/2025 8:29 AM CDT) Only the most recent of2 resultswithin the time period is included. Hemoglobin 13.0 11.6 - 15.0 g/dL 06/22/2025 [...] M.S. LAB BLOOD ADD-O N Final Result [facility] [address] [place], [place] [phone] [place] [address] [facility] [address] [place] [address] [facility] [address] [place] [address] * Creatinine with Estimated GFR (06/22/2025 8:29 AM CDT) Creatinine 0.68 0.59 - 1.04 mg/dL 06/22/2025 10:11 AM CDT DTL Estimated GFR (eGFR) 86 >=60 mL/min/BSA 06/22/2025 10:11 AM CDT DTL Comment: Estimated GFR calculated using the 2020 CKD_EPI creatinine equation. Blood (Blood, Venous) 06/22/2025 8:29 AM CDT 06/22/2025 9:02 AM CDT Kristen Montano P.A.-C., M.S. LAB BLOOD ADD-O N Final Result [facility] [address] [place], [place] [phone] [place] [address] [address] [place] [address] * CAR CARDIAC DEVICE INTERROGATION (05/12/2025 3:16 PM CDT) Date Time Interrogation Session [id number] [facility] Type Interrogation Session Remote [facility] Implantable Pulse Generator Mentally Impaired Teacher Medtronic [facility] Implantable Pulse Generator Type Pacemaker [facility] Implantable Pulse Generator Model Hortencia XT DR YING [id number] [facility] Implantable Pulse Generator Serial Number [id number] [facility] Implantable Pulse Generator Implant Date 20200219 [facility] Battery Remaining Longevity 85.0 mo [facility] Battery Voltage 2.970 [facility] Battery REAL ESTATE ANALYST Trigger 2.625 [facility] Battery Status OK [facility] Garry Statistic RA Percent Paced 0.10 [facility] Garry Statistic RV Percent Paced 99.95 [facility] Atrial Tachy Statistic AT/AF Mayetta Percent 100.00 [facility] Lead Channel Sensing Intrinsic Amplitude 4.625 [facility] Lead Channel Setting Sensing Sensitivity 0.30 [facility] Lead Channel Impedance Value 342 [facility] Lead Channel Pacing Threshold Amplitude 0.375 [facility] Lead Channel Pacing Threshold Pulse Width 0.4 [facility] Lead Channel Measurements Date and Time 20211006 [facility] Lead Channel Setting Pacing Amplitude 1.500 [facility] Lead Channel Setting Pacing Pulse Width 0.4 [facility] Lead Channel Sensing Intrinsic Amplitude 8.000 [facility] Lead Channel Setting Sensing Sensitivity 0.90 [facility] Lead Channel Impedance Value 494 [facility] Lead Channel Pacing Threshold Amplitude 0.500 [facility] Lead Channel Pacing Threshold Pulse Width 0.4 [facility] Lead Channel Measurements Date and Time [id number] [facility] Lead Channel Setting Pacing Amplitude 2.000 [facility] Lead Channel Setting Pacing Pulse Width 0.4 [facility] Garry Setting Mode (NBG Code) DDDR [facility] Garry Setting Lower Rate Limit 70 [facility] Garry Setting AT Mode Switch Rate 140 [facility] Garry Setting Maximum Tracking Rate 130 [facility] Garry Setting Maximum Sensor Rate 130 [facility] Garry Setting PAV Delay 180 [facility] Garry Setting CASE Delay 150 [facility] [...] DEPARTMENT LAB SYSTEM Lead Channel Pacing Threshold Polarity Bipolar [facility] Lead Channel Pacing Threshold Polarity Bipolar [facility] Zone Setting Type Category AT/AF [facility] Murj Rate 1 140 [facility] Murj Therapies Some Rx Off [facility] Zone Setting Status Monitor [facility] Murj Zone ID 2 [facility] Zone Setting Type Category VT [facility] Murj Rate 1 171 [facility] Zone Setting Status ENABLED [facility] Murj Zone ID 6 [facility] Implantable Lead Mentally Impaired Teacher Medtronic [facility] Implantable Lead Model 4076 CapsureFix Novus MRI MediaHoundScan [facility] Implantable Lead Location Right Ventricle [facility] Implantable Lead Connection Status Connected [facility] Implantable Lead Serial Number [id number] [facility] Implantable Lead Implant Date 20200219 [facility] Implantable Lead Special Function Lead length: 52.00 cm [facility] Implantable Lead Mentally Impaired Teacher Medtronic [facility] Implantable Lead Model 4076 CapsureFix Novus MRI SureScan [facility] Implantable Lead Location Right Atrium [facility] Implantable Lead Connection Status Connected [facility] Implantable Lead Serial Number [id number] [facility] Implantable Lead Implant Date 20200219 [facility] Implantable Lead Special Function Lead length: 45.00 cm [facility] Anatomical Region Laterality Modality Other 05/20/2025 10:5 4 AM CDT Impressions 05/20/2025 10:54 AM CDT Encounter Impression: Title: Normal Remote: No Events * Normal Device Function * Alerts or events: None * Battery: OK, 7.08 yrs * Sensing, impedance and thresholds reviewed * Programmed parameters reviewed * Presenting rhythm: Atrial flutter with LAYOUT INSPECTOR at 70 bpm. Patient has a Watchman device. * Heart Rate Histograms reviewed * No significant changes noted Title: Atrial Flutter w/Controlled V Response * Stored EGMs are consistent with or suggestive of Atrial Flutter with Controlled Ventricular Response * AT/AF Mayetta: 100% Plan: Routine remote follow up and as needed. This patient underwent device interrogation. I agree that the device interrogation was medically indicated to provide appropriate care and continue routine device interrogations as indicated. Encounter Summary: This report includes 1 transmission that was received on 2025-05-12. Battery, lead impedance, sensing amplitude and pacing threshold data was reviewed. Narrative Procedure Note Miguel Ángel Schuler M.D. - 05/20/2025 IMPRESSION: Encounter Impression: Title: Normal Remote: No Events * Normal Device Function * Alerts or events: None * Battery: OK, 7.08 yrs * Sensing, impedance and thresholds reviewed * Programmed parameters reviewed * Presenting rhythm: Atrial flutter with LAYOUT INSPECTOR at 70 bpm. Patient has aWatchman device. * Heart Rate Histograms reviewed * No significant changes noted Title: Atrial Flutter w/Controlled V Response * Stored EGMs are consistent with or suggestive of Atrial Flutter withControlled Ventricular Response * AT/AF Mayetta: 100% Plan: Routine remote follow up and as needed. This patient underwent device interrogation. I agree that the deviceinterrogation was medically indicated to provide appropriate care andcontinue routine device interrogations as indicated. Encounter Summary: This report includes 1 transmission that was receivedon 2025-05-12. Battery, lead impedance, sensing amplitude and pacingthreshold data was reviewed. Miguel Ángel Schuler M.D. CV IMPLANTABLE CARDIAC DEVICE Final Result * (ABNORMAL) Cologuard - Sent Out Lab (04/20/2025 5:30 AM CDT) Result Positive( A) Negative 04/24/2025 3:33 AM CDT EXLI Comment: The Cologuard (TM) test was performed on this specimen. POSITIVE TEST RESULT. A positive Cologuard result should be followed with a colonoscopy or visual examination of the colon. The normal value (reference range) for this assay is negative. TEST DESCRIPTION: Composite algorithmic analysis of stool DNA-biomarkers with hemoglobin immunoassay. Quantitative values of individual biomarkers are not reportable and are not associated with individual biomarker result reference ranges. Cologuard is intended for colorectal cancer screening of adults of either sex, 45 years or older, who are at average-risk for colorectal cancer (CRC). Cologuard has been approved for use by the [place]. FDA. The performance of Cologuard was established in a cross sectional study of average-risk adults aged 50-84. Cologuard performance in patients ages 45 to 49 years was estimated by sub-group analysis of near-age groups. Colonoscopies performed for a positive result may find as the most clinically significant lesion: colorectal cancer [4.0%], advanced adenoma (including sessile serrated polyps greater than or equal to 1cm diameter) [20%] or non- advanced adenoma [31%]; or no colorectal neoplasia [45%]. These estimates are derived from a prospective cross-sectional screening study of 10,000 individuals at average risk for colorectal cancer who were screened with both Cologuard and colonoscopy. (Lior Krishnamurthy al, N Engl J Med 2014;370(14):3074-2379.) Cologuard may produce a false negative or false positive result (no colorectal cancer or precancerous polyp present at colonoscopy follow up). A negative Cologuard test result does not guarantee the absence of CRC or advanced adenoma (pre-cancer). The current Cologuard screening interval is every 3 years. ([place] [employer] and U.S. Multi-Society Task Force). Cologuard performance data in a 10,000 patient pivotal study using colonoscopy as the reference method can be accessed at the following location: www.Handshake/results. Additional description of the Cologuard test process, warnings and precautions can be found at www.colNICErd.com. Stool (Stool) 04/20/2025 5:3 0 AM CDT 04/21/2025 10:03 AM CDT us Roney Vega APRN C.N.P. LAB BODY FLUIDS AN D STOOLS ORDERABLES Final Result [facility] [address] [place] [address] [employer] [email or web address] [address] [facility], [address] [place] [address] * CT Abdomen Pelvis with IV Contrast (03/01/2025 2:44 PM CDT) Anatomical Region Laterality Modality Abdomen, Pelvis, Abdominal R ST LOS, Abdominal ARZ LOS, Abdominal FLA LOS N/A Computed Tomograp hy, Computed Tomography 03/01/2025 2:22 PM CDT Impressions 03/01/2025 3:10 PM CDT Cirrhotic liver. Small prominent collaterals in the low rectum and anal canal. No other significant findings. Narrative 03/01/2025 3:10 PM CDT EXAM: CT ABDOMEN PELVIS WITH IV CONTRAST COMPARISON: CT pelvis 01/04/2021, US abdomen complete 12/31/2024 FINDINGS: Cirrhotic morphology of the liver. Cholecystectomy. Splenic cysts and multiple calcified splenic granulomas. Mild atrophy of the pancreas. Similar mildly dilated extrahepatic bile ducts and cystic duct remnant. Duodenal diverticulum. Tiny cyst in the proximal body of the pancreas. The adrenal glands are negative. Tiny bilateral renal cysts. Mild thickening of the left renal pelvis without hydronephrosis. No bowel obstruction. Appendectomy. Prominent collateral vessels along the anterior rectal wall (6/131) and also inferiorly in the anal canal and perineum (6/146). Small collaterals in the left anterior abdominal wall. The IMV is diminutive, probably due to chronic occlusion. No significant mesenteric inflammation. Generalized muscular atrophy with near complete fatty atrophy of the bilateral rectus abdominis muscles and some mild anterior protrusion of the abdominal contents. Degenerative changes of the hips and spine. Probable chronic height loss of L5. This examination was performed in conjunction with a CT of the chest, which will be reported separately. Procedure Note Heidy Segovia M.B.BVeritoS. - 03/01/2025 EXAM: CT ABDOMEN PELVIS WITH IV CONTRAST COMPARISON: CT pelvis 01/04/2021, US abdomen complete 12/31/2024 FINDINGS: Cirrhotic morphology of the liver. Cholecystectomy. Spleniccysts and multiple calcified splenic granulomas. Mild atrophy of thepancreas. Similar mildly dilated extrahepatic bile ducts and cystic ductremnant. Duodenal diverticulum. Tiny cyst in the proximal body of the pancreas. The adrenal glands are negative. Tiny bilateral renal cysts. Mildthickening of the left renal pelvis without hydronephrosis. No bowelobstruction. Appendectomy. Prominent collateral vessels along the anteriorrectal wall (6/131) and also inferiorly in the anal canal and perineum (6/146). Small collaterals in the leftanterior abdominal wall. The IMV is diminutive, probably due to chronicocclusion. No significant mesenteric inflammation. Generalized muscular atrophy withnear complete fatty atrophy of the bilateral rectus abdominis muscles andsome mild anterior protrusion of the abdominal contents. Degenerativechanges of the hips and spine. Probable chronic height loss of L5. This examination was performed in conjunction with a CT of the chest,which will be reported separately. IMPRESSION: Cirrhotic liver. Small prominent collaterals in the low rectum and analcanal. No other significant findings. Ron Pelaez M.D. [facility] [place] PROCEDURES Final R esult * Colonoscopy (01/06/2021 2:36 PM CDT) Anatomical Region Laterality Modality Endoscopy 01/06/2021 2:36 PM CDT Impressions 01/06/2021 3:30 PM CDT Post-op Diagnoses: - Three 3 to 4 mm polyps at the recto-sigmoid colon, at the hepatic flexure and in the cecum, removed with a cold snare. Resected and retrieved. - One 1 mm polyp in the cecum, removed with a cold biopsy forceps. Resected and retrieved. - A few non-bleeding colonic angioectasias in the right colon. - Nodular mucosa at the ileocecal valve. Biopsied. Narrative 01/06/2021 3:30 PM CDT [facility] GI GI Patient Name: Haley Bose Date of : 1940 Age: 80 Gender: Female Procedure Date: 01/06/2021 Procedure: Colonoscopy Providers: Samm Duran MD Referring Provider: Jesus Neal Pre-op Diagnoses: High risk colon cancer surveillance: Personal history of colonic polyps Recommendation: - Await pathology results. If ICV biopsy were to reveal adenoma, then repeat colonoscopy by Dr James Martinez or Maria L within a few months would be indicated. Findings: Three sessile polyps were found in the recto-sigmoid colon, hepatic flexure and cecum. The polyps were 3 to 4 mm in size. These polyps were removed with a cold snare. Resection and retrieval were complete. A 1 mm polyp was found in the cecum. The polyp was sessile. The polyp was removed with a cold biopsy forceps. Resection and retrieval were complete. A few medium-sized angioectasias without bleeding were found in the transverse colon. An area of mildly nodular mucosa was found at the ileocecal valve. Biopsies were taken with a cold forceps for histology. Procedural Details: The patient was seen, evaluated, history reviewed, airway and heart-lung exams were performed by licensed provider and were satisfactory for planned level of sedation care. The risks, benefits and alternatives for the procedure and sedation were discussed and informed consent was obtained. A procedural pause was conducted in the presence of assisting personnel to verify the correct patient identity and procedure to be performed. Throughout the procedure, the patient's blood pressure, pulse, and oxygen saturations were monitored continuously. The Pediatric Colonoscope was introduced under direct vision through the anus and advanced to the cecum, identified by appendiceal orifice and ileocecal valve. The colonoscopy was performed without difficulty. The patient tolerated the procedure well. The quality of the bowel preparation was evaluated using the BBPS ([place] Bowel Preparation Scale) with scores of: Right Colon = 3, Transverse Colon = 3 and Left Colon = 3 (entire mucosa seen well with no residual staining, small fragments of stool or opaque liquid). The total BBPS score equals 9. Estimated Blood Loss: Estimated blood loss was minimal. Complications: No immediate complications. Sedation: Moderate (conscious) sedation was administered by the endoscopy nurse and supervised by the endoscopist. The following parameters were monitored: oxygen saturation, heart rate, blood pressure, and response to care. Total physician intraservice time was 32 minutes. Attending Participation: I personally performed the entire procedure. Samm Duran MD 01/06/2021 3:30:25 PM This report has been signed electronically. Number of Addenda: 0 Jesus Neal M.D. GI PROCEDURE ORDERABLES Final Re sult from Last 3 Months or Most Recently Relevant to Health Maintenance Additional Health Concerns Active Problems Noted Date Diagnosed Date [facility] Plan for Colonoscopy Routine Pr ep 03/02/2025 Insurance MEDICARE [facility] Advance Directives For more information, please contact: [phone] Documents on File Type Date Recorded Patient Momd Teacher Expl anation Advance Directives 04/16/2024 1:23 PM Advance Directives 04/14/2024 12:16 PM Carroll Womack HCPOA/ADVOCATE/AGENT/R EPRESENTATIVE/SURROGAT E Advance Directives 02/06/2020 10:03 AM rae [facility] Care Directive Advance Directives 06/10/2014 12:00 AM [place] document. See document viewer. Advance Directives 08/15/2011 12:00 AM [place] document. See document viewer. * Full Code (Latest Code Status on File) Date Activated Date Inactivated Comments 08/06/2024 12:17 PM 08/06/2024 7:06 PM Question Answer Comments Full Code: Not Discussed Due to: Patient not available * DNR/DNI Date Activated Date Inactivated Comments 02/11/2021 1:56 [...] Comments 02/20/2020 10:29 AM 02/20/2020 8:46 PM Healthcare Agents on File Name Relationship Healthcare Agent Relationship Communication Carroll Bose Son Health Care Agent [email or web address] Katelynncourt Womack Daughter First Alternate Health Care Agent [email or web address] Care Teams Container Filler Relationship Specialty Start Date End Date Elsewhere, Pcp PCP - General Internal Medicine 08/19/23
--- OUTSIDE RECORDS SUMMARY | 2025-07-19 15:41 | XMS_ITS | Encounter Summary ---
Author Organization [facility] Address [address] [place] [address] Care Team Providers Care Egg Candler Name Role Phone Elsewhere, Pcp Primary Care Provider Unavailabl e Encounter Details Date Type Department Care Team (Late st Contact Info) Description 06/07/2025 CPAP Download Remote Patient Monitoring [facility] [address] [place] [address] [facility], Provider, Social History Tobacco Use Types Packs/Day Years Used Date Smoking Tobacco: Never Cigarettes Smokeless Tobacco: Never Comments:Exposed to 2nd hand smoke for many years. Alcohol Use Standard Drinks/Week Comments Never 0 (1 standard drink = 0.6 oz pur e alcohol) [facility] Utilities Answer Date Recorded In the past [...] your living situation today? I have a [facility] place to live 10/22/2024 Education Answer Date Recorded What is the highest level of school you have completed or the highest degree you have received? 12th grade 12/18/2019 Comments No Sex and Gender Information Value Date Recorded Sex Assigned at Female 04/30/2022 10:29 AM CDT Legal Sex Female 8:55 AM FLOOR SCRUBBER Gender Identity Female 01/06/2018 4:13 PM CDT Sexual Orientation Straight 01/06/2018 4: 13 PM CDT documented as of this encounter Plan of Treatment Upcoming Encounters Date Type Department Care Team (Late st Contact Info) Description 07/22/2025 3:30 PM FLOOR SCRUBBER Office Visit Department of Orthopedic Surgery in [place], [place] [address] [place] [address] Lucille Solomon APRN, C.N.P., D.N.P. [address] [place] [phone] 07/28/2025 9:00 AM FLOOR SCRUBBER Virtual Visit Department of Cardiovascular Medicine in [place], [place] [address] [place] [phone] Kristen Montano P.A.-C., M.S. [address] [place] [phone] documented as of this encounter Goals Goal Patient Goal Type Associated Problems Recent Progress Patient-Stated? Author [facility] Care Plan for Colonoscopy Routine Prep Care Plan [facility] Care Plan for Colonoscopy Routine Prep Denia Srivastava I., M.B.B.S. documented as of this encounter Visit Diagnoses Not on filedocumented in this encounter Additional Health Concerns Active Problems Noted Date Diagnosed Date [facility] Care Plan for Colonoscopy Routine Pr ep 03/02/2025 Assessment Noted Time PHQ-9 Depression Total Score: 6 04/16/20 24 9:44 AM CDT documented as of this encounter Care Teams Egg Candler Relationship Specialty Start Date End Date Elsewhere, Pcp PCP - General Internal Medicine 08/19/23 documented as of this encounter
--- OUTSIDE RECORDS SUMMARY | 2025-07-19 15:41 | XMS_ITS | Encounter Summary ---
Author Organization [facility] Address [address] [place] [address] Care Team Providers Care Air Bag Buffer Name Role Phone Elsewhere, Pcp Primary Care Provider Unavailabl e Encounter Details Date Type Department Care Team (Latest Contact Info) Description 06/09/2025 Results Follow-Up Division of Gastroenterology in [place], [place] [address] [place] [address] Raiza Bridges R.N. [address] [place] [phone] CBC with Differential, Blood Social History Tobacco Use Types Packs/Day Years Used Date Smoking Tobacco: Never Cigarettes Smokeless Tobacco: Never Comments:Exposed to 2nd hand smoke for many years. Alcohol Use Standard Drinks/Week Comments Never 0 (1 standard drink = 0.6 oz pur e alcohol) [facility] Utilities Answer Date Recorded In the past 12 months has [employer], gas, oil, or water company threatened to [...] your living situation today? I have a [facility] place to live 10/22/2024 Education Answer Date Recorded What is the highest level of school you have completed or the highest degree you have received? 12th grade 12/18/2019 Comments No Sex and Gender Information Value Date Recorded Sex Assigned at Female 04/30/2022 10:29 AM CDT Legal Sex Female 8:55 AM RN ON SITE Gender Identity Female 01/06/2018 4:13 PM CDT Sexual Orientation Straight 01/06/2018 4: 13 PM CDT documented as of this encounter Plan of Treatment Upcoming Encounters Date Type Department Care Team (Late st Contact Info) Description 07/22/2025 3:30 PM RN ON SITE Office Visit Department of Orthopedic Surgery in [place], [place] [address] [place] [phone] Lucille Solomon APRN, C.N.P., D.N.P. [address] [place] [phone] 07/28/2025 9:00 AM RN ON SITE Virtual Visit Department of Cardiovascular Medicine in [place], [place] [address] [place] [phone] Kristen Montano P.A.-C., M.S. [address] [place] [phone] documented as of this encounter Goals Goal Patient Goal Type Associated Problems Recent Progress Patient-Stated? Author [facility] Care Plan for Colonoscopy Routine Prep Care Plan [facility] Care Plan for Colonoscopy Routine Prep Denia Srivastava I., M.B.B.S. documented as of this encounter Visit Diagnoses Not on filedocumented in this encounter Additional Health Concerns Active Problems Noted Date Diagnosed Date [facility] Care Plan for Colonoscopy Routine Pr ep 03/02/2025 Assessment Noted Time PHQ-9 Depression Total Score: 6 04/16/20 24 9:44 AM CDT documented as of this encounter Care Teams Air Bag Buffer Relationship Specialty Start Date End Date Elsewhere, Pcp PCP - General Internal Medicine 08/19/23 documented as of this encounter
--- OUTSIDE RECORDS SUMMARY | 2025-07-19 15:41 | XMS_ITS | Encounter Summary ---
Author Organization [facility] Address [address] [place] [address] Care Team Providers Care Supply Technician Name Role Phone Elsewhere, Pcp Primary Care Provider Unavailabl e Reason for Visit * Reason Comments Med Refill Encounter Details Date Type Department Care Team (Late st Contact Info) Description 07/16/2025 Refill Department of Cardiovascular Medicine in [place], [place] [address] [place] [phone] Kristen Montano P.A.-C., M.S. [address] [place] [phone] Med Refill Social History Tobacco Use Types Packs/Day Years Used Date Smoking Tobacco: Never Cigarettes Smokeless Tobacco: Never Comments:Exposed to 2nd hand smoke for many years. Alcohol Use Standard Drinks/Week Comments Never 0 (1 standard drink = 0.6 oz pur e alcohol) [facility] Utilities Answer Date Recorded In [...] your living situation today? I have a [facility] place to live 10/22/2024 Education Answer Date Recorded What is the highest level of school you have completed or the highest degree you have received? 12th grade 12/18/2019 Comments No Sex and Gender Information Value Date Recorded Sex Assigned at Female 04/30/2022 10:29 AM CDT Legal Sex Female 8:55 AM LEADER ASSEMBLER Gender Identity Female 01/06/2018 4:13 PM CDT Sexual Orientation Straight 01/06/2018 4: 13 PM CDT documented as of this encounter Miscellaneous Notes * Telephone Encounter - Lashay Andrea - 07/16/2025 8:12 AM CST Refill too soon. Patient has an active script at below pharmacy good until October 2025. Please see below, thank you. Disp Refills Start End clopidogreL (Plavix) 75 mg tablet 90 tablet 3 11/04/2024 -- Sig - Route: Take 1 tablet (75 mg total) by mouth daily. Start after Eliquis completed and continued indefinitely for Watchman device. - oral Sent to pharmacy as: clopidogreL 75 mg tablet (Plavix) E-Prescribing Status: Receipt confirmed by pharmacy (10/28/2024 1:35 PM LEADER ASSEMBLER) Pharmacy [id number] [place] [address] [facility] [address] ASSEM[address]ER documented in this encounter Plan of Treatment Upcoming Encounters Date Type Department Care Team (Late st Contact Info) Description 07/22/2025 3:30 PM LEADER ASSEMBLER Office Visit Department of Orthopedic Surgery in [place], [place] [address] [place] [address] Lucille Solomon, DEO, C.N.P., D.N.P. [address] [place] [phone] 07/28/2025 9:00 AM LEADER ASSEMBLER Virtual Visit Department of Cardiovascular Medicine in [place], [place] [address] [place] [phone] Kristen Montano P.A.-C., M.S. [address] [place] [phone] documented as of this encounter Goals Goal Patient Goal Type Associated Problems Recent Progress Patient-Stated? Author [facility] Care Plan for Colonoscopy Routine Prep Care Plan [facility] Care Plan for Colonoscopy Routine Prep Denia Srivastava I. MVeritoB.B.S. documented as of this encounter Visit Diagnoses Not on filedocumented in this encounter Additional Health Concerns Active Problems Noted Date Diagnosed Date [facility] Care Plan for Colonoscopy Routine Pr ep 03/02/2025 Assessment Noted Time PHQ-9 Depression Total Score: 6 04/16/20 24 9:44 AM CDT documented as of this encounter Care Teams Supply Technician Relationship Specialty Start Date End Date Elsewhere, Pcp PCP - General Internal Medicine 08/19/23 documented as of this encounter
--- OUTSIDE RECORDS SUMMARY | 2025-07-19 15:41 | XMS_ITS | Encounter Summary ---
Author Organization [facility] Address [address] [place] [address] Care Team Providers Care Photogrammetric Compilation Specialist Name Role Phone Elsewhere, Pcp Primary Care Provider Unavailabl e Encounter Details Date Type Department Care Team (Late st Contact Info) Description 07/08/2025 CPAP Download Remote Patient Monitoring [facility] [address] [place] [address] [facility], Provider, Social History Tobacco Use Types Packs/Day Years Used Date Smoking Tobacco: Never Cigarettes Smokeless Tobacco: Never Comments:Exposed to 2nd hand smoke for many years. Alcohol Use Standard Drinks/Week Comments Never 0 (1 standard drink = 0.6 oz pur e alcohol) [facility] Utilities Answer Date Recorded In the [...] your living situation today? I have a [facility] place to live 10/22/2024 Education Answer Date Recorded What is the highest level of school you have completed or the highest degree you have received? 12th grade 12/18/2019 Comments No Sex and Gender Information Value Date Recorded Sex Assigned at Female 04/30/2022 10:29 AM CDT Legal Sex Female 8:55 AM DOPE FIRER Gender Identity Female 01/06/2018 4:13 PM CDT Sexual Orientation Straight 01/06/2018 4: 13 PM CDT documented as of this encounter Plan of Treatment Upcoming Encounters Date Type Department Care Team (Late st Contact Info) Description 07/22/2025 3:30 PM DOPE FIRER Office Visit Department of Orthopedic Surgery in [place], [place] [address] [place] [address] Lucille Solomon APRN, C.N.P., D.N.P. [address] [place] [phone] 07/28/2025 9:00 AM DOPE FIRER Virtual Visit Department of Cardiovascular Medicine in [place], [place] [address] [place] [phone] Kristen Montano P.A.-C., M.S. [address] [place] [phone] documented as of this encounter Goals Goal Patient Goal Type Associated Problems Recent Progress Patient-Stated? Author [facility] Care Plan for Colonoscopy Routine Prep Care Plan [facility] Care Plan for Colonoscopy Routine Prep Denia Srivastava I., M.B.B.S. documented as of this encounter Visit Diagnoses Not on filedocumented in this encounter Additional Health Concerns Active Problems Noted Date Diagnosed Date [facility] Care Plan for Colonoscopy Routine Pr ep 03/02/2025 Assessment Noted Time PHQ-9 Depression Total Score: 6 04/16/20 24 9:44 AM CDT documented as of this encounter Care Teams Photogrammetric Compilation Specialist Relationship Specialty Start Date End Date Elsewhere, Pcp PCP - General Internal Medicine 08/19/23 documented as of this encounter
--- OUTSIDE RECORDS SUMMARY | 2025-07-19 15:41 | XMS_ITS | Encounter Summary ---
Author Organization [facility] Address [address] [place] [address] Care Team Providers Care Rubber Down Name Role Phone Elsewhere, Pcp Primary Care Provider Unavailabl e Reason for Visit * Reason Onset Date Comments Med Question 05/26/2025 Encounter Details Date Type Department Care Team (Latest Contact Info) Description 05/26/2025 Clinical Communication Division of Gastroenterology in [place], [place] [address] [place] [phone] Roney Vega APRN, C.N.P. 200 [place] [phone] Med Question Social History Tobacco Use Types Packs/Day Years Used Date Smoking Tobacco: Never Cigarettes Smokeless Tobacco: Never Comments:Exposed to 2nd hand smoke for many years. Alcohol Use Standard Drinks/Week Comments Never 0 (1 standard drink = 0.6 oz pur e alcohol) [facility] Utilities Answer Date Recorded In [...] your living situation today? I have a [facility] place to live 10/22/2024 Education Answer Date Recorded What is the highest level of school you have completed or the highest degree you have received? 12th grade 12/18/2019 Comments No Sex and Gender Information Value Date Recorded Sex Assigned at Female 04/30/2022 10:29 AM CDT Legal Sex Female 8:55 AM SCHEDULE ANNOUNCER Gender Identity Female 01/06/2018 4:13 PM CDT Sexual Orientation Straight 01/06/2018 4: 13 PM CDT documented as of this encounter Plan of Treatment Upcoming Encounters Date Type Department Care Team (Late st Contact Info) Description 07/22/2025 3:30 PM SCHEDULE ANNOUNCER Office Visit Department of Orthopedic Surgery in [place], [place] [address] [place] [address] Lucille Solomon APRN, C.N.P., D.N.P. [address] [place] [phone] 07/28/2025 9:00 AM SCHEDULE ANNOUNCER Virtual Visit Department of Cardiovascular Medicine in [place], [place] [address] [place] [phone] Kristen Montano P.A.-C., M.S. [address] [place] [phone] documented as of this encounter Goals Goal Patient Goal Type Associated Problems Recent Progress Patient-Stated? Author [facility] Care Plan for Colonoscopy Routine Prep Care Plan [facility] Care Plan for Colonoscopy Routine Prep Denia Srivastava I. MVeritoB.B.S. 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
--- OUTSIDE RECORDS SUMMARY | 2025-07-19 15:41 | XMS_ITS | Encounter Summary ---
Author Organization [facility] Address [address] [place] [address] Care Team Providers Care Floor Specialist Name Role Phone Elsewhere, Pcp Primary Care Provider Unavailabl e Encounter Details Date Type Department Care Team (Late st Contact Info) Description 05/07/2025 CPAP Download Remote Patient Monitoring [facility] [address] [place] [address] [facility], Provider, Social History Tobacco Use Types Packs/Day Years Used Date Smoking Tobacco: Never Cigarettes Smokeless Tobacco: Never Comments:Exposed to 2nd hand smoke for many years. Alcohol Use Standard Drinks/Week Comments Never 0 (1 standard drink = 0.6 oz pur e alcohol) [facility] Utilities Answer Date Recorded In the past [...] living situation today? I have a [facility] place to live 10/22/2024 Education Answer Date Recorded What is the highest level of school you have completed or the highest degree you have received? 12th grade 12/18/2019 Comments No Sex and Gender Information Value Date Recorded Sex Assigned at Female 04/30/2022 10:29 AM CDT Legal Sex Female 8:55 AM AUTOMOTIVE SALESPERSON Gender Identity Female 01/06/2018 4:13 PM CDT Sexual Orientation Straight 01/06/2018 4: 13 PM CDT documented as of this encounter Plan of Treatment Upcoming Encounters Date Type Department Care Team (Late st Contact Info) Description 07/22/2025 3:30 PM AUTOMOTIVE SALESPERSON Office Visit Department of Orthopedic Surgery in [place], [place] [address] [place] [address] Lucille Solomon APRN, C.N.P., D.N.P. [address] [place] [phone] 07/28/2025 9:00 AM AUTOMOTIVE SALESPERSON Virtual Visit Department of Cardiovascular Medicine in [place], [place] [address] [place] [phone] Kristen Montano P.A.-C., M.S. [address] [place] [phone] documented as of this encounter Goals Goal Patient Goal Type Associated Problems Recent Progress Patient-Stated? Author [facility] Care Plan for Colonoscopy Routine Prep Care Plan [facility] Care Plan for Colonoscopy Routine Prep Denia Srivastava I., M.B.B.S. documented as of this encounter Visit Diagnoses Not on filedocumented in this encounter Additional Health Concerns Active Problems Noted Date Diagnosed Date [facility] Care Plan for Colonoscopy Routine Pr ep 03/02/2025 Assessment Noted Time PHQ-9 Depression Total Score: 6 04/16/20 24 9:44 AM CDT documented as of this encounter Care Teams Floor Specialist Relationship Specialty Start Date End Date Elsewhere, Pcp PCP - General Internal Medicine 08/19/23 documented as of this encounter
--- OUTSIDE RECORDS SUMMARY | 2025-07-19 15:41 | XMS_ITS | Clinical Summary ---
Author Organization [place] Address [address] [place] [address] Care Team Providers Care Wool Carder Name Role Phone Unique Reed MD Primary Care Provider Allergies Active Allergy Reactions Criticality Noted Date Comments Erythromycin 06/07/2024 Sulfa Antibiotics 06/07/2024 Medications ursodiol (ACTIGALL) 250 MG tablet Take 1,000 mg by mouth daily. Active vitamin D3 (CHOLECALCIFEROL) 50 mcg (2000 units) tablet Take 1 tablet by mouth daily. Active calcium carbonate (OS-KATHERIN) 500 MG tablet Take 1 tablet by mouth daily. Active sennosides (SENOKOT) 8.6 MG tabletIndications: Constipation, unspecified constipation type Take 1-2 tablets by mouth 2 times daily as needed for constipation. 4 Active acetaminophen (TYLENOL) 500 MG tabletIndications: Closed fracture of multiple ribs of left side, initial encounter Take 1-2 tablets (500-1,000 mg) by mouth every 8 hours as needed for mild pain. 4 Active apixaban ANTICOAGULANT (ELIQUIS) 5 MG tabletIndications: Afib-non valvular Take 1 tablet (5 mg) by mouth 2 times daily. 60 tablet 4 Active rosuvastatin (CRESTOR) 20 MG tabletIndications: Cerebrovascular accident (CVA), unspecified mechanism (H) Take 1 tablet (20 mg) by mouth daily. 30 tablet 4 Active cyclobenzaprine (FLEXERIL) 5 MG tabletIndications: Closed fracture of multiple ribs of left side, initial encounter Take 1 tablet (5 mg) by mouth 2 times daily as needed for muscle spasms. 10 tablet Active Lidocaine (LIDOCARE) 4 % PatchIndications:C losed fracture of multiple ribs of left side, initial encounter Place 2 patches over 12 hours onto the skin every 24 hours. To prevent lidocaine toxicity, patient should be patch free for 12 hrs daily. 30 patch Active Active Problems Problem Noted Date Diagnosed Date Stroke 06/12/2024 Brain aneurysm 06/07/2024 Stroke-like symptoms 06/07/2024 Closed fracture of multiple ribs of left side, initial encounter 06/07/2024 Social History Tobacco Use Types Packs/Day Years Used Date Smoking Tobacco: Never Assessed Adolescent Education Answer Date Record ed Getting School Help Needed Not on file 05/19 Interpersonal Safety Answer Date Record ed Do you feel physically and e motionally safe where you currently live? Yes 06/12/2024 Within the past 12 months, h ave you been hit, slapped, kicked or otherwise physically hurt by someone? No 06/12/2024 Within the past 12 months, h ave you been humiliated or emotionally abused in other ways by your partner or ex-partner? No 06/12/2024 Comments Unknown Sex and Gender Information Value Date Recorded Sex Assigned at Not on file Legal Sex Female 10:45 AM CDT Gender Identity Not on file Sexual Orientation Not on file Last Filed Vital Signs Vital Sign Reading Time Taken Comments Blood Pressure 137/66 06/24/2024 8:12 AM CDT Pulse 75 06/24/2024 8:12 AM CDT Temperature 36.6 C (97.9 F) 06/24/2024 8:12 AM CDT Respiratory Rate 16 06/24/2024 8:12 AM CDT Oxygen Saturation 96% 06/24/2024 8:12 AM CDT Inhaled Oxygen Concentration - - Weight 67 kg (147 lb 12.8 oz) 06/12/2024 3:39 PM CDT Height 154.9 cm (5' 1) 06/12/2024 4:00 PM CDT Body Mass Index 27.93 06/12/2024 3:39 PM CDT Plan of Treatment Health Maintenance Due Date Last Done Comments ADVANCE CARE PLANNING 1941 ANNUAL REVIEW OF HM ORDERS 1941 DEXA 1941 FALL RISK ASSESSMENT 2006 MEDICARE ANNUAL WELLNESS VISIT 2006 RSV VACCINE (1 - 1-dose 75+ series) 2016 DTAP/TDAP/TD VACCINE (6 - Td or Tdap) 07/01/2022 07/01/2012, 06/14/2011, 06/14/2011, Additional history exists PHQ-2 (once per calendar year) 2024 COVID-19 VACCINE ( season) 2025 06/05/2024, 12/18/2023, 07/26/2023, Additional history exists INFLUENZA VACCINE (#1) 2025 , 07/12/2022, 07/03/2021, Additional history exists LIPID 06/07/2025 06/07/2024 HEPATITIS A VACCINE Completed 01/11/2005, 4 HEPATITIS B VACCINE Completed 01/11/2005, 08/08/2004, 07/11/2004 PNEUMOCOCCAL VACCINE 50+ YEARS Completed 06/30/2015, 07/12/2007, 07/08/1986 ZOSTER VACCINE Completed 05/08/2019, 02/24, 01/21/2019, Additional history exists HPV VACCINE (No Doses Required) Completed MENINGITIS VACCINE Aged Out No longer eligible based on patient's age to complete this topic Procedures Procedure Name Priority Date/Time Associated Diagnosis Comments LIPID REFLEX TO DIRECT LDL PANEL STAT 06/07/2024 9:48 PM CDT from Last 3 Months or Most Recently Relevant to Health Maintenance Results * Lipid panel reflex to direct LDL (06/07/2024 9:48 PM CDT) Cholesterol 198 <200 mg/dL 06/08/2024 1:33 AM CDT [facility] Triglycerides 65 <150 mg/dL 06/08/2024 1:33 AM CDT [facility] Direct Measure HDL 86 >=50 mg/dL 2023 1:33 AM CDT [facility] LDL Cholesterol Calculated 99 <100 mg/dL 06/08/2024 1:33 AM CDT [facility] Non HDL Cholesterol 112 <130 mg/dL 06/08/2024 1:33 AM CDT [facility] Blood STRUCTURE OF LEFT HAND / Unknown Venipuncture / Unknown 06/07/2024 9:48 PM CDT 06/07/2024 9:52 PM CDT Narrative [facility] - 06/08/2024 1:33 AM CDT Cholesterol Desirable: < 200 mg/dL Borderline High: 200 - 239 mg/dL High: >= 240 mg/dL Triglycerides Normal: < 150 mg/dL Borderline High: 150 - 199 mg/dL High: 200-499 mg/dL Very High: >= 500 mg/dL Direct Measure HDL Female: >= 50 mg/dL Male: >= 40 mg/dL LDL Cholesterol Desirable: < 100 mg/dL Above Desirable: 100 - 129 mg/dL Borderline High: 130 - 159 mg/dL High: 160 - 189 mg/dL Very High: >= 190 mg/dL Non HDL Cholesterol Desirable: < 130 mg/dL Above Desirable: 130 - 159 mg/dL Borderline High: 160 - 189 mg/dL High: 190 - 219 mg/dL Very High: >= 220 mg/dL Cuong Gabriel MD LAB - BLOOD ORDERABLES Cielo l Result [facility] [address] [facility], Room [address] [place] [phone] from Last 3 Months or Most Recently Relevant to Health Maintenance Insurance [facility] [employer] [place]IC[place] [address] MEDICARE Advance Directives For more information, please contact: [phone] * No CPR- Pre-arrest intubation OK (Latest Code Status on File) Date Activated Date Inactivated Comments 06/23/2024 1:58 PM Question Answer Comments Code status determined by: Discussion with patie nt/ legal decision maker * No CPR- Pre-arrest intubation OK Date Activated Date Inactivated Comments 06/13/2024 1:28 PM 06/23/2024 1:58 PM No attempt s to restore cardiac function following arrest. Intubation to prevent or reverse respiratory instability may be performed. Question Answer Comments Code status determined by: Discussion with patie nt/ legal decision maker * Full Code Date Activated Date Inactivated Comments 06/12/2024 4:41 PM 06/13/2024 1:27 PM All basic and advanced life-sustaining interventions are performed as appropriate Question Answer Comments Code status determined by: Discussion with patie nt/ legal decision maker * Full Code Date Activated Date Inactivated Comments 06/12/2024 9:07 AM 06/12/2024 3:37 PM Question Answer Comments Code status determined by: Discussion with patie nt/ legal decision maker * Full Code Date Activated Date Inactivated Comments 06/07/2024 9:32 PM 06/12/2024 9:07 AM All basic and advanced life-sustaining interventions are performed as appropriate Question Answer Comments Code status determined by: Unable to dis cuss and no AD/POLST on file; continue PREVIOUSLY ORDERED code status Care Teams Wool Carder Relationship Specialty Start Date End Date Unique Reed MD [facility] & [address] [address] PCP - General Internal Medicine 06/07/24
--- OUTSIDE RECORDS SUMMARY | 2025-07-19 15:41 | XMS_ITS | Encounter Summary ---
Author Organization [facility] Address [address] [place] [address] Care Team Providers Care Precision Agriculture Specialist Name Role Phone Elsewhere, Pcp Primary Care Provider Unavailabl e Reason for Referral * MRI/CAT/PET Scan (Routine) - Closed Specialty Diagnoses / Procedures Referred By Contac t Referred To Contact Radiology Diagnoses Atrial Fibrillation Permanent (HCC) Procedures CT Cardiac Structural Heart with IV Contrast Kristen Montano P.A.-Madeline., M.S. [address] [place] [address] Phone: tel: fax: [facility] Referral ID Status Reason Start Date Expiration Date Visits Re quested Visits Authorized [id number] Closed 06/02/2025 09/02/2026 1 1 Encounter Details Date Type Department Care Team (Latest Contact Info) Description 06/02/2025 Clinical Communication Department of Cardiovascular Medicine in [place], [place] [address] [place] [phone] Kristen Montano P.A.-C., M.S. [address] [place] [phone] Social History Tobacco Use Types Packs/Day Years Used Date Smoking Tobacco: Never Cigarettes Smokeless Tobacco: Never Comments:Exposed to 2nd hand smoke for many years. Alcohol Use Standard Drinks/Week Comments Never 0 (1 standard drink = 0.6 oz pur e alcohol) [facility] Utilities Answer Date Recorded In the past 12 months has e [facility], gas, oil, or water [employer] threatened to shut off services in your [...] your living situation today? I have a [place] place to live 10/22/2024 Education Answer Date Recorded What is the highest level of school you have completed or the highest degree you have received? 12th grade 12/18/2019 Comments No Sex and Gender Information Value Date Recorded Sex Assigned at Female 04/30/2022 10:29 AM CDT Legal Sex Female 8:55 AM EQUAL OPPORTUNITY DIRECTOR Gender Identity Female 01/06/2018 4:13 PM CDT Sexual Orientation Straight 01/06/2018 4: 13 PM CDT documented as of this encounter Plan of Treatment Upcoming Encounters Date Type Department Care Team (Late st Contact Info) Description 07/22/2025 3:30 PM EQUAL OPPORTUNITY DIRECTOR Office Visit Department of Orthopedic Surgery in [place], [place] [address] [place] [phone] Lucille Solomon APRN, C.N.P., D.N.P. [address] [place] [phone] 07/28/2025 9:00 AM EQUAL OPPORTUNITY DIRECTOR Virtual Visit Department of Cardiovascular Medicine in [place], [place] [address] [place] [phone] Kristen Montano P.A.-C., M.S. [address] [place] [phone] documented as of this encounter Goals Goal Patient Goal Type Associated Problems Recent Progress Patient-Stated? Author [facility] Care Plan for Colonoscopy Routine Prep Care Plan [facility] Care Plan for Colonoscopy Routine Prep No Denia Ball I., M.B.B.S. documented as of this encounter Results * CT Cardiac Structural [...] thrombus facing left atrial body. Kristen Montano P.A.-C. M.S. IMG CT PROCEDUR ES Final Result * Creatinine with Estimated GFR (06/22/2025 8:29 AM CDT) Creatinine 0.68 0.59 - 1.04 mg/dL 06/22/2025 10:11 AM CDT DTL Estimated GFR (eGFR) 86 >=60 mL/min/BSA 06/22/2025 10:11 AM CDT DTL Comment: Estimated GFR calculated using the 2020 CKD_EPI creatinine equation. Blood (Blood, Venous) 06/22/2025 8:29 AM CDT 06/22/2025 9:02 AM CDT Kristen Montano P.A.-C., M.S. LAB BLOOD ADD-O N Final Result [facility] [address] [place] [address], [place] DTL [facility] [address] [place] [address] documented in this encounter Visit Diagnoses Diagnosis Atrial Fibrillation Permanent (HCC)- Primary Atrial Fibrillation Permanent (HCC) documented in this encounter Additional Health Concerns Active Problems Noted Date Diagnosed Date [facility] Care Plan for Colonoscopy Routine Pr ep 03/02/2025 Assessment Noted Time PHQ-9 Depression Total Score: 6 04/16/20 24 9:44 AM CDT documented as of this encounter Care Teams Precision Agriculture Specialist Relationship Specialty Start Date End Date Elsewhere, Pcp PCP - General Internal Medicine 08/19/23 documented as of this encounter
--- NOTE | 2025-07-19 15:50 | CRLHL7_ITS ---
For Patients: As a result of the Century Cures Act, medical imaging exams and procedure reports are released immediately into your electronic medical record. You may view this report before your referring provider. If you have questions, please contact your health care provider. INDICATION: Right hip pain after fall TECHNIQUE: Pelvis radiograph, Hip radiograph 3 views right COMPARISON: None FINDINGS: Bone: There is a comminuted intertrochanteric fracture of the right proximal femur present with a displaced fragment involving the lesser trochanter. Moderate to severe degenerative disc disease is present at L4-5. Severe diffuse osteopenia is noted. Joint: The hip joints are unremarkable. The visualized sacroiliac joints are unremarkable in appearance. The pubic symphysis is normal in appearance. Soft tissue: Unremarkable. No radiopaque foreign bodies are seen. IMPRESSION: 1. There is a comminuted intertrochanteric fracture of the right proximal femur present with a displaced fragment involving the lesser trochanter. Dictated by Simba George MD @ 07/19/2025 5:05:16 PM Dictated by: Simba George MD @ 07/19/2025 17:05:20 (Electronically Signed)
[2025-07-19 16:34] LABS: Hematocrit* 39.7 % (33.0-51.0); Hemoglobin* 12.8 gm/dL (12.0-16.0); Immature Granulocytes Abs Auto 0.02 K/uL (0.00-0.30); Immature Granulocytes Pct Auto 0.3 %; Mean Corpuscular HGB Conc 32 gm/dL (32-36); Mean Corpuscular Hemoglobin 29 pg (26-34); Mean Corpuscular Volume 90 fL (80-100); RDW Coefficient of Variation % 13.7 % (11.5-15.5); Red Blood Count* 4.42 m/uL (4.00-5.20); White Blood Count* 5.81 K/uL (4.50-11.00)
--- NOTE | 2025-07-19 16:34 | CRLHL7_ITS ---
For Patients: As a result of the Cures Act, medical imaging exams and procedure reports are released immediately into your electronic medical record. You may view this report before your referring provider. If you have questions, please contact your health care provider. INDICATION: Chest injury from Fall TECHNIQUE: Chest radiograph 1 view COMPARISON: 01/15/2024 FINDINGS: Mediastinum: The right mediastinal border is convex in appearance which may be due to an enlarged tortuous ascending aorta. The cardiac silhouette is moderately enlarged but may be accentuated by the portable technique. There is a left cardiac pacer present with leads in the right atrium and right ventricle. Lung: Mild pulmonary vascular congestion is present with linear scarring seen in the left lateral lower lung zone. Both lung apices are partially excluded. No sign of pleural effusion seen. No pneumothorax is identified. Bone and Soft tissue: Unremarkable for age. IMPRESSIONS: 1. The cardiac silhouette is moderately enlarged but may be accentuated by the portable technique. 2. The right mediastinal border is convex in appearance which may be due to an enlarged tortuous ascending aorta. Dictated by Simba George MD @ 07/19/2025 5:05:57 PM Dictated by: Simba George MD @ 07/19/2025 17:06:11 (Electronically Signed)
[2025-07-19 16:42] LABS: Lymphocytes Absolute Auto 0.70 K/uL (0.90-2.90); Slide Review Reflex No
[2025-07-19 16:46] LABS: Chloride* 101 mmol/L (96-114); Sodium* 137 mmol/L (135-149)
[2025-07-19 16:47] LABS: Potassium* 4.0 mmol/L (3.6-5.1)
[2025-07-19 16:49] LABS: Anion Gap 7 mEq/L (7-15); Blood Urea Nitrogen* 21 mg/dL (7-30); Carbon Dioxide* 29 mmol/L (20-32); Creatinine* 0.6 mg/dL (0.5-1.5); Estimated Glomerular Filt Rate 88 ml/min; INR 1.10 (0.91-1.10); Prothrombin Time 15.0 Seconds
[2025-07-19 16:50] LABS: Calcium* 9.0 mg/dL (8.4-10.6); Glucose* 143 mg/dL (60-115)
--- NOTE | 2025-07-19 17:39 | ED_ITS ---
HPI - Fall General Date Seen: 07/19/25 Chief Complaint: Fall/Minor Trauma Stated Complaint: Hip Fracture Time Seen by Provider: 07/19/25 15:44 Source: patient, EMS, RN notes reviewed and old records reviewed Mode of arrival: EMS Limitations: no limitations History of Present Illness HPI Narrative: Patient is a 85-year-old female who fell at home, after she tripped with her walker. She describes no other pain except her right hip. She tells me she fell down, leave a neighbor called, she was unable to bear weight or walk. She says there is no loss of consciousness or numbness and tingling, and no other injuries of the right hip, EMS had a Heck of a time and was unable to get an IV, they did give her some nasal fentanyl. My nurses were able to establish an IV with ultrasound. She is on Plavix. History of chronic atrial fibrillation, history of mild gait cognitive impairment, history of unstable gait, history osteoporosis, history of primary biliary colic cholangitis. His vehemently DNR DNI, but my discussion. MD complaint: fall Fall from: standing Fall witnessed: no Place fall occurred: home Loss of consciousness: No Prolonged down time: no Symptoms prior to fall: none Context: tripped/slipped Location of injury: pelvis Severity: moderate Associated symptoms (after fall): denies Related Data Home Medications ?Medication ?Instructions ?Recorded ?Confirmed calcium carbonate (Calcium 600) 600 mg PO DAILY 07/19/25 cholecalciferol (vitamin D3) 25 2,000 unit PO DAILY 07/19/25 mcg (1,000 unit) capsule multivitamin (Multiple Vitamins 1 tab PO QAM 07/17/22 07/19/25 tablet) ursodiol 250 mg tablet (GAL 250) 1,000 mg PO QHS 06/2907/19/25 menthol 4 % topical gel (Biofreeze 1 applic topical TI D PRN 09/04/24 07/19/25 (menthol)) clopidogrel 75 mg tablet 75 mg PO QDAY 11/10/2407/19 Previous Rx's ?Medication ?Instructions ?Recorded miscellaneous medical supply #1 ea 12/18/23 rosuvastatin 20 mg tablet 20 mg PO QDAY #90 tabs 07/14 Allergies Allergy/AdvReac Type Severity Reaction Status Date / Time sulfamethoxazole (From Allergy Verified 07/19/25 15:52 Sulfamethoxazole-Trimethoprim) trimethoprim (From Allergy Verified 03/03/25 12:50 Sulfamethoxazole-Trimethoprim) Review of Systems Status of ROS: Reports: 10 or more systems reviewed and unremarkable except as noted in History and below [facility] Medical History History of epistaxis ?Z87.898 - Personal history of other specified conditions (ICD-10) Stenosis of esophagus ?K22.2 - Esophageal obstruction (ICD-10) History of iron deficiency anemia ?Z86.2 - Personal history of diseases of the blood and blood-forming organs and certain disorders involving the immune mechanism (ICD-10) Surgical History History of cataract surgery ?Z98.49 - Cataract extraction status, unspecified eye (ICD-10) History of vein stripping ?Z98.890 - Other specified postprocedural states (ICD-10) History of hysterectomy ?Z90.710 - Acquired absence of both cervix and uterus (ICD-10) History of cholecystectomy ?Z90.49 - Acquired absence of other specified parts of digestive tract (ICD- 10) 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 Daughter Stroke PFO (patent foramen ovale) Mother Stroke Social History What is your current living situation?: I presently have a place to live Problems where you live: no known problems Problems where you live details: none In the past 12 months, utilities in danger of being shut off: no In past 12 months, lack of transportation kept you from medical appts, meetings, work, or getting things needed for daily living: no In the past 12 mos, have been you worried that your food would run out before you had money to buy more?: never true In the past 12 mos, the food you bought just didn't last and you didn't have money to buy more?: never true Smoking Status: Never smoker Do you use any of these nicotine containing products: None Second hand tobacco smoke exposure: No How often do you have a drink containing alcohol: never How often do you have six or more drinks on one occasion: Never AUDIT-C Alcohol total score: 0 Non-prescribed substance use: denies use Caffeine: No How often does anyone, including family, friends and others, physically hurt you : never How often does anyone, including family, friends and others, insult or talk down to you: never How often does anyone, including family, friends and others, threaten you with harm: never How often does anyone, including family, friends and others, scream or curse at you: never service: No Exam Narrative: Exam Narrative: On examination, she is in significant pain involving her right hip with her right leg externally rotated and shortened. DP posterior tibial pulses popliteal pulses are normal there is no tenderness in her knee. No tenderness in her hips. On movement. Alert oriented x3 neck is supple no evidence of any injury over head or neck. Pupils equal round reactive to light her TMs are normal chest is clear heart sounds are normal with an irregularly irregular rhythm. Abdomen is soft there is no guarding no organomegaly. Const: Vital Signs, click to edit/add: Vital Signs - 24 hr 07/19/25 15:48 07/19/25 15:58 07/19/25 16:03 Temperature 97.8 F Pulse Rate 70 Pulse Rate [Pulse Oximeter] 77 Respiratory Rate 14 Blood Pressure 158/69 H Blood Pressure [Ri ght Upper Arm] 176/82 H Pulse Oximetry 88 88 93 Oxygen Delivery Me thod Room Air Nasal Cannula Oxygen Flow Rate 2 07/19/25 16:04 07/19/25 16:15 07/19/25 16:20 Temperature Pulse Rate 70 70 70 Pulse Rate [Pulse Oximeter] Respiratory Rate Blood Pressure Blood Pressure [Ri ght Upper Arm] Pulse Oximetry 97 97 97 Oxygen Delivery Me thod Nasal Cannula Oxygen Flow Rate 2 07/19/25 16:26 07/19/25 16:44 07/19/25 16:45 Temperature Pulse Rate 70 72 71 Pulse Rate [Pulse Oximeter] Respiratory Rate Blood Pressure 141/63 H 149/72 H Blood Pressure [Ri ght Upper Arm] Pulse Oximetry 96 96 97 Oxygen Delivery Me thod Nasal Cannula Oxygen Flow Rate 2 07/19/25 16:46 07/19/25 17:00 07/19/25 17:01 Temperature Pulse Rate 70 70 70 Pulse Rate [Pulse Oximeter] Respiratory Rate Blood Pressure 153/82 H Blood Pressure [Ri ght Upper Arm] Pulse Oximetry 96 95 94 Oxygen Delivery Me thod Oxygen Flow Rate 07/19/25 17:15 07/19/25 17:21 07/19/25 17:30 Temperature Pulse Rate 70 70 70 Pulse Rate [Pulse Oximeter] Respiratory Rate Blood Pressure 149/66 H Blood Pressure [Ri ght Upper Arm] Pulse Oximetry 94 99 93 Oxygen Delivery Me thod Oxygen Flow Rate 07/19/25 17:41 07/19/25 17:45 07/19/25 18:00 Temperature Pulse Rate 70 70 70 Pulse Rate [Pulse Oximeter] Respiratory Rate Blood Pressure 154/70 H Blood Pressure [Ri ght Upper Arm] Pulse Oximetry 93 93 95 Oxygen Delivery Me thod Oxygen Flow Rate 07/19/25 18:01 07/19/25 18:15 Temperature Pulse Rate 70 70 Pulse Rate [Pulse Oximeter] Respiratory Rate Blood Pressure 141/67 H Blood Pressure [Ri ght Upper Arm] Pulse Oximetry 94 94 Oxygen Delivery Me thod Oxygen Flow Rate Course Reevaluation(s) Time of Reevaluation #1: 18:09 Reevaluation #1: Contacted [facility], they are reviewing her case currently at 1743. Time of Reevaluation #2: 18:27 Reevaluation #2: Patient is accepted at the [facility] in [place], to the ER under Dr. Nieves, patient aware that we supply the services here. Requesting another dose of Dilaudid. I then spoke to the patient's daughter, informed her of the transfer request and our ability to do that. Vital Signs Vital signs: Initial Vital Signs Pulse Oximetry 88 07/19/25 15:48 Vital Signs Pulse Oximetry 88 07/19/25 15:48 Temperature 97.8 F 07/19/25 15:58 Pulse Rate 70 07/19/25 18:15 Respiratory Rate 14 07/19/25 15:58 Blood Pressure 141/67 H 07/19/25 18:01 Pulse Oximetry 94 07/19/25 18:15 Oxygen Delivery Method Nasal Cannula 07/19/25 16:45 Oxygen Flow Rate 2 07/19/25 16:45 Medications Administered Medications: Discontinued Medications Generic Name Dose Route Start Last Admin Trade Name May PRN Reason Stop Dose Admin Hydromorphone HCl 0.5 mg 07/19/25 15:47 07/19/25 16:21 Hydromorphone 0.5 Mg/0.5 Ml Inj IVP 07/19/25 15:48 0.5 mg ONCE ONE Administration MDM - Fall MDM Narrative Medical decision making narrative: Patient fell, she clearly has with appears to be a right hip fracture. This is confirmed with an x-ray. Patient is requesting to go to [place], we will contact them and see if this is a possibility. I will then talk to family. Medical Records Attestation: I reviewed the patient's medical records. Lab Data Attestation: I reviewed the patient's lab results. Labs: Lab Results 07/19/25 Range/Units 16:16 WBC 5.81 (4.50-11.00) K/uL RBC 4.42 (4.00-5.20) m/uL Hgb 12.8 (12.0-16.0) gm/dL Hct 39.7 (33.0-51.0) % MCV 90 (80-100) fL MCH 29 (26-34) pg MCHC 32 (32-36) gm/dL RDW Coeff of Rach 13.7 (11.5-15.5) % Plt Count 128 L (140-440) K/uL Neut % (Auto) 77.7 H (42.0-72.0) % Lymph % (Auto) 11.5 L (20-44) % [place] % (Auto) 8.8 (0.0-11.0) % Eos % (Auto) 1.4 (0.0-7.0) % Baso % (Auto) 0.3 (0.0-3.0) % Neut # (Auto) 4.50 (1.7-7.0) K/uL Lymph # (Auto) 0.70 L (0.90-2.90) K/uL [place] # (Auto) 0.50 (0.00-0.90) K/UL Eos # (Auto) 0.08 (0.00-0.50) K/uL Baso # (Auto) 0.02 (0.00-0.30) K/uL Abs Immat Gran (auto) 0.02 (0.00-0.30) K/uL Imm/Tot Granulo (auto) 0.3 % INR 1.10 (0.91-1.10) APTT 31 (23-33) Seconds Sodium 137 (135-149) mmol/L Potassium 4.0 (3.6-5.1) mmol/L Chloride 101 (96-114) mmol/L Carbon Dioxide 29 (20-32) mmol/L Anion Gap 7 (7-15) mEq/L BUN 21 (7-30) mg/dL Creatinine 0.6 (0.5-1.5) mg/dL Estimated GFR 88 ml/min Glucose 143 H (60-115) mg/dL Calcium 9.0 (8.4-10.6) mg/dL Imaging Data Pelvis: Attestation: I have reviewed the pertinent imaging results. My impression: Mildly displaced right trochanteric hip fracture. Pelvis otherwise normal, Radiologist's impression: [place] [address] Diagnostic Imaging Report Patient: Haley Bose MR#: [id number] : 1940 Acct:[id number] Loc: ED Service Date: 07/19/[address]: Ordering Physician: Jose Angel Price M.D. Date of Service: 07/19/25 Procedure(s): XR hip RT min 2V Accession Number(s): [id number] cc: Unique Reed M.D.; Jose Angel Price M.D.~ For Patients: As a result of the 21st Century Cures Act, medical imaging exams and procedure reports are released immediately into your electronic medical record. You may view this report before your referring provider. If you have questions, please contact your health care provider. INDICATION: Right hip pain after fall TECHNIQUE: Pelvis radiograph, Hip radiograph 3 views right COMPARISON: None FINDINGS: Bone: There is a comminuted intertrochanteric fracture of the right proximal femur present with a displaced fragment involving the lesser trochanter. Moderate to severe degenerative disc disease is present at L4-5. Severe diffuse osteopenia is noted. Joint: The hip joints are unremarkable. The visualized sacroiliac joints are unremarkable in appearance. The pubic symphysis is normal in appearance. Soft tissue: Unremarkable. No radiopaque foreign bodies are seen. IMPRESSION: 1. There is a comminuted intertrochanteric fracture of the right proximal femur present with a displaced fragment involving the lesser trochanter. Dictated by Simba George MD @ 07/19/2025 5:05:16 PM Dictated by: Simba George MD @ 07/19/2025 17:05:20 (Electronically Signed) Discharge Plan Discharge Clinical Impression: Closed intertrochanteric fracture of right hip, Fall, Primary biliary cholangitis Patient Disposition: Xfer [place] Condition: Stable Additional Instructions: Transfer to the ER, accepted by the [facility] . Prescriptions: No Action (DME) miscellaneous medical supply Misc See Rx Instructions .Route Qty: 1 0RF Rx Instructions: As directed multivitamin [Multiple Vitamins] Tablet 1 tab PO QAM Biofreeze (menthol) 4 % gel 1 applic topical TID PRN calcium carbonate [Calcium 600] 600 mg calcium (1,500 mg) tablet 600 mg PO DAILY cholecalciferol (vitamin D3) 25 mcg (1,000 unit) capsule 2,000 unit PO DAILY ursodiol [GAL 250] 250 mg tablet 1,000 mg PO QHS clopidogrel 75 mg tablet 75 mg PO QDAY rosuvastatin 20 mg tablet 20 mg PO QDAY Qty: 90 1RF Stand Alone [facility]: [facility] Inst[facility]
== END 2025-07-19 19:05 | disposition short-term general hospital (02) ==
PROVIDERS: Emergency Provider Family Medicine; PCP Internal Medicine
DX: S72.141A Displaced intertrochanteric fracture of right femur, initial encounter for closed fracture (principal); S72.121A Displaced fracture of lesser trochanter of right femur, initial encounter for closed fracture; K74.3 Primary biliary cirrhosis; Z79.02 Long term (current) use of antithrombotics/antiplatelets; W01.0XXA Fall on same level from slipping, tripping and stumbling without subsequent striking against object, initial encounter; Y93.01 Activity, walking, marching and hiking; Y92.009 Unspecified place in unspecified non-institutional (private) residence as the place of occurrence of the external cause; Z66 Do not resuscitate
CPT/HCPCS: 36415; 71045; 73502; 80048; 85025; 85610; 85730; 94761; 96374; 99284; 99285; J1171

== ENCOUNTER 2025-07-19 18:50 | Outpatient (CLI) | payer MEDICARE, BC, SELFPAY | END 2025-07-19 18:51 | disposition home or self-care (01) | LOC: AMB 07-27 13:58 | PROVIDERS: PCP Internal Medicine; Visit Provider Family Medicine | DX: S72.141A Displaced intertrochanteric fracture of right femur, initial encounter for closed fracture (principal) | CPT/HCPCS: A0425; A0434 ==